=== PATIENT | male | born 1950 | race Caucasian/White ===

== ENCOUNTER 2020-09-17 16:33 | Observation (INO) | payer MEDICARE, OTHER, SELFPAY ==
[2020-09-17] VITALS (12 sets, daily range): BP systolic 173–206; BP diastolic 85–104; PULSE 62–76; RESP 16–24; TEMP 36.6–37.1; O2SAT 94–97; BMI 29.6; BMI 28.3; BMI 28.4
--- NOTE | 2020-09-17 16:46 | CT_ITS ---
We are attempting to reach an attending provider to discuss findings. An addendum with communication details will be sent when the communication is complete. STUDY: CT HEAD STROKE PROTOCOL W/O CONTRAST INJECTION REASON FOR EXAM: Male, 70 years old. STROKE, SLURRED SPEECH RADIATION DOSAGE (If Supplied By Facility): CTDIvol = ( 44.99 ) mGy, DLP = ( 846.73 ) mGycm TECHNIQUE: Transaxial CT imaging of the brain was performed without administration of intravenous contrast material. Individualized dose optimization techniques were used for this CT. COMPARISON: No relevant priors. FINDINGS: Normal soft tissue structures. Normal calvarium. Calcification of cavernous carotids and vertebral arteries. Mild atrophy and periventricular white matter ischemic changes.. Normal basal ganglia and thalami. Normal brainstem. Encephalomalacia in the left cerebellar hemisphere consistent with old infarct.. There is no intracranial hemorrhage. There are no findings of an acute ischemic infarction. Normal visualized paranasal sinuses. CT/STROKE Brain/Head without Cont IMPRESSION: Mild atrophy and periventricular white matter ischemic changes with old left cerebellar infarct. No evidence for acute bleed. If concern for acute infarct MRI recommended Electronically Signed: Christian Chen MD at 17:03 EST , Service support ,
--- NOTE | 2020-09-17 16:46 | EKG12_ITS ---
Test Reason : DYSRHYTHMIA Blood Pressure : / mmHG Vent. Rate : 071 BPM Atrial Rate : 071 BPM P-R Int : 156 ms QRS Dur : 138 ms QT Int : 432 ms P-R-T Axes : 010 -48 057 degrees QTc Int : 469 ms Normal sinus rhythm with sinus arrhythmia Left axis deviation Left ventricular hypertrophy with QRS widening Abnormal ECG Confirmed by NILO MOTA, KENYON ([id number]), clinical editor KARIE GONZALEZ ([id number]) on 09/19/2020 9:41:26 AM Referred By: Wesley Canseco Confirmed By:KENYON CORCORAN MD
--- NOTE | 2020-09-17 17:13 | CM.ED ---
Social Work responding to stroke alert. patient spouse, Alisha present. Support provided. Patient typically independent in the community. Will continue to follow as needed. Sunshine Milner MSW, DEDRA-S
[2020-09-17 17:26] LABS: Basophil# 0.05 X10^3/uL; Eosinophil# 0.02 X10^3/uL; Eosinophils% 0.4 % (0-5); Hematocrit 38.5 % (40-54); Hemoglobin 12.1 g/dL (13.0-16.5); Lymphocyte % 11.4 % (19-41); Mean Corp Hgb Conc 31.4 g/dL (32-36); Mean Corpuscular Hgb 28.9 pg (27.0-32.0); Mean Corpuscular Volume 91.9 fL (80-94); Mean Platelet Vol. 10.3 fl (6.2-12.0); Monocyte# 0.62 X10^3/uL; Monocyte% 11.8 % (0-10); NRBC Flagged by Analyzer 0 % (0-5); Neutrophil # 3.96 X10^3/uL (2.7-7.7); Neutrophil % 75.2 % (47-70); POSITIVE DIFFERENTIAL YES; Platelet Count 196 K/mm3 (150-450); RBC Distribution Width CV 15.5 % (11.6-14.6); RBC Distribution Width SD 51.6 fl (35.1-43.9); Red Blood Count 4.19 M/mm3 (4.6-6.2); White Blood Count 5.3 K/mm3 (4.4-11.0)
--- NOTE | 2020-09-17 17:30 | RAD_ITS ---
STUDY: X-RAY CHEST REASON FOR EXAM: Male, 70 years old. slurred speech TECHNIQUE: AP portable COMPARISON: None. FINDINGS: Lungs are mildly hyperinflated but clear.. There is no demonstrated pleural abnormality. Normal size heart. Normal mediastinum and carolyn. Normal visualized pulmonary arteries. Mildly calcified aortic arch and descending thoracic aorta. Dorsal spine demonstrates mild degenerative change. Normal visualized ribs, clavicles, and shoulders. There is no demonstrated abnormality of the visualized soft tissue structures of the upper abdomen. RAD/Chest 1 View IMPRESSION: No acute cardiopulmonary pathology Electronically Signed: Christian Chen MD at 18:16 EST , Service support ,
[2020-09-17 17:31] LABS: Differential Indicated SCAN CRITERIA MET
[2020-09-17 17:35] LABS: International Normalized Ratio 1.1; Prothrombin Time (Protime)PT. 13.2 SECONDS (11.7-14.9)
[2020-09-17 17:36] LABS: Partial Thromboplast Time 26.5 Seconds (24.1-36.2)
[2020-09-17 17:42] LABS: Anion Gap 1 (5-15); BUN 22 mg/dL (7-18); BUN/Creat Ratio 13.9 RATIO (10-20); Calcium,Total 8.7 mg/dL (8.5-10.1); Chloride 109 mmol/L (98-107); Creatinine, Serum 1.58 mg/dL (0.70-1.30); EST Glomerular Filtration Rate 46 mL/min (>60); Est Glom Filt Rate - Afr Amer 56 mL/min (>60); Estimated Creatinine Clearance 47.76 ml/min; Glucose 105 mg/dL (74-106); Potassium 3.9 mmol/L (3.5-5.1); Sodium Level 142 mmol/L (136-145)
--- NOTE | 2020-09-17 18:18 | ED.VISSUMM ---
- ER Visit Summary Date of Service: 09/17/20 Chief Complaint: Slurred speech History of Present Illness: The patient is a [address] Eden. He presented there this afternoon he had the onset of slurred speech. He denies any numbness, weakness, facial droop, vertigo, or change in his vision. Patient has a history of a kidney transplant 2-1/2 years ago. Physical Examination: Vitals: Stable. Afebrile. General: Well-nourished and well-developed. Head: Normocephalic atraumatic. Neck: Supple, no lymphadenopathy. No JVD. Nontender. Cardiovascular: Regular rate and rhythm. No murmurs. Respiratory: No respiratory distress. Clear to auscultation bilaterally. Abdominal: Soft, nontender, nondistended, normal bowel sounds. No guarding, rebound, or peritoneal signs. Back: Nontender. Extremities: Nontender, no edema. Skin: Normal color, no rash. Neurologic: Alert and oriented ?3. Cranial nerves II through XII are intact. Normal strength and sensation. NIH scale is 1 for dysarthria. Psych: Normal affect. Test Results: EKG is sinus at 71 with left bundle branch block. Is unchanged from 2017. Troponin is negative. Coags are normal. Chem-7 shows a chloride of 109, BUN 20, creatinine 1.58. CBC shows an H&H 12.1 38.5, 7 neutrophils 75, facets of 11, monocytes of 12. Clinical Impression(s) from Imaging Studies Brain CT 09/17/20 16:46 IMPRESSION: Mild atrophy and periventricular white matter ischemic changes with old left cerebellar infarct. No evidence for acute bleed. If concern for acute infarct MRI recommended Electronically Signed: Christian Chen MD at 17:03 EST , Service support , ADDENDUM: 09/17/20 1711 IMPRESSION: Mild atrophy and periventricular white matter ischemic changes with old left cerebellar infarct. No evidence for acute bleed. If concern for acute infarct MRI recommended N.B. : The above information has been verbally conveyed by Christian Chen MD to Curtis Cornell MD, on 09/17/2020 17:04:47 (ET). Electronically Signed: Christian Chen MD at 17:03 EST , Service support , Chest X-Ray 09/17/20 17:30 IMPRESSION: No acute cardiopulmonary pathology Electronically Signed: Christian Chen MD at 18:16 EST , Service support , Emergency Department Course and Treatment: Stroke alert was called. Patient was seen by the neurologist from [facility]. He is not a TPA candidate due to minor symptoms and slurred speech. At this time it is felt that is very unlikely that he has an LVO and that the risk of a CTA is not warranted. Treatment Plan: Patient was discussed Dr. Canseco. He will be admitted the hospital for further wish and treatment. Disposition: Admitted in stable condition. Impression: 1. Stroke. 2. History of kidney transplant. This note was generated with [employer] dictation software. It may contain incorrect words, spelling, and punctuation that were not noted in review of the chart prior to signing ED Disposition - Plan for ED Patient:
--- NOTE | 2020-09-17 18:44 | PCM.HP.STD ---
Problem List (1) CVA (cerebral vascular accident) Status: Acute (2) Renal transplant recipient Status: Chronic (3) Diabetes Status: Chronic Qualifiers: Diabetes mellitus type: type 2 (4) HTN (hypertension) Status: Chronic (5) Orthostatic hypotension Status: Chronic History of Present Illness Date of Admission: 09/17/20 Chief Complaint: slurred speech The patient is a 70 year old M with pmhx of uncontrolled hypertension and marked orthostatic hypotension with BP meds, hx renal transplant, hx DM in on license of [facility] post bariatric surgery, who presented to the ER with c/o slurred speech. This began about 1445. He was handed the phone to talk to someone and could not form words correctly - his speech was highly slurred. After about 20 mins of his called his PCP who told him to go to the ER. At the time he had no other complaints. He denies focal weakness, facial droop, difficulty ambulating, visual disturbance. In the ER CT brain showed an old stroke. He is not aware of every having a stroke in the past. His speech has markedly improved however it is not back to baseline. [] Past Medical History Past Medical History (Chronic Problems): Chronic Problems Renal transplant recipient (Chronic) Diabetes (Chronic) HTN (hypertension) (Chronic) Orthostatic hypotension (Chronic) Allergies amoxicillin Allergy (Verified 09/17/20 16:42) Unknown morphine Allergy (Verified 09/17/20 16:42) Other ursodiol Allergy (Verified 09/17/20 16:42) Rash exenatide [From Byetta] Adverse Reaction (Verified 09/17/20 16:42) Nausea Home Medications: Ambulatory Orders Medication Instructions Recorded Acyclovir [Zovirax] 400 mg PO BID PRN PRN 12/08/13 Finasteride [Proscar] 5 mg PO DAILY 12/08/13 Calcitriol [Rocaltrol] 0.25 mcg PO QODAY 04/21/17 Aspirin [Aspirin EC] 81 mg PO DAILY@0900 09/17/20 Calcium Citrate/Vitamin D3 1 tab PO 5X/DAY 09/17/20 [Calcium Citrate - Vit D Tablet] Carvedilol [Coreg (Beta Karrie)] 3.125 mg PO BID 09/17/20 Cholecalciferol (Vitamin D3) 5,000 unit PO Q72H 09/17/20 [Vitamin D3] Cyanocobalamin (Vitamin B-12) 500 mcg PO DAILY@0900 09/17/20 [Vitamin B-12] Ferrous Gluconate 324 mg PO DAILY 09/17/20 Folic Acid 1 mg PO LUNCH 09/17/20 Magnesium Oxide [Magnesium] 400 mg PO TID 09/17/20 Mycophenolate Mofetil 250 mg PO BID 09/17/20 Prednisone 5 mg PO DAILY 09/17/20 Pyridoxine HCl [Vitamin B-6] 200 mg PO BID 09/17/20 Spironolactone [Aldactone] 25 mg PO MOWEFR 09/17/20 Sulfamethoxazole/Trimethoprim 1 tab PO DAILY 09/17/20 [Sulfamethoxazole-Tmp Ss Tablet] Tacrolimus 2 mg PO DAILY@2100 09/17/20 Tacrolimus 3 mg PO DAILY@0900 09/17/20 Surgical History: gastric bypass, - - kidney transplant Psychiatric History: No pertinent psych hx Lives: Spouse/ Significant Other Smoking Status: Never smoker Tobacco Use: Non-smoker Alcohol: None Drugs: None - *Family History Maternal History Items: Cancer - breast Paternal History Items: Heart Disease - CHF, Stroke Review of Systems Constitutional: Denies: Chills, Fever, Weight Change HEENT: Denies: Head Aches, Sinus Congestion, Sinus Drainage Cardiovascular: Denies: Chest Pain, Heaviness, Light Headedness, Palpitations Respiratory: Denies: Cough, Shortness of breath at rest, Sputum production Gastrointestinal: Denies: Abdominal Pain, Nausea, Vomiting Genitourinary: Denies: Dysuria, Hesitancy, Urgency Musculoskeletal: Denies: Joint Pain, Joint Tenderness, Muscle pain Skin: Denies: Lesions, Rash, Wounds Neurological: Reports: Change in Speech, Slurred speech. Denies: Balance problems, Blurred vision, Confusion, Focal weakness, Headaches, Numbness, Tingling Psychiatric: Denies: Anxiety, Depression, Homicidal Ideations, Suicidal Ideations Hematologic/ Lymphatic: Denies: Easy Bruising, Easy Bleeding VTE Information - Inpt Only VTE Present on Admission: No VTE Mechan Device Prophylaxis: None VTE Pharm Prophylaxis ordered?: Yes - Physical Exam Vitals/I&O's: Vital Signs Temp Pulse Resp BP Pulse Ox 97.9 F 68 16 187/94 H 96 09/17/20 18:31 09/17/20 18:34 09/17/20 18:34 09/17/20 18:34 09/17/20 18:34 Oxygen Delivery Method Room Air Weight: 224 lb 13.944 oz Body Mass Index (BMI) 29.6 Finger Stick Blood Glucose 115 General: Alert, Oriented x3, Cooperative HEENT: Atraumatic, PERRLA, EOMI, Normocephalic Neck: Supple, No JVD, Negative Carotid Bruits Lungs: Clear to auscultation, Normal air movement Cardiovascular: Regular rate, No murmurs Abdomen: Bowel Sounds Present, Soft, Non Tender Extremities: No edema, Capillary Refill Less than 3 Seconds Skin: No rashes, No breakdown Musculoskeletal: No Tenderness to Palpation of Joints or Extremities Neurological: Cranial nerves II-XII grossly intact Psych/Mental Status: Normal Affect, Appropriate Laboratory Results 09/17/20 17:00: WBC 5.3, RBC 4.19 L, Hgb 12.1 L, Hct 38.5 L, MCV 91.9, MCH 28.9, MCHC 31.4 L, RDW Std Deviation 51.6 H, RDW Coeff of Lacy 15.5 H, Plt Count 196, MPV 10.3, Immature Gran % (Auto) 0.200, Neut % (Auto) 75.2 H, Lymph % (Auto) 11.4 L, [place] % (Auto) 11.8 H, Eos % (Auto) 0.4, Baso % (Auto) 1.0, Absolute Neuts (auto) 4.0, Absolute Lymphs (auto) 0.60 L, Nucleated RBC % 0 09/17/20 17:00: PT 13.2, INR 1.1, APTT 26.5 09/17/20 17:00: Sodium 142, Potassium 3.9, Chloride 109 H, Carbon Dioxide 32.0, Anion Gap 1 L, BUN 22 H, Creatinine 1.58 H, Estim Creat Clear Calc 47.76, Est GFR (MDRD) Af Amer 56 L, Est GFR (MDRD) Non-Af 46 L, BUN/Creatinine Ratio 13.9, Glucose 105, Calcium 8.7, Troponin I < 0.015 Current Medications Labetalol HCl (Labetalol (Prefilled) 20 Mg/4 Ml) 20 mg IV X1 PRN PRN Reason: BLOOD PRESSURE Assessment/Plan All Active Problems CVA (cerebral vascular accident) (Acute) 1. Acute CVA - slurred speech onset about 1445. Improving at this time. CT brain with old left cerebellar infarct unknown to pt. No CTA due to kidney transplant recipient status. Pt already on aspirin. Add statin. Obtain MRI brain, neuro consult in AM, Echo in AM. Check FLP. Check A1C. PT/OT/ST evals. Neurochecks q4h. 2. Hx kidney transplant - per [facility], 2018, continue tacrolimus, mycephenolate, prednisone, bactrim, acyclovir 3. 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 Uncontrolled HTN - pt states it is normal for his BP to be in 180's systolic because if he takes any BP meds he gets marked orthostatic hypotension. He states he has seen a neurologist for this in the past. DVT ppx: heparin DC planning: PTOT evals. no new debility, likely home no needs with neuro follow up This patient was seen by Rafy Coronel PA-C under the supervision of Dr. Canseco
[2020-09-17] MEDS: Mycophenolate Mofetil 250 MG Capsule PO (21:35)
[2020-09-17] MEDS: Tacrolimus Anhydrous 1 MG Capsule 2 MG PO (21:36)
[2020-09-17] MEDS: Carvedilol 6.25 MG Tablet 3.125 MG PO (21:37)
[2020-09-17] MEDS: Heparin Injection (Vial) 5,000 UNIT/ML VIAL 5000 UNIT SC (21:40)
[2020-09-17] MEDS: Atorvastatin Calcium 80 MG Tablet PO (21:40)
[2020-09-18] VITALS (7 sets, daily range): BP systolic 158–182; BP diastolic 67–82; PULSE 61–70; RESP 15–18; TEMP 36.8–37.2; O2SAT 94–96; BMI 28.3
[2020-09-18 07:39] LABS: Cholesterol 190 mg/dL (200); High Density Lipoprotein 72 mg/dL; Triglycerides 70 mg/dL; Very Low Density Lipoprotein 14 mg/dL (5-40)
--- NOTE | 2020-09-18 08:30 | MRI_ITS ---
STUDY: MRA OF THE HEAD WITHOUT CONTRAST REASON FOR EXAM: Male, 70 years old. Dysarthria, slurred speech TECHNIQUE: 3-D odcv-oy-wytcmy (TOF) imaging was performed with MIPs. The study was performed unenhanced. COMPARISON: None. FINDINGS: Normal bilateral petrous carotid arteries. Normal right cavernous carotid artery with a normal supraclinoid bifurcation. Normal left cavernous carotid artery with a normal supraclinoid bifurcation. Normal right A1 segments of the anterior cerebral artery. Normal left A1 segments of the anterior cerebral artery. There is non-visualization of the anterior communicating artery (ACOM). Normal bilateral A2 segments of the anterior cerebral arteries. Normal right M1 and M2 segments of the middle cerebral arteries, with a normal M1 bifurcation. Normal left M1 and M2 segments of the middle cerebral arteries, with a normal M1 bifurcation. Normal right posterior communicating artery (PCOM). Normal left posterior communicating artery (PCOM). Normal bilateral vertebral arteries. Normal basilar artery with a normal basilar bifurcation. The visualized bilateral superior cerebellar (SCA) arteries are normal. Normal bilateral P1, P2 and visualized P3 segments of the posterior cerebral arteries. There is no demonstrated aneurysm of the grayling of [place]. There is no major vessel occlusion or hemodynamically significant stenosis. There is no demonstrated abnormality of the visualized brain. MRI/MRA Head ONLY without Contrast IMPRESSION: Normal MRA of the head Electronically Signed: Edmundo Heart MD at 10:38 EST Tel , Service support ,
--- NOTE | 2020-09-18 08:30 | MRI_ITS ---
STUDY: MRA NECK WITHOUT CONTRAST REASON FOR EXAM: Male, 70 years old. Dysarthria TECHNIQUE: Source images were obtained, MIPs were performed. The study was performed unenhanced. COMPARISON: None. FINDINGS: RIGHT CAROTID ARTERIES: Normal right common carotid artery (CCA). Normal right common carotid bulb. Normal origin of the right internal carotid (ICA) artery without a hemodynamically significant stenosis. Normal visualized cervical portion of the right internal carotid artery. Normal origin of the right external carotid artery (ECA). LEFT CAROTID ARTERIES: Normal left common carotid artery (CCA). Normal left common carotid bulb. Normal origin of the left internal carotid (ICA) artery without a hemodynamically significant stenosis. Normal visualized cervical portion of the left internal carotid artery. Normal origin of the left external carotid artery (ECA). VERTEBRAL ARTERIES: Normal antegrade flow within the bilateral vertebral artery without a hemodynamically significant stenosis. MRI/MRA Neck without Contrast IMPRESSION: Normal bilateral cervical carotid and vertebral arteries. Electronically Signed: Edmundo Heart MD at 10:40 EST Tel , Service support ,
--- NOTE | 2020-09-18 08:30 | MRI_ITS ---
We are attempting to reach an attending provider to discuss findings. An addendum with communication details will be sent when the communication is complete. STUDY: MRI BRAIN WITHOUT CONTRAST REASON FOR EXAM: Male, 70 years old. Dysarthria, slurred speech TECHNIQUE: Standardized multiplanar fat and water weighted pulse sequences were obtained. COMPARISON: CT 09/17/2020 FINDINGS: There is mild cerebral atrophy with widening of the extra-axial spaces and ventricular dilatation. There are a limited number of small white matter hyperintensities, distributed throughout the deep white matter tracts of the cerebral hemispheres, consistent with mild chronic white matter ischemic changes. 1 cm linear of hyperintensity of the periventricular white matter of the left parietal lobe demonstrates restricted diffusion consistent with an acute/subacute white matter infarct. Normal T2* images of the brain without demonstrated susceptibility artifact. There is no demonstrated hemosiderin stain. Normal bilateral basal ganglia. Normal thalami. There is no extra-axial fluid accumulation. Normal flow voids within the major intracranial circulation suggesting patency by spin echo criteria. Normal sella turcica, pituitary gland, infundibular stalk, optic chiasm and hypothalamus. Normal tectal plate and pineal gland. Normal midbrain, zoey and medulla. Focal encephalomalacia and gliosis within the left hemisphere of the cerebellum likely from a prior infarct. Normal basal cisterns. Normal bilateral temporal bones. Normal bilateral internal auditory canals. No demonstrated orbital abnormality, within the constraints of a routine brain study. Normal visualized paranasal sinuses. Normal calvarium and skull base. Normal visualized soft tissue structures. Normal visualized upper cervical spine. MRI/Brain without Contrast IMPRESSION: Involutional changes of the brain, as described above. 1 cm acute/subacute linear infarct of the periventricular white matter of the left parietal lobe. Electronically Signed: Edmundo Heart MD at 10:35 EST Tel , Service support ,
[2020-09-18 08:36] LABS: Bedside Glucose 115 mg/dL (70-110)
[2020-09-18] MEDS: Carvedilol 6.25 MG Tablet 3.125 MG PO (08:42)
[2020-09-18] MEDS: Heparin Injection (Vial) 5,000 UNIT/ML VIAL 5000 UNIT SC (08:42)
[2020-09-18] MEDS: Smz/Tmp Ds Tablet 0.5 TABLET PO (08:43)
[2020-09-18] MEDS: Aspirin E.C. 81 MG Tablet PO (08:43)
[2020-09-18] MEDS: Tacrolimus Anhydrous 1 MG Capsule 3 MG PO (08:44)
[2020-09-18] MEDS: Spironolactone 25 MG Tablet PO (08:44)
[2020-09-18] MEDS: Mycophenolate Mofetil 250 MG Capsule PO (08:44)
--- NOTE | 2020-09-18 10:09 | CDU_ITS ---
Rt. Velocities/BP Lt. Velocities/BP Prox CCA 79.9/5.6 cm/sec. Prox CCA 86/10.2 cm/sec. Mid CCA 61.9/8 cm/sec. Mid CCA 70.6/9.1 cm/sec. Dist CCA 53.1/4.7 cm/sec. Dist CCA 58.6/10.2 cm/sec. Prox ICA 42.1/9.1 cm/sec. Prox ICA 40.4/6.4 cm/sec. Mid ICA 52/13.5 cm/sec. Mid ICA 52.6/9.9 cm/sec. Dist ICA 67.4/14.6 cm/sec. Dist ICA 64.8/14.2 cm/sec. Rt. ICA/CCA = 1.1. Lt. ICA/CCA = 0.92. Prox ECA 65.1/2.5 cm/sec. Prox ECA 81.6 cm/sec. Rt. Vert. 39/8.8 cm/sec. Lt. Vert. 51.7/11.6 cm/sec. Right Extracranial There is homogeneous, smooth atherosclerotic plaque noted in the right common carotid artery. There is heterogeneous, irregular atherosclerotic plaque noted in the right internal carotid artery. There is homogeneous, smooth atherosclerotic plaque noted in the right external carotid artery. Antegrade flow is noted in the right vertebral artery. Left Extracranial There is homogeneous, smooth atherosclerotic plaque noted in the left common carotid artery. There is heterogeneous, irregular atherosclerotic plaque noted in the left internal carotid artery. There is homogeneous, smooth atherosclerotic plaque noted in the left external carotid artery. Antegrade flow is noted in the left vertebral artery. Procedure Carotid Duplex 43310. This is a Carotid Duplex examination using B-mode, color flow and specral Doppler. Exam performed in department. Interpretation Summary Minimal calcific plaque at the proximal right internal carotid artery with less than 50% stenosis Less than 5% stenosis right external carotid Minimal calcific plaque at the proximal left internal carotid with less than 50% stenosis Less than 50% stenosis left external carotid Patent and antegrade vertebrals bilaterally Ordering Physician: Rafy Coronel Referring Physician: James Eden Performed By: Bee Stanton RVT
--- NOTE | 2020-09-18 10:44 | TELEMED_ITS ---
[facility] has confirmed receipt of a request for visit. This document confirms receipt of the order initiating the consult. To find the results of the consultation, please view the patient's reports for the scanned Telemed Consult.
--- NOTE | 2020-09-18 11:53 | CASEMGMT ---
SW completed a PHQ 9 with patient as he had a TIA. He scored a 2 which indicates minimal depression. Patient denied the need for any counseling resources. Alma COLMENARES MSW
--- NOTE | 2020-09-18 11:59 | CASEMGMT ---
GABRIEL CM Note: Script for outpatient PT @ [facility] received. Faxed to [facility] and called to notify of referral. They will contact pt in next few days for time set up. Nurse will update patient on dc. Isha ALEMAN RN ACM
--- NOTE | 2020-09-18 14:36 | PCM.DC ---
- Discharge Diagnoses Current Active Problems: Current Active and Chronic Problems CVA (cerebral vascular accident) (Acute) Renal transplant recipient (Chronic) Diabetes (Chronic) HTN (hypertension) (Chronic) Orthostatic hypotension (Chronic) You will use the following diet at home:: Calorie/Carbohydrate Controlled (specify 1200, 1400, etc) - 1800 gustavo / day, Cardiac Your food should be the consistency of: Regular Your liquids should be the consistency of: Regular/Thin Discharge Activity: Return to Normal Activity Additional Instructions: You will take both Aspirin 81 mg and Plavix (clopidogrel) 75 mg daily for 21 days. After 21 days, stop taking aspirin, but continue to take plavix daily. Allergies/Adverse Reactions: Allergies amoxicillin Allergy (Verified 09/17/20 16:42) Unknown morphine Allergy (Verified 09/17/20 16:42) Other ursodiol Allergy (Verified 09/17/20 16:42) Rash exenatide [From Byetta] Adverse Reaction (Verified 09/17/20 16:42) Nausea Medications to take at Discharge Acyclovir [Zovirax] 400 mg PO BID PRN PRN 12/08/13 Finasteride [Proscar] 5 mg PO DAILY 12/08/13 Calcitriol [Rocaltrol] 0.25 mcg PO QODAY 04/21/17 Aspirin [Aspirin EC] 81 mg PO DAILY@0900 09/17/20 Calcium Citrate/Vitamin D3 [Calcium Citrate - Vit D Tablet] 1 tab PO 5X/DAY 09/17/20 Carvedilol [Coreg (Beta Karrie)] 3.125 mg PO BID 09/17/20 Cholecalciferol (Vitamin D3) [Vitamin D3] 5,000 unit PO Q72H 09/17/20 Cyanocobalamin (Vitamin B-12) [Vitamin B-12] 500 mcg PO DAILY@0900 09/17/20 Ferrous Gluconate 324 mg PO DAILY 09/17/20 Folic Acid 1 mg PO LUNCH 09/17/20 Magnesium Oxide [Magnesium] 400 mg PO TID 09/17/20 Mycophenolate Mofetil 250 mg PO BID 09/17/20 Prednisone 5 mg PO DAILY 09/17/20 Pyridoxine HCl [Vitamin B-6] 200 mg PO BID 09/17/20 Spironolactone [Aldactone] 25 mg PO MOWEFR 09/17/20 Sulfamethoxazole/Trimethoprim [Sulfamethoxazole-Tmp Ss Tablet] 1 tab PO DAILY 09/17/20 Tacrolimus 2 mg PO DAILY@2100 09/17/20 Tacrolimus 3 mg PO DAILY@0900 09/17/20 Atorvastatin Calcium [Lipitor] 80 mg PO QHS #30 tab 09/18/20 Clopidogrel Bisulfate [Plavix] 75 mg PO DAILY #30 tab 09/18/20 The following prescriptions were given: Atorvastatin Calcium [Lipitor] 80 mg PO QHS #30 tab Transmission Status: Pending to [address] Clopidogrel Bisulfate [Plavix] 75 mg PO DAILY #30 tab Transmission Status: Pending to [place] [id number] [facility] Orders to be completed after discharge: Cardiac Holter Monitor, Set-Up [[facility]] Time Frame: 09/18/20, Location: None Selected Primary Care Physician: James Eden MD [Primary Care Provider] - Please follow up with your Primary Care Physician in: 1-2 weeks Test Results: Test results from this visit will be discussed in further detail at your follow-up appointment, if applicable. Please Follow Up With: Chaparro Mendoza MD - Neurology When: 2 weeks Please Follow Up With: Denis Pitts MD When: call for appointment Proposed Discharge Date: 09/18/20
--- NOTE | 2020-09-18 14:38 | DS.PCM_ITS ---
<Rafy Coronel - Last Filed: 09/18/20 14:38> Discharge Date and Diagnosis - Problem List Patient Problems: Active and Suspected Problems CVA (cerebral vascular accident) (Acute) Date of Admission: 09/17/20 Date of Discharge: 09/18/20 - Primary Discharge Diagnosis Acute Problems: Active Problems CVA (cerebral vascular accident) (Acute) - 1 cm acute/subacute linear infarct of the periventricular white matter of the left parietal lobe - Secondary Discharge Diagnosis Chronic Problems: Chronic Problems Renal transplant recipient (Chronic) Diabetes (Chronic) HTN (hypertension) (Chronic) Orthostatic hypotension (Chronic) Hospital Course and Treatment Imaging Results: CT/STROKE Brain/Head without Cont IMPRESSION: Mild atrophy and periventricular white matter ischemic changes with old left cerebellar infarct. No evidence for acute bleed. If concern for acute infarct MRI recommended MRI/Brain without Contrast IMPRESSION: Involutional changes of the brain, as described above. 1 cm acute/subacute linear infarct of the periventricular white matter of the left parietal lobe. RAD/Chest 1 View IMPRESSION: No acute cardiopulmonary pathology MRI/MRA Head ONLY without Contrast IMPRESSION: Normal MRA of the head MRI/MRA Neck without Contrast IMPRESSION: Normal bilateral cervical carotid and vertebral arteries. 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 This started suddenly at home when he attempted to use the phone. He was brought to the ER and CT brain was negative for acute stroke. He had marked improvement in his speech in the ER. He was not felt to be a tPA candidate. He was admitted for stroke workup. No events on tele. MRI brain was obtained and did show an acute infarct as above. MRA head and neck without contrast were obtained without occlusion. Carotid US was obtained as no contrast could be given with MRA. Results are pending. Echo is pending. He continued to have minimal symptoms. Neuro was consulted. They recommended aspirin, plavix, and statin. As he was on aspirin prior to this, they recommended 3 weeks dual anti platelets followed by switching to plavix only. They recommended 48 hour monitor as well, which was arranged via Dr. Pitts. He was discharged home in stable condition. He will follow up with his PCP in 1-2 weeks, Neurology 2 weeks, and Cardiology as directed for the 48 hour monitor. This patient was seen by Rafy Coronel PA-C under the supervision of Doctor Usman. [] Patient Problems: Active and Suspected Problems CVA (cerebral vascular accident) (Acute) - Physical Exam Vitals/I&O's: Vital Signs Temp Pulse Resp BP Pulse Ox 98.9 F 66 18 171/81 H 96 09/18/20 14:30 09/18/20 14:30 09/18/20 14:30 09/18/20 14:30 09/18/20 14:30 Oxygen Delivery Method Room Air Weight: 215 lb Body Mass Index (BMI) 28.3 Finger Stick Blood Glucose 115 Intake and Output for Last 24 Hours 09/16/20 09/17/20 09/18/20 23:59 23:59 23:59 Intake Total 840 / 840 Balance 840 / 840 General: Alert, Oriented x3, Cooperative HEENT: Atraumatic, PERRLA, EOMI, Normocephalic Neck: Supple, No JVD, Negative Carotid Bruits Lungs: Clear to auscultation, Normal air movement Cardiovascular: Regular rate, No murmurs Abdomen: Bowel Sounds Present, Soft, Non Tender Extremities: No edema, Capillary Refill Less than 3 Seconds Skin: No rashes, No breakdown Musculoskeletal: No Tenderness to Palpation of Joints or Extremities Neurological: Cranial nerves II-XII grossly intact, Slurred Speech - mild, primarily S sound Psych/Mental Status: Normal Affect, Appropriate, Alert and oriented to time, place, person, mood and affect Laboratory Results 09/17/20 16:34: POC Glucose 115 H 09/17/20 17:00: WBC 5.3, RBC 4.19 L, Hgb 12.1 L, Hct 38.5 L, MCV 91.9, MCH 28.9, MCHC 31.4 L, RDW Std Deviation 51.6 H, RDW Coeff of Lacy 15.5 H, Plt Count 196, MPV 10.3, Immature Gran % (Auto) 0.200, Neut % (Auto) 75.2 H, Lymph % (Auto) 11.4 L, Bleckley % (Auto) 11.8 H, Eos % (Auto) 0.4, Baso % (Auto) 1.0, Absolute Neuts (auto) 4.0, Absolute Lymphs (auto) 0.60 L, Nucleated RBC % 0 09/17/20 17:00: PT 13.2, INR 1.1, APTT 26.5 09/17/20 17:00: Sodium 142, Potassium 3.9, Chloride 109 H, Carbon Dioxide 32.0, Anion Gap 1 L, BUN 22 H, Creatinine 1.58 H, Estim Creat Clear Calc 47.76, Est GFR (MDRD) Af Amer 56 L, Est GFR (MDRD) Non-Af 46 L, BUN/Creatinine Ratio 13.9, Glucose 105, Calcium 8.7, Troponin I < 0.015 09/18/20 06:40: Triglycerides 70, Cholesterol 190, LDL Cholesterol 104, VLDL Cholesterol 14, HDL Cholesterol 72 Current Medications Aspirin (Aspirin E.C. 81 Mg Tablet) 81 mg PO DAILYCM [facility] Last Admin: 09/18/20 08:43 Dose: 81 mg Documented by: Atorvastatin Calcium (Atorvastatin Calcium 80 Mg Tablet) 80 mg PO QHS [facility] Last Admin: 09/17/20 21:40 Dose: 80 mg Documented by: Carvedilol (Carvedilol 6.25 Mg Tablet) 3.125 mg PO BID [facility] Last Admin: 09/18/20 08:42 Dose: 3.125 mg Documented by: Heparin Sodium (Porcine) (Heparin Injection (Vial) 5,000 Unit/Ml Vial) 5,000 unit SC Q12 [facility] Last Admin: 09/18/20 08:42 Dose: 5,000 unit Documented by: Hydralazine HCl (Hydralazine 20 Mg/Ml Vial) 5 mg IV Q30M PRN PRN Reason: to maintain BP goals Labetalol HCl (Labetalol (Prefilled) 20 Mg/4 Ml) 10 - 20 mg IV Q10M PRN PRN PRN Reason: to Maintain BP Goals Mycophenolate Mofetil (Mycophenolate Mofetil 250 Mg Capsule) 250 mg PO BID [facility] Last Admin: 09/18/20 08:44 Dose: 250 mg Documented by: Sodium Chloride (0.9% Saline Lock 10 Ml Syringe) 10 - 40 ml IV UD PRN PRN Reason: SALINE FLUSH Spironolactone (Spironolactone 25 Mg Tablet) 25 mg PO MOWEFR [facility] Last Admin: 09/18/20 08:44 Dose: 25 mg Documented by: Tacrolimus (Tacrolimus Anhydrous 1 Mg Capsule) 2 mg PO DAILY@2200 [facility] Last Admin: 09/17/20 21:36 Dose: 2 mg Documented by: Tacrolimus (Tacrolimus [facility] Mg Capsule) [facility] Last Admin: 09/18/20 08:44 Dose: 3 mg Documented by: Trimethoprim/Sulfamethoxazole (Smz/Tmp Ds Tablet) [facility] Last Admin: 09/18/20 08:43 Dose: 0.5 tablet Documented by: Discharge Diet: Low fat/ Low Cholesterol, 1800 Calorie Control Diet, 2000 mg Sodium Diet Discharge Activity: Return to Normal Activity Home Medications: Medications to take at Discharge Acyclovir [Zovirax] 400 mg PO BID PRN PRN 12/08/13 Finasteride [Proscar] 5 mg PO DAILY 12/08/13 Calcitriol [Rocaltrol] 0.25 mcg PO QODAY 04/21/17 Aspirin [Aspirin EC] 81 mg PO DAILY@0900 09/17/20 Calcium Citrate/Vitamin D3 [Calcium Citrate - Vit D Tablet] 1 tab PO 5X/DAY 09/17/20 Carvedilol [Coreg (Beta Karrie)] 3.125 mg PO BID 09/17/20 Cholecalciferol (Vitamin D3) [Vitamin D3] 5,000 unit PO Q72H 09/17/20 Cyanocobalamin (Vitamin B-12) [Vitamin B-12] 500 mcg PO DAILY@0900 09/17/20 Ferrous Gluconate 324 mg PO DAILY 09/17/20 Folic Acid 1 mg PO LUNCH 09/17/20 Magnesium Oxide [Magnesium] 400 mg PO TID 09/17/20 Mycophenolate Mofetil 250 mg PO BID 09/17/20 Prednisone 5 mg PO DAILY 09/17/20 Pyridoxine HCl [Vitamin B-6] 200 mg PO BID 09/17/20 Spironolactone [Aldactone] 25 mg PO MOWEFR 09/17/20 Sulfamethoxazole/Trimethoprim [Sulfamethoxazole-Tmp Ss Tablet] 1 tab PO DAILY 09/17/20 Tacrolimus 2 mg PO DAILY@2100 09/17/20 Tacrolimus 3 mg PO DAILY@0900 09/17/20 Atorvastatin Calcium [Lipitor] 80 mg PO QHS #30 tab 09/18/20 Clopidogrel Bisulfate [Plavix] 75 mg PO DAILY #30 tab 09/18/20 Following Prescriptions Were Given to Patient: Atorvastatin Calcium [Lipitor] 80 mg PO QHS #30 tab Transmission Status: Received by TERESITA NAIDU RD Clopidogrel Bisulfate [Plavix] 75 mg PO DAILY #30 tab Transmission Status: Received by TERESITA NAIDU RD Other Amb Orders: Cardiac Holter Monitor, Set-Up [CVS] Time Frame: 09/18/20, Location: None Selected Echo Complete W/ Contrast [ECHO] Time Frame: 1 Day, Facility: [facility], [place], Location: [facility] Primary Care Physician: James Eden MD [Primary Care Provider] - Please follow up with your Primary Care Physician in: 1-2 weeks Please Follow Up With: Chaparro Mendoza MD - Neurology When: 2 weeks Please Follow Up With: Denis Pitts MD When: call for appointment Disposition: Home Minutes spent on discharge:: 35 Patient Condition:: Stable Medical Necessity - Tobacco Use Smoking Status: Never smoker Tobacco Use: Non-smoker Meaningful Use Info Meaningful Use Diagnoses (Choose all that apply): Ischemic CVA - CVA Therapy Assessed for PT,OT and/or ST?: Yes - Ischemic Stroke Antithrombotic order at d/c?: Yes Dx of Atrial fib/flutter?: No Statins at discharge?: Yes Primary Dx Acute Ischemic CVA?: Yes IV tPA ordered during stay?: No Reason IV t-PA not ordered: Procedure not Indicated <Milena Mary - Last Filed: 09/18/20 15:11> Discharge Date and Diagnosis - Primary Discharge Diagnosis Acute Problems: Active Problems CVA (cerebral vascular accident) (Acute) - Secondary Discharge Diagnosis Chronic Problems: Chronic Problems Renal transplant recipient (Chronic) Diabetes (Chronic) HTN (hypertension) (Chronic) Orthostatic hypotension (Chronic) Hospital Course and Treatment Imaging Results: 09/18/20 08:30 Brain without Contrast [MRI] Stat MRA Head ONLY without Contrast [MRI] Stat MRA Neck without Contrast [MRI] Stat 09/18/20 14:49 Echo Complete [ECHO] Routine Summary of Care Provided: I agree with the above and the following is a reflection of my independent history and exam The patient is a 70 year old WM who presented to the ED on 09/17/2020 with acute onset of dysarthria. He was on the phone when it started. Stroke team was gustavo led and in the ED his CT was negative. His speech had markedly improved and was felt not to need tPA per [facility] stroke service. With his abn baseline sCr and his h/o renal transplant a CTA or MRA was not able to be performed but his MRI was significant for acute infarct 1 cm in the L parietal lobe in the periventricular white matter. SOC Neurology was consulted and recommended an DAPT x 21 days daily and then Plavix daily, statin, and a 48 hr Holter monitor. This and an outpt ECHO were ordered for d/c and the pt will f/u with cardiology for this as well as neurology in 2 weeks and his PCP in 1-2 weeks. His sx had not completely resolved at d/c but per pt were much improved. He will also receive and order for outpt [employer]. Total d/c time > 31' - Physical Exam Vitals/I&O's: Vital Signs Temp Pulse Resp BP Pulse Ox 98.9 F 70 18 171/81 H 96 09/18/20 14:30 09/18/20 14:56 09/18/20 14:30 09/18/20 14:30 09/18/20 14:30 Oxygen Delivery Method Room Air Weight: 97.522 kg Body Mass Index (BMI) 28.3 Finger Stick Blood Glucose 115 Intake and Output for Last 24 Hours 09/16/20 09/17/20 09/18/20 23:59 23:59 23:59 Intake Total 840 / 840 Balance 840 / 840 General: Alert, Oriented x3, Cooperative, No apparent distress, Well developed, Well nourished, - - Older WM sitting up in bed watching TV. Appears well HEENT: Atraumatic, PERRLA, EOMI, Normocephalic Oral: Moist Mucosa, No Gingival or Mucosal Lesions/ Ulcerations Neck: Supple Lungs: Clear to auscultation, Normal air movement, No rhonchi, No wheeze, No rales Cardiovascular: Regular rate, Regular Rhythm, Normal S1, Normal S2, Murmur - 3/6 SM and radiates to B carotids, No rub noted, No Gallop Abdomen: Bowel Sounds Present, Soft, Non Tender, Non-Distended, No hernias noted Extremities: No clubbing, No cyanosis, No edema, Capillary Refill Less than 3 Seconds, Peripheral Pulses Normal Skin: No rashes, No breakdown Musculoskeletal: No Tenderness to Palpation of Joints or Extremities, No Muscle Wasting Neurological: Cranial nerves II-XII grossly intact, Neuro grossly intact, Slurred Speech - mild, primarily S sound and per pt has improved since onset, Muscle tone normal, Sensory exam intact to light touch and pain, Coordination normal Psych/Mental Status: Normal Affect, Appropriate, Alert and oriented to time, place, person, mood and affect Laboratory Results 09/17/20 16:34: POC Glucose 115 H 09/17/20 17:00: WBC 5.3, RBC 4.19 L, Hgb 12.1 L, Hct 38.5 L, MCV 91.9, MCH 28.9, MCHC 31.4 L, RDW Std Deviation 51.6 H, RDW Coeff of Lacy 15.5 H, Plt Count 196, MPV 10.3, Immature Gran % (Auto) 0.200, Neut % (Auto) 75.2 H, Lymph % (Auto) 11.4 L, Bleckley % (Auto) 11.8 H, Eos % (Auto) 0.4, Baso % (Auto) 1.0, Absolute Neuts (auto) 4.0, Absolute Lymphs (auto) 0.60 L, Nucleated RBC % 0 09/17/20 17:00: PT 13.2, INR 1.1, APTT 26.5 09/17/20 17:00: Sodium 142, Potassium 3.9, Chloride 109 H, Carbon Dioxide 32.0, Anion Gap 1 L, BUN 22 H, Creatinine 1.58 H, Estim Creat Clear Calc 47.76, Est GFR (MDRD) Af Amer 56 L, Est GFR (MDRD) Non-Af 46 L, BUN/Creatinine Ratio 13.9, Glucose 105, Calcium 8.7, Troponin I < 0.015 09/18/20 06:40: Triglycerides 70, Cholesterol 190, LDL Cholesterol 104, VLDL Cholesterol 14, HDL Cholesterol 72 Current Medications Aspirin (Aspirin E.C. 81 Mg Tablet) 81 mg PO DAILYCM [facility] Last Admin: 09/18/20 08:43 Dose: 81 mg Documented by: Atorvastatin Calcium (Atorvastatin Calcium 80 Mg Tablet) 80 mg PO QHS [facility] Last Admin: 09/17/20 21:40 Dose: 80 mg Documented by: Carvedilol (Carvedilol 6.25 Mg Tablet) 3.125 mg PO BID [facility] Last Admin: 09/18/20 08:42 Dose: 3.125 mg Documented by: Heparin Sodium (Porcine) (Heparin Injection (Vial) 5,000 Unit/Ml Vial) 5,000 unit SC Q12 [facility] Last Admin: 09/18/20 08:42 Dose: 5,000 unit Documented by: Hydralazine HCl (Hydralazine 20 Mg/Ml Vial) 5 mg IV Q30M PRN PRN Reason: to maintain BP goals Labetalol HCl (Labetalol (Prefilled) 20 Mg/4 Ml) 10 - 20 mg IV Q10M PRN PRN PRN Reason: to Maintain BP Goals Mycophenolate Mofetil (Mycophenolate Mofetil 250 Mg Capsule) 250 mg PO BID [facility] Last Admin: 09/18/20 08:44 Dose: 250 mg Documented by: Sodium Chloride (0.9% Saline Lock 10 Ml Syringe) 10 - 40 ml IV UD PRN PRN Reason: SALINE FLUSH Spironolactone (Spironolactone 25 Mg Tablet) 25 mg PO MOWEFR [facility] Last Admin: 09/18/20 08:44 Dose: 25 mg Documented by: Tacrolimus (Tacrolimus Anhydrous 1 Mg Capsule) 2 mg PO DAILY@2200 [facility] Last Admin: 09/17/20 21:36 Dose: 2 mg Documented by: Tacrolimus (Tacrolimus Anhydrous 1 Mg Capsule) [facility] Last Admin: 09/18/20 08:44 Dose: 3 mg Documented by: Trimethoprim/Sulfamethoxazole (Smz/Tmp Ds Tablet) [facility] Last Admin: 09/18/20 08:43 Dose: 0.5 tablet Documented by: Meaningful Use Info Meaningful Use Diagnoses (Choose all that apply): Ischemic CVA - CVA Therapy Assessed for PT,OT and/or ST?: Yes - Ischemic Stroke Antithrombotic order at d/c?: Yes Dx of Atrial fib/flutter?: No Anticoagulant at discharge?: No Reason anticoagulant not ordered: Treatment not Indicated Statins at discharge?: Yes Primary Dx Acute Ischemic CVA?: Yes IV tPA ordered during stay?: No Reason IV t-PA not ordered: Procedure not Indicated Inpatient E&M: 00232 Disch Hosp
== END 2020-09-18 14:37 | disposition home or self-care (01) ==
LOC: ED 16:52 → PCU 22:21
PROVIDERS: Admitting Provider Internal Medicine; Emergency Provider Emergency Medicine; PCP Family Medicine; Referring Provider Internal Medicine; Visit Provider Internal Medicine
DX: I63.9 Cerebral infarction, unspecified (principal); R47.89 Other speech disturbances; Z94.0 Kidney transplant status; I95.1 Orthostatic hypotension; Z98.84 Bariatric surgery status; I10 Essential (primary) hypertension; E11.9 Type 2 diabetes mellitus without complications; Z79.899 Other long term (current) drug therapy; Z79.82 Long term (current) use of aspirin; Z86.73 Personal history of transient ischemic attack (TIA), and cerebral infarction without residual deficits
CPT/HCPCS: 70450; 70544; 70547; 70551; 71045; 80048; 80061; 82962; 84484; 85025; 85610; 85730; 92523; 92610; 93005; 93225; 93226; 93880; 96372; 97162; 97166; 99218; 99285; A4216; G0378

== ENCOUNTER → 2020-09-18 14:49 | Outpatient (CLI) | payer MEDICARE, OTHER, SELFPAY ==
[2020-09-17 18:56] VITALS: BMI 28.3
== END ==
PROVIDERS: PCP Family Medicine; Referring Provider Physician Assistant; Visit Provider Physician Assistant
DX: Z86.73 Personal history of transient ischemic attack (TIA), and cerebral infarction without residual deficits (principal)
CPT/HCPCS: 93225; 93226

== ENCOUNTER 2020-09-24 10:23 | Outpatient (RCR) | payer MEDICARE, OTHER, SELFPAY ==
[2020-09-17 18:56] VITALS: BMI 28.3
[2020-09-18 15:13] VITALS: BMI 28.3
--- NOTE | 2020-09-24 14:41 | HP.SP.AD_ITS ---
History - History Date of Eval: 09/24/20 Medical Diagnosis (from RX): CVA Date of Onset of Diagnosis: 09/17/20 Previous speech therapy: Yes Results: Evaluation in hospital. Other Relevant Medical History/Diagnoses/Surgery: Renal transplant recipient (Chronic). HTN (hypertension) (Chronic). Orthostatic hypotension (Chronic). Gastric Bypass Medications related to this diagnosis: Acyclovir [Zovirax] 400 mg PO BID PRN PRN 12/08/13. Finasteride [Proscar] 5 mg PO DAILY 12/08/13. Calcitriol [Rocaltrol] 0.25 mcg PO QODAY 04/21/17. Aspirin [Aspirin EC] 81 mg PO DAILY@ 0900 09/17/20. Calcium Citrate/Vitamin D3 [Calcium Citrate - Vit D Tablet] 1 tab PO 5X/DAY 09/17/20. Carvedilol [Coreg (Beta Karrie)] 3.125 mg PO BID 09/17/20. Cholecalciferol (Vitamin D3) [Vitamin D3] 5,000 unit PO Q72H 09/17/20. Cyanocobalamin (Vitamin B-12) [Vitamin B-12] 500 mcg PO DAILY@0900 09/17/20. Ferrous Gluconate 324 mg PO DAILY 09/17/20. Folic Acid 1 mg PO LUNCH 09/17/20. Magnesium Oxide [Magnesium] 400 mg PO TID 09/17/20. Mycophenolate Mofetil 250 mg PO BID 09/17/20. Prednisone 5 mg PO DAILY 09/17/20. Pyridoxine HCl [Vitamin B-6] 200 mg PO BID 09/17/20. Spironolactone [Aldactone] 25 mg PO MOWEFR 09/17/20. Sulfamethoxazole/Trimethoprim [Sulfamethoxazole-Tmp Ss Tablet] 1 tab PO DAILY 09/17/20. Tacrolimus 2 mg PO DAILY@2100 09/17/20. Tacrolimus 3 mg PO DAILY@0900 09/17/20. Atorvastatin Calcium [Lipitor] 80 mg PO QHS #30 tab 09/18/20. Clopidogrel Bisulfate [Plavix] 75 mg PO DAILY #30 tab 09/18/20 Smoking Status: Never smoker Hx Smoking: No Hx Tobacco Use: No - Pain Is pain an issue with your current prescribed condition?: No - Personal Occupation: Retired. Right Hearing Abillity: Normal Left Hearing Abillity: Normal Visual Assistive Devices: Glasses Patient Allergies - Allergies Allergies amoxicillin Allergy (Verified 09/17/20 16:42) Unknown morphine Allergy (Verified 09/17/20 16:42) Other ursodiol Allergy (Verified 09/17/20 16:42) Rash exenatide [From [place]] Adverse Reaction (Verified 09/17/20 16:42) Nausea Objective Oral Motor - Oral Status Dentition: WNL - Labial Impairment: WNL Closure: WNL Pucker: WNL Retraction: WNL Alternating Pucker/Retraction: WNL Involuntary Movement noted: No - Lingual Impairment: WNL Protrusion: WNL Retraction: WNL Involuntary Movement: No - Jaw Impairment: WNL Opening: WNL Closing: WNL Involuntary Movement: No - Respiratory Status Respiratory Status: Room Air Subjective Dysphagia - Current Diet Solids Current Diet: Regular - Current Diet Liquids Current Liquids: Thin Subjective Dysarthria/Motor - Subjective Subjective: Patient reported mild difficult. Objective Dysarthira/Motor - Speech Intelligibility Single Words: WNL Sentences: WNL Conversation: WNL - Volume Volume: WNL - Consistency w/Multiple Repetitions Words: WNL Phrases: WNL - Observation Observation of Apraxia of Speech: No Oral Groping for Placement: No Inconsistent Errors: No - Awareness/Strategy Use Uses strategies effectively and consistently to improve intelligibility or listener's understanding of message: Yes Other Impressions - Comments Speech -: Patient reported that he gets more difficult to understand when he gets tired. He is one week post CVA and intelligibility today was 100%. He reported being able to effectively use strategies of reduced rate and over articulation. He is completing oral motor exercises 5-6 times a day as given by hospital [employer]. He reported also that his speech has gotten better in the week he has been home. Plan - Plan Plan: No speech therapy warranted at this time. - Recommendations MBS: No Treatment Warranted: No Education - Patient has Indicated that the Following Identified Educational Needs: None The Patient has indicated that they have no educational or learning abilities that may effect their care.: Yes - Patient Instruction Patient Education: Diagnosis, Home Exercise Program Person Taught: Patient Teaching Method: Discussion Response to teaching: Verbalize understanding, Has Prior Knowledge
== END 2020-09-24 15:49 | disposition home or self-care (01) ==
LOC: SP 10:23
PROVIDERS: PCP Family Medicine; Referring Provider Family Medicine; Visit Provider Family Medicine
DX: R47.89 Other speech disturbances (principal); Z86.73 Personal history of transient ischemic attack (TIA), and cerebral infarction without residual deficits
CPT/HCPCS: 92522

== ENCOUNTER → 2021-04-04 12:42 | Outpatient (CLI) | payer MEDICARE, OTHER, SELFPAY ==
[2020-09-18 15:13] VITALS: BMI 28.3
--- NOTE | 2021-04-04 13:24 | ST.MBS ---
Modified Barium Swallow - Patient Information Study Date: 04/04/21 Study Time: 13:00 Direct Billable Minutes: 120 Total Minutes procedure & reportin Diagnosis: dysphagia, unspecified (R13.10) Referring Physician: Lencho Adhikari Reason for Referral: To objectively assess swallow function and determine presence of aspiration. Medical History: The patient is a 71/M with pmhx of uncontrolled hypertension and marked orthostatic hypotension, renal transplant, DM in remission post bariatric surgery, and CVA. Pt was recently admitted to [facility] with slurred speech and was evaluated for a stroke. Pt sees Dr. Adhikari and was referred for MBS study due to neck pain. Current Diet Ordered: regular textures/thin liquids Dentition: Natural Teeth Respiratory Status: Oxygenating on Room Air - Study Findings Consistencies: Thin Liquid, Whitestone Thick Liquid, Honey Thick Liquid, Pudding, Cookie - Penetration-Aspiration Scale Penetration-Aspiration Scale: OBJECTIVE ASSESSMENT OF SWALLOW FUNCTION (QUANTITATIVE ? PER TRIAL): PENETRATION / ASPIRATION SCALE (HARMON): 1 = does not enter airway 2 = enters airway/above vocal folds/ejected 3 = enters airway/above vocal folds/not ejected 4 = enters airway/contacts vocal folds/ejected 5 = enters airway/contacts vocal folds/not ejected 6 = enters airway/below vocal folds/ejected 7 = enters airway/below vocal folds/not ejected despite effort 8 = enters airway/below vocal folds/no effort - Penetration-Aspiration Scale Score Thin Liquid via teaspoon Result: 1= does not enter airway Thin Liquid via teaspoon Trial 2 Result: 2= enter airway/above vocal folds/ejected - flash penetration with ejections Thin Liquid via small single sip from cup Result: 1= does not enter airway Thin Liquid via large single sip from cup Result: 1= does not enter airway Whitestone Thick Liquid via large single sip from cup Result: 1= does not enter airway Pudding Result: 1= does not enter airway Cookie Result: 1= does not enter airway Thin Liquid via sequential sips from straw Result: 2= enter airway/above vocal folds/ejected - Oral Phase Labial Seal: No Labial Escape Tongue Control During Bolus Hold: Cohesive bolus between tongue to palatal seal Bolus Preparation/Mastication: Timely and efficient chewing and mashing Bolus Transport/Lingual Motion: Brisk tongue motion Oral Residue: Trace residue lining oral structures - Pharyngeal Phase Initiation of Pharyngeal Swallow: Bolus head at posterior angle of ramus at first hyoid excursion Soft Palate Elevation: No bolus between soft palate and pharyngeal wall Laryngeal Elevation: Comp. Superior move thyroid cart w/comp. apprx arytenoid cart-epig pet Anterior Hyoid Excursion: Partial anterior movement Epiglottic Movement: Complete inversion - with exception of pudding trial; pt with partial inversion of epiglottis however pt had also just returned to seated position after reaching down to pick out hand washcloth that had fallen. Laryngeal Vestibule Closure at Height of Swallow: Incomplete; narrow column of air/contrast in laryngeal vestibule Pharyngeal Stripping Wave: Present - diminished Pharyngoesophageal Segment Opening: Parital distension and partial duration; parital obstruction of flow Tongue Base Retraction: No contrast between tongue base and posterior pharyngeal wall Pharyngeal Residue: Trace residue within or on pharyngeal structures - Esophageal Phase Esophageal Clearance: Complete clearance - Diagnosis/Impression Diagnosis: Swallow Function WNL Impression: Oral phase primarily marked by effective mastication of solid Janice Doone cookie with trace oral residue. Pt demonstrated effective anterior to posterior transfer of bolus. Pharyngeal phase marked by adequate swallow onset timing and laryngeal elevation. Slightly diminished anterior hyoid excursion. Only trace pharyngeal residue remained. No aspiration found at this date and time. - Recommendations Diet: Regular Textures, Thin Liquids Compensatory Strategies: Small Bites, Small Sips, Sitting upright Recommend Repeat Modified Barium Swallow: No Need for Skilled Speech Therapy Services: No Education Completed: 1. Described result of evaluation., 2. Pt understands evaluation & agrees with goals and treatment plan. - Status Active ST Patient: Active - Contact Information [facility] Speech Therapy:: Meaghan Santana MA, [facility]-[employer]PA[employer] [address] [address] [email or web address]
== END ==
PROVIDERS: PCP Family Medicine; Referring Provider Otolaryngology; Visit Provider Otolaryngology
DX: R13.10 Dysphagia, unspecified (principal)
CPT/HCPCS: 74230; 92611

== ENCOUNTER 2021-04-26 06:39 | Day surgery (SDC) | payer MEDICARE, OTHER, SELFPAY ==
[2020-09-18 15:13] VITALS: BMI 28.3
[2021-04-26] VITALS (27 sets, daily range): BP systolic 162–241; BP diastolic 74–99; PULSE 64–76; RESP 16–18; TEMP 36.6–37.3; O2SAT 91–98; BMI 27.3
--- NOTE | 2021-04-26 | LES_PTH ---
PATIENT: KELTON MEDINA [place] [facility] [place][id number] AGE/SX: 71/M ROOM: RE04/26/[address]: Dr. Lencho Adhikari MD : 1950 BED: DIS: 04/26/2021 SPEC #: [id number] RECD: 04/26/21 08:52 STATUS: KANNAN CHANDLER #: [id number] CARLOS EDUARDO: 04/26/21 00:[address]: Lencho Adhikari DEPT: SURGICAL PATHOLOGY RECD BY: Jessica Rashid ENTERED: 04/26/21 09:29 SP TYPE: Lesion OTHR DR: Dr. James Eden MD Tissues: A - Tongue, NOS B - Tongue, NOS C - Tongue, NOS Procedures: Frozen Section (charge) Surgery Specimen Level IV HEADER OPERATION: Direct laryngoscopy with biopsy and left and right base of tongue PRE-OP DIAGNOSIS: Mass of tongue, neck pain, dysphagia TISSUE SUBMITTED: A - Biopsy left tongue base, FS at 0850, B - Right side base of tongue, C - Left side base of tongue FROZEN SECTION DIAGNOSIS Base of tongue, biopsy: Submucosal lymphoid aggregates, favor benign. Glandular epithelial hyperplasia and mucous cyst. AM:jazmin 04/26/2021 MICROSCOPIC DIAGNOSIS A. 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 See Comment. B. 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 B. 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 COMMENT A-C. The largest focus of carcinoma measures 3.5mm in greatest dimension and there is focal perineural invasion present. 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 Immunohistochemistry ([id number]) supports the above diagnosis. The case is also reviewed in consultation with Dr. Verduzco of [place] who concurs with the diagnosis (Complete report is viewable in EMR). Case has been reviewed in consultation with Dr. Ramirez who concurs with the above diagnosis. IDC:[id number] MICROSCOPIC DESCRIPTION Slides are reviewed. GROSS DESCRIPTION A - Received fresh for frozen section consultation labeled with the patient's name is a specimen designated biopsy of left tongue base. The specimen consists of a single irregular fragment of pink-garcia soft tissue measuring 1 x 0.5 x 0.3 cm. The specimen is submitted in its entirety for frozen section consultation in one block. B - Received in fixative is one container labeled with the patient's name and designated right side base of tongue. The specimen consists of a single irregular fragment of pink-garcia soft tissue measuring 0.5 x 0.3 x 0.1 cm. The specimen is totally submitted in one cassette. C - Received in fixative is one container labeled with the patient's name and designated left side base of tongue. The specimen consists of three irregular fragments of pink-garcia soft tissue that in aggregate measure 2 x 1 x 0.2 cm. The specimen is submitted in its entirety in one cassette. / AM:jazmin 04/26/21 TC:Eddie [facility]:[id number] ADDENDUM ADDENDUM ADDENDUM ADDENDUM ADDENDUM ADDENDUM ADDENDUM ADDENDUM ADDENDUM ADDENDUM ADDENDUM 06/19/2021 10:53 ADDENDUM 06/19/2021 10:53 ADDENDUM 06/19/2021 10:53 ADDENDUM 06/19/2021 10:53 ADDENDUM 06/19/2021 10:53 This addendum is added to incorporate an outside pathology consultation report. The case was examined at [facility] (#[id number]) and the following diagnosis was rendered. A-C. 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 Please see complete above mentioned consultation report in EMR
--- NOTE | 2021-04-26 | IMM_PTH ---
PATIENT: KELTON MEDINA [place]: [facility] [place][id number] AGE/SX: 71/M ROOM: RE04/26/[address]: Dr. Lencho Adhikari MD : 1950 BED: DIS: 04/26/2021 SPEC #: [id number] RECD: 04/29/21 13:37 STATUS: KANNAN REQ #: [id number] ACRLOS EDUARDO: 04/26/21 00:[address]: Lencho Adhikari DEPT: IMMUNOHISTOCHEMISTRY RECD BY: Jessica Rashid ENTERED: 04/29/21 13:40 SP TYPE: IMMUNO OTHR DR: Dr. James Eden MD Tissues: C - Tongue, NOS Procedures: SMA (add) BCL-2 (add) CALPONIN-1 (add) NASREEN (add) KI-67 (add) P53 (add) GATA3 (add) P40 (add) CK7 (initial) S-100 (add) PHYSICIAN & INSTITUTION [address] [address] SPECIMEN INFORMATION: Tissue Source: C ? Left side base of tongue Clinical Info: Tongue mass Specimen Number: [id number] CPT code: 48127, 31601 x9 METHODOLOGY: Deparaffinized sections of prefer/formalin-fixed tissue or PAP/DQ stained slides are incubated with monoclonal/polyclonal antibodies/oligonucleotide probes. Localization is made via biotin free immunoperoxidase method. Appropriate controls are performed and reacted as expected. Results on target cell population are indicated in the following table: RESULTS: ANTIBODY / CLONE RESULT Block C GATA3 ([id number]) negative CK7 (OV-TL12/30) positive BCL-2 (bcl-2/100/D5) positive Calponin-1 (RB342R) negative Actin (1A4) positive S-100 (4C4.9) negative P40 (BC28) positive NASREEN (E29) positive P53 (DO-7) positive, 2%, dim Ki-67 (30-9) positive, 5% These tests were developed and their performance characteristics determined by [facility]. They may not have been cleared or approved by the U.S. Food and Drug Administration. The FDA has determined that such clearance or approval is not necessary. The above immunohistochemical/dualISH markers are ordered and reviewed by the Pathologist. INTERPRETATION: C. Left side base of tongue, biopsy: Consistent with low-grade adenocarcinoma. AM:jazmin 05/08/2021
[2021-04-26] MEDS: Lactated Ringers 1,000 ML 100 ML IV (06:50)
--- NOTE | 2021-04-26 06:55 | EKG12_ITS ---
Test Reason : PRE OP Blood Pressure : / mmHG Vent. Rate : 061 BPM Atrial Rate : 061 BPM P-R Int : 162 ms QRS Dur : 146 ms QT Int : 454 ms P-R-T Axes : 063 -59 085 degrees QTc Int : 457 ms Normal sinus rhythm Left bundle branch block Abnormal ECG When compared with ECG of 17-SEP-2020 17:14, Left bundle branch block is now Present Confirmed by HALEIGH MOTA, KESHA ([id number]), editor in chief KARIE GONZALEZ ([id number]) on 04/30/2021 8:02:40 AM Referred By: Lencho Adhikari Confirmed By:KESHA RICARDO MD
[2021-04-26 08:14] LABS: Anion Gap 5 (5-15); BUN 17 mg/dL (7-18); BUN/Creat Ratio 12.1 RATIO (10-20); Calcium,Total 8.3 mg/dL (8.5-10.1); Chloride 109 mmol/L (98-107); EST Glomerular Filtration Rate 53 mL/min (>60); Est Glom Filt Rate - Afr Amer 64 mL/min (>60); Estimated Creatinine Clearance 53.11 ml/min; Glucose 111 mg/dL (74-106); Potassium 4.1 mmol/L (3.5-5.1); Sodium Level 141 mmol/L (136-145)
[2021-04-26] MEDS: Oxymetazoline 0.05% 1 SPRAY SPRAY.BTL 15 SPRAY (09:00)
[2021-04-26] MEDS: Lidocaine 4% 50 ML Bottle (09:00)
--- NOTE | 2021-04-26 09:18 | PCM.OPRPT ---
Problems Associated Problem List Diagnoses (1) Tongue lesion: (2) Odynophagia: Report of Operation Date of Procedure: 04/26/21 Pre-Operative Diagnosis: Left tongue base lesion, throat pain on left Post-Operative Diagnosis: Same Surgery/Procedure Performed:: Direct microlaryngoscopy with biopsy of tongue base bilaterally Description of Surgical Findings:: Brennon is a 71-year-old male with complaints of left-sided throat pain with swallowing who on examination was shown to have marked asymmetry of the tongue base with atrophic changes on the left side. CT scan corroborated an erosive lesion of the left tongue base evaluation with biopsy was advised for further assessment and he was agreeable to proceed. The risks, alternatives, potential complications, and benefits were discussed at length and any questions answered to the patient and/or caregiver's satisfaction. Witnessed informed consent was obtained in the office, and the patient and/or caregiver was agreeable to proceed. Procedure went as follows: The patient was identified in the preoperative holding and brought to the operating room, placed under general anesthesia, and intubated. When appropriate anesthesia was obtained, the head of bed was rotated and the patient prepped and draped in usual sterile fashion. A dental guard was then placed to protect the upper gums and the Dedo laryngoscope then introduced. Direct laryngoscopy was then carried out. The lateral posterior pharyngeal wall mucosa, tonsillar fossa, vallecula, piriforms, and epiglottis were noted to be normal in appearance. The true and false vocal folds were then brought into view. These were again noted to be normal in appearance. Attention was then turned to the tongue biopsies. The patient was then placed in suspension over the left tongue base where there is noted to be atrophic mucosal change and the operative microscope brought into the field. Using pledgets soaked in a 50-50 mixture of oxymetazoline and 4% topical lidocaine the biopsy site was topicalized for hemostasis. Using a cup forceps, the abnormal appearing mucosa of the left tongue base was then biopsied and sent for frozen specimen. This showed some lymphoid abnormality however further specimen was required for definitive assessment and additional biopsies were taken. Additional biopsy of the right more normal-appearing tongue base for comparison given the marked asymmetry in the volumes was additionally made. The areas of biopsy were treated with pledgets for hemostasis. The pledgets were then removed and the patient taken out of suspension and returned to anesthesia, was revived, and extubated without complication having tolerated the procedure well. Surgeon: Lencho Adhikari Type of Anesthesia: General Anesthesiologist: Khris Lira Specimen's removed: biopsy of tongue base, bilateral Drains: none Estimated Blood Loss (mL): 10 mL Fluids Replaced: 400 mL Grafts/Implants Used: none Complications none Admit VTE Documentation VTE Present on Admission: No VTE Mechan Device Prophylaxis: SCD's VTE Pharm Prophylaxis ordered?: No
--- NOTE | 2021-04-26 09:28 | PCM.DC ---
Discharge Instructions Diet Discharge Diet: No restrictions Activity Discharge Activity: Return to Normal Activity Dressing / Incision Call your doctor if your incision/area has: Sudden Increased Bleeding Call your doctor if you observe: Fever of 101 or Higher and Uncontrolled pain Follow Up Care Please Follow Up With: Lencho Adhikari MD When: 2 weeks Test Results: Test results from this visit will be discussed in further detail at your follow-up appointment, if applicable. Discharge Plan Admission Primary Reason for Your Visit: Suspicious lesion of left togue base, left throat pain Attending Provider: Lencho Adhikari Primary Care Provider: James Eden Discharge Orders/Prescriptions Prescriptions: New acetaminophen 500 mg Tablet 500 mg PO Q4H PRN PRN (Reason: Pain Score 1-5/10) Qty: 0 RF: 0 Continued acyclovir [Zovirax] 400 MG tablet 400 mg PO BID PRN PRN (Reason: Rash/Topical Irritation) RF: 0 finasteride 5 MG tablet 5 mg PO DAILY RF: 0 calcitriol 0.25 MCG capsule 0.25 mcg PO QODAY RF: 0 carvedilol 6.25 MG tablet 3.125 mg PO BID RF: 0 sulfamethoxazole-trimethoprim 1 EACH tablet 1 tab PO DAILY RF: 0 mycophenolate mofetil 250 MG capsule 250 mg PO BID RF: 0 cyanocobalamin (vitamin B-12) 500 MCG tablet 500 mcg PO DAILY@0900 RF: 0 folic acid 1 MG tablet 1 mg PO LUNCH RF: 0 pyridoxine (vitamin B6) 100 MG tablet 200 mg PO BID RF: 0 tacrolimus 1 MG capsule 2 mg PO DAILY@2100 RF: 0 spironolactone 50 MG tablet 25 mg PO MOWEFR RF: 0 calcium citrate-vitamin D3 1 EACH tablet 1 tab PO 5X/DAY RF: 0 magnesium oxide 400 MG tablet 400 mg PO TID RF: 0 Cholecalciferol (Vitamin D3) [Vitamin D3] 5,000 UNIT capsule 5,000 unit PO Q72H RF: 0 Prednisone 5 MG tablet 5 mg PO DAILY RF: 0 Tacrolimus 1 MG capsule 2 mg PO DAILY@0900 RF: 0 atorvastatin 80 MG tablet 80 mg PO QHS Qty: 30 RF: 0 clopidogrel 75 MG tablet 75 mg PO DAILY Qty: 30 RF: 0 potassium chloride 10 mEq Tablet Extended Release 10 meq PO DAILY RF: 0 Referrals / Follow Up: James Eden MD [Primary Care Provider] - Disposition Disposition (needs filled in before D/C Order can be placed): Home, Self Care
--- NOTE | 2021-04-26 10:57 | SUR.PHASEI ---
SBP RUNNING 200'S CONSISTENTLY, TRIED MEDICATING FOR PAIN, COMFORT MEASURES, URINATING. PATIENT STATES HIS SBP RUNS IN 180'S EVERY MORNING AT HOME, DID NOT TAKE HIS CARVEDILOL THIS MORNING. NOTIFIED DR HEREDIA WHO ORDERED HIS USUAL DOSE CARVEDILOL, LABETALOL PRN FOR GOAL SBP <180.
[2021-04-26] MEDS: Carvedilol 3.125 MG TABLET PO (11:04)
[2021-04-26] MEDS: Labetalol 100 MG/20 ML Vial IV ×3 (11:20→12:08)
== END 2021-04-26 15:09 | disposition home or self-care (01) ==
LOC: SDC 06:40 → AC 06:41
PROVIDERS: PCP Family Medicine; Referring Provider Otolaryngology; Visit Provider Otolaryngology
PROC: 0CJS8ZZ Inspection of Larynx, Via Natural or Artificial Opening Endoscopic (ICD-10-PCS; CPT 31575; principal; 2021-04-26 08:10)
DX: C01 Malignant neoplasm of base of tongue (principal); R13.10 Dysphagia, unspecified; R07.0 Pain in throat; E11.9 Type 2 diabetes mellitus without complications; I10 Essential (primary) hypertension; E78.00 Pure hypercholesterolemia, unspecified; M19.90 Unspecified osteoarthritis, unspecified site; G47.30 Sleep apnea, unspecified; Z79.02 Long term (current) use of antithrombotics/antiplatelets; Z79.52 Long term (current) use of systemic steroids; Z79.899 Other long term (current) drug therapy; Z86.73 Personal history of transient ischemic attack (TIA), and cerebral infarction without residual deficits
CPT/HCPCS: 00320; 31536; 80048; 88305; 88331; 88341; 88342; 93005; J7030; J7120; J2405

== ENCOUNTER 2021-05-03 10:29 | Emergency (ER) | payer MEDICARE, OTHER, SELFPAY ==
[2021-04-26 07:11] VITALS: BMI 27.3
[2021-05-03] VITALS (7 sets, daily range): BP systolic 115–151; BP diastolic 60–70; PULSE 54–74; RESP 17–21; TEMP 36.4–36.9; O2SAT 95–98; BMI 25.9
--- NOTE | 2021-05-03 11:00 | EKG12_ITS ---
Test Reason : Blood Pressure : / mmHG Vent. Rate : 069 BPM Atrial Rate : 069 BPM P-R Int : 160 ms QRS Dur : 132 ms QT Int : 440 ms P-R-T Axes : 062 -58 073 degrees QTc Int : 471 ms Normal sinus rhythm Left axis deviation Left ventricular hypertrophy with QRS widening Abnormal ECG Confirmed by ANYI MOTA, LEE ([id number]), purchasing expeditor KARIE GONZALEZ ([id number]) on 05/06/2021 9:50:40 AM Referred By: HANNAH Confirmed By:DANETTE DE SANTIAGO MD
--- NOTE | 2021-05-03 11:01 | EX.ED.DYSGE1 ---
HPI History of Present Illness Chief Complaint: Fever Informant: patient and spouse/S.O. Narrative Narrative: 71-year-old male with a history of diabetes and renal transplant presents the emergency department for the evaluation of fever. Patient states that on Thursday of this week he traveled to [place] where he states he over ate and had some abdominal discomfort and nausea. By Thursday he was feeling fine. Thursday evening he began to have some rigors and chills. he developed fever. T-max 101.6. That was this morning and he took Tylenol at 0900. He reports an occipital headache. No neck discomfort. He notes some nausea. He denies any cough or shortness of breath. No neurologic changes. No urinary symptoms. No diarrhea. No rashes. He is immunosuppressed on tacrolimus, prednisone, and mycophenolate. He takes a daily Bactrim. He takes as needed acyclovir for herpes lesions. No recent outbreaks. He notes he feels unsteady on his feet. Approximately 1 week ago he underwent biopsy of tongue with Dr. Adhikari. Pathology not back yet. [facility] Medical History Alcohol use Arthritis Back pain Cardiology follow-up encounter Diabetes Dietary restriction Difficulty swallowing Easy bruising Fatty liver High cholesterol History of colitis History of edema History of Holter monitoring History of irregular heartbeat History of renal disease History of stress test Hx of benign monoclonal gammopathy Hx of echocardiogram Hypertension Injury of head and neck Loss of consciousness Loss of hearing Low iron Non-smoker Prostate disease Stroke/cerebrovascular accident Syncope Wears glasses Home Medications acyclovir [Zovirax] 400 mg PO BID PRN PRN 12/08/13 [History Last Taken 1 Week Ago ~09/10/20] finasteride 5 mg PO DAILY 12/08/13 [History Last Taken 09/16/20] calcitriol 0.25 mcg PO QODAY 04/21/17 [History Last Taken 09/16/20] Cholecalciferol (Vitamin D3) [Vitamin D3] 5,000 unit PO Q72H 09/17/20 [History Last Taken 09/16/20] Prednisone 5 mg PO DAILY 09/17/20 [History Last Taken 09/17/20] Tacrolimus 2 mg PO DAILY@0900 09/17/20 [History Last Taken 09/17/20] calcium citrate-vitamin D3 1 tab PO 5X/DAY 09/17/20 [History Last Taken 09/17/20] carvedilol 3.125 mg PO BID 09/17/20 [History Last Taken 09/17/20] cyanocobalamin (vitamin B-12) 500 mcg PO DAILY@0900 09/17/20 [History Last Taken 09/17/20] folic acid 1 mg PO LUNCH 09/17/20 [History Last Taken 09/17/20] magnesium oxide 400 mg PO TID 09/17/20 [History Last Taken 09/17/20] mycophenolate mofetil 250 mg PO BID 09/17/20 [History Last Taken 09/17/20] pyridoxine (vitamin B6) 200 mg PO BID 09/17/20 [History Last Taken 09/17/20] spironolactone 25 mg PO MOWEFR 09/17/20 [History Last Taken 09/17/20] sulfamethoxazole-trimethoprim 1 tab PO DAILY 09/17/20 [History Last Taken 09/17/20] tacrolimus 3 mg PO DAILY@2100 09/17/20 [History Last Taken 09/16/20] atorvastatin 80 mg PO QHS #30 tab 09/18/20 [Rx Last Taken Unknown] clopidogrel 75 mg PO DAILY #30 tab 09/18/20 [Rx Last Taken Unknown] potassium chloride 10 meq PO DAILY 04/23/21 [History Last Taken Unknown] acetaminophen 500 mg PO Q4H PRN PRN #0 tab 04/26/21 [Rx Last Taken Unknown] clopidogrel [Plavix] 75 mg PO DAILY 05/03/21 [History Last Taken Unknown] finasteride 5 mg PO DAILY 05/03/21 [History Last Taken Unknown] Allergy/AdvReac Type Severity Reaction Status Date / Time amoxicillin Allergy Unknown Verified 05/03/21 10:31 morphine Allergy Other Verified 05/03/21 10:31 ursodiol Allergy Rash Verified 05/03/21 10:31 exenatide [From [place]] AdvReac Nausea Verified 05/03/21 10:31 Surgical History Hx of bariatric surgery Kidney transplant recipient Kidney transplant recipient S/P arteriovenous (AV) fistula creation Social History (Updated 07/16/21 @ 11:[address] Travis Vogt, DO) Smoking Status: Never smoker substance use type: does not use ROS ROS ED Constitutional Constitutional ED: Reports chills and fever(s); Denies weight loss Eyes Eyes: Denies change in vision or diplopia ENT ENT ED: Reports sore throat; Denies ear pain or rhinorrhea Cardiovascular Cardiovascular: Denies chest pain, orthopnea, palpitations or racing heartbeat Respiratory/Chest Respiratory/Chest: Denies cough, dyspnea or orthopnea Gastrointestinal Gastrointestinal: Reports nausea; Denies abdominal pain, diarrhea or vomiting Genitourinary Genitourinary ED: Denies dysuria, hematuria or urinary frequency Musculoskeletal Musculoskeletal: Denies arthralgias or myalgias Integumentary Denies abscess or rash Neurologic Neurologic: Reports headache(s); Denies weakness Psychiatric Psychiatric: Denies anxiety, depression, suicidal ideation or suicidal thoughts Endocrine Endocrinology: Denies polydipsia, polyphagia or polyuria Allergic/Immunologic Allergic/Immunologic ED: Denies mouth swelling, tongue swelling or urticaria EXAM Physical Exam Const Vital Signs: 05/03/21 10:32 05/03/21 10:34 05/03/21 10:42 Temperature 97.6 F L 97.6 F L Temperature Source Temporal Temporal Pulse Rate 74 74 Respiratory Rate 17 17 Respiratory Effort Normal Respiratory Pattern Normal Blood Pressure 115/60 115/60 Blood Pressure Mean 78 78 Pulse Ox 95 95 Oxygen Delivery Method Room Air Room Air 05/03/21 11:23 05/03/21 12:23 05/03/21 12:25 Temperature 98.3 F 98.5 F Temperature Source Oral Oral Pulse Rate 62 54 L Respiratory Rate 20 H 21 H Respiratory Effort Respiratory Pattern Blood Pressure 138/68 H 151/70 H Blood Pressure Mean 91 97 Pulse Ox 98 97 Oxygen Delivery Method Room Air Positive well nourished and well developed General Appearance ED: well developed HEENT Reports normocephalic, head/scalp atraumatic and moist mucous membranes Eyes PERRL and EOMs intact bilaterally Eyes Narrative: No photophobia. Normal optic disc Neck no lymphadenopathy, supple and no JVD Neck Narrative: No meningitic signs Resp normal respiratory effort and clear to auscultation bilaterally Cardio regular rate, regular rhythm and no murmurs GI normal to inspection, nondistended, normoactive bowel sounds and non-tender Palpation: soft Back/Spine no CVA tenderness and normal ROM Extremity normal to inspection General Extremety ED: Negative for edema General Extremity: Negative for edema Neuro oriented x3 and CN's II-XII intact bilaterally Sensorium / Orientation: alert Motor Exam: strength 5/5 throughout Psych mental status grossly normal Mood & Affect: Negative for depressed or tearful Skin no rashes or lesions noted and no wounds MDM MDM MDM Narrative Medical decision making narrative: My interpretation of the chest x-ray is no acute process. Radiology concurs. White count is normal at 6.5 with a hemoglobin of 12.1. Serum creatinine 1.54. Lactic acid is normal. Influenza swab is negative. Covid PCR will be pending. Urinalysis obtained and demonstrates 1+ bacteria 10-25 red cells no white cells and negative nitrates. This was sent for culture. Patient received IV fluids. He does not meet sepsis criteria. At this point patient will be discharged home. We will inform him of his Covid and blood culture results when available. He is to hydrate and do fever control return if worsening or concerns. Patient has note understanding and agreement with plan. Lab Data Attestation: I reviewed the patient's lab results. Labs: Laboratory Results - last 24 hr 05/03/21 05/03/21 05/03/21 11:10 11:10 11:10 WBC 6.5 RBC 3.94 L Hgb 12.1 L Hct 36.7 L MCV 93.1 MCH 30.7 MCHC 33.0 RDW Std Deviation 47.3 H RDW Coeff of Lacy 13.8 Plt Count 141 L MPV 10.1 Immature Gran % (Auto) 0.500 Neut % (Auto) 82.1 H Lymph % (Auto) 3.6 L Dewitt % (Auto) 13.5 H Eos % (Auto) 0.0 Baso % (Auto) 0.3 Absolute Neuts (auto) 5.3 Absolute Lymphs (auto) 0.23 L Nucleated RBC % 0 Differential Comment COMMENT PT 14.4 INR 1.2 APTT 28.1 Sodium 136 Potassium 3.7 Chloride 102 Carbon Dioxide 28.0 Anion Gap 6 BUN 19 H Creatinine 1.54 H Estim Creat Clear Calc 48.28 Est GFR (MDRD) Af Amer 57 L Est GFR (MDRD) Non-Af 47 L BUN/Creatinine Ratio 12.3 Glucose 156 H Lactic Acid Calcium 8.5 Total Bilirubin 1.20 H AST 26 ALT 40 Alkaline Phosphatase 47 Total Protein 6.9 Albumin 3.5 Globulin 3.4 Albumin/Globulin Ratio 1.0 Urine Color Urine Clarity Urine pH Ur Specific Glidden Urine Protein Urine Glucose (UA) Urine Ketones Urine Occult Blood Urine Nitrite Urine Bilirubin Urine Urobilinogen Ur Leukocyte Esterase Urine RBC Urine WBC Ur Squamous Epith Cells Urine Bacteria Urine Mucus 05/03/21 05/03/21 11:10 11:10 WBC RBC Hgb Hct MCV MCH MCHC RDW Std Deviation RDW Coeff of Lacy Plt Count MPV Immature Gran % (Auto) Neut % (Auto) Lymph % (Auto) Dewitt % (Auto) Eos % (Auto) Baso % (Auto) Absolute Neuts (auto) Absolute Lymphs (auto) Nucleated RBC % Differential Comment PT INR APTT Sodium Potassium Chloride Carbon Dioxide Anion Gap BUN Creatinine Estim Creat Clear Calc Est GFR (MDRD) Af Amer Est GFR (MDRD) Non-Af BUN/Creatinine Ratio Glucose Lactic Acid 1.0 Calcium Total Bilirubin AST ALT Alkaline Phosphatase Total Protein Albumin Globulin Albumin/Globulin Ratio Urine Color Yellow Urine Clarity Sl. Cloudy Urine pH 6.5 Ur Specific Glidden 1.010 Urine Protein 30 H Urine Glucose (UA) Normal Urine Ketones Negative Urine Occult Blood 150 H Urine Nitrite Negative Urine Bilirubin Negative Urine Urobilinogen Normal Ur Leukocyte Esterase 25 H Urine RBC 10-25 SEEN Urine WBC 0-5 SEEN Ur Squamous Epith Cells 0-5 SEEN Urine Bacteria 1+ Urine Mucus 0 SEEN Radiography Diagnostic Testing: Radiology Impression Chest X-Ray 05/03/21 11:50 IMPRESSION: Stable examination. Hyperinflation. Electronically Signed: Zelalem Gould MD at 12:08 EDT , Service support , EKG Initial EKG: Attestation: I personally reviewed and interpreted this EKG as follows: Comments: EKG demonstrates a normal sinus rhythm at a rate of 69 bpm. Left ventricular hypertrophy noted with axis deviation. Discharge Plan Triage Chief Complaint: Fever ED Provider: Travis Vogt Dx/Rx/DC Orders Clinical Impression: Renal transplant recipient, Fever of unknown origin (FUO) Instructions: ED FUO Adult Prescriptions: No Action acyclovir [Zovirax] 400 MG tablet 400 mg PO BID PRN PRN (Reason: Rash/Topical Irritation) RF: 0 finasteride 5 MG tablet 5 mg PO DAILY RF: 0 calcitriol 0.25 MCG capsule 0.25 mcg PO QODAY RF: 0 carvedilol 6.25 MG tablet 3.125 mg PO BID RF: 0 sulfamethoxazole-trimethoprim 1 EACH tablet 1 tab PO DAILY RF: 0 mycophenolate mofetil 250 MG capsule 250 mg PO BID RF: 0 cyanocobalamin (vitamin B-12) 500 MCG tablet 500 mcg PO DAILY@0900 RF: 0 folic acid 1 MG tablet 1 mg PO LUNCH RF: 0 pyridoxine (vitamin B6) 100 MG tablet 200 mg PO BID RF: 0 tacrolimus 1 MG capsule 3 mg PO DAILY@2100 RF: 0 spironolactone 50 MG tablet 25 mg PO MOWEFR RF: 0 calcium citrate-vitamin D3 1 EACH tablet 1 tab PO 5X/DAY RF: 0 magnesium oxide 400 MG tablet 400 mg PO TID RF: 0 Cholecalciferol (Vitamin D3) [Vitamin D3] 5,000 UNIT capsule 5,000 unit PO Q72H RF: 0 Prednisone 5 MG tablet 5 mg PO DAILY RF: 0 Tacrolimus 1 MG capsule 2 mg PO DAILY@0900 RF: 0 atorvastatin 80 MG tablet 80 mg PO QHS Qty: 30 RF: 0 clopidogrel 75 MG tablet 75 mg PO DAILY Qty: 30 RF: 0 potassium chloride 10 mEq Tablet Extended Release 10 meq PO DAILY RF: 0 acetaminophen 500 mg Tablet 500 mg PO Q4H PRN PRN (Reason: Pain Score 1-5/10) Qty: 0 RF: 0 clopidogrel [Plavix] 75 mg Tablet 75 mg PO DAILY RF: 0 finasteride 5 mg tablet 5 mg PO DAILY RF: 0 Primary Care Provider: James Eden Referrals: James Eden MD [Primary Care Provider] - 3-5 Days if not improving Disposition Disposition: Home, Self Care
[2021-05-03 11:24] LABS: Mucous, Urine 0 SEEN /hpf (<or=2+)
[2021-05-03 11:25] LABS: Absolute Lymphocyte Count 0.23 X10^3/uL (0.83-4.51); Absolute Neutrophil Count 5.3 X10^3/uL (2.0-7.7); Basophil# 0.02 X10^3/uL; Basophil% 0.3 % (0-1); Hematocrit 36.7 % (40-54); Hemoglobin 12.1 g/dL (13.0-16.5); Lymphocyte # 0.23 X10^3/ul (0.83-4.51); Lymphocyte % 3.6 % (19-41); Mean Corpuscular Hgb 30.7 pg (27.0-32.0); Mean Corpuscular Volume 93.1 fL (80-94); Mean Platelet Vol. 10.1 fl (6.2-12.0); Monocyte# 0.87 X10^3/uL; Monocyte% 13.5 % (0-10); NRBC Flagged by Analyzer 0 % (0-5); Neutrophil # 5.31 X10^3/uL (2.7-7.7); Neutrophil % 82.1 % (47-70); POSITIVE DIFFERENTIAL YES; Platelet Count 141 K/mm3 (150-450); RBC Distribution Width CV 13.8 % (11.6-14.6); RBC Distribution Width SD 47.3 fl (35.1-43.9); Red Blood Count 3.94 M/mm3 (4.6-6.2); White Blood Count 6.5 K/mm3 (4.4-11.0)
[2021-05-03 11:26] LABS: Differential Indicated SCAN CRITERIA MET
[2021-05-03] MEDS: 0.9% Normal Saline 1,000 ML 999 ML IV (11:29)
[2021-05-03 11:35] LABS: International Normalized Ratio 1.2; Prothrombin Time (Protime)PT. 14.4 SECONDS (11.7-14.9)
[2021-05-03 11:36] LABS: Partial Thromboplast Time 28.1 Seconds (24.1-36.2)
[2021-05-03 11:41] LABS: AST(SGOT) 26 U/L (15-37); Alanine Aminotransfer ALT/SGPT 40 U/L (16-61); Albumin, Serum 3.5 g/dL (3.2-5.0); Alkaline Phosphatase 47 U/L (45-117); Anion Gap 6 (5-15); BUN 19 mg/dL (7-18); BUN/Creat Ratio 12.3 RATIO (10-20); Calcium,Total 8.5 mg/dL (8.5-10.1); Chloride 102 mmol/L (98-107); Creatinine, Serum 1.54 mg/dL (0.70-1.30); EST Glomerular Filtration Rate 47 mL/min (>60); Est Glom Filt Rate - Afr Amer 57 mL/min (>60); Estimated Creatinine Clearance 48.28 ml/min; Globulin 3.4 g/dL (2.2-4.2); Glucose 156 mg/dL (74-106); Potassium 3.7 mmol/L (3.5-5.1); Protein, Total 6.9 g/dL (6.4-8.2); Sodium Level 136 mmol/L (136-145)
--- NOTE | 2021-05-03 11:50 | RAD_ITS ---
STUDY: X-RAY CHEST REASON FOR EXAM: Male, 71 years old. Fever TECHNIQUE: Single AP portable view of the chest. COMPARISON: Comparison is made with prior study dated 09/17/2020. FINDINGS: EKG electrodes are seen. There is hyperinflation of the lungs consistent with chronic obstructive lung disease (COPD). Stable mild increased linear markings at the left lung base suggests mild scarring. There is no demonstrated pleural abnormality. Normal size heart. Normal mediastinum and carolyn. Normal visualized pulmonary arteries. There is atherosclerotic calcification of the aortic arch with tortuosity. There are diffuse degenerative changes of the visualized thoracic spine. Healed right rib fractures. There is no demonstrated abnormality of the visualized soft tissue structures of the upper abdomen. RAD/Chest 1 View (Portable) IMPRESSION: Stable examination. Hyperinflation. Electronically Signed: Zelalem Gould MD at 12:08 EDT , Service support ,
[2021-05-03 12:37] LABS: Color, Urine Yellow (Yellow); Glucose, Dipstick Normal (Normal); Ketone-Dipstick Negative (Negative); Leukocyte Esterase-Dipstick 25 /ul (Negative); Nitrite-Dipstick Negative (Negative); Occult Blood-Urine 150 /ul (Negative); Protein-Dipstick 30 mg/dl (Negative); Urine Bilirubin Dipstick Negative (Negative); Urine Clarity Sl. Cloudy (Clear); Urine Urobilinogen Normal (Normal); Urine pH 6.5 (5.0 - 8.0)
[2021-05-03 12:52] LABS: Bacteria 1+ /hpf (None Seen); Red Blood Cells-Urine 10-25 SEEN /hpf (0-5); Squamous Epithelial Cells - UA 0-5 SEEN /hpf (0-5); White Blood Cells 0-5 SEEN /hpf (0-5)
== END 2021-05-03 13:17 | disposition home or self-care (01) ==
PROVIDERS: Emergency Provider Emergency Medicine; PCP Family Medicine
DX: R50.9 Fever, unspecified (principal); D84.821 Immunodeficiency due to drugs; E11.9 Type 2 diabetes mellitus without complications; I10 Essential (primary) hypertension; E78.00 Pure hypercholesterolemia, unspecified; N42.9 Disorder of prostate, unspecified; M19.90 Unspecified osteoarthritis, unspecified site; R23.3 Spontaneous ecchymoses; Z94.0 Kidney transplant status; Z79.02 Long term (current) use of antithrombotics/antiplatelets; Z79.899 Other long term (current) drug therapy; Z86.73 Personal history of transient ischemic attack (TIA), and cerebral infarction without residual deficits
CPT/HCPCS: 36415; 71045; 80053; 81001; 83605; 85025; 85610; 85730; 87040; 87077; 87086; 87088; 87186; 87635; 87804; 93005; 96360; 99284; J7030; U0005; A4216; U0003

== ENCOUNTER 2021-11-12 06:55 | Emergency (ER) | payer MEDICARE, OTHER, SELFPAY ==
[2021-11-12 06:55] VITALS: BP 195/89; PULSE 75; RESP 17; TEMP 37.3; O2SAT 97; BMI 25.8
--- NOTE | 2021-11-12 07:16 | RAD_ITS ---
EXAM: XR ABDOMEN, 1 VIEW : 1950 CLINICAL INDICATION: feeding tube placement (duodenum) -- PORTABLE w/ gastrograffin TECHNIQUE: Frontal supine view of the abdomen/pelvis. This report was created using [employer] report [email or web address] technology. COMPARISON: None. FINDINGS: LOWER THORAX: No acute pathology. GASTROINTESTINAL TRACT: There is a dilated loop of small bowel seen in the abdomen which may represent enteritis or perhaps an early obstruction. ORGANS: Unremarkable as visualized. No organomegaly. No abnormal calcifications. BONES/JOINTS: No acute pathology. SOFT TISSUES: No acute pathology. TUBES, LINES AND DEVICES: Contrast was injected into a percutaneous feeding tube. There is contrast filling a loop of small bowel with no extravasation outside the bowel lumen. RAD/Abdomen Single View (Portable) IMPRESSION: 1. Contrast injected via feeding tube is seen within a loop of small bowel. There is no extravasation outside the bowel. 2. Mildly dilated gas-filled loop of small bowel in the midabdomen may represent enteritis or an early obstruction. at 0811 Reported and signed by: Alfie Reveles MD Electronically Signed: Alfie Reveles MD at 8:09 EST Tel , Service support ,
--- NOTE | 2021-11-12 07:46 | EX.ED.DYSGE1 ---
HPI History of Present Illness Chief Complaint: Abd Pain Informant: patient and spouse/S.O. Narrative Narrative: Noticed around 3 hours prior to arrival that his feeding tube fell out. He gets continuous tube feedings throughout the night and he woke up with the tube feeding all over his abdomen/clothes. He has a history of tongue cancer and also bariatric surgery. He denies any abdominal pain or recent illness or injury. The tube was initially placed in July, around 3 months ago, and he suspects is in his intestine just past his stomach. His doctors are at [facility]. He called the resident on-call and was advised to either come up there or come to the nearest ER. [facility] Medical History Alcohol use Arthritis Back pain Cardiology follow-up encounter Diabetes Dietary restriction Difficulty swallowing Easy bruising Fatty liver High cholesterol History of colitis History of edema History of Holter monitoring History of irregular heartbeat History of renal disease History of stress test Hx of benign monoclonal gammopathy Hx of echocardiogram Hypertension Injury of head and neck Loss of consciousness Loss of hearing Low iron Non-smoker Prostate disease Stroke/cerebrovascular accident Syncope Wears glasses Home Medications acyclovir [Zovirax] 400 mg PO BID PRN PRN 12/08/13 [History Last Taken 1 Week Ago ~09/10/20] finasteride 5 mg PO QHS 12/08/13 [History Last Taken 09/16/20] calcitriol 0.25 mcg PO QODAY 04/21/17 [History Last Taken 09/16/20] Cholecalciferol (Vitamin D3) [Vitamin D3] 5,000 unit PO Q72H 09/17/20 [History Last Taken 09/16/20] Prednisone 5 mg PO DAILY 09/17/20 [History Last Taken 09/17/20] calcium citrate-vitamin D3 1 tab PO 5X/DAY 09/17/20 [History Last Taken 09/17/20] cyanocobalamin (vitamin B-12) 500 mcg PO DAILY@0900 09/17/20 [History Last Taken 09/17/20] folic acid 1 mg PO LUNCH 09/17/20 [History Last Taken 09/17/20] sulfamethoxazole-trimethoprim 1 tab PO DAILY 09/17/20 [History Last Taken 09/17/20] atorvastatin 80 mg PO QHS #30 tab 09/18/20 [Rx Last Taken Unknown] clopidogrel 75 mg PO DAILY #30 tab 09/18/20 [Rx Last Taken Unknown] pyridoxine (vitamin B6) 200 mg PO BID 11/12/21 [History Last Taken Unknown] Allergy/AdvReac Type Severity Reaction Status Date / Time amoxicillin Allergy Unknown Verified 11/12/21 07:13 morphine Allergy Other Verified 11/12/21 07:13 ursodiol Allergy Rash Verified 11/12/21 07:13 exenatide [From Byetta] AdvReac Nausea Verified 11/12/21 07:13 Surgical History Hx of bariatric surgery Kidney transplant recipient Kidney transplant recipient S/P arteriovenous (AV) fistula creation Social History Smoking Status: Never smoker substance use type: does not use ROS ROS ED Constitutional Constitutional ED: Denies chills or fever(s) Eyes Eyes: Denies change in vision or diplopia ENT ENT ED: Denies rhinorrhea or sore throat Cardiovascular Cardiovascular: Denies chest pain or palpitations Respiratory/Chest Respiratory/Chest: Denies cough or dyspnea Gastrointestinal Gastrointestinal: Denies abdominal pain, diarrhea, nausea or vomiting Genitourinary Genitourinary ED: Denies dysuria or hematuria Musculoskeletal Musculoskeletal: Denies back pain or neck pain Integumentary Denies abscess or rash Neurologic Neurologic: Denies headache(s), paresthesias or weakness Psychiatric Psychiatric: Denies anxiety or suicidal thoughts EXAM Physical Exam Const Vital Signs: 11/12/21 06:55 Temperature 99.2 F H Temperature Source Temporal Pulse Rate 75 Respiratory Rate 17 Blood Pressure 195/89 H Blood Pressure Mean 124 Pulse Ox 97 Oxygen Delivery Method Room Air Positive well nourished and well developed General Appearance ED: well developed and NAD HEENT Reports moist mucous membranes normocephalic and atraumatic Eyes PERRL and EOMs intact bilaterally Neck full ROM and supple Resp normal respiratory effort GI non-tender and non-distended GI Narrative: Epigastric/right upper quadrant feeding tube site is benign without drainage or tenderness or erythema. Auscultation: normoactive bowel sounds Palpation: soft Extremity normal to inspection Neuro oriented x3, CN's II-XII intact bilaterally and no sensory deficits noted Sensorium / Orientation: awake and alert Motor Exam: strength 5/5 throughout Skin no rashes or lesions noted and no wounds MDM MDM MDM Narrative Medical decision making narrative: The site appears patent without drainage or signs of infection. put a piece of gauze over it to come here and there is a scant amount of tube feeding on the gauze, no blood. They brought the feeding tube with them, it is not a typical gastrostomy tube, and it does not have the size printed on it. There is a typical bumper that goes externally, and it is only 2 cm from the end of the tube. Therefore after verbal consent, I placed a new temporary tube and it was confirmed with KUB with Gastrografin showing typical appearance of the duodenum. This was without any symptoms or discomfort, or complication. Discussed with him how to use it and to follow-up with their bariatric team as soon as they are able. Procedures Other Procedures Procedure(s): Feeding tube placement: After verbal consent, a sterile 14 Maori coud? Robison catheter (the only size daily we have available at this time) was lubricated with sterile lubricant, and after testing the competency of the balloon, was easily placed within the lumen and easily fed in. The balloon was inflated with 10 cc of sterile saline without any pain to the patient, and the catheter was pulled gently until it stopped, again without any discomfort. I was not able to aspirate any contents from the tube, but it flushed with 10 cc of sterile water easily and without any pain or symptoms. Confirmed with KUB with Gastrografin. No complications. Tolerated well. Discharge Plan Triage Chief Complaint: Abd Pain ED Provider: Alfonzo Mcclure Dx/Rx/DC Orders Clinical Impression: Encounter for feeding tube placement, Feeding tube dysfunction Instructions: ED Feeding Tube Replacement Prescriptions: No Action acyclovir [Zovirax] 400 MG tablet 400 mg PO BID PRN PRN (Reason: Rash/Topical Irritation) RF: 0 finasteride 5 MG tablet 5 mg PO QHS RF: 0 calcitriol 0.25 MCG capsule 0.25 mcg PO QODAY RF: 0 sulfamethoxazole-trimethoprim 1 EACH tablet 1 tab PO DAILY RF: 0 cyanocobalamin (vitamin B-12) 500 MCG tablet 500 mcg PO DAILY@0900 RF: 0 folic acid 1 MG tablet 1 mg PO LUNCH RF: 0 calcium citrate-vitamin D3 1 EACH tablet 1 tab PO 5X/DAY RF: 0 Cholecalciferol (Vitamin D3) [Vitamin D3] 5,000 UNIT capsule 5,000 unit PO Q72H RF: 0 Prednisone 5 MG tablet 5 mg PO DAILY RF: 0 atorvastatin 80 MG tablet 80 mg PO QHS Qty: 30 RF: 0 clopidogrel 75 MG tablet 75 mg PO DAILY Qty: 30 RF: 0 pyridoxine (vitamin B6) 100 mg Tablet 200 mg PO BID RF: 0 Primary Care Provider: James Eden Referrals: Surgeon, bariatric [Other] (When able, call for information) James Eden MD [Primary Care Provider] - Disposition Disposition: Home, Self Care
== END 2021-11-12 08:04 | disposition home or self-care (01) ==
LOC: ED 08:03
PROVIDERS: Emergency Provider Emergency Medicine; PCP Family Medicine; Visit Provider Emergency Medicine
DX: K94.23 Gastrostomy malfunction (principal); E11.9 Type 2 diabetes mellitus without complications; E78.00 Pure hypercholesterolemia, unspecified; I10 Essential (primary) hypertension; Z79.899 Other long term (current) drug therapy; M19.90 Unspecified osteoarthritis, unspecified site; Z98.84 Bariatric surgery status; Z85.810 Personal history of malignant neoplasm of tongue; K76.0 Fatty (change of) liver, not elsewhere classified; Z86.73 Personal history of transient ischemic attack (TIA), and cerebral infarction without residual deficits
CPT/HCPCS: 74018; 99282; A4216

== ENCOUNTER 2021-12-08 07:41 | Emergency (ER) | payer MEDICARE, OTHER, SELFPAY ==
[2021-12-08 07:42] VITALS: BP 179/79; PULSE 66; RESP 18; TEMP 36.2; O2SAT 100; BMI 24.4
--- NOTE | 2021-12-08 08:34 | RAD_ITS ---
STUDY: X-RAY - ABDOMEN/PELVIS REASON FOR EXAM: Male, 71 years old. feeding tube placement -- Gastrografin TECHNIQUE: Single AP view of the abdomen / pelvis. COMPARISON: None. FINDINGS: Normal visualized lung bases. A percutaneous J-tube has been placed, tip appears to be within the duodenum and contrast injected into the tube is consistent with duodenum. There is no reflux into the stomach. No extravasation of contrast outside the lumen of the duodenum. There is an unremarkable bowel gas pattern. There is no demonstrated free abdominal air. The visualized liver, spleen and kidneys are grossly normal in size and morphology. Normal soft tissue structures. There are diffuse degenerative changes of the visualized lumbar spine. RAD/Abdomen Single View (Portable) IMPRESSION: Feeding tube in satisfactory position within the proximal duodenum Electronically Signed: Jerrod Forbes MD at 9:20 EST ,
--- NOTE | 2021-12-08 08:57 | EX.ED.DYSGE1 ---
HPI History of Present Illness Chief Complaint: Other, Pain/Inj Narrative Narrative: 71-year-old male presenting with his PEG tube out. He states he felt asleep. He states he felt a pop. He has had this in June of last year and had replaced a couple of times. [facility] Medical History Alcohol use Arthritis Back pain Cardiology follow-up encounter Diabetes Dietary restriction Difficulty swallowing Easy bruising Fatty liver High cholesterol History of colitis History of edema History of Holter monitoring History of irregular heartbeat History of renal disease History of stress test Hx of benign monoclonal gammopathy Hx of echocardiogram Hypertension Injury of head and neck Loss of consciousness Loss of hearing Low iron Non-smoker Prostate disease Stroke/cerebrovascular accident Syncope Wears glasses Home Medications acyclovir [Zovirax] 400 mg PO BID PRN PRN 12/08/13 [History Last Taken 1 Week Ago ~09/10/20] finasteride 5 mg PO QHS 12/08/13 [History Last Taken 09/16/20] calcitriol 0.25 mcg PO QODAY 04/21/17 [History Last Taken 09/16/20] Cholecalciferol (Vitamin D3) [Vitamin D3] 5,000 unit PO Q72H 09/17/20 [History Last Taken 09/16/20] Prednisone 5 mg PO DAILY 09/17/20 [History Last Taken 09/17/20] calcium citrate-vitamin D3 1 tab PO 5X/DAY 09/17/20 [History Last Taken 09/17/20] cyanocobalamin (vitamin B-12) 500 mcg PO DAILY@0900 09/17/20 [History Last Taken 09/17/20] folic acid 1 mg PO LUNCH 09/17/20 [History Last Taken 09/17/20] sulfamethoxazole-trimethoprim 1 tab PO DAILY 09/17/20 [History Last Taken 09/17/20] atorvastatin 80 mg PO QHS #30 tab 09/18/20 [Rx Last Taken Unknown] clopidogrel 75 mg PO DAILY #30 tab 09/18/20 [Rx Last Taken Unknown] pyridoxine (vitamin B6) 200 mg PO BID 11/12/21 [History Last Taken Unknown] Allergy/AdvReac Type Severity Reaction Status Date / Time amoxicillin Allergy Unknown Verified 12/08/21 07:42 morphine Allergy Other Verified 12/08/21 07:42 ursodiol Allergy Rash Verified 12/08/21 07:42 exenatide [From Byetta] AdvReac Nausea Verified 12/08/21 07:42 Surgical History Hx of bariatric surgery Kidney transplant recipient Kidney transplant recipient S/P arteriovenous (AV) fistula creation Social History Smoking Status: Never smoker substance use type: does not use ROS ROS ED Constitutional Constitutional ED: Denies chills, fever(s) or sweats Eyes Eyes: Denies blurry vision or change in vision ENT ENT ED: Denies ear pain or sore throat Cardiovascular Cardiovascular: Denies chest pain, palpitations or racing heartbeat Respiratory/Chest Respiratory/Chest: Denies cough, dyspnea or sputum Gastrointestinal Gastrointestinal: Denies abdominal pain, constipation, diarrhea, nausea or vomiting Genitourinary Genitourinary ED: Denies dysuria, hematuria or urinary frequency Musculoskeletal Musculoskeletal: Denies arthralgias, myalgias or neck pain Integumentary Denies abscess, Abrasions or rash Neurologic Neurologic: Denies headache(s), paresthesias or weakness Psychiatric Psychiatric: Denies anxiety, depression, suicidal ideation or suicidal thoughts Endocrine Endocrinology: Denies polydipsia or polyuria EXAM Physical Exam Const Vital Signs: 12/08/21 07:42 12/08/21 08:30 12/08/21 09:52 Temperature 97.1 F L Temperature Source Temporal Pulse Rate 66 71 Respiratory Rate 18 16 Respiratory Effort Normal Non-Labored Blood Pressure 179/79 H 127/68 H Blood Pressure Mean 112 Pulse Ox 100 98 Oxygen Delivery Method Room Air Positive well nourished General Appearance ED: NAD HEENT Reports moist mucous membranes Negative for trauma Eyes PERRL and EOMs intact bilaterally General Eye ED: Negative for pale conjunctiva or scleral icterus Neck no lymphadenopathy and supple GI normal to inspection, nondistended, normoactive bowel sounds GI Narrative: Ostomy patent and upper abdomen Neuro oriented x3 and CN's II-XII intact bilaterally Sensorium / Orientation: alert Psych mental status grossly normal Skin no rashes or lesions noted MDM MDM MDM Narrative Medical decision making narrative: Patient presented for PEG tube placement. He brought a replacement PEG tube for himself as this was given to him by his surgeon. He does not have any pain. The area is clean and it was sterilized. Patient's home PEG tube was placed without sequela and then had specific instructions that it was supposed to be 3 cm with only 4 cc of saline per his surgeon. This is how I inserted it. Follow-up KUB with Gastrografin my interpretation good placement within the proximal duodenum. Patient was counseled on findings and he is discharged home in stable condition. Impression: 1. Replacement of PEG tube Radiography Diagnostic Testing: Clinical Impression(s) from Imaging Studies KUB X-Ray 12/08/21 08:34 IMPRESSION: Feeding tube in satisfactory position within the proximal duodenum Electronically Signed: Jerrod Forbes MD at 9:20 EST , Discharge Plan Triage Chief Complaint: Other, Pain/Inj ED Provider: Sarkis Catherine Dx/Rx/DC Orders Instructions: ED Feeding Tube Replacement Prescriptions: No Action acyclovir [Zovirax] 400 MG tablet 400 mg PO BID PRN PRN (Reason: Rash/Topical Irritation) RF: 0 finasteride 5 MG tablet 5 mg PO QHS RF: 0 calcitriol 0.25 MCG capsule 0.25 mcg PO QODAY RF: 0 sulfamethoxazole-trimethoprim 1 EACH tablet 1 tab PO DAILY RF: 0 cyanocobalamin (vitamin B-12) 500 MCG tablet 500 mcg PO DAILY@0900 RF: 0 folic acid 1 MG tablet 1 mg PO LUNCH RF: 0 calcium citrate-vitamin D3 1 EACH tablet 1 tab PO 5X/DAY RF: 0 Cholecalciferol (Vitamin D3) [Vitamin D3] 5,000 UNIT capsule 5,000 unit PO Q72H RF: 0 Prednisone 5 MG tablet 5 mg PO DAILY RF: 0 atorvastatin 80 MG tablet 80 mg PO QHS Qty: 30 RF: 0 clopidogrel 75 MG tablet 75 mg PO DAILY Qty: 30 RF: 0 pyridoxine (vitamin B6) 100 mg Tablet 200 mg PO BID RF: 0 Primary Care Provider: James Eden Referrals: James Eedn MD [Primary Care Provider] - Disposition Disposition: Home, Self Care Discharge Date/Time: 12/08/21 09:52
[2021-12-08 09:52] VITALS: BP 127/68; PULSE 71; RESP 16; O2SAT 98
== END 2021-12-08 09:52 | disposition home or self-care (01) ==
PROVIDERS: Emergency Provider Student in an Organized Health Care Education/Training Program; PCP Family Medicine; Visit Provider Student in an Organized Health Care Education/Training Program
DX: K94.23 Gastrostomy malfunction (principal); E11.9 Type 2 diabetes mellitus without complications; E78.00 Pure hypercholesterolemia, unspecified; I10 Essential (primary) hypertension; Z94.0 Kidney transplant status; Z79.02 Long term (current) use of antithrombotics/antiplatelets; Z79.899 Other long term (current) drug therapy; Z86.73 Personal history of transient ischemic attack (TIA), and cerebral infarction without residual deficits
CPT/HCPCS: 43762; 74018; 99282

== ENCOUNTER → 2023-09-02 | Outpatient (CLI) | payer MEDICARE, OTHER, SELFPAY ==
--- NOTE | 2023-09-02 15:51 | ST.MBS ---
Modified Barium Swallow Patient Information Study Date: 09/02/23 Study Time: 13:00 Direct Billable Minutes: 87 Total Minutes procedure & reportin Diagnosis: Tongue cancer (C02.9) Referring Physician: James Eden Reason for Referral: Annual MBSS recommended s/p radiation treatment for tongue cancer as the patient is at risk for worsening dysphagia due to flag football coach effects of radiation treatment.? SIEVE GRADER TENDER will objectively assess swallow function, assess risk for aspiration, and determine recommendations for least restrictive diet textures and compensatory strategies to improve safety of swallow. 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 He then had 7 weeks of radiation treatment (07/2021-09/2021). He had feeding tube dependence, but was able to stop using tube feeding in early December 2021 and had it removed late December 2021. He was following speech therapy with SIEVE GRADER TENDER, Cristy Rogers, at the . She referred him locally to this SIEVE GRADER TENDER to address articulation deficits related to tongue cancer initially, then dysphagia POC, as well. He is following another therapist for lymphedema management. Other PMH: 3 falls this year with pelvic wrist fractures (04/2023) and rib fractures (07/2023), Heart valve implant (07/2023), Gastric bypass surgery (2010), kidney failure (2011), kidney transplant (2017), TIA (August 2020). The patient was last seen for dysphagia therapy 11/2022 with training of EMST and oropharyngeal exercises (Nuvia and CTAR). Per patient report, he feels his swallow has neither improved nor worsened since he was last seen. Most recent MBSS 07/07/2022 completed at [facility] by SIEVE GRADER TENDER Cristy Rogers: The patient presented with moderate oropharyngeal dysphagia, primary deficits seen in the oral phase. Study was comparable to most recent study. He had consistent laryngeal penetration of liquids with mostly effective reflexive throat clear, trace aspiration 1X. He was recommended for soft and bite size textures / thin liquids with upright posture, slight head tilt forwards to help with bolus control, small bites/sips, slow rate, swallow several times to clear food from the oral cavity and BOT region, alternate bites and sips to clear food from the oral cavity. Current Diet Ordered: Soft and bite size textures / Thin liquids Dentition: Natural Teeth and Missing Teeth Mental Status: WNL Respiratory Status: Oxygenating on Room Air Penetration-Aspiration Scale Penetration-Aspiration Scale: OBJECTIVE ASSESSMENT OF SWALLOW FUNCTION (QUANTITATIVE ? PER TRIAL): PENETRATION / ASPIRATION SCALE (HARMON): 1 = does not enter airway 2 = enters airway/above vocal folds/ejected 3 = enters airway/above vocal folds/not ejected 4 = enters airway/contacts vocal folds/ejected 5 = enters airway/contacts vocal folds/not ejected 6 = enters airway/below vocal folds/ejected 7 = enters airway/below vocal folds/not ejected despite effort 8 = enters airway/below vocal folds/no effort VIDEOFLOROSCOPIC SCALE SCORE (HARMON): Grade I = aspiration of material that has penetrated into the laryngeal vestibule, intact cough reflex Grade II = aspiration < 10 % of the bolus, intact cough reflex Grade III = aspiration of < 10 % of the bolus, reduced cough reflex or aspiration of > 10 % of the bolus, intact cough reflex Grade IV = aspiration of > 10 % of the bolus, reduced cough reflex Penetration-Aspiration Scale Score Thin Liquid via teaspoon: Result: 2= enter airway/above vocal folds/ejected Thin Liquid via teaspoon Trial 2: Result: 7= enters airways/below vocal folds/not ejected despite effort (reflexive throat clear cleared contrast from the laryngeal vestibule, but not the airway) Thin Liquid via small single sip: cup: Result: 5= enters airways/contacts vocal folds/not ejected [place] Thick Liquid via small single sip: cup: Result: 2= enter airway/above vocal folds/ejected Comment: Post prandial aspiration of residues of previous trial remaining in the pyriforms - reflexive throat clear cleared contrast from the laryngeal vestibule, but not the airway. Pudding via teaspoon: Comment: Esophageal screen - full clearance. 1/2 Cookie: Result: 1= does not enter airway Thin Liquid via sequential sips:straw: Result: 2= enter airway/above vocal folds/ejected Chin tuck to attempt clearing cookie residues in the vallecula: Comment: Not effective Pudding via teaspoon Trial 2: Result: 1= does not enter airway Comment: Puree wash attempted - not effective. Head rotation to attempt clearing residues: Comment: Not effective. Thin Liquid via small single sip: cup Trial 2: Result: 7= enters airways/below vocal folds/not ejected despite effort (Reflexive throat clear cleared contrast from the laryngeal vestibule, but not the airway.) Oral Phase Labial Seal: Escape beyond mid-chin Tongue Control During Bolus Hold: Posterior escape of less than half of bolus Bolus Preparation/Mastication: Disorganized chewing/mashing with solid pieces of bolus unchewed (small pieces in tongue base appeared unchewed) Bolus Transport/Lingual Motion: Minimal to no tongue motion (Present, but greatly restricted tongue motion for A-P transport s/p hemiglossectomy of tongue base) Oral Residue: Majority of bolus remaining Pharyngeal Phase Initiation of Pharyngeal Swallow: Bolus head in pyriforms Soft Palate Elevation: No bolus between soft palate and pharyngeal wall Laryngeal Elevation: Partial superior movement thyroid cart/partial apprx aryt-epig petiole Anterior Hyoid Excursion: Partial anterior movement (minimal) Epiglottic Movement: Partial inversion Laryngeal Vestibule Closure at Height of Swallow: Incomplete; narrow column of air/contrast in laryngeal vestibule Pharyngeal Stripping Wave: Present - diminished Pharyngoesophageal Segment Opening: Parital distension and partial duration; parital obstruction of flow Tongue Base Retraction: Wide column of contrast between tongue base & post. pharyngeal wall Pharyngeal Residue: Majority of contrast within or on pharyngeal structures Esophageal Phase Esophageal Clearance: Complete clearance Diagnosis/Impression Diagnosis: Moderate oropharyngeal phase dysphagia R13.12 Impression: The oral phase is primarily marked by... -Decreased bolus control with majority of the bolus spilling posteriorly to the vallecula prior to swallow onset. Portion of certain thin liquid trials spilled to the pyriforms prior to swallow onset. -Slowed and decreased tongue motion for A-P transport s/p hemiglossectomy. -Decreased mastication likely due to restricted tongue ROM and bolus control. -Moderate-severe residues in the oropharynx, most effectively cleared with liquid wash and multiple swallows. The pharyngeal phase is primarily marked by... -Decreased airway closure during the swallow due to little to no anterior hyoid excursion, partial epiglottic inversion, and decreased laryngeal elevation. Aspiration of thin liquids 3X (2X during the swallow, 1X after the swallow spilling from the pyriforms). -Severely decreased tongue base retraction, mildly decreased UES opening/duration, and mildly decreased pharyngeal stripping wave with resulting moderate-severe pharyngeal residues after the swallow. This residue was most effectively cleared with liquid wash. Recommendations Diet: Mechanical Soft Textures (Soft and bite size textures (IDDSI Level 6)) and Thin Liquids Comment: Cough and re-swallow on each sip Compensatory Strategies: Small Bites, Small Sips, Slow Rate, Multiple Swallows, Alternate bites/solids and sips/liquids, Sitting upright and Remain sitting upright for 30 minutes after PO intake Recommend Repeat Modified Barium Swallow: Yes Comment: Repeat MBS study in 6-12 months to monitor swallow function as the patient is at risk for worsening dysphagia and aspiration risk s/p radiation treatment. Need for Skilled Speech Therapy Services: Yes Comment: Will recommend the patient for outpatient dysphagia therapy to address deficits in oropharyngeal swallow function. Will recommend the patient for oropharyngeal strengthening to improve lingual ROM/retraction, laryngeal elevation/hyoid excursion, and duration of UES opening. The patient would benefit from thorough education regarding diet recommendations and recommended compensatory strategies. Education Completed: 1. Described result of evaluation. and 2. Pt understands evaluation & agrees with goals and treatment plan. Status Active ST Patient: Active Contact Information [facility] Speech Therapy:: Nathalie Sierra M.A. [facility]-SIEVE GRADER TENDER Speech-Language Pathologist [facility] [address] [place] [address] [email or web address]
== END | disposition home or self-care (01) ==
LOC: RAD 12:44
PROVIDERS: PCP Family Medicine; Referring Provider Family Medicine; Visit Provider Family Medicine
DX: C02.9 Malignant neoplasm of tongue, unspecified (principal)
CPT/HCPCS: 74230; 92611

== ENCOUNTER 2023-12-05 02:01 | Emergency (ER) | payer MEDICARE, OTHER, SELFPAY ==
[2023-12-05 02:03] VITALS: BP 191/88; PULSE 96; RESP 18; TEMP 36.6; O2SAT 100; BMI 22.3
--- NOTE | 2023-12-05 02:10 | EDS_ITS ---
HPI History of Present Illness Chief Complaint: Complaint Detail of Chief Complaint: Unable to urinate Informant: patient and spouse/S.O. Narrative Narrative: Patient presents with inability to urinate. He had a bladder stone removed at [facility] on Thursday morning. states they were home by noon and he did well all day. At 11:00 Thursday evening he suddenly became unable to pass any urine. He presents to the ER at 2 AM Thursday morning with urinary retention. PFSH PFSH Medical History Alcohol use Arthritis Back pain Cardiology follow-up encounter Diabetes Dietary restriction Difficulty swallowing Easy bruising Fatty liver High cholesterol History of colitis History of edema History of Holter monitoring History of irregular heartbeat History of renal disease History of stress test Hx of benign monoclonal gammopathy Hx of echocardiogram Hypertension Injury of head and neck Loss of consciousness Loss of hearing Low iron Non-smoker Prostate disease Stroke/cerebrovascular accident Syncope Wears glasses Home Medications acyclovir 400 mg tablet (Zovirax) 400 mg PO BID PRN PRN Rash/Topical Irritation 12/08/13 [History Last Taken 1 Week Ago ~09/10/20] finasteride 5 mg tablet 5 mg PO QHS PROSTATE 12/08/13 [History Last Taken 09/16] calcitriol 0.25 mcg capsule 0.25 mcg PO QODAY SUPPLEMENT 04/21/17 [History Last Taken 09/16/20] Cholecalciferol (Vitamin D3) [Vitamin D3] 5,000 unit PO Q72H SUPPLEMENT 09/17/20 [History Last Taken 09/16/20] Prednisone 5 mg PO DAILY 09/17/20 [History Last Taken 09/17/20] calcium citrate 315 mg-vitamin D3 5 mcg (200 unit) tablet 1 tab PO 5X/DAY SUPPLEMENT 09/17/20 [History Last Taken 09/17/20] cyanocobalamin (vitamin B-12) 500 mcg tablet 500 mcg PO DAILY@0900 09/17/20 [History Last Taken 09/17/20] folic acid 1 mg tablet 1 mg PO LUNCH SUPPLEMENT 09/17/20 [History Last Taken 09/17/20] sulfamethoxazole 400 mg-trimethoprim 80 mg tablet 1 tab PO DAILY 09/17/20 [History Last Taken 09/17/20] atorvastatin 80 mg tablet 80 mg PO QHS #30 tabs 12/01/20 [Rx Last Taken Unknown] clopidogrel 75 mg tablet 75 mg PO DAILY #30 tabs 09/18/20 [Rx Last Taken Unknown] pyridoxine (vitamin B6) 100 mg tablet 200 mg PO BID 11/12/21 [History Last Taken Unknown] Allergy/AdvReac Type Severity Reaction Status Date / Time amoxicillin Allergy Unknown Verified 12/05/23 02:02 morphine Allergy Other Verified 12/05/23 02:02 ursodiol Allergy Rash Verified 12/05/23 02:02 exenatide [From Byetta] AdvReac Nausea Verified 12/05/23 02:02 Surgical History Hx of bariatric surgery Kidney transplant recipient Kidney transplant recipient S/P arteriovenous (AV) fistula creation Social History Smoking Status: Never smoker substance use type: does not use ROS ROS ED Constitutional Constitutional ED: Denies chills or fever(s) Eyes Eyes: Denies discharge from eye(s) ENT ENT ED: Denies discharge from eye(s), rhinorrhea or sore throat Cardiovascular Cardiovascular: Denies chest pain Respiratory/Chest Respiratory/Chest: Denies cough or dyspnea Gastrointestinal Gastrointestinal: Reports abdominal pain; Denies diarrhea, nausea or vomiting Genitourinary Genitourinary ED: Reports difficulty urinating Musculoskeletal Musculoskeletal: Denies back pain or extremity pain Integumentary Denies Abrasions or rash Neurologic Neurologic: Denies headache(s) or weakness Psychiatric Psychiatric: Denies anxiety or depression Allergic/Immunologic Allergic/Immunologic ED: Denies lip swelling or urticaria EXAM Physical Exam Const Vital Signs: 12/05/23 02:03 Temperature 97.8 F Temperature Source Temporal Pulse Rate 96 Respiratory Rate 18 Blood Pressure 191/88 H Blood Pressure Mean 122 Pulse Ox 100 Positive well nourished and well developed General Appearance ED: well developed HEENT Reports moist mucous membranes Eyes EOMs intact bilaterally Chest Wall inspection of chest normal and palpation of chest normal Resp normal respiratory effort and clear to auscultation bilaterally Cardio regular rate and regular rhythm GI GI Narrative: Abdomen soft with suprapubic tenderness to palpation. No guarding or rebound. Hypoactive bowel sounds. Extremity normal to inspection Neuro oriented x3 Skin no rashes or lesions noted MDM MDM MDM Narrative Medical decision making narrative: Robison catheter ordered secondary to urinary retention. Lab Data Labs: Laboratory Results - last 24 hr 12/05/23 02:24 Urine Color Yellow Urine Clarity Sl. Cloudy Urine pH 6.0 Ur Specific [place] 1.015 Urine Protein 30 H Urine Glucose (UA) Normal Urine Ketones Negative Urine Occult Blood 250 H Urine Nitrite Negative Urine Bilirubin Negative Urine Urobilinogen Normal Ur Leukocyte Esterase 25 H Urine RBC 50-100 SEEN Urine WBC 0-5 SEEN Ur Squamous Epith Cells 0-5 SEEN Urine Bacteria 0 SEEN Urine Mucus 0 SEEN Treatment and Re-Evaluation :: Robison catheter was placed by nursing staff. At the time of my reevaluation he has had a liter of urine output. Urinalysis reveals blood but no evidence of acute infection. No calcium crystals seen. Patient was given a leg bag. He will call his urologist on Thursday morning. Return instructions provided. Discharge Plan Triage Chief Complaint: Complaint ED Provider: Talia Jolley Dx/Rx/DC Orders Clinical Impression: Urinary retention Instructions: ED Robison Catheter, Care, ED Urinary Retention, Male Prescriptions: No Action acyclovir [Zovirax] 400 MG tablet 400 mg PO BID PRN PRN (Reason: Rash/Topical Irritation) finasteride 5 MG tablet 5 mg PO QHS calcitriol 0.25 MCG capsule 0.25 mcg PO QODAY sulfamethoxazole-trimethoprim 1 EACH tablet 1 tab PO DAILY cyanocobalamin (vitamin B-12) 500 MCG tablet 500 mcg PO DAILY@0900 folic acid 1 MG tablet 1 mg PO LUNCH calcium citrate-vitamin D3 1 EACH tablet 1 tab PO 5X/DAY Cholecalciferol (Vitamin D3) [Vitamin D3] 5,000 UNIT capsule 5,000 unit PO Q72H Prednisone 5 MG tablet 5 mg PO DAILY atorvastatin 80 MG tablet 80 mg PO QHS Qty: 30 0RF clopidogrel 75 MG tablet 75 mg PO DAILY Qty: 30 0RF pyridoxine (vitamin B6) 100 mg Tablet 200 mg PO BID Primary Care Provider: James Eden Referrals: James Eden MD [Primary Care Provider] - Activity Restrictions/Additional Instructions: Follow-up with your urologist on Thursday as discussed. Disposition Disposition: Home, Self Care
[2023-12-05] MEDS: Lidocaine Jelly 2% 20 ML Syringe (URO-JET) 1 APPLIC TOPICAL (02:16)
[2023-12-05 02:33] LABS: Bacteria 0 SEEN /hpf (None Seen); Mucous, Urine 0 SEEN /hpf (<or=2+)
[2023-12-05 02:34] LABS: Color, Urine Yellow (Yellow); Glucose, Dipstick Normal (Normal); Ketone-Dipstick Negative (Negative); Leukocyte Esterase-Dipstick 25 /ul (Negative); Nitrite-Dipstick Negative (Negative); Occult Blood-Urine 250 /ul (Negative); Protein-Dipstick 30 mg/dl (Negative); Specific Gravity, Urine 1.015 (1.002-1.030); Urine Bilirubin Dipstick Negative (Negative); Urine Clarity Sl. Cloudy (Clear); Urine Urobilinogen Normal (Normal)
[2023-12-05 02:40] LABS: Red Blood Cells-Urine 50-100 SEEN /hpf (0-5); Squamous Epithelial Cells - UA 0-5 SEEN /hpf (0-5); White Blood Cells 0-5 SEEN /hpf (0-5)
[2023-12-05 02:57] VITALS: BP 176/81; PULSE 71; RESP 16; TEMP 36.6; O2SAT 96
== END 2023-12-05 03:11 | disposition home or self-care (01) ==
LOC: ED 02:54
PROVIDERS: Emergency Provider Emergency Medicine; PCP Family Medicine; Visit Provider Emergency Medicine
DX: R33.9 Retention of urine, unspecified (principal); Z94.0 Kidney transplant status; E78.5 Hyperlipidemia, unspecified; Z79.02 Long term (current) use of antithrombotics/antiplatelets; Z79.899 Other long term (current) drug therapy; Z86.73 Personal history of transient ischemic attack (TIA), and cerebral infarction without residual deficits
CPT/HCPCS: 81001; 99282; J7030; A4216

== ENCOUNTER 2024-02-11 17:15 | Inpatient (IN) | payer MEDICARE, OTHER, SELFPAY ==
[2024-02-11 17:17] VITALS: BP 194/83; PULSE 80; RESP 29; TEMP 36.8; O2SAT 98; BMI 21.8
--- NOTE | 2024-02-11 17:35 | ED.VIS.FALL ---
HPI HPI - Fall History of Present Illness Chief Complaint: Fall Detail of Chief Complaint: Fall with left hip pain. Informant: patient and family Occured/Mechanism Occurred: Today Mechanism/Context: Yes same level fall Usually ambulates: Without assistance Pain/Injury Pain Location: lower extremity Current Severity: Moderate Maximum Severity: Moderate Associated Symptoms Associated Symptoms: Positive for Inability to ambulate; Negative for Parasthesias, Weakness, Loss of consciousness or Amnesia Narrative Narrative: 74-year-old male history of tongue cancer with resection, gastric bypass, hypertension, renal transplant prior stroke on Plavix. Patient states he lost his balance and fell at home landing on a hard floor injuring his left hip. Denies hitting his head. No headache. Denies other injuries. Said he did hit his left shoulder but does not hurt. Prior similar symptoms: No Recent Illness/Hospitalization: No PFSH PFSH Medical History Alcohol use Arthritis Back pain Cardiology follow-up encounter Diabetes Dietary restriction Difficulty swallowing Easy bruising Fatty liver High cholesterol History of colitis History of edema History of Holter monitoring History of irregular heartbeat History of renal disease History of stress test Hx of benign monoclonal gammopathy Hx of echocardiogram Hypertension Injury of head and neck Loss of consciousness Loss of hearing Low iron Non-smoker Prostate disease Stroke/cerebrovascular accident Syncope Wears glasses Home Medications finasteride 5 mg tablet 5 mg PO QHS PROSTATE 12/08/13 [History Last Taken 02/10/24] calcitriol 0.25 mcg capsule 0.25 mcg PO QODAY SUPPLEMENT 04/21/17 [History Last Taken 02/11/24] cyanocobalamin (vitamin B-12) 500 mcg tablet 500 mcg PO DAILY@0900 09/17/20 [History Last Taken 02/11/24] folic acid 1 mg tablet 1 mg PO DAILY SUPPLEMENT 09/17/20 [History Last Taken 02/11/24] sulfamethoxazole 400 mg-trimethoprim 80 mg tablet 1 tab PO DAILY 09/17/20 [History Last Taken 02/11/24] clopidogrel 75 mg tablet 75 mg PO DAILY #30 tabs 09/18/20 [Rx Last Taken 02/11/24] pyridoxine (vitamin B6) 100 mg tablet 200 mg PO BID 11/12/21 [History Last Taken 02/11/24] acyclovir 400 mg tablet 400 mg PO PRN PRN ANTIVIRAL 02/11/24 [History Last Taken Unknown] cholecalciferol (vitamin D3) 125 mcg (5,000 unit) capsule 125 mcg PO Q3D 02/11/24 [History Last Taken 02/09/24] ferrous sulfate 325 mg (65 mg iron) tablet (Feosol) 325 mg PO DAILY 02/11/24 [History Last Taken 02/11/24] potassium chloride 10 mEq tablet,extended release 20 meq PO DAILY 02/11/24 [History Last Taken 02/11/24] prednisone 5 mg tablet 5 mg PO DAILY 02/11/24 [History Last Taken 02/11/24] tacrolimus 1 mg capsule, immediate-release (Prograf) 2 mg PO DAILY 02/11/24 [History Last Taken 02/11/24] tacrolimus 1 mg capsule, immediate-release (Prograf) 2 mg PO QPM 02/11/24 [History Last Taken 02/10/24] tamsulosin 0.4 mg capsule 0.4 mg PO QHS 02/11/24 [History Last Taken 02/10/24] Allergy/AdvReac Type Severity Reaction Status Date / Time amoxicillin Allergy Unknown Verified 02/11/24 17:17 morphine Allergy Other Verified 02/11/24 17:17 ursodiol Allergy Rash Verified 02/11/24 17:17 exenatide [From Byetta] AdvReac Nausea Verified 02/11/24 17:17 Surgical History Hx of bariatric surgery Kidney transplant recipient Kidney transplant recipient S/P arteriovenous (AV) fistula creation Social History Smoking Status: Never smoker substance use type: does not use ROS ROS ED ROS Narrative Denies recent illness. Review of Systems ROS Unobtainable: Denies due to encephalopathy Constitutional Constitutional ED: Denies chills Eyes Eyes: Denies blurry vision ENT ENT ED: Denies ear pain Cardiovascular Cardiovascular: Denies chest pain or palpitations Respiratory/Chest Respiratory/Chest: Denies cough or dyspnea Gastrointestinal Gastrointestinal: Denies abdominal pain Genitourinary Genitourinary ED: Denies dysuria or hematuria Musculoskeletal Musculoskeletal: Denies arthralgias or back pain Integumentary Denies abscess or Abrasions Neurologic Neurologic: Denies headache(s) Psychiatric Psychiatric: Denies anxiety or depression Endocrine Endocrinology: Denies polydipsia Hematologic/Lymphatic Hematologic/Lymphatic: Denies easy bleeding Allergic/Immunologic Allergic/Immunologic ED: Denies mouth swelling or tongue swelling EXAM Physical Exam Narrative Exam Narrative: Well-appearing 74-year-old male. Sitting upright in bed. Family is at bedside. I believe it is his granddaughter. Vital signs are stable afebrile. H EENT exam unremarkable atraumatic. Pupils round react light. Scalp head nontender. No hematoma or laceration. Neck nontender. Lungs clear. Heart regular rhythm rate about 80 no murmur. Chest wall and ribs nontender. Abdomen soft nontender. Back nontender. He has tenderness to his left hip does not want to do range of motion of his left hip due to pain. His left knee lower leg ankle and foot are nontender with normal dorsi and plantarflexion. Right lower extremity both upper extremities are nontender with normal range of motion. No deformity. Normal support associate strength. Neurologically is awake and alert. Answering questions following commands. Const Vital Signs: 02/11/24 17:17 02/11/24 18:57 02/11/24 19:15 Temperature 98.3 F 98.3 F Temperature Source Oral Pulse Rate 80 87 Respiratory Rate 29 H 20 H Respiratory Effort Normal Respiratory Depth Normal Respiratory Pattern Normal Blood Pressure 194/83 H 198/88 H Blood Pressure Mean 120 124 Pulse Ox 98 98 Oxygen Delivery Method Room Air Room Air Positive well nourished and well developed; Negative for cachectic, contractures or unkempt General Appearance ED: well developed and NAD; Negative for unkempt, cachectic or contractures Nutritional Appearance: Negative for cachectic HEENT Reports normocephalic atraumatic; Negative for trauma, contusion, hematoma or tenderness Eyes PERRL and EOMs intact bilaterally General Eye ED: Negative for pale conjunctiva, scleral icterus or other Neck full ROM, no lymphadenopathy and supple General: Negative for tenderness Chest Wall inspection of chest normal and palpation of chest normal Chest: Negative for other Resp normal respiratory effort, no retractions and clear to auscultation bilaterally Effort and Inspection: Negative for pain with movement Auscultation: Negative for rales, rhonchi or wheezes Cardio regular rate, regular rhythm, S1 normal heart sound, S2 normal heart sound and no murmurs Rate: Negative for bradycardia or tachycardic Rhythm: Negative for abnormal rhythm Bruits: Negative for other GI non-tender, non-distended and no masses Inspection: Negative for abdominal distention Auscultation: normoactive bowel sounds Palpation: soft; Negative for guarding or rebound tenderness present Back/Spine no CVA tenderness General Back: Negative for CVA tenderness Cervical Spine: Negative for cervical spine tenderness Thoracic Spine / Upper Back: Negative for ROM limited Lumbar Spine / Lower Back: Negative for lumbar spinal tenderness or paraspinal muscle tenderness Neuro oriented x3, CN's II-XII intact bilaterally, moves all extremities and no focal motor deficits [place] Coma Scale: document GCS findings Spontaneous Obeys Commands Oriented 15 Sensorium / Orientation: alert, oriented to person, oriented to place and oriented to time; Negative for orientation impaired, confused, lethargic or stuporous Motor Exam: strength 5/5 throughout Psych mental status grossly normal and thought process normal Appearance: Negative for unkempt Attitude: No agitated Mood & Affect: Negative for depressed, anxious or tearful Skin General Skin Exam: Negative for other Lesions: no lesions Rashes: no rashes MDM MDM MDM Narrative Medical decision making narrative: 74-year-old male lost his balance fell at home injuring his left hip. He does not want anything for pain. 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 He has tenderness and limited range of motion of his left hip due to pain. X-ray of his pelvis and hip are being obtained. Concern for hip fracture. Patient doing well on repeat exam at 7:15 PM. His pain is under control with his IV Dilaudid. I spoke to the hospitalist and orthopedist and they will admit him here. History & Record Review Discussion w/independent historian: Patient and Family Lab Data Attestation: I reviewed the patient's lab results. Lab results narrative: CBC shows a white count 5.7. H&H 10.4 and 31 which is his baseline chronic anemia. Platelets of 110. PT/INR of 14 and 1.1. PTT of 28. Electrolytes show sodium 146. Potassium 2.9. Gap of 9. BUN 21 creatinine 1.97. Glucose 96. Labs: Laboratory Results - last 24 hr 02/11/24 18:38 WBC 5.7 RBC 3.24 L Hgb 10.4 L Hct 31.1 L MCV 96.0 H MCH 32.1 H MCHC 33.4 RDW Std Deviation 51.3 H RDW Coeff of Lacy 14.6 Plt Count 110 L MPV 9.2 Immature Gran % (Auto) 1.100 H Neut % (Auto) 80.8 H Lymph % (Auto) 11.4 L [place] % (Auto) 5.6 Eos % (Auto) 0.4 Baso % (Auto) 0.7 Absolute Neuts (auto) 4.6 Absolute Lymphs (auto) 0.65 L Nucleated RBC % 0 PT 14.5 INR 1.1 APTT 28.9 Sodium 146 H Potassium 2.9 L Chloride 117 H Carbon Dioxide 20.0 L Anion Gap 9 BUN 21 H Creatinine 1.97 H Estim Creat Clear Calc 33.84 Est GFR (MDRD) Af Amer 43 L Est GFR (MDRD) Non-Af 35 L BUN/Creatinine Ratio 10.7 Glucose 96 Calcium 7.4 L Radiography Chest X-Ray - ED: 1 View, Read by ED Physician, Normal, Heart, Lungs, Mediastinum, Bony Structures, No Acute Disease, Chronic Changes and No Infiltrates Diagnostic Testing: Clinical Impression(s) from Imaging Studies Chest X-Ray 02/11/24 18:00 IMPRESSION: No acute findings in the chest. Electronically Signed: Alfie Reveles MD at 18:59 EDT , Hip/Pelvis X-Ray 02/11/24 18:00 IMPRESSION: 1. Intertrochanteric fracture of the left femoral neck. 2. Severe degenerative changes in the right hip. Electronically Signed: Alfie Reveles MD at 18:59 EDT , Left hip x-ray interpreted by myself shows an intertrochanteric hip fracture. 4 views. Shows an intertrochanteric left hip fracture. Preop chest x-ray single view shows no acute abnormality. Normal cardiac silhouette. Normal lung ramey. Chronic changes. Interpreted by myself. Discharge Plan Triage Chief Complaint: Fall ED Provider: Darshan Lamb Dx/Rx/DC Orders Clinical Impression: Fall, History of kidney transplant, Closed hip fracture, Acute hypokalemia, Chronic renal insufficiency, Chronic anemia, History of stroke, Hx of tongue cancer Prescriptions: No Action finasteride 5 MG tablet 5 mg PO QHS calcitriol 0.25 MCG capsule 0.25 mcg PO QODAY sulfamethoxazole-trimethoprim 1 EACH tablet 1 tab PO DAILY cyanocobalamin (vitamin B-12) 500 MCG tablet 500 mcg PO DAILY@0900 folic acid 1 MG tablet 1 mg PO DAILY clopidogrel 75 MG tablet 75 mg PO DAILY Qty: 30 0RF pyridoxine (vitamin B6) 100 mg Tablet 200 mg PO BID prednisone 5 mg tablet 5 mg PO DAILY potassium chloride 10 mEq tablet extended release 20 meq PO DAILY tamsulosin 0.4 mg capsule 0.4 mg PO QHS cholecalciferol (vitamin D3) 125 mcg (5,000 unit) capsule 125 mcg PO Q3D tacrolimus [Prograf] 1 mg capsule 2 mg PO DAILY Rx Instructions: TAKE 3MG AT 9AM, AND 2MG AT 9PM tacrolimus [Prograf] 1 mg capsule 2 mg PO QPM Rx Instructions: TAKE 3MG AT 9AM AND 2MG AT 9PM acyclovir 400 mg tablet 400 mg PO PRN PRN (Reason: ANTIVIRAL) ferrous sulfate [Feosol] 325 mg (65 mg iron) tablet 325 mg PO DAILY Primary Care Provider: James Eden Referrals: James Eden MD [Primary Care Provider] - Disposition Disposition: Acute Care Hospital [facility]
--- NOTE | 2024-02-11 18:00 | RAD_ITS ---
EXAM: XR LEFT HIP WITH PELVIS WHEN PERFORMED, 2 OR 3 VIEWS CLINICAL INDICATION: fall w/ left hip pain TECHNIQUE: Two or three views of the left hip with pelvis when performed. COMPARISON: No relevant prior studies available. FINDINGS: BONES/JOINTS: There is an intertrochanteric fracture of the left hip. There is severe degenerative changes right hip with loss of hip joint space with sclerosis and subchondral cysts. Sacroiliac joint is unremarkable. No widening of the pubic symphysis. SOFT TISSUES: Unremarkable. No soft tissue swelling or gas. RAD/HIP, UNI W/ Pelvis 2-3 Views IMPRESSION: 1. Intertrochanteric fracture of the left femoral neck. 2. Severe degenerative changes in the right hip. Electronically Signed: Alfie Reveles MD at 18:59 EDT ,
--- NOTE | 2024-02-11 18:00 | RAD_ITS ---
EXAM: XR CHEST, 1 VIEW CLINICAL INDICATION: FALL W/LEFT HIP PAIN TECHNIQUE: Frontal view of the chest. COMPARISON: 05/03/2021 FINDINGS: LUNGS AND PLEURAL SPACES: Unremarkable. No consolidation or edema. No pneumothorax. No effusion. HEART: There is a prosthetic valve. MEDIASTINUM: Central airways and mediastinal contour are unremarkable. BONES/JOINTS: Unremarkable. No acute fracture. SOFT TISSUES: Unremarkable. RAD/Chest 1 View IMPRESSION: No acute findings in the chest. Electronically Signed: Alfie Reveles MD at 18:59 EDT ,
[2024-02-11 18:45] LABS: Absolute Lymphocyte Count 0.65 X10^3/uL (0.83-4.51); Absolute Neutrophil Count 4.6 X10^3/uL (2.0-7.7); Basophil# 0.04 X10^3/uL; Basophil% 0.7 % (0-1); Eosinophil# 0.02 X10^3/uL; Eosinophils% 0.4 % (0-5); Hematocrit 31.1 % (40-54); Hemoglobin 10.4 g/dL (13.0-16.5); Lymphocyte # 0.65 X10^3/ul (0.83-4.51); Lymphocyte % 11.4 % (19-41); Mean Corp Hgb Conc 33.4 g/dL (32-36); Mean Corpuscular Hgb 32.1 pg (27.0-32.0); Mean Platelet Vol. 9.2 fl (6.2-12.0); Monocyte# 0.32 X10^3/uL; Monocyte% 5.6 % (0-10); NRBC Flagged by Analyzer 0 % (0-5); Neutrophil # 4.61 X10^3/uL (2.7-7.7); Neutrophil % 80.8 % (47-70); Platelet Count 110 K/mm3 (150-450); RBC Distribution Width CV 14.6 % (11.6-14.6); RBC Distribution Width SD 51.3 fl (35.1-43.9); Red Blood Count 3.24 M/mm3 (4.6-6.2); White Blood Count 5.7 K/mm3 (4.4-11.0)
[2024-02-11] MEDS: Ondansetron 4 MG/2 ML Vial IV (18:46)
[2024-02-11] MEDS: HYDROmorphone 0.5 MG/0.5 ML SYRINGE IV (18:46)
[2024-02-11 18:55] LABS: International Normalized Ratio 1.1; Partial Thromboplast Time 28.9 Seconds (24.1-36.2); Prothrombin Time (Protime)PT. 14.5 SECONDS (11.7-14.9)
[2024-02-11 19:00] LABS: Anion Gap 9 (5-15); BUN 21 mg/dL (7-18); BUN/Creat Ratio 10.7 RATIO (10-20); Calcium,Total 7.4 mg/dL (8.5-10.1); Chloride 117 mmol/L (98-107); Creatinine, Serum 1.97 mg/dL (0.70-1.30); EST Glomerular Filtration Rate 35 mL/min (>60); Est Glom Filt Rate - Afr Amer 43 mL/min (>60); Estimated Creatinine Clearance 33.84 ml/min; Glucose 96 mg/dL (74-106); Potassium 2.9 mmol/L (3.5-5.1); Sodium Level 146 mmol/L (136-145)
--- NOTE | 2024-02-11 19:06 | PCM.HP.STD ---
HPI - General General Date of Admission: 02/11/24 Date of Service: 02/11/24 Chief Complaint: Left hip pain after fall HPI Narrative KELTON EMDINA, is a 74 M who presented to [facility] ED on 02/11/2024 for with left hip pain after a fall at home. Patient was found on left hip x-ray to have a left intratrochanteric hip fracture. ED physician discussed with orthopedics, plan was for left hip procedure tomorrow with admission to medicine. I saw the patient at bedside in the ED, multiple family were present. Patient was laying flat in bed with the left leg brace on for stability. He otherwise was making appropriate eye contact, conversing normally (aside from some difficulty with speech due to previous tongue cancer with partial tongue resection), and in no acute distress. Patient had been given pain medication prior to my encounter with him and stated this was quite helpful for his pain. He denied any significant left hip pain or discomfort at rest. Patient lives at home with his . He does use a walker for ambulation most of the time. His past medical history is significant for kidney transplant in 2017 and tongue cancer with partial tongue resection in 2020. Patient has a known history of orthostatic hypotension but states he had been doing fairly well from that standpoint. States that he simply lost his balance at home and fell onto his left side when he injured the hip, denied any lightheadedness or dizziness prior to the fall. Denies hitting his head. Did hit his left shoulder but denies any pain in the shoulder. Denies any recent medication changes. Is on Plavix for history of CVA, last dose was on day prior to admission. [facility] Medical History (Updated 02/12/24 @ 04:[address] Kevin Hall, ) Alcohol use Arthritis Back pain Cardiology follow-up encounter Diabetes Dietary restriction Difficulty swallowing Easy bruising Fatty liver High cholesterol History of colitis History of edema History of Holter monitoring History of irregular heartbeat History of renal disease History of stress test Hx of benign monoclonal gammopathy Hx of echocardiogram Hypertension Injury of head and neck Loss of consciousness Loss of hearing Low iron Non-smoker Prostate disease Stroke/cerebrovascular accident Syncope Wears glasses Home Medications finasteride 5 mg tablet 5 mg PO QHS PROSTATE 12/08/13 [History Last Taken 02/10/24] calcitriol 0.25 mcg capsule 0.25 mcg PO QODAY SUPPLEMENT 04/21/17 [History Last Taken 02/11/24] cyanocobalamin (vitamin B-12) 500 mcg tablet 500 mcg PO DAILY@0900 09/17/20 [History Last Taken 02/11/24] folic acid 1 mg tablet 1 mg PO DAILY SUPPLEMENT 09/17/20 [History Last Taken 02/11/24] sulfamethoxazole 400 mg-trimethoprim 80 mg tablet 1 tab PO DAILY 09/17/20 [History Last Taken 02/11/24] clopidogrel 75 mg tablet 75 mg PO DAILY #30 tabs 09/18/20 [Rx Last Taken 02/11/24] pyridoxine (vitamin B6) 100 mg tablet 200 mg PO BID 11/12/21 [History Last Taken 02/11/24] acyclovir 400 mg tablet 400 mg PO PRN PRN ANTIVIRAL 02/11/24 [History Last Taken Unknown] cholecalciferol (vitamin D3) 125 mcg (5,000 unit) capsule 125 mcg PO Q3D 02/11/24 [History Last Taken 02/09/24] ferrous sulfate 325 mg (65 mg iron) tablet (Feosol) 325 mg PO DAILY 02/11/24 [History Last Taken 02/11/24] latanoprost 0.005 % eye drops 1 drp RIGHT EYE .HS eye drop 02/11/24 [History Last Taken Unknown] levothyroxine 100 mcg tablet 100 mcg PO DAILY hypothyroid 02/11/24 [History Last Taken Unknown] levothyroxine 50 mcg capsule 50 mcg PO DAILY hypothryoid 02/11/24 [History Last Taken Unknown] potassium chloride 10 mEq tablet,extended release 20 meq PO DAILY 02/11/24 [History Last Taken 02/11/24] prednisone 5 mg tablet 5 mg PO DAILY 02/11/24 [History Last Taken 02/11/24] tacrolimus 1 mg capsule, immediate-release (Prograf) 2 mg PO DAILY 02/11/24 [History Last Taken 02/11/24] tacrolimus 1 mg capsule, immediate-release (Prograf) 2 mg PO QPM 02/11/24 [History Last Taken 02/10/24] tamsulosin 0.4 mg capsule 0.4 mg PO QHS 02/11/24 [History Last Taken 02/10/24] Allergy/AdvReac Type Severity Reaction Status Date / Time amoxicillin Allergy Unknown Verified 02/11/24 17:17 morphine Allergy Other Verified 02/11/24 17:17 ursodiol Allergy Rash Verified 02/11/24 17:17 exenatide [From [place]] AdvReac Nausea Verified 02/11/24 17:17 Surgical History Hx of bariatric surgery Kidney transplant recipient Kidney transplant recipient S/P arteriovenous (AV) fistula creation Social History Smoking Status: Never smoker substance use type: does not use ROS Constitutional Constitutional: Denies change in weight, chills, fatigue, fever(s) or weakness Eyes Eyes: Denies change in vision Cardiovascular Cardiovascular: Denies chest pain Respiratory/Chest Respiratory/Chest: Denies cough or shortness of breath at rest Gastrointestinal Gastrointestinal: Denies abdominal pain, constipation, diarrhea, nausea or vomiting Musculoskeletal Musculoskeletal: Reports joint pain; Denies arthralgias or myalgias Neurologic Neurologic: Denies dizziness, focal weakness or headache(s) Vital Signs Vital Signs Vital Signs: 02/11/24 17:17 02/11/24 18:57 Temperature 98.3 F Temperature Source Oral Pulse Rate 80 Respiratory Rate 29 H Respiratory Effort Normal Respiratory Depth Normal Respiratory Pattern Normal Blood Pressure 194/83 H Blood Pressure Mean 120 Pulse Ox 98 Oxygen Delivery Method Room Air Room Air Weight Weight: 75 kg Body Mass Index (BMI) 21.8 Physical Exam Const alert, oriented x3, no apparent distress and average body habitus Constitutional Narrative: Pleasant elderly male, laying comfortably in bed, answering questions appropriately but speech can be difficult to understand due to partial tongue resection, otherwise conversing normally and in no acute distress. General Appearance: cooperative and comfortable HEENT normocephalic, head/scalp atraumatic, hearing grossly normal bilaterally and nasal mucous membranes and turbinates normal Eyes PERRL, EOMs intact bilaterally and conjunctivae normal Neck full ROM Chest inspection of chest normal Resp normal respiratory effort, normal air movement, no use of accessory muscles and clear to auscultation bilaterally Cardio regular rate, regular rhythm, no murmurs and peripheral pulses 2+ throughout GI normal to inspection, nondistended, normoactive bowel sounds, soft to palpation, non-tender and non-distended Back/Spine normal ROM Extremity Extremity Narrative: Left leg/hip brace in place. No gross abnormalities on exam. Skin no rashes or lesions noted Neuro no focal motor deficits Speech: speech normal Psych mental status grossly normal Results Lab / Micro Data 02/11/24 18:38 02/11/24 18:38 Labs: Laboratory Results - last 24 hr 02/11/24 18:38: WBC 5.7, RBC 3.24 L, Hgb 10.4 L, Hct 31.1 L, MCV 96.0 H, MCH 32.1 H, MCHC 33.4, RDW Std Deviation 51.3 H, RDW Coeff of Lacy 14.6, Plt Count 110 L, MPV 9.2, Immature Gran % (Auto) 1.100 H, Neut % (Auto) 80.8 H, Lymph % (Auto) 11.4 L, [place] % (Auto) 5.6, Eos % (Auto) 0.4, Baso % (Auto) 0.7, Absolute Neuts (auto) 4.6, Absolute Lymphs (auto) 0.65 L, Nucleated RBC % 0, PT 14.5, INR 1.1, APTT 28.9, Sodium 146 H, Potassium 2.9 L, Chloride 117 H, Carbon Dioxide 20.0 L, Anion Gap 9, BUN 21 H, Creatinine 1.97 H, Estim Creat Clear Calc 33.84, Est GFR (MDRD) Af Amer 43 L, Est GFR (MDRD) Non-Af 35 L, BUN/Creatinine Ratio 10.7, Glucose 96, Calcium 7.4 L Imaging Radiology Impression Chest X-Ray 02/11/24 18:00 IMPRESSION: No acute findings in the chest. Electronically Signed: Alfie Reveles MD at 18:59 EDT , Hip/Pelvis X-Ray 02/11/24 18:00 IMPRESSION: 1. Intertrochanteric fracture of the left femoral neck. 2. Severe degenerative changes in the right hip. Electronically Signed: Alfie Reveles MD at 18:59 EDT , Assessment & Plan Assessment/Plan (1) Hip fracture, left: (2) History of kidney transplant: (3) Chronic renal insufficiency: PLAN: Plan Patient is a 74-year-old male who presented to [facility] ED on 02/11/2024 with left hip pain after a fall at home. 1. Left femoral neck fracture ? Admit under inpatient status to [facility]. Orthopedic consulted. Planning for OR on 02/11, preop evaluation as noted below. N.p.o. at midnight. Pain management with scheduled Tylenol, lidocaine patch, IV Dilaudid as needed and p.o. oxycodone as needed. PT/OT/case management consulted. Vitamin D level ordered. 2. Preoperative evaluation ? NSQIP score: Patient does have an above average risk of any complications, serious complications and discharged to nursing or rehab facility. ? Labs/imaging: Hemoglobin 10.4 on admit, no previous hemoglobin values since 2020, was around 12 at that time. Monitor daily CBC. Suspected mild MAURICE and hypokalemia noted on BMP. Patient given IV fluids on admission, will follow-up BMP and urine output. Replating potassium as needed. ? EKG/echo: No echo on file. Last EKG in 2020 was normal. No signs or symptoms of CHF. Very low concern for heart failure exacerbation. ? Medications: Holding home Plavix for procedure tomorrow, restart per orthopedic recs. Okay to continue all other home medications. ? Previous procedural complications: None. ? Recommendation: Patient is medically optimized for procedure. 3. History of renal transplant on chronic immunosuppression therapy, suspected mild creatinine elevation in setting of CKD stage III ? Transplant done back in 2018. Has been on immunosuppression since then and tolerating without issue. Current regimen of prednisone 5 mg daily, tacrolimus 2 mg twice daily. Creatinine 1.97 on admit, estimated GFR of 35. Last creatinine values in our system were from 2020, creatinine was 1.4-1.6 at that time. Trend daily BMP and urine output. 4. History of tongue cancer s/p partial tongue resection, concern for dysphagia ? Follows with the [facility] for this. Per patient and family had resection done back in 2020. No significant issues with swallowing per the patient but nursing staff noted difficulty with having a swallow medications/liquids on the floor. Speech therapy consulted. 5. Hypokalemia ? Potassium 2.9 on admit. Magnesium normal, phosphorus low normal. Replete potassium as needed. Chronic medical conditions: ? History of CVA: Holding home Plavix for procedure as noted above. ? Hypothyroidism: Continue home Synthroid. ? BPH with obstructive symptoms: Continue home finasteride and Flomax. ? Chronic anemia: Hemoglobin 10.4 on admit. No previous hemoglobin values since 2020 in our records, was at around 12 at that time. Suspect due to chronic kidney disease as noted above. Follow-up a.m. CBC. DVT prophylaxis: Heparin subcu CODE STATUS: DNR CCA, okay to intubate Expected disposition: TBD Total clinical time spent by myself addressing the patient's medical issues, reviewing all the data, and collaborating with patient's care team: 75 minutes. Charges/Coding Visit Charges Inpatient E&M: 72149 Init Hosp L3
[2024-02-11 19:15] VITALS: BP 198/88; PULSE 87; RESP 20; TEMP 36.8; O2SAT 98
[2024-02-11 19:48] LABS: AST(SGOT) 26 U/L (15-37); Alanine Aminotransfer ALT/SGPT 35 U/L (16-61); Albumin, Serum 2.9 g/dL (3.2-5.0); Alkaline Phosphatase 43 U/L (45-117); Bilirubin, Direct 0.15 mg/dL (0.00-0.30); Globulin 2.9 g/dL (2.2-4.2); Iron 41 ug/dL (65-175); Iron Binding Capacity,Total 234 ug/dL (250-450); Magnesium 1.8 mg/dL (1.6-2.6); PERCENT IRON SATURATION 17.5 % (15.0-55.0); Phosphorus 2.4 mg/dL (2.5-4.9); Protein, Total 5.8 g/dL (6.4-8.2)
[2024-02-11 19:58] LABS: Vitamin B12 663 pg/mL (211-911); Vitamin D,25 Hydroxy 46.9 ng/mL
[2024-02-11 20:54] VITALS: BMI 20.7
[2024-02-11 21:02] VITALS: BP 220/109; PULSE 89; RESP 22; TEMP 37.3; O2SAT 99
[2024-02-11] MEDS: oxyCODONE 5 MG Tablet PO (21:45)
[2024-02-11] MEDS: Acetaminophen 500 MG Tablet 1000 MG PO (21:46)
[2024-02-11 21:48] VITALS: BP 220/109; PULSE 89
[2024-02-11] MEDS: hydrALAZINE 20 MG/ML Vial 10 MG IV (21:48)
[2024-02-11] MEDS: Finasteride 5 MG Tablet PO (21:56)
[2024-02-11] MEDS: Tamsulosin HCl 0.4 MG Capsule PO (21:57)
[2024-02-11] MEDS: Tacrolimus Anhydrous 1 MG Capsule 2 MG PO (21:57)
[2024-02-11] MEDS: 0.9% Saline Lock 10 ML Syringe IV (21:58)
[2024-02-11] MEDS: Heparin Injection (Vial) 5,000 UNIT/ML VIAL 5000 UNIT SC (21:59)
[2024-02-11] MEDS: Pyridoxine HCl 100 MG Tablet 200 MG PO (22:00)
[2024-02-11] MEDS: Lactated Ringers 1,000 ML 125 ML IV (22:14)
[2024-02-11 22:36] VITALS: BP 187/98; PULSE 93
[2024-02-11 23:17] VITALS: O2SAT 98
[2024-02-12] VITALS (15 sets, daily range): BP systolic 116–185; BP diastolic 62–123; PULSE 76–92; RESP 17–20; TEMP 36.4–37.4; O2SAT 96–100; BMI 20.7
[2024-02-12] MEDS: Acetaminophen 500 MG Tablet 1000 MG PO ×2 (04:23→23:47)
[2024-02-12] MEDS: oxyCODONE 5 MG Tablet PO (04:23)
[2024-02-12 05:21] LABS: Hematocrit 26.7 % (40-54); Hemoglobin 8.8 g/dL (13.0-16.5); Mean Corpuscular Hgb 31.9 pg (27.0-32.0); Mean Corpuscular Volume 96.7 fL (80-94); Mean Platelet Vol. 9.5 fl (6.2-12.0); Platelet Count 109 K/mm3 (150-450); RBC Distribution Width CV 14.7 % (11.6-14.6); RBC Distribution Width SD 51.8 fl (35.1-43.9); Red Blood Count 2.76 M/mm3 (4.6-6.2)
[2024-02-12 05:46] LABS: Ferritin 39 ng/mL (26-388)
--- NOTE | 2024-02-12 06:00 | EKG12_ITS ---
Test Reason : PRE-OP Blood Pressure : / mmHG Vent. Rate : 075 BPM Atrial Rate : 075 BPM P-R Int : 392 ms QRS Dur : 134 ms QT Int : 404 ms P-R-T Axes : -80 -48 084 degrees QTc Int : 451 ms Unusual P axis, possible ectopic atrial rhythm Left axis deviation Left bundle branch block Abnormal ECG When compared with ECG of 03-MAY-2021 11:24, Ectopic atrial rhythm has replaced Sinus rhythm Left bundle branch block is now Present Confirmed by HALEIGH MOTA, KESHA ([id number]), editor managing director KARIE GONZALEZ ([id number]) on 02/18/2024 11:45:14 AM Referred By: Confirmed By:KESHA RICARDO MD
[2024-02-12 06:20] LABS: BUN 23 mg/dL (7-18); BUN/Creat Ratio 10.4 RATIO (10-20); Calcium,Total 8.2 mg/dL (8.5-10.1); Chloride 114 mmol/L (98-107); Creatinine, Serum 2.21 mg/dL (0.70-1.30); EST Glomerular Filtration Rate 31 mL/min (>60); Est Glom Filt Rate - Afr Amer 37 mL/min (>60); Glucose 130 mg/dL (74-106); Phosphorus 4.4 mg/dL (2.5-4.9); Potassium 3.5 mmol/L (3.5-5.1); Sodium Level 145 mmol/L (136-145)
[2024-02-12] MEDS: 0.9% Saline Lock 10 ML Syringe IV ×3 (06:50→23:51)
--- NOTE | 2024-02-12 07:07 | RAD_ITS ---
INDICATION: FX EXAMINATION/TECHNIQUE: X-RAY - XR Left Hip Unilateral 16 intraoperative views COMPARISON: FINDINGS: Intraoperative images demonstrate ORIF for a left femoral intertrochanteric fracture . RAD/Hip 1 view with Pelvis IMPRESSION: ORIF of the left femur. Electronically Signed: Polo Jenkins DO at 16:50 EDT ,
[2024-02-12] MEDS: Tacrolimus Anhydrous 1 MG Capsule 3 MG PO (08:06)
[2024-02-12] MEDS: predniSONE 5 MG Tablet PO (08:07)
--- NOTE | 2024-02-12 08:14 | CONS.ORTHO ---
HPI Consult Data Date of Consult: 02/12/24 HPI Narrative HPI Narrative: KELTON MEDINA, is a 74 M who presents with left hip intertrochanteric fracture from ground-level fall at home on 02/11/2024. I was consulted for management of the above. I saw the patient this morning and 311. He is comfortable lying in bed pain well-controlled. He complains of pain in the left hip region. He denies any other injuries other than an impact on his left shoulder. Prior to this injury he had some baseline right hip pain from arthritis for which she used a walker when going outside the house but was able to walk without any ambulatory aid within the house. He did have significant balance issues for a while and recently because of this balance issue he had a fall yesterday which caused this fracture. He has multiple medical comorbidities. He is on Plavix. He denies any shortness of breath. He denies any injury to his head. 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 He did not have any chemotherapy. [facility] Medical History (Updated 02/12/24 @ 08:[address] Mina Griffin MD) Alcohol use Arthritis Back pain Cardiology follow-up encounter Diabetes Dietary restriction Difficulty swallowing Easy bruising Fatty liver High cholesterol History of colitis History of edema History of Holter monitoring History of irregular heartbeat History of renal disease History of stress test Hx of benign monoclonal gammopathy Hx of echocardiogram Hypertension Injury of head and neck Loss of consciousness Loss of hearing Low iron Non-smoker Prostate disease Stroke/cerebrovascular accident Syncope Wears glasses Home Medications finasteride 5 mg tablet 5 mg PO QHS PROSTATE 12/08/13 [History Last Taken 02/10/24] calcitriol 0.25 mcg capsule 0.25 mcg PO QODAY SUPPLEMENT 04/21/17 [History Last Taken 02/11/24] cyanocobalamin (vitamin B-12) 500 mcg tablet 500 mcg PO DAILY@0900 09/17/20 [History Last Taken 02/11/24] folic acid 1 mg tablet 1 mg PO DAILY SUPPLEMENT 09/17/20 [History Last Taken 02/11/24] sulfamethoxazole 400 mg-trimethoprim 80 mg tablet 1 tab PO DAILY 09/17/20 [History Last Taken 02/11/24] clopidogrel 75 mg tablet 75 mg PO DAILY #30 tabs 09/18/20 [Rx Last Taken 02/11/24] pyridoxine (vitamin B6) 100 mg tablet 200 mg PO BID 11/12/21 [History Last Taken 02/11/24] acyclovir 400 mg tablet 400 mg PO PRN PRN ANTIVIRAL 02/11/24 [History Last Taken Unknown] cholecalciferol (vitamin D3) 125 mcg (5,000 unit) capsule 125 mcg PO Q3D 02/11/24 [History Last Taken 02/09/24] ferrous sulfate 325 mg (65 mg iron) tablet (Feosol) 325 mg PO DAILY 02/11/24 [History Last Taken 02/11/24] latanoprost 0.005 % eye drops 1 drp RIGHT EYE .HS eye drop 02/11/24 [History Last Taken Unknown] levothyroxine 100 mcg tablet 100 mcg PO DAILY hypothyroid 02/11/24 [History Last Taken Unknown] levothyroxine 50 mcg capsule 50 mcg PO DAILY hypothryoid 02/11/24 [History Last Taken Unknown] potassium chloride 10 mEq tablet,extended release 20 meq PO DAILY 02/11/24 [History Last Taken 02/11/24] prednisone 5 mg tablet 5 mg PO DAILY 02/11/24 [History Last Taken 02/11/24] tacrolimus 1 mg capsule, immediate-release (Prograf) 2 mg PO DAILY 02/11/24 [History Last Taken 02/11/24] tacrolimus 1 mg capsule, immediate-release (Prograf) 2 mg PO QPM 02/11/24 [History Last Taken 02/10/24] tamsulosin 0.4 mg capsule 0.4 mg PO QHS 02/11/24 [History Last Taken 02/10/24] Allergy/AdvReac Type Severity Reaction Status Date / Time amoxicillin Allergy Unknown Verified 02/11/24 17:17 morphine Allergy Other Verified 02/11/24 17:17 ursodiol Allergy Rash Verified 02/11/24 17:17 exenatide [From [place]] AdvReac Nausea Verified 02/11/24 17:17 Surgical History Hx of bariatric surgery Kidney transplant recipient Kidney transplant recipient S/P arteriovenous (AV) fistula creation Social History Smoking Status: Never smoker substance use type: does not use Vital Signs Vital Signs Vital Signs: 02/11/24 17:17 02/11/24 18:57 02/11/24 19:15 Temperature 98.3 F 98.3 F Temperature Source Oral Pulse Rate 80 87 Respiratory Rate 29 H 20 H Respiratory Effort Normal Respiratory Depth Normal Respiratory Pattern Normal Blood Pressure 194/83 H 198/88 H Blood Pressure Mean 120 124 Blood Pressure Source Blood Pressure Position Blood Pressure Location Pulse Ox 98 98 Oxygen Delivery Method Room Air Room Air 02/11/24 21:02 02/11/24 21:48 02/11/24 20:54 Temperature 99.2 F H Temperature Source Temporal Pulse Rate 89 89 Respiratory Rate 22 H Respiratory Effort Normal Non-Labored Respiratory Depth Normal Respiratory Pattern Normal Blood Pressure 220/109 H 220/109 H Blood Pressure Mean 146 Blood Pressure Source Monitor Blood Pressure Position Semi-Fowlers Blood Pressure Location Left Arm Pulse Ox 99 Oxygen Delivery Method Room Air Room Air 02/11/24 22:36 02/11/24 23:17 02/12/24 04:10 Temperature 99.1 F Temperature Source Temporal Pulse Rate 93 76 Respiratory Rate 18 Respiratory Effort Respiratory Depth Respiratory Pattern Blood Pressure 187/98 H 169/81 H Blood Pressure Mean 127 110 Blood Pressure Source Monitor Monitor Blood Pressure Position Semi-Fowlers Semi-Fowlers Blood Pressure Location Left Arm Left Arm Pulse Ox 98 97 Oxygen Delivery Method Room Air Room Air 02/12/24 05:38 02/12/24 07:15 02/12/24 07:56 Temperature 97.5 F L Temperature Source Oral Pulse Rate 77 Respiratory Rate 17 Respiratory Effort Respiratory Depth Respiratory Pattern Blood Pressure 185/69 H Blood Pressure Mean 107 Blood Pressure Source Monitor Blood Pressure Position Semi-Fowlers Blood Pressure Location Left Forearm Pulse Ox 96 97 97 Oxygen Delivery Method Room Air Room Air Room Air Weight Weight: 156 lb 11.979 oz Body Mass Index (BMI) 20.7 Physical Exam Narrative Examination of the left hip shows no skin break abrasions or bruising. No tenderness in the distal femur and knee tibia or the foot. No obvious tenderness throughout the right lower extremity. Distal neurovascular exam of the left lower extremity is intact. Lab / Micro Data 02/12/24 05:00 02/12/24 05:00 Labs: Laboratory Results - last 24 hr 02/11/24 18:38: WBC 5.7, RBC 3.24 L, Hgb 10.4 L, Hct 31.1 L, MCV 96.0 H, MCH 32.1 H, MCHC 33.4, RDW Std Deviation 51.3 H, RDW Coeff of Lacy 14.6, Plt Count 110 L, MPV 9.2, Immature Gran % (Auto) 1.100 H, Neut % (Auto) 80.8 H, Lymph % (Auto) 11.4 L, [place] % (Auto) 5.6, Eos % (Auto) 0.4, Baso % (Auto) 0.7, Absolute Neuts (auto) 4.6, Absolute Lymphs (auto) 0.65 L, Nucleated RBC % 0, PT 14.5, INR 1.1, APTT 28.9, Sodium 146 H, Potassium 2.9 L, Chloride 117 H, Carbon Dioxide 20.0 L, Anion Gap 9, BUN 21 H, Creatinine 1.97 H, Estim Creat Clear Calc 33.84, Est GFR (MDRD) Af Amer 43 L, Est GFR (MDRD) Non-Af 35 L, BUN/Creatinine Ratio 10.7, Glucose 96, Calcium 7.4 L, Phosphorus 2.4 L, Magnesium 1.8, Iron 41 L, TIBC 234 L, Iron Saturation 17.5, Total Bilirubin 0.40, Direct Bilirubin 0.15, AST 26, ALT 35, Alkaline Phosphatase 43 L, Total Protein 5.8 L, Albumin 2.9 L, Globulin 2.9, Folate 19.70 02/11/24 19:22: Vitamin B12 663, Vitamin D 25-Hydroxy 46.9 02/12/24 05:00: WBC 7.0, RBC 2.76 L, Hgb 8.8 L, Hct 26.7 L, MCV 96.7 H, MCH 31.9, MCHC 33.0, RDW Std Deviation 51.8 H, RDW Coeff of Lacy 14.7 H, Plt Count 109 L, MPV 9.5, Sodium 145, Potassium 3.5, Chloride 114 H, Carbon Dioxide 22.0, BUN 23 H, Creatinine 2.21 H, Estim Creat Clear Calc 28.60, Est GFR (MDRD) Af Amer 37 L, Est GFR (MDRD) Non-Af 31 L, BUN/Creatinine Ratio 10.4, Glucose 130 H, Calcium 8.2 L, Phosphorus 4.4, Ferritin 39, Albumin 3.0 L, Blood Type O POSITIVE, Antibody Screen NEGATIVE Imaging Radiology Impression Chest X-Ray 02/11/24 18:00 IMPRESSION: No acute findings in the chest. Electronically Signed: Alfie Reveles MD at 18:59 EDT , Hip/Pelvis X-Ray 02/11/24 18:00 IMPRESSION: 1. Intertrochanteric fracture of the left femoral neck. 2. Severe degenerative changes in the right hip. Electronically Signed: Alfie Reveles MD at 18:59 EDT , Assessment & Plan Assessment/Plan (1) Intertrochanteric fracture of left femur: QUALIFIERS: Encounter type: initial encounter Fracture type: closed Fracture alignment: displaced Qualified Code(s): S72.142A - Displaced intertrochanteric fracture of left femur, initial encounter for closed fracture PLAN: Plan I reviewed his x-rays obtained in the ER. He has left intertrochanteric femur fracture. This is displaced with a large posterior medial fragment. I explained to him options of treatment. For his age, and fracture, operative treatment is recommended for earlier return to mobility to reduce recumbency complications. I recommend left IT femur open reduction internal fixation with gamma nailing. All risk benefits and alternatives were discussed. The risks include but are not limited to infection, bleeding, hematoma formation, hardware failure, nonunion, malunion, limb length discrepancy, DVT, pulmonary embolism, cardiopulmonary event, need for further surgeries, persistent pain, persistent limp, estrellita-implant fracture. Patient understands and agrees to proceed with surgery. Surgery will be scheduled later today after medical clearance. Charges/Coding Visit Charges Inpatient E&M: 42420 Init Hosp L3
[2024-02-12] MEDS: hydrALAZINE 20 MG/ML Vial 10 MG IV (08:18)
[2024-02-12 08:20] LABS: Hemoglobin A1c 5.1 % (3.8-5.6)
--- NOTE | 2024-02-12 09:40 | PN.HOSP_ITS ---
Reason for Visit Reason for Visit: Left hip pain after mechanical fall Subjective Subjective Mr. Luke is a 74-year-old white male who presented to the emergency department at 02/11/2024 after a mechanical fall with resultant left hip pain. He lives at home with his at baseline and uses a walker for ambulation most of the time. He reported that he simply lost his balance while trying to walk and fell to his left side and had immediate hip pain following the injury. He denied any lightheadedness or dizziness prior to the fall. He did not hit his head. He did report he hit his left shoulder but denied pain there at the time of admission. He does have previous history of renal transplant in 2018 and history of tongue cancer with partial resection in 2020. He does have a history of orthostatic hypotension but denies that this contributed to the fall. Vital signs on presentation showed a temperature of 98.3, heart rate 80, respiratory was 28, initial blood pressure was 194/83 with a pulse ox of 98% on room air. CBC showed a chronic anemia that appeared to be stable at 10.4. He also has a chronic thrombocytopenia that was stable as well. His coags were normal. His chemistry panel was abnormal showing hypernatremia, hyperchloremia, hypokalemia and elevated serum BUN and creatinine at 21 and 1.97 respectively with an unclear baseline as we have no recent lab but previously it appears he had been running between 1.4 and 1.6 back in 2020. His phosphorus was slightly low at 2.4 and was replaced and resolved. Magnesium was normal. Iron studies were obtained because he was anemic with his total iron being low and his TIBC being low with a normal iron saturation and ferritin. This seems more consistent with anemia of chronic disease rather than blood loss but a guaiac stool is pending at this time. He is on Plavix at baseline. Chest x-ray showed no acute abnormalities in the chest. Hip and pelvic x-rays demonstrated an intertrochanteric fracture of the left femoral neck as well as severe degenerative changes of the right hip. The case was discussed with orthopedic surgery and they indicated they would see him after admission for operative management. At this point orthopedic surgery has recommended a left inte rtrochanteric ORIF with gamma nailing which is to be in line later today. Follows with transplant center for his kidney function states his baseline has been around 1.9-2. I did discuss itself higher than that so we will consult nephrology for assistance since he is a transplant. Plan is for OR later today. Will likely need placement at discharge. States his pain is well-controlled at this time. Objective Data Objective Data Vital Signs: Vital Signs Temp Pulse Resp BP Pulse Ox O2 Del Method 97.5 F L 77 17 185/69 H 97 Room Air 02/12/24 07:56 02/12/24 08:18 02/12/24 07:56 02/12/24 07:56 02/12/24 07:56 02/12/24 08:10 Oxygen Delivery Method Room Air Weight: 71.1 kg Body Mass Index (BMI) 20.7 Intake & Output: Intake and Output for Last 24 Hours 02/10/24 02/11/24 02/12/24 23:59 23:59 23:59 Intake Total 0 / 100 1150 / 1150 Output Total 900 / 900 Balance 0 / -500 250 / 250 Lab / Micro Data 02/12/24 05:00 02/12/24 05:00 Labs: Laboratory Results - last 24 hr 02/11/24 18:38: WBC 5.7, RBC 3.24 L, Hgb 10.4 L, Hct 31.1 L, MCV 96.0 H, MCH 32.1 H, MCHC 33.4, RDW Std Deviation 51.3 H, RDW Coeff of Lacy 14.6, Plt Count 110 L, MPV 9.2, Immature Gran % (Auto) 1.100 H, Neut % (Auto) 80.8 H, Lymph % (Auto) 11.4 L, [place] % (Auto) 5.6, Eos % (Auto) 0.4, Baso % (Auto) 0.7, Absolute Neuts (auto) 4.6, Absolute Lymphs (auto) 0.65 L, Nucleated RBC % 0, PT 14.5, INR 1.1, APTT 28.9, Sodium 146 H, Potassium 2.9 L, Chloride 117 H, Carbon Dioxide 20.0 L, Anion Gap 9, BUN 21 H, Creatinine 1.97 H, Estim Creat Clear Calc 33.84, Est GFR (MDRD) Af Amer 43 L, Est GFR (MDRD) Non-Af 35 L, BUN/Creatinine Ratio 10.7, Glucose 96, Calcium 7.4 L, Phosphorus 2.4 L, Magnesium 1.8, Iron 41 L, TIBC 234 L, Iron Saturation 17.5, Total Bilirubin 0.40, Direct Bilirubin 0.15, AST 26, ALT 35, Alkaline Phosphatase 43 L, Total Protein 5.8 L, Albumin 2.9 L, Globulin 2.9, Folate 19.70 02/11/24 19:22: Vitamin B12 663, Vitamin D 25-Hydroxy 46.9 02/12/24 05:00: WBC 7.0, RBC 2.76 L, Hgb 8.8 L, Hct 26.7 L, MCV 96.7 H, MCH 31.9, MCHC 33.0, RDW Std Deviation 51.8 H, RDW Coeff of Lacy 14.7 H, Plt Count 109 L, MPV 9.5, Sodium 145, Potassium 3.5, Chloride 114 H, Carbon Dioxide 22.0, BUN 23 H, Creatinine 2.21 H, Estim Creat Clear Calc 28.60, Est GFR (MDRD) Af A trudy 37 L, Est GFR (MDRD) Non-Af 31 L, BUN/Creatinine Ratio 10.4, Glucose 130 H, Hemoglobin A1c 5.1, Calcium 8.2 L, Phosphorus 4.4, Ferritin 39, Albumin 3.0 L, Blood Type O POSITIVE, Antibody Screen NEGATIVE Radiography Diagnostic Testing: Radiology Impression Chest X-Ray 02/11/24 18:00 IMPRESSION: No acute findings in the chest. Electronically Signed: Alfie Reveles MD at 18:59 EDT Reading Location ID and State: [facility] / [place] Tel , Service support , Hip/Pelvis X-Ray 02/11/24 18:00 IMPRESSION: 1. Intertrochanteric fracture of the left femoral neck. 2. Severe degenerative changes in the right hip. Electronically Signed: Alfie Reveles MD at 18:59 EDT , Physical Exam Const alert, oriented x3 and no apparent distress; Negative for healthy appearing Constitutional Narrative: Elderly, white male, lying in bed, at bedside, currently appears comfortable, nontoxic HEENT head/scalp atraumatic HEENT Narrative: Mucous membranes are somewhat dry related to previous tongue surgery for carcinoma, Mallampati is 2, no thrush Head and Scalp: normocephalic Resp normal respiratory effort, no retractions, no use of accessory muscles and clear to auscultation bilaterally Auscultation: Negative for rales, rhonchi or wheezes Cardio regular rate, regular rhythm, S1 normal heart sound, S2 normal heart sound, no murmurs, no rub, no gallops and no clicks GI normal to inspection, nondistended, normoactive bowel sounds, soft to palpation and non-tender Extremity no clubbing, cyanosis or edema Extremity Narrative: Pedal pulses are 2+ Neuro oriented x3 and no focal motor deficits Neuro Narrative: No focal deficits but unable to move left lower extremity much at all right now due to pain, normal movement at the ankles bilaterally, speech is somewhat gar bled and this is his baseline due to his history of tongue cancer and resection Psych affect normal Psych Narrative: Very pleasant, interacts appropriately Assessment & Plan Assessment/Plan (1) Intertrochanteric fracture of left femur: QUALIFIERS: Encounter type: initial encounter Fracture alignment: displaced Fracture type: closed Qualified Code(s): S72.142A - Displaced intertrochanteric fracture of left femur, initial encounter for closed fracture (2) Hip fracture, left: (3) Chronic anemia: (4) Acute hypokalemia: PLAN: Plan Left femoral neck fracture -Admitted to medical surgical floor -Orthopedic surgery is following and plan is for intramedullary nail later today -Continue scheduled Tylenol -Continue lidocaine patch -Continue as needed p.o. oxycodone and IV Dilaudid -PT/OT to follow postoperatively -Vitamin D level is pending -Case management/social work to follow for discharge planning and placement needs if required -Preoperative clearance was performed by the admitting physician and felt that he was medically optimized for his procedure -Plavix is on hold and will restart once okay with orthopedic surgery Hypokalemia -Resolved with replacement -Will continue to follow Hypophosphatemia -Resolved with replacement -Will continue to follow Acute on chronic anemia secondary to chronic renal disease -Hemoglobin dropped from 10.4 on admission to 8.8 today. -Iron studies are not consistent with iron deficiency -Guaiac is pending -May be dilutional as well as related to some bleeding in the hip area -No asides of bleeding acutely -Will continue to monitor and transfuse for hemoglobin less than 7 -Continue home iron supplementation Chronic thrombocytopenia -Platelet counts appear to be stable at this time -Continue to monitor -Baseline appears to be between 100,000-120,000 Hypernatremia/hyperchloremia -Resolved CKD-stage unclear -Baseline is unknown at this time -Previous baseline from 2020 appeared to be between 1.4 and 1.6 -Serum creatinine admission was 1.97 and today 2.21 -Avoid nephrotoxins as able -Continue to monitor -Check renal ultrasound -Continue home calcitriol -Will consult nephrology with history of renal transplant and worsening serum creatinine -Continue prednisone, Bactrim, and Prograf Vitamin D deficiency -Continue home cholecalciferol -Vitamin D level is pending BPH with obstruction -Continue home finasteride -Continue home Flomax -May have urinary retention issues postoperatively related to anesthesia and narcotics History of tongue cancer status post partial resection -Concern for dysphagia -Speech therapy is consulted -Patient/family did report he was having difficulty swallowing medication and liquids History of stroke -Plavix on hold for surgery -Will restart Plavix once okay with surgery History of hypothyroidism -Continue home Synthroid -Check TSH DVT prophylaxis -Subcu heparin twice daily CODE STATUS -DNR CCA okay for short-term intubation as verified at the time of admission Charges/Coding Visit Charges Inpatient E&M: 38772 Subs Hosp L2
--- NOTE | 2024-02-12 09:50 | CASEMGMT ---
RN?CM?TECHNICIAN CHEMICAL CLEANING?CM?to room to meet with patient for initial transition planning/care coordination?assessment.?RN?CM?introduced self and role at [facility].? Pt voices understanding and consents to?assessment?at this time.? Pt resting in bed in no distress at this time.?, Antonette, @ bedside. Pt is A/O at this time and answers all questions appropriately.?? Care providers, pharmacy, and demographics verified/updated at this time. PCP: Dr Eden Specialists: Dr William-radiation oncologist @ [facility]. Dr Lencho Hutson-ENT, Dr Buenrostro-banking center manager in [place], Dr Mahajan-neurologist. Pt also sees the Kidney Transplant Team @ [facility]. Preferred Pharmacy: [facility], [facility] ([employer] lists [employer], but states is now [facility]. She provided insurance card, copy made and faxed to registration to be updated in [employer] and card given back to ). Prescription Benefit:?Yes Living Will/HPOA:?Pt has both LW and HCPOA, who is his , Antonette. They think 1st alternative is pt's Sandy GAVIRIA (she is a nurse) LNOK: , Antonette. 2 sons. Living Arrangements: Pt lives w/ in one-story home w/basement and 4 steps to enter. Pt does not have to go to the basement. Pt is mostly indep w/ADL's, does assist w/drying his legs at times. Pt makes his own meals and does the laundry. gets the groceries. Transportation:?Pt states drives self and states no transportation concerns at this time.? also drives. DME: ? Has the following DME:?tub bench (has but does not usually use), cane, walker and rollator (does not usually use). HHC/SNF: No hx of either. Pt has been to [facility] for OP ST and to [facility] for OP PT. Pt and w/questions re: SNF. Questions answered. A list of SNF providers including quality and resource use data and consistent with the patient?s preferred geographic region, medical needs, and insurance network were provided from the [employer]. They both state they would like pt to stay @ [facility] either @ TCU or . Further questions answered and they voice appreciation of info. YULIANA Palacios, made aware. Pt and voice no further concerns/needs at this time.? PLAN:??SNF Jasmyn BSN?RN?CM
--- NOTE | 2024-02-12 09:50 | US_ITS ---
STUDY: RENAL ULTRASOUND - COMPLETE REASON FOR EXAM: Male, 74 years old. ebenezer TECHNIQUE: Ultrasound evaluation of the kidneys was performed with real-time and static prabhakar-scale imaging. COMPARISON: None. FINDINGS: RIGHT KIDNEY: Normal location of the right kidney, which is normal in size. The right kidney measures 12.2 cm x 5.9 cm x 5.3 cm. There is a normal cortex of the right kidney. The renal cortex measures 1.0 cm. There is no right renal mass or cyst. Multiple echogenic foci are seen within the right kidney. The largest measures 9 mm x 7 mm x 4 mm. There is mild hydronephrosis of the right kidney. DISTAL RIGHT URETER: There is non-visualization of the distal right ureter. There is no demonstrated right ureterovesical junction calculus. There is no demonstrated right ureteral jet. LEFT KIDNEY: with mild renal atrophy. The left kidney measures 9 cm x 3.7 cm x 3.8 cm. There is diffuse thinning of the renal cortex. The renal cortex measures 0.5 cm. 2 renal cysts are seen. The larger measures 2.1 cm x 1.7 cm x 2.4 cm. There are no left renal calculi. There is no left hydronephrosis. DISTAL LEFT URETER: There is non-visualization of the distal left ureter. There is no demonstrated left ureterovesical junction calculus. There is no demonstrated left ureteral jet. BLADDER: A Robison catheter seen within the urinary bladder. US/Kidney and Bladder IMPRESSION: Several small nonobstructive right intrarenal calculi and mild right hydronephrosis. Mild atrophy of the left kidney with 2 renal cysts. A Robison catheter is seen within the urinary bladder. Electronically Signed: Zelalem Gould MD at 13:44 EDT ,
[2024-02-12] MEDS: HYDROmorphone 0.5 MG/0.5 ML SYRINGE IV (09:59)
--- NOTE | 2024-02-12 10:53 | CASEMGMT ---
Social Work Pt spoke w/CM, he would like to go to TCU or rehab postoperatively. SW made referral, they will review once pt has had surgery and therapy, and is more medically ready for discharge. SW will continue to follow. MICHAEL Fontenot
--- NOTE | 2024-02-12 13:09 | CON.PCM.RE_ITS ---
Assessment & Plan Assessment/Plan (1) History of kidney transplant: PLAN: History of kidney transplant in 2018. Reviewed records from [facility]. Over the last 6 months creatinine has increased to 1.9. Home immunosuppression's include tacrolimus and prednisone only. Continue same dose for now. Renal ultrasound ordered. 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 Reviewed home medication list. He is on potassium chloride. He might benefit from switching this to potassium citrate. I will reach out to transplant nephrology at [facility] about this. (2) Renal transplant recipient: HPI Consult Data Date of Consult: 02/12/24 HPI Narrative Reason for Consultation: Kidney transplant history HPI Narrative: KELTON MEDINA, is a 74 M who presents To the hospital with fall, intertrochanteric fracture. Nephrology on consultation in view of kidney transplant history. He has known history of kidney transplant in 2018 at [facility]. Immunosuppression includes tacrolimus, prednisone. at bedside, giving most of the history. 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 Baseline creatinine appears to be around 1.8-1.9. Of note, it has been a progressive increase in creatinine from 1.2-2.0 over the last 6 months. It appears donor specific antibodies are negative. Kidney biopsy has not been done yet. Denies any obstructive symptoms. He has history of oropharyngeal carcinoma requiring resection, flap surgery. Usually his makes smoothie out of medications. 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 [facility] Medical History (Updated 02/12/24 @ 08:[address] Mina Griffin MD) Alcohol use Arthritis Back pain Cardiology follow-up encounter Diabetes Dietary restriction Difficulty swallowing Easy bruising Fatty liver High cholesterol History of colitis History of edema History of Holter monitoring History of irregular heartbeat History of renal disease History of stress test Hx of benign monoclonal gammopathy Hx of echocardiogram Hypertension Injury of head and neck Loss of consciousness Loss of hearing Low iron Non-smoker Prostate disease Stroke/cerebrovascular accident Syncope Wears glasses Home Medications finasteride 5 mg tablet 5 mg PO QHS PROSTATE 12/08/13 [History Last Taken 02/10/24] calcitriol 0.25 mcg capsule 0.25 mcg PO QODAY SUPPLEMENT 04/21/17 [History Last Taken 02/11/24] cyanocobalamin (vitamin B-12) 500 mcg tablet 500 mcg PO DAILY@0900 09/17/20 [History Last Taken 02/11/24] folic acid 1 mg tablet 1 mg PO DAILY SUPPLEMENT 09/17/20 [History Last Taken 02/11/24] sulfamethoxazole 400 mg-trimethoprim 80 mg tablet 1 tab PO DAILY 09/17/20 [History Last Taken 02/11/24] clopidogrel 75 mg tablet 75 mg PO DAILY #30 tabs 09/18/20 [Rx Last Taken 02/11/24] pyridoxine (vitamin B6) 100 mg tablet 200 mg PO BID 11/12/21 [History Last Taken 02/11/24] acyclovir 400 mg tablet 400 mg PO PRN PRN ANTIVIRAL 02/11/24 [History Last Taken Unknown] cholecalciferol (vitamin D3) 125 mcg (5,000 unit) capsule 125 mcg PO Q3D 02/11/24 [History Last Taken 02/09/24] ferrous sulfate 325 mg (65 mg iron) tablet (Feosol) 325 mg PO DAILY 02/11/24 [History Last Taken 02/11/24] latanoprost 0.005 % eye drops 1 drp RIGHT EYE .HS eye drop 02/11/24 [History Last Taken Unknown] levothyroxine 100 mcg tablet 100 mcg PO DAILY hypothyroid 02/11/24 [History Last Taken Unknown] levothyroxine 50 mcg capsule 50 mcg PO DAILY hypothryoid 02/11/24 [History Last Taken Unknown] potassium chloride 10 mEq tablet,extended release 20 meq PO DAILY 02/11/24 [History Last Taken 02/11/24] prednisone 5 mg tablet 5 mg PO DAILY 02/11/24 [History Last Taken 02/11/24] tacrolimus 1 mg capsule, immediate-release (Prograf) 2 mg PO DAILY 02/11/24 [History Last Taken 02/11/24] tacrolimus 1 mg capsule, immediate-release (Prograf) 2 mg PO QPM 02/11/24 [History Last Taken 02/10/24] tamsulosin 0.4 mg capsule 0.4 mg PO QHS 02/11/24 [History Last Taken 02/10/24] Allergy/AdvReac Type Severity Reaction Status Date / Time amoxicillin Allergy Unknown Verified 02/11/24 17:17 morphine Allergy Other Verified 02/11/24 17:17 ursodiol Allergy Rash Verified 02/11/24 17:17 exenatide [From [place]] AdvReac Nausea Verified 02/11/24 17:17 Surgical History Hx of bariatric surgery Kidney transplant recipient Kidney transplant recipient S/P arteriovenous (AV) fistula creation Social History Smoking Status: Never smoker substance use type: does not use ROS ROS Narrative Negative except above Physical Exam Narrative Alert awake oriented x 3 no obvious distress no pallor no icterus no JVD s1s2 no murmurs lungs clear abdomen soft no organomegaly no edema no cyanosis Lab / Micro Data 02/12/24 05:00 02/12/24 05:00 Labs: Laboratory Results - last 24 hr 02/11/24 18:38: WBC 5.7, RBC 3.24 L, Hgb 10.4 L, Hct 31.1 L, MCV 96.0 H, MCH 32.1 H, MCHC 33.4, RDW Std Deviation 51.3 H, RDW Coeff of Lacy 14.6, Plt Count 110 L, MPV 9.2, Immature Gran % (Auto) 1.100 H, Neut % (Auto) 80.8 H, Lymph % (Auto) 11.4 L, [place] % (Auto) 5.6, Eos % (Auto) 0.4, Baso % (Auto) 0.7, Absolute Neuts (auto) 4.6, Absolute Lymphs (auto) 0.65 L, Nucleated RBC % 0, PT 14.5, INR 1.1, APTT 28.9, Sodium 146 H, Potassium 2.9 L, Chloride 117 H, Carbon Dioxide 20.0 L, Anion Gap 9, BUN 21 H, Creatinine 1.97 H, Estim Creat Clear Calc 33.84, Est GFR (MDRD) Af Amer 43 L, Est GFR (MDRD) Non-Af 35 L, BUN/Creatinine Ratio 10.7, Glucose 96, Calcium 7.4 L, Phosphorus 2.4 L, Magnesium 1.8, Iron 41 L, TIBC 234 L, Iron Saturation 17.5, Total Bilirubin 0.40, Direct Bilirubin 0.15, AST 26, ALT 35, Alkaline Phosphatase 43 L, Total Protein 5.8 L, Albumin 2.9 L, Globulin 2.9, Folate 19.70 02/11/24 19:22: Vitamin B12 663, Vitamin D 25-Hydroxy 46.9 02/12/24 05:00: WBC 7.0, RBC 2.76 L, Hgb 8.8 L, Hct 26.7 L, MCV 96.7 H, MCH 31.9, MCHC 33.0, RDW Std Deviation 51.8 H, RDW Coeff of Lacy 14.7 H, Plt Count 109 L, MPV 9.5, Sodium 145, Potassium 3.5, Chloride 114 H, Carbon Dioxide 22.0, BUN 23 H, Creatinine 2.21 H, Estim Creat Clear Calc 28.60, Est GFR (MDRD) Af Amer 37 L, Est GFR (MDRD) Non-Af 31 L, BUN/Creatinine Ratio 10.4, Glucose 130 H, Hemoglobin A1c 5.1, Calcium 8.2 L, Phosphorus 4.4, Ferritin 39, Albumin 3.0 L, Blood Type O POSITIVE, Antibody Screen NEGATIVE Imaging Radiology Impression Chest X-Ray 02/11/24 18:00 IMPRESSION: No acute findings in the chest. Electronically Signed: Alfie Reveles MD at 18:59 EDT , Hip/Pelvis X-Ray 02/11/24 18:00 IMPRESSION: 1. Intertrochanteric fracture of the left femoral neck. 2. Severe degenerative changes in the right hip. Electronically Signed: Alfie Reveles MD at 18:59 EDT ,
[2024-02-12] MEDS: Lactated Ringers 1,000 ML 15 ML IV (13:48)
--- NOTE | 2024-02-12 14:25 | NURSING ---
Pt came back from getting his Ultrasound at approximately 1305 and at 1320 Radha from surgery came to get pt via bed to go down to surgery. OFf the floor.
[2024-02-12] MEDS: Clindamycin 600 MG/50 ML BAG 100 MG IV ×2 (14:41→23:48)
--- NOTE | 2024-02-12 16:22 | OP.PCM_ITS ---
Report of Operation Date of Procedure: 02/12/24 Description of Surgical Findings:: Operative Report Pre-operative Diagnosis: Left intertrochanteric Femur Fracture Post-operative Diagnosis: Left intertrochanteric Femur Fracture Procedure(s) Performed: Left femur Cephalmedullary Nailing CPT 14745 (Long nail) Surgeon: Dr. Mina Griffin MD Coal Cutting Machine Operator: None Estimated Blood Loss: 50 ml Anesthesia: General Drains: None Specimens: None Implants: Daniel [id number] Trochanteric Nail 380 x 11 mm, 125 degree, 115 mm lag screw Complications: None; patient tolerated the procedure well. Condition: stable Indications: 74-year-old gentleman who had a ground-level fall and sustained a left displaced intertrochanteric femur Fracture. We discussed the benefits and risks of the procedure including but not limited toinfection, bleeding, injury to nerves and vessels, limb length discrepancy, nonunion, malunion, hardware failure, estrellita-implant fracture, hip and knee stiffness, persistent pain, difficulty to ambulate, DVT, pulmonary embolism, cardiopulmonary event, need for further surgeries. The patient concurred with the proposed plan, giving informed consent. Procedure Details: The patient was seen in the pre-operative preparation area. The site of surgery was verbally confirmed and marked by the surgical team. The patient was properly identified by the unique identifiers and was then at that time transported to the operative theater by [facility]. A Time Out was held and the above information confirmed. Both lower extremities were placed on the fracture table with the contralateral extremity extended down to allow C- arm to come in. Closed reduction maneuver was applied and AP and lateral x-rays with the help of C-arm were taken until adequate reduction was achieved. Operative area was prepped and draped in a sterile fashion. Final timeout was performed. With the help of C-arm incision was marked. A 4 cm Incision was made proximal to the greater trochanter. An appropriate greater trochanter starting point was found using the starting wire under fluoroscopy. The wire was then drilled to the metadiaphyseal region of the femur. The opening reamer was then drilled into the metadiaphysis under fluoro. A ball tip guide wire was then placed down the femur. Sequential flexible reaming was performed up to 12.5 mm. Length of the long gamma nail was measured with the help of guidewire and measuring tool. 380 x 11 mm long Gamma Nail was then placed into the intramedullary canal of the femur and placement was verified with fluoroscopy and advanced to an appropriate level to allow placement of the lag screw. Guidewire was removed. We then drilled the wire for the lag screw up the neck of the femur under fluoroscopic guidance. AP and lateral x-rays showed good positioning of the wire through the neck into the head with good tip apex distance. The wire was then measured. Cannulated drill was used to drill a channel for the lag screw and a 115 mm lag screw was placed up the neck of the femur. A distal static interlocking screw 40 mm was placed with the help of the C-arm with perfect redding technique. This was placed in the proximal end of the oblong hole. Final fluorscopic images were then taken and the placement of the intramedullary device and fracture was deemed appropriate. The wounds were irrigated copiously with sterile solution. The deep fascia was closed with 0 vicryl suture. The deep dermal layer was closed with 2-0 vicryl suture. [place] were used to close the skin. Aquacel dressing was used, the incisions. The patient was then awaken, extubated and taken to the PACU. I was present and scrubbed for the entire procedure. Postoperative plan: Patient will be WBAT. Recommend PT/OT evaluation Pain Control F/u Outpatient in 2 weeks Admit VTE Documentation VTE Mechan Device Prophylaxis: SCD's Procedures Musculoskeletal [id number]: Other Procedure See Report
--- NOTE | 2024-02-12 16:32 | PN.ORTHO_ITS ---
Subjective Subjective Seen in PACU. Doing well. Pain well-controlled. Objective Data Objective Data Vital Signs: Vital Signs Temp Pulse Resp BP Pulse Ox O2 Del Method 99.3 F H 86 18 159/64 H 97 Room Air 02/12/24 11:14 02/12/24 11:14 02/12/24 11:14 02/12/24 11:14 02/12/24 11:14 02/12/24 11:14 Oxygen Delivery Method Room Air Weight: 156 lb 11.979 oz Body Mass Index (BMI) 20.7 Intake & Output: Intake and Output for Last 24 Hours 02/10/24 02/11/24 02/12/24 23:59 23:59 23:59 Intake Total 0 / 100 1200 / 1200 Output Total 1150 / 1150 Balance 0 / -500 50 / 50 Lab / Micro Data 02/12/24 05:00 02/12/24 05:00 Labs: Laboratory Results - last 24 hr 02/11/24 18:38: WBC 5.7, RBC 3.24 L, Hgb 10.4 L, Hct 31.1 L, MCV 96.0 H, MCH 32.1 H, MCHC 33.4, RDW Std Deviation 51.3 H, RDW Coeff of Lacy 14.6, Plt Count 110 L, MPV 9.2, Immature Gran % (Auto) 1.100 H, Neut % (Auto) 80.8 H, Lymph % (Auto) 11.4 L, [place] % (Auto) 5.6, Eos % (Auto) 0.4, Baso % (Auto) 0.7, Absolute Neuts (auto) 4.6, Absolute Lymphs (auto) 0.65 L, Nucleated RBC % 0, PT 14.5, INR 1.1, APTT 28.9, Sodium 146 H, Potassium 2.9 L, Chloride 117 H, Carbon Dioxide 20.0 L, Anion Gap 9, BUN 21 H, Creatinine 1.97 H, Estim Creat Clear Calc 33.84, Est GFR (MDRD) Af Amer 43 L, Est GFR (MDRD) Non-Af 35 L, BUN/Creatinine Ratio 10.7, Glucose 96, Calcium 7.4 L, Phosphorus 2.4 L, Magnesium 1.8, Iron 41 L, TIBC 234 L, Iron Saturation 17.5, Total Bilirubin 0.40, Direct Bilirubin 0.15, AST 26, ALT 35, Alkaline Phosphatase 43 L, Total Protein 5.8 L, Albumin 2.9 L, Globulin 2.9, Folate 19.70 02/11/24 19:22: Vitamin B12 663, Vitamin D 25-Hydroxy 46.9 02/12/24 05:00: WBC 7.0, RBC 2.76 L, Hgb 8.8 L, Hct 26.7 L, MCV 96.7 H, MCH 31.9, MCHC 33.0, RDW Std Deviation 51.8 H, RDW Coeff of Lacy 14.7 H, Plt Count 109 L, MPV 9.5, Sodium 145, Potassium 3.5, Chloride 114 H, Carbon Dioxide 22.0, BUN 23 H, Creatinine 2.21 H, Estim Creat Clear Calc 28.60, Est GFR (MDRD) Af Amer 37 L, Est GFR (MDRD) Non-Af 31 L, BUN/Creatinine Ratio 10.4, Glucose 130 H, Hemoglobin A1c 5.1, Calcium 8.2 L, Phosphorus 4.4, Ferritin 39, Albumin 3.0 L, Blood Type O POSITIVE, Antibody Screen NEGATIVE Radiography Diagnostic Testing: Radiology Impression Chest X-Ray 02/11/24 18:00 IMPRESSION: No acute findings in the chest. Electronically Signed: Alfie Reveles MD at 18:59 EDT , Hip/Pelvis X-Ray 02/11/24 18:00 IMPRESSION: 1. Intertrochanteric fracture of the left femoral neck. 2. Severe degenerative changes in the right hip. Electronically Signed: Alfie Reveles MD at 18:59 EDT , Renal Ultrasound 02/12/24 09:50 IMPRESSION: Several small nonobstructive right intrarenal calculi and mild right hydronephrosis. Mild atrophy of the left kidney with 2 renal cysts. A Robison catheter is seen within the urinary bladder. Electronically Signed: Zelalem Gould MD at 13:44 EDT , Physical Exam Narrative Dressing CDI. Distal neurovascular exam is intact. Assessment & Plan Assessment/Plan (1) Intertrochanteric fracture of left femur: QUALIFIERS: Encounter type: initial encounter Fracture type: closed Fracture alignment: displaced Qualified Code(s): S72.142A - Displaced intertrochanteric fracture of left femur, initial encounter for closed fracture PLAN: Plan Postop day 0 status post left long gamma nailing for IT fracture. Patient tolerated well. PT OT mobilization. Weightbearing as tolerated. Xarelto for DVT prophylaxis, but may change to previous anticoagulant if better for cardiac reasons. Antibiotics for 24 hours. Discharge to rehab when appropriate.
[2024-02-12 17:27] LABS: Bedside Glucose 118 mg/dL (74-106)
[2024-02-12] MEDS: Tamsulosin HCl 0.4 MG Capsule PO (23:46)
[2024-02-12] MEDS: Tacrolimus Anhydrous 1 MG Capsule 2 MG PO (23:47)
[2024-02-12] MEDS: Pyridoxine HCl 100 MG Tablet 200 MG PO (23:49)
[2024-02-12] MEDS: Finasteride 5 MG Tablet PO (23:49)
[2024-02-13] VITALS (7 sets, daily range): BP systolic 106–157; BP diastolic 53–76; PULSE 55–89; RESP 18–20; TEMP 36.8–37.4; O2SAT 95–100
[2024-02-13] MEDS: oxyCODONE 5 MG Tablet PO ×3 (00:07→12:56)
[2024-02-13] MEDS: HYDROmorphone 0.5 MG/0.5 ML SYRINGE IV (04:05)
[2024-02-13 05:22] LABS: Hematocrit 23.6 % (40-54); Hemoglobin 7.6 g/dL (13.0-16.5); Mean Corp Hgb Conc 32.2 g/dL (32-36); Mean Corpuscular Hgb 32.1 pg (27.0-32.0); Mean Corpuscular Volume 99.6 fL (80-94); Mean Platelet Vol. 9.2 fl (6.2-12.0); Platelet Count 100 K/mm3 (150-450); RBC Distribution Width CV 15.1 % (11.6-14.6); Red Blood Count 2.37 M/mm3 (4.6-6.2); White Blood Count 6.8 K/mm3 (4.4-11.0)
[2024-02-13 05:53] LABS: Anion Gap 7 (5-15); BUN 32 mg/dL (7-18); BUN/Creat Ratio 12.8 RATIO (10-20); Calcium,Total 8.2 mg/dL (8.5-10.1); Chloride 112 mmol/L (98-107); EST Glomerular Filtration Rate 27 mL/min (>60); Est Glom Filt Rate - Afr Amer 33 mL/min (>60); Estimated Creatinine Clearance 25.28 ml/min; Glucose 155 mg/dL (74-106); Sodium Level 141 mmol/L (136-145); Thyroid Stim Hormone (TSH) 2.56 uIU/mL (0.358-3.74)
[2024-02-13] MEDS: Clindamycin 600 MG/50 ML BAG 100 MG IV ×2 (06:59→14:13)
[2024-02-13] MEDS: Acetaminophen 500 MG Tablet 1000 MG PO ×3 (07:00→20:04)
[2024-02-13] MEDS: Rivaroxaban 10 MG Tablet PO (07:42)
[2024-02-13] MEDS: Tacrolimus Anhydrous 1 MG Capsule 3 MG PO (08:43)
[2024-02-13] MEDS: Ferrous Sulfate 325 MG Tablet PO (08:43)
[2024-02-13] MEDS: Cyanocobalamin 500 MCG Tablet PO (08:43)
[2024-02-13] MEDS: predniSONE 5 MG Tablet PO (08:43)
--- NOTE | 2024-02-13 09:16 | NURSING ---
Distal left hip dressing was saturated on all 4 sides when performing morning assessment. Sanguinous drainage. New dressing applied. Will monitor.
[2024-02-13] MEDS: Calcitriol 0.25 MCG Capsule PO (10:30)
[2024-02-13] MEDS: Pyridoxine HCl 100 MG Tablet 200 MG PO ×2 (10:30→20:07)
[2024-02-13] MEDS: Cholecalciferol (Vit D3) 125 MCG CAPSULE (5,000 UNITS) PO (10:31)
[2024-02-13 11:48] LABS: Hemoglobin 7.5 g/dL (13.0-16.5)
--- NOTE | 2024-02-13 12:19 | PN.ORTHO_ITS ---
Subjective Subjective Postop day 1 status post left hip ORIF with long gamma nail. Pain well-controlled. Attempted standing with nursing early this morning but had dizziness and sat back. Nursing notes mention dressing saturation which were changed. Objective Data Objective Data Vital Signs: Vital Signs Temp Pulse Resp BP Pulse Ox O2 Del Method O2 Flow Rate 98.2 F 55 L 18 110/56 L 95 Room Air 2 02/13/24 08:40 02/13/24 08:40 02/13/24 08:40 02/13/24 08:40 02/13/24 08:40 02/13/24 09:02 02/12/24 20:07 Oxygen Flow Rate (L/min) 2 Oxygen Delivery Method Room Air Weight: 156 lb 11.979 oz Body Mass Index (BMI) 20.7 Intake & Output: Intake and Output for Last 24 Hours 02/11/24 02/12/24 02/13/24 23:59 23:59 23:59 Intake Total 0 / 100 1200 / 1700 900 / 900 Output Total 1150 / 1450 750 / 750 Balance 0 / -500 50 / 250 150 / 150 Lab / Micro Data 02/13/24 11:40 02/13/24 04:40 Labs: Laboratory Results - last 24 hr 02/12/24 17:08: POC Glucose 118 H 02/13/24 04:40: WBC 6.8, RBC 2.37 L, Hgb 7.6 L, Hct 23.6 L, MCV 99.6 H, MCH 32.1 H, MCHC 32.2, RDW Std Deviation 55.0 H, RDW Coeff of Lacy 15.1 H, Plt Count 100 L , MPV 9.2, Sodium 141, Potassium 4.0, Chloride 112 H, Carbon Dioxide 22.0, Anion Gap 7, BUN 32 H, Creatinine 2.50 H, Estim Creat Clear Calc 25.28, Est GFR (MDRD) Af Amer 33 L, Est GFR (MDRD) Non-Af 27 L, BUN/Creatinine Ratio 12.8, Glucose 155 H, Calcium 8.2 L, TSH 2.56 02/13/24 11:40: Hgb 7.5 L Radiography Diagnostic Testing: Radiology Impression Hip/Pelvis X-Ray 02/12/24 07:07 IMPRESSION: ORIF of the left femur. Electronically Signed: Polo Jenkins DO at 16:50 EDT , Renal Ultrasound 02/12/24 09:50 IMPRESSION: Several small nonobstructive right intrarenal calculi and mild right hydronephrosis. Mild atrophy of the left kidney with 2 renal cysts. A Robison catheter is seen within the urinary bladder. Electronically Signed: Zelalem Gould MD at 13:44 EDT , Physical Exam Narrative Dressing?CDI. No saturation noticed now, likely because recently changed. Distal neurovascular exam is intact. Assessment & Plan Assessment/Plan (1) Intertrochanteric fracture of left femur: QUALIFIERS: Encounter type: initial encounter Fracture type: closed Fracture alignment: displaced Qualified Code(s): S72.142A - Displaced intertrochanteric fracture of left femur, initial encounter for closed fracture PLAN: Plan Postop day 1 status post left long gamma nailing for IT fracture. PT OT mobilization. Weightbearing as tolerated. Xarelto for DVT prophylaxis, but may change to previous anticoagulant if better for cardiac reasons. Also, may hold blood thinners if hemoglobin dropping too fast. Okay to transfuse if hemoglobin goes below 7 and/or has severe dizziness, postural hypotension. Recommend bed to chair and back multiple times a day. Encouraged bedside mobility with attempted active knee flexion and extension while in bed or chair. Discharge to rehab when appropriate.
--- NOTE | 2024-02-13 13:08 | PN.HOSP_ITS ---
Reason for Visit Reason for Visit: Fall/left hip pain Subjective Subjective Patient states his pain is fairly well-controlled this time. He states he is fine as long as he is not moving too much but when he gets up and moves around he tends to have increased pain. Denies any current nausea. States he did have some nausea postoperatively yesterday when they took him down for his renal ultrasound but otherwise has been okay. Objective Data Objective Data Vital Signs: Vital Signs Temp Pulse Resp BP Pulse Ox O2 Del Method O2 Flow Rate 98.7 F 85 18 149/76 H 99 Room Air 2 02/13/24 12:50 02/13/24 12:50 02/13/24 12:50 02/13/24 12:50 02/13/24 12:50 02/13/24 12:50 02/12/24 20:07 Oxygen Flow Rate (L/min) 2 Oxygen Delivery Method Room Air Weight: 71.1 kg Body Mass Index (BMI) 20.7 Intake & Output: Intake and Output for Last 24 Hours 02/11/24 02/12/24 02/13/24 23:59 23:59 23:59 Intake Total 0 / 100 1200 / 1700 900 / 900 Output Total 1150 / 1450 750 / 750 Balance 0 / -500 50 / 250 150 / 150 Lab / Micro Data 02/13/24 11:40 02/13/24 04:40 Labs: Laboratory Results - last 24 hr 02/12/24 17:08: POC Glucose 118 H 02/13/24 04:40: WBC 6.8, RBC 2.37 L, Hgb 7.6 L, Hct 23.6 L, MCV 99.6 H, MCH 32.1 H, MCHC 32.2, RDW Std Deviation 55.0 H, RDW Coeff of Lacy 15.1 H, Plt Count 100 L , MPV 9.2, Sodium 141, Potassium 4.0, Chloride 112 H, Carbon Dioxide 22.0, Anion Gap 7, BUN 32 H, Creatinine 2.50 H, Estim Creat Clear Calc 25.28, Est GFR (MDRD) Af Amer 33 L, Est GFR (MDRD) Non-Af 27 L, BUN/Creatinine Ratio 12.8, Glucose 155 H, Calcium 8.2 L, TSH 2.56 02/13/24 11:40: Hgb 7.5 L Radiography Diagnostic Testing: Radiology Impression Hip/Pelvis X-Ray 02/12/24 07:07 IMPRESSION: ORIF of the left femur. Electronically Signed: Polo Jenkins DO at 16:50 EDT , Renal Ultrasound 02/12/24 09:50 IMPRESSION: Several small nonobstructive right intrarenal calculi and mild right hydronephrosis. Mild atrophy of the left kidney with 2 renal cysts. A Robison catheter is seen within the urinary bladder. Electronically Signed: Zelalem Gould MD at 13:44 EDT , Physical Exam Const alert, oriented x3, no apparent distress and average body habitus; Negative for healthy appearing Constitutional Narrative: Elderly, white male, lying in bed, currently appears comfortable, nontoxic HEENT normocephalic, head/scalp atraumatic and hearing grossly normal bilaterally HEENT Narrative: Dentition is poor, speech is somewhat garbled due to previous tongue resection, Mallampati is 2, no thrush Resp normal respiratory effort, normal air movement, no retractions, no use of accessory muscles and clear to auscultation bilaterally Auscultation: Negative for rales, rhonchi or wheezes Cardio regular rate, regular rhythm, S1 normal heart sound, S2 normal heart sound, no murmurs, no rub, no gallops and no clicks GI normal to inspection, nondistended, normoactive bowel sounds, soft to palpation and non-tender Extremity no clubbing, cyanosis or edema Extremity Narrative: Pedal pulses are 2+ Skin Skin Narrative: Postoperative dressing is clean dry and intact and no significant ecchymosis noted Neuro oriented x3 and no focal motor deficits Neuro Narrative: No focal deficits with decreased left lower extremity movement due to pain in the hip postoperatively Psych mental status grossly normal and affect normal Psych Narrative: Very pleasant, interacts appropriately Assessment & Plan Assessment/Plan (1) Intertrochanteric fracture of left femur: QUALIFIERS: Encounter type: initial encounter Fracture type: closed Fracture alignment: displaced Qualified Code(s): S72.142A - Displaced intertrochanteric fracture of left femur, initial encounter for closed fracture (2) Hip fracture, left: (3) Chronic anemia: (4) Acute hypokalemia: PLAN: Plan Left femoral neck fracture -Postop day 1 left femur cephalomedullary nail -Continue scheduled Tylenol -Continue lidocaine patch -Continue as needed p.o. oxycodone -Weightbearing as tolerated -PT/OT following -Vitamin D level was within normal limits -Patient will likely need placement and prefers TCU or rehab--> will follow-up on Thursday to see if they can accept him if medically stable should be able to go Thursday if excepted -Will restart Plavix tomorrow if hemoglobin stable -Outpatient orthopedic follow-up in 2 weeks -Xarelto 10 mg daily recommended for perioperative DVT prophylaxis 1 month postoperatively with stop date of 03/14/2024 Acute on chronic anemia secondary to chronic renal disease -Hemoglobin dropped from 10.4 on admission currently 7.4 with repeat stable at 7.5 -Iron studies are not consistent with iron deficiency -Guaiac remains pending -May be dilutional as well as related to some bleeding in the hip area -No asides of bleeding acutely -Will continue to monitor and transfuse for hemoglobin less than 7 -Continue home iron supplementation Chronic thrombocytopenia -Platelet counts appear to be stable at this time -Continue to monitor -Baseline appears to be between 100,000-120,000 CKD-stage unclear -Baseline is unknown at this time -Previous baseline from 2020 appeared to be between 1.4 and 1.6 -Serum creatinine admission was 1.97 and today 2.5 -Avoid nephrotoxins as able -Continue to monitor -Renal ultrasound performed and shows several small nonobstructive right intrarenal calculi and mild right hydronephrosis -Unclear if the mild hydro is acute or chronic will await nephrology for further input -Continue home calcitriol -Nephrology following-appreciate input -Continue prednisone, Bactrim, and Prograf Vitamin D deficiency -Continue home cholecalciferol -Vitamin D level is within normal limits BPH with obstruction -Continue home finasteride -Continue home Flomax -May have urinary retention issues postoperatively related to anesthesia and narcotics History of tongue cancer status post partial resection -Concern for dysphagia -Speech therapy is consulted -Patient/family did report he was having difficulty swallowing medication and liquids History of stroke -Plavix on hold will reinitiate tomorrow if stable hemoglobin History of hypothyroidism -Continue home Synthroid -TSH is limits DVT prophylaxis -Xarelto 10 mg daily per orthopedic surgery CODE STATUS -DNR CCA okay for short-term intubation as verified at the time of admission Charges/Coding Visit Charges Inpatient E&M: 41919 Subs Hosp L2
[2024-02-13] MEDS: 0.9% Saline Lock 10 ML Syringe IV ×2 (14:14→20:05)
[2024-02-13] MEDS: Tacrolimus Anhydrous 1 MG Capsule 2 MG PO (20:02)
[2024-02-13] MEDS: Finasteride 5 MG Tablet PO (20:03)
[2024-02-13] MEDS: Tamsulosin HCl 0.4 MG Capsule PO (20:04)
[2024-02-14] VITALS (14 sets, daily range): BP systolic 130–184; BP diastolic 62–83; PULSE 72–84; RESP 16–18; TEMP 36.6–37.6; O2SAT 94–100
[2024-02-14 05:43] LABS: Hematocrit 19.8 % (40-54); Hemoglobin 6.5 g/dL (13.0-16.5); Mean Corp Hgb Conc 32.8 g/dL (32-36); Mean Corpuscular Hgb 32.3 pg (27.0-32.0); Mean Corpuscular Volume 98.5 fL (80-94); Mean Platelet Vol. 9.5 fl (6.2-12.0); Platelet Count 101 K/mm3 (150-450); RBC Distribution Width CV 14.7 % (11.6-14.6); RBC Distribution Width SD 53.1 fl (35.1-43.9); Red Blood Count 2.01 M/mm3 (4.6-6.2); White Blood Count 7.4 K/mm3 (4.4-11.0)
[2024-02-14 06:05] LABS: Anion Gap 6 (5-15); BUN 39 mg/dL (7-18); BUN/Creat Ratio 13.8 RATIO (10-20); Chloride 110 mmol/L (98-107); Creatinine, Serum 2.82 mg/dL (0.70-1.30); EST Glomerular Filtration Rate 23 mL/min (>60); Est Glom Filt Rate - Afr Amer 28 mL/min (>60); Estimated Creatinine Clearance 22.41 ml/min; Glucose 111 mg/dL (74-106); Potassium 3.7 mmol/L (3.5-5.1); Sodium Level 139 mmol/L (136-145)
[2024-02-14] MEDS: Acetaminophen 500 MG Tablet 1000 MG PO ×3 (07:00→22:39)
[2024-02-14] MEDS: oxyCODONE 5 MG Tablet 2.5 MG PO (07:00)
[2024-02-14] MEDS: Rivaroxaban 10 MG Tablet PO (07:00)
[2024-02-14] MEDS: predniSONE 5 MG Tablet PO (07:38)
[2024-02-14] MEDS: Tacrolimus Anhydrous 1 MG Capsule 3 MG PO (07:39)
[2024-02-14 08:38] LABS: Hemoglobin 6.8 g/dL (13.0-16.5)
--- NOTE | 2024-02-14 09:54 | PN.HOSP_ITS ---
Reason for Visit Reason for Visit: Fall/left hip pain Subjective Subjective Patient is frustrated because they sent him. Pancakes and he can eat them with his previous history of oropharyngeal resection. I discussed this with nursing and they were going to go ahead and take care of this. He states otherwise he is okay. I did discuss with him his hemoglobin has dropped and his kidney function is little bit worse. I did inform him that have ordered some blood to help that out and hopefully that will help improve his kidney function as well. Nephrology was contacted and they will see the patient today. Patient states his pain is well-controlled with current regimen. Objective Data Objective Data Vital Signs: Vital Signs Temp Pulse Resp BP Pulse Ox O2 Del Method O2 Flow Rate 99 F 79 18 130/68 H 94 Room Air 2 02/14/24 08:00 02/14/24 08:00 02/14/24 08:00 02/14/24 08:00 02/14/24 08:00 02/14/24 09:05 02/12/24 20:07 Oxygen Flow Rate (L/min) 2 Oxygen Delivery Method Room Air Weight: 71.1 kg Body Mass Index (BMI) 20.7 Intake & Output: Intake and Output for Last 24 Hours 02/12/24 02/13/24 02/14/24 23:59 23:59 23:59 Intake Total 1200 / 1700 950 / 1350 400 / 400 Output Total 1150 / 1450 750 / 850 250 / 250 Balance 50 / 250 200 / 500 150 / 150 Lab / Micro Data 02/14/24 08:30 02/14/24 05:08 Labs: Laboratory Results - last 24 hr 02/12/24 05:00: Crossmatch See Detail 02/13/24 11:40: Hgb 7.5 L 02/14/24 05:08: WBC 7.4, RBC 2.01 L, Hgb 6.5 L, Hct 19.8 L, MCV 98.5 H, MCH 32.3 H, MCHC 32.8, RDW Std Deviation 53.1 H, RDW Coeff of Lacy 14.7 H, Plt Count 101 L , MPV 9.5, Sodium 139, Potassium 3.7, Chloride 110 H, Carbon Dioxide 23.0, Anion Gap 6, BUN 39 H, Creatinine 2.82 H, Estim Creat Clear Calc 22.41, Est GFR (MDRD) Af Amer 28 L, Est GFR (MDRD) Non-Af 23 L, BUN/Creatinine Ratio 13.8, Glucose 111 H, Calcium 8.0 L 02/14/24 08:30: Hgb 6.8 L Physical Exam Const alert, oriented x3, no apparent distress and average body habitus; Negative for healthy appearing Constitutional Narrative: Elderly, white male, sitting up in bed trying to eat breakfast but coughing intermittently with the current diet he has currently appears comfortable, nontoxic, he is frustrated HEENT normocephalic, head/scalp atraumatic and hearing grossly normal bilaterally HEENT Narrative: Partial tongue resection, speech is somewhat garbled related to this, edentulous, Mallampati 2, no thrush Eyes PERRL and EOMs intact bilaterally Eyes Narrative: Conjunctiva pale, no scleral icterus Resp normal respiratory effort, normal air movement, no retractions, no use of accessory muscles and clear to auscultation bilaterally Auscultation: Negative for rales, rhonchi or wheezes Cardio regular rate, regular rhythm, S1 normal heart sound, S2 normal heart sound, no murmurs, no rub, no gallops and no clicks GI normal to inspection, nondistended, normoactive bowel sounds, soft to palpation and non-tender Extremity no clubbing, cyanosis or edema Extremity Narrative: Pedal pulses are 2+ Skin no rashes or lesions noted Skin Narrative: Postoperative dressing is clean dry and intact and no significant ecchymosis noted Neuro oriented x3 and no focal motor deficits Neuro Narrative: No focal deficits with decreased left lower extremity movement due to pain in the hip postoperatively Speech: speech normal Psych affect normal Psych Narrative: Very pleasant, interacts appropriately Assessment & Plan Assessment/Plan (1) Intertrochanteric fracture of left femur: QUALIFIERS: Encounter type: initial encounter Fracture type: closed Fracture alignment: displaced Qualified Code(s): S72.142A - Displaced intertrochanteric fracture of left femur, initial encounter for closed fracture (2) Hip fracture, left: (3) Chronic anemia: (4) Acute hypokalemia: PLAN: Plan Left femoral neck fracture -Postop day 2 left femur cephalomedullary nail -Continue scheduled Tylenol -Continue lidocaine patch -Continue as needed p.o. oxycodone -Weightbearing as tolerated -PT/OT following -Patient will likely need placement and prefers TCU or rehab--> will follow-up on Thursday to see if they can accept him -Hold Plavix/will hold Xarelto right now due to anemia -Outpatient orthopedic follow-up in 2 weeks -Xarelto 10 mg daily recommended for perioperative DVT prophylaxis 1 month postoperatively with stop date of 03/14/2024 -currently on hold due to anemia -SCDs initiated Acute on chronic anemia secondary to chronic renal disease -Hemoglobin dropped from 10.4 on admission and down to 6.5 this morning with a repeat at 6.8 -Iron studies are not consistent with iron deficiency -Guaiac remains pending as patient has not yet had a bowel movement -Hold home Plavix -Xarelto on hold -Cycle hemoglobin acute 6 -2 units packed red blood cells ordered and to be given today -GI consultation for consideration for EGD/colonoscopy Chronic thrombocytopenia -Platelets remained stable at 100,000 -Continue to monitor -Baseline appears to be between 100,000-120,000 CKD-stage unclear -Baseline is unknown at this time -Previous baseline from 2020 appeared to be between 1.4 and 1.6 -Serum creatinine admission was 1.97 and today 2.82--> I did let nephrology know and they will see him later today -Avoid nephrotoxins as able -Continue to monitor -Renal ultrasound performed and shows several small nonobstructive right intrarenal calculi and mild right hydronephrosis -Unclear if the mild hydro is acute or chronic will await nephrology for further input -Continue home calcitriol -Nephrology following-appreciate input -Continue prednisone, Bactrim, and Prograf Vitamin D deficiency -Continue home cholecalciferol -Vitamin D level is within normal limits BPH with obstruction -Continue home finasteride -Continue home Flomax -May have urinary retention issues postoperatively related to anesthesia and narcotics History of tongue cancer status post partial resection -Concern for dysphagia -Speech therapy is following -Patient/family did report he was having difficulty swallowing medication and liquids History of stroke -Continue to hold Plavix with worsening anemia History of hypothyroidism -Continue home Synthroid -TSH is limits DVT prophylaxis -Xarelto 10 mg daily on hold due to anemia -SCDs initiated CODE STATUS -DNR CCA okay for short-term intubation as verified at the time of admission Charges/Coding Visit Charges Inpatient E&M: 25824 Subs Hosp L3
--- NOTE | 2024-02-14 10:46 | PN.RENAL_ITS ---
Subjective Subjective Follow-up on acute kidney injury and his transplant patient. He is status post left hip surgery, it is very swollen and excruciatingly painful. Patient states he cannot swallow has not been eating or drinking for the last several days. Objective Data Objective Data Vital Signs: Vital Signs Temp Pulse Resp BP Pulse Ox O2 Del Method O2 Flow Rate 99 F 79 18 130/68 H 94 Room Air 2 02/14/24 08:00 02/14/24 08:00 02/14/24 08:00 02/14/24 08:00 02/14/24 08:00 02/14/24 09:05 02/12/24 20:07 Oxygen Flow Rate (L/min) 2 Oxygen Delivery Method Room Air Weight: 71.1 kg Body Mass Index (BMI) 20.7 Intake & Output: Intake and Output for Last 24 Hours 02/12/24 02/13/24 02/14/24 23:59 23:59 23:59 Intake Total 1200 / 1700 950 / 1350 400 / 400 Output Total 1150 / 1450 750 / 850 250 / 250 Balance 50 / 250 200 / 500 150 / 150 Lab / Micro Data Attestation: I reviewed the patient's lab results. 02/14/24 08:30 02/14/24 05:08 Labs: Laboratory Results - last 24 hr 02/12/24 05:00: Crossmatch See Detail 02/13/24 11:40: Hgb 7.5 L 02/14/24 05:08: WBC 7.4, RBC 2.01 L, Hgb 6.5 L, Hct 19.8 L, MCV 98.5 H, MCH 32.3 H, MCHC 32.8, RDW Std Deviation 53.1 H, RDW Coeff of Lacy 14.7 H, Plt Count 101 L , MPV 9.5, Sodium 139, Potassium 3.7, Chloride 110 H, Carbon Dioxide 23.0, Anion Gap 6, BUN 39 H, Creatinine 2.82 H, Estim Creat Clear Calc 22.41, Est GFR (MDRD) Af Amer 28 L, Est GFR (MDRD) Non-Af 23 L, BUN/Creatinine Ratio 13.8, Glucose 111 H, Calcium 8.0 L 02/14/24 08:30: Hgb 6.8 L Physical Exam Const alert, oriented x3 and no apparent distress General Appearance: well developed Orientation / Consciousness: oriented to person, oriented to place and oriented to time Nutritional Appearance: cachectic HEENT normocephalic Head and Scalp: atraumatic Neck no lymphadenopathy Resp clear to auscultation bilaterally GI non-tender Auscultation: normoactive bowel sounds Extremity General Extremity: edema left (Hip is especially swollen) Skin no rashes or lesions noted Psych cooperative Assessment & Plan Assessment/Plan (1) Acute kidney injury: PLAN: Acute kidney injury in this transplant patient is due to prerenal azotemia. Third spacing of fluid at the repaired hip pulled a lot of fluid from effective circulating volume, also poor oral intake of food and fluids have contributed. Start LR
[2024-02-14] MEDS: Pyridoxine HCl 100 MG Tablet 200 MG PO ×2 (11:19→22:38)
[2024-02-14] MEDS: Cyanocobalamin 500 MCG Tablet PO (11:19)
[2024-02-14] MEDS: Folic Acid 1 MG Tablet PO (11:19)
[2024-02-14] MEDS: Lactated Ringers 1,000 ML 100 ML IV (17:26)
--- NOTE | 2024-02-14 19:53 | EX.PCM.CON.G ---
HPI Consult Data Date of Consult: 02/14/24 HPI Narrative Reason for Consultation: Anemia HPI Narrative: KELTON MEDINA, is a 74 M who presented to [facility] ED on 02/11/2024 for with left hip pain after a fall at home. Patient was found on left hip x-ray to have a left intratrochanteric hip fracture. ED physician discussed with orthopedics, plan was for left hip procedure tomorrow with admission to medicine. I saw the patient at bedside in the ED, multiple family were present. Patient was laying flat in bed with the left leg brace on for stability. He otherwise was making appropriate eye contact, conversing normally (aside from some difficulty with speech due to previous tongue cancer with partial tongue resection), and in no acute distress. Patient had been given pain medication prior to my encounter with him and stated this was quite helpful for his pain. He denied any significant left hip pain or discomfort at rest. Patient lives at home with his . He does use a walker for ambulation most of the time. His past medical history is significant for kidney transplant in 2017 and tongue cancer with partial tongue resection in 2020. Patient has a known history of orthostatic hypotension but states he had been doing fairly well from that standpoint. States that he simply lost his balance at home and fell onto his left side when he injured the hip, denied any lightheadedness or dizziness prior to the fall. Denies hitting his head. Did hit his left shoulder but denies any pain in the shoulder. Denies any recent medication changes. Is on Plavix for history of CVA, last dose was on day prior to admission. He underwent successful repair of his left femur fracture. I was called to see him because his hemoglobin dropped significantly all way down to 6.5. Repeated was 6.8. He received 2 units of packed red cells. He is status post gastric bypass and has dealt with anemia in the past. Recently he increased his steroids along with his Prograf and has still been on Plavix due to his history of CVA. [facility] Medical History (Updated 02/14/24 @ 10:[address] Gregoria Rosenbaum MD) Alcohol use Arthritis Back pain Cardiology follow-up encounter Diabetes Dietary restriction Difficulty swallowing Easy bruising Fatty liver High cholesterol History of colitis History of edema History of Holter monitoring History of irregular heartbeat History of renal disease History of stress test Hx of benign monoclonal gammopathy Hx of echocardiogram Hypertension Injury of head and neck Loss of consciousness Loss of hearing Low iron Non-smoker Prostate disease Stroke/cerebrovascular accident Syncope Wears glasses Home Medications finasteride 5 mg tablet 5 mg PO QHS PROSTATE 12/08/13 [History Last Taken 02/10/24] calcitriol 0.25 mcg capsule 0.25 mcg PO QODAY SUPPLEMENT 04/21/17 [History Last Taken 02/11/24] cyanocobalamin (vitamin B-12) 500 mcg tablet 500 mcg PO DAILY@0900 09/17/20 [History Last Taken 02/11/24] folic acid 1 mg tablet 1 mg PO DAILY SUPPLEMENT 09/17/20 [History Last Taken 02/11/24] sulfamethoxazole 400 mg-trimethoprim 80 mg tablet 1 tab PO DAILY 09/17/20 [History Last Taken 02/11/24] clopidogrel 75 mg tablet 75 mg PO DAILY #30 tabs 09/18/20 [Rx Last Taken 02/11/24] pyridoxine (vitamin B6) 100 mg tablet 200 mg PO BID 11/12/21 [History Last Taken 02/11/24] acyclovir 400 mg tablet 400 mg PO PRN PRN ANTIVIRAL 02/11/24 [History Last Taken Unknown] cholecalciferol (vitamin D3) 125 mcg (5,000 unit) capsule 125 mcg PO Q3D 02/11/24 [History Last Taken 02/09/24] ferrous sulfate 325 mg (65 mg iron) tablet (Feosol) 325 mg PO DAILY 02/11/24 [History Last Taken 02/11/24] latanoprost 0.005 % eye drops 1 drp RIGHT EYE .HS eye drop 02/11/24 [History Last Taken Unknown] levothyroxine 100 mcg tablet 100 mcg PO DAILY hypothyroid 02/11/24 [History Last Taken Unknown] levothyroxine 50 mcg capsule 50 mcg PO DAILY hypothryoid 02/11/24 [History Last Taken Unknown] potassium chloride 10 mEq tablet,extended release 20 meq PO DAILY 02/11/24 [History Last Taken 02/11/24] prednisone 5 mg tablet 5 mg PO DAILY 02/11/24 [History Last Taken 02/11/24] tacrolimus 1 mg capsule, immediate-release (Prograf) 2 mg PO DAILY 02/11/24 [History Last Taken 02/11/24] tacrolimus 1 mg capsule, immediate-release (Prograf) 2 mg PO QPM 02/11/24 [History Last Taken 02/10/24] tamsulosin 0.4 mg capsule 0.4 mg PO QHS 02/11/24 [History Last Taken 02/10/24] Allergy/AdvReac Type Severity Reaction Status Date / Time amoxicillin Allergy Unknown Verified 02/11/24 17:17 ursodiol Allergy Rash Verified 02/11/24 17:17 exenatide [From [place]] AdvReac Nausea Verified 02/11/24 17:17 morphine AdvReac paranoid Verified 02/12/24 18:33 and hallucinations Surgical History Hx of bariatric surgery Kidney transplant recipient Kidney transplant recipient S/P arteriovenous (AV) fistula creation Social History Smoking Status: Never smoker substance use type: does not use ROS Constitutional Constitutional: Denies change in weight, chills, fatigue, fever(s) or weakness Eyes Eyes: Denies change in vision Cardiovascular Cardiovascular: Denies chest pain Respiratory/Chest Respiratory/Chest: Denies cough or shortness of breath at rest Gastrointestinal Gastrointestinal: Denies abdominal pain, constipation, diarrhea, nausea or vomiting Musculoskeletal Musculoskeletal: Reports joint pain; Denies arthralgias or myalgias Neurologic Neurologic: Denies dizziness, focal weakness or headache(s) Physical Exam Const alert, oriented x3 and no apparent distress General Appearance: well developed Orientation / Consciousness: oriented to person, oriented to place and oriented to time Nutritional Appearance: cachectic HEENT normocephalic Head and Scalp: atraumatic Neck no lymphadenopathy Resp clear to auscultation bilaterally GI non-tender Auscultation: normoactive bowel sounds Extremity General Extremity: edema left (Hip is especially swollen) Skin no rashes or lesions noted Psych cooperative Lab / Micro Data 02/14/24 08:30 02/14/24 05:08 Labs: Laboratory Results - last 24 hr 02/12/24 05:00: Crossmatch See Detail 02/14/24 05:08: WBC 7.4, RBC 2.01 L, Hgb 6.5 L, Hct 19.8 L, MCV 98.5 H, MCH 32.3 H, MCHC 32.8, RDW Std Deviation 53.1 H, RDW Coeff of Lacy 14.7 H, Plt Count 101 L, MPV 9.5, Sodium 139, Potassium 3.7, Chloride 110 H, Carbon Dioxide 23.0, Anion Gap 6, BUN 39 H, Creatinine 2.82 H, Estim Creat Clear Calc 22.41, Est GFR (MDRD) Af Amer 28 L, Est GFR (MDRD) Non-Af 23 L, BUN/Creatinine Ratio 13.8, Glucose 111 H, Calcium 8.0 L 02/14/24 08:30: Hgb 6.8 L Assessment & Plan Assessment/Plan (1) Hip fracture, left: (2) History of kidney transplant: (3) Chronic renal insufficiency: PLAN: Plan Patient is a 74-year-old male who presented to [facility] ED on 02/11/2024 with left hip pain after a fall at home. 1. Left femoral neck fracture ? Status post repair 2. Anemia -Differential diagnosis does include anastomotic ulcer secondary to prednisone and Plavix and the stress of his recent fracture. He should undergo an upper endoscopy to evaluate his upper GI tract. Patient said he does not think he can lay on his left side or he can tolerate a prep at this time. If the upper endoscopy is negative then we may need to undergo capsule endoscopy as he had a colonoscopy 4 years ago but he cannot recall what the findings were doing a colonoscopy. Charges/Coding Visit Charges Inpatient E&M: 15475 Init Hosp L3
[2024-02-14 20:26] LABS: Hemoglobin 9.7 g/dL (13.0-16.5)
[2024-02-14] MEDS: Tacrolimus Anhydrous 1 MG Capsule 2 MG PO (22:38)
[2024-02-14] MEDS: Tamsulosin HCl 0.4 MG Capsule PO (22:39)
[2024-02-14] MEDS: Finasteride 5 MG Tablet PO (22:39)
[2024-02-14] MEDS: 0.9% Saline Lock 10 ML Syringe IV (22:40)
[2024-02-15] VITALS (12 sets, daily range): BP systolic 102–183; BP diastolic 57–82; PULSE 70–84; RESP 15–18; TEMP 36.4–37.6; O2SAT 94–100
--- NOTE | 2024-02-15 | EGD_PTH ---
PATIENT: KELTON MEDINA CONRADO LOC: MS3 U#:[id number] AGE/SX: 74/M ROOM: [facility] [place] RE02/11/[address]: Dr. Reynaldo Murphy MD : 1950 BED: 1 DIS: 02/21/2024 SPEC #: [id number] RECD: 02/15/24 12:56 STATUS: KANNAN REQ #: [id number] CARLOS EDUARDO: 02/15/24 00:[address]: Ilir Auguste DEPT: SURGICAL PATHOLOGY RECD BY: James Smiley ENTERED: 02/15/24 12:57 SP TYPE: EGD BIOPSY OTHR DR: DO Dr. Mina Cade MD Dr. David Kittoe, MD Dr. Jayaprakas Dasari, MD Dr. Kathryn Lee, DO Dr. Rahsaan Friend, DO Dr. William Lago, MD Tissues: Gastric mucous membrane Procedures: Surgery Specimen Level IV Comments: @ Ordering doctor for SUIV edited from to @ by DASHA at 02/15/24 1311 @ Submitting doctor edited from to @ nathaly LOU at 02/15/24 1311 HEADER OPERATION: EGD with biopsy and electrohemostasis PRE-OP DIAGNOSIS: Anemia TISSUE SUBMITTED: Anastomotic ulcer biopsy MICROSCOPIC DIAGNOSIS Anastomotic ulcer, biopsy: Fragments of gastric mucosa with chronic gastritis. See comment. COMMENT The results of immunohistochemistry for Helicobacter pylori will be reported separately ([id number]). MICROSCOPIC DESCRIPTION Slides are reviewed. GROSS DESCRIPTION Received in fixative is one container labeled with the patient's name and designated Anastomotic ulcer biopsy. The specimen consists of one irregular fragment of light garcia soft tissue that measures 0.5 x 0.5 x 0.25 cm. The specimen is totally submitted in one cassette. Mr 02/15/24 TC:3 CPT:15134
--- NOTE | 2024-02-15 | IMM_PTH ---
PATIENT: KELTON MEDINA LOC: MS3 U#:[id number] AGE/SX: 74/M [place] [facility] [place]: Dr. Reynaldo Murphy MD : 1950 BED: 1 DIS: 02/21/2024 SPEC #: [id number] RECD: 02/16/24 12:49 STATUS: SOUT REQ #: [id number] CARLOS EDUARDO: 02/15/24 00:[address]: Ilir Auguste DEPT: IMMUNOHISTOCHEMISTRY RECD BY: Devin Warner ENTERED: 02/16/24 12:50 SP TYPE: IMMUNO OTHR DR: DO Dr. Mina Cade MD Dr. David Kittoe, MD Dr. Jayaprakas Dasari, MD Dr. Kathryn Lee, DO Dr. Rahsaan Friend, DO Dr. William Lago, MD Tissues: Gastric mucous membrane Procedures: H Pylori (initial) Comments: @ Ordering doctor for H.PYLORI edited from to @ by DASHA at 02/16/24 1251 @ Submitting doctor edited from to @ nathaly LOU at 02/16/24 1251 PHYSICIAN & [place] [id number] SPECIMEN INFORMATION: Tissue Source: Anastomotic ulcer biopsy Clinical Info: Frank Specimen Number: [id number] CPT code: 51151 METHODOLOGY: Deparaffinized sections of prefer/formalin-fixed tissue or PAP/DQ stained slides are incubated with monoclonal/polyclonal antibodies/oligonucleotide probes. Localization is made via biotin free immunoperoxidase method. Appropriate controls are performed and reacted as expected. Results on target cell population are indicated in the following table: RESULTS: ANTIBODY / CLONE RESULT H Pylori (polyclonal) negative These tests were developed and their performance characteristics determined by [facility]. They may not have been cleared or approved by the U.[place]. Food and Drug Administration. The FDA has determined that such clearance or approval is not necessary. The above immunohistochemical/dualISH markers are ordered and reviewed by the Pathologist. INTERPRETATION: Anastomotic ulcer, biopsy: Negative for Helicobacter pylori organisms. MICH/ 02/17/24
[2024-02-15] MEDS: Lactated Ringers 1,000 ML 100 ML IV ×3 (03:27→23:56)
[2024-02-15 05:03] LABS: Hematocrit 28.3 % (40-54); Hemoglobin 9.8 g/dL (13.0-16.5); Mean Corp Hgb Conc 34.6 g/dL (32-36); Mean Corpuscular Hgb 33.2 pg (27.0-32.0); Mean Corpuscular Volume 95.9 fL (80-94); Mean Platelet Vol. 11.2 fl (6.2-12.0); Platelet Count 136 K/mm3 (150-450); RBC Distribution Width CV 15.2 % (11.6-14.6); RBC Distribution Width SD 53.5 fl (35.1-43.9); Red Blood Count 2.95 M/mm3 (4.6-6.2); White Blood Count 9.2 K/mm3 (4.4-11.0)
[2024-02-15] MEDS: Acetaminophen 500 MG Tablet 1000 MG PO ×3 (05:15→22:12)
[2024-02-15 05:18] LABS: Scan Indicated on CBC? Y/N NO
[2024-02-15] MEDS: hydrALAZINE 20 MG/ML Vial 10 MG IV ×2 (05:22→22:26)
[2024-02-15 05:24] LABS: Anion Gap 8 (5-15); BUN 36 mg/dL (7-18); Calcium,Total 8.2 mg/dL (8.5-10.1); Chloride 112 mmol/L (98-107); Creatinine, Serum 2.58 mg/dL (0.70-1.30); EST Glomerular Filtration Rate 26 mL/min (>60); Est Glom Filt Rate - Afr Amer 31 mL/min (>60); Glucose 111 mg/dL (74-106); Potassium 3.8 mmol/L (3.5-5.1); Sodium Level 139 mmol/L (136-145)
[2024-02-15] MEDS: predniSONE 5 MG Tablet PO (08:12)
[2024-02-15] MEDS: Folic Acid 1 MG Tablet PO (08:12)
[2024-02-15] MEDS: Tacrolimus Anhydrous 1 MG Capsule 3 MG PO (08:13)
[2024-02-15] MEDS: oxyCODONE 5 MG Tablet 2.5 MG PO ×2 (08:19→23:55)
--- NOTE | 2024-02-15 10:48 | PCM.PN.HOSP ---
Reason for Visit Reason for Visit: Diagnoses Anemia, unspecified (02/11/24) Hypokalemia (02/11/24) Acute kidney failure, unspecified (02/11/24) Chronic kidney disease, unspecified (02/11/24) Fracture of unspecified part of neck of left femur, initial encounter for closed fracture (02/11/24) Displaced intertrochanteric fracture of left femur, initial encounter for closed fracture (02/11/24) Kidney transplant status (02/11/24) Subjective Subjective Patient is a 74-year-old gentleman admitted following a mechanical fall sustained left femoral neck fracture underwent left femur cephalomedullary nailing. Hospital stay complicated by significant anemia with hemoglobin dropping from 10.4 on admission to 6.5 consult placed to GI plans for patient to undergo endoscopic evaluation Objective Data Objective Data Vital Signs: Vital Signs Temp Pulse Resp BP Pulse Ox O2 Del Method O2 Flow Rate 98.2 F 84 18 170/82 H 94 Room Air 2 02/15/24 07:59 02/15/24 07:59 02/15/24 07:59 02/15/24 07:59 02/15/24 07:59 02/15/24 08:03 02/12/24 20:07 Oxygen Flow Rate (L/min) 2 Oxygen Delivery Method Room Air Weight: 71.1 kg Body Mass Index (BMI) 20.7 Intake & Output: Intake and Output for Last 24 Hours 02/13/24 02/14/24 02/15/24 23:59 23:59 23:59 Intake Total 950 / 1350 1081.25 / 1281.25 1200 / 1200 Output Total 750 / 850 850 / 1050 350 / 350 Balance 200 / 500 231.25 / 231.25 850 / 850 Lab / Micro Data 02/15/24 04:50 02/15/24 04:50 Labs: Laboratory Results - last 24 hr 02/12/24 05:00: Crossmatch See Detail 02/14/24 20:15: Hgb 9.7 L 02/15/24 04:50: WBC 9.2, RBC 2.95 L, Hgb 9.8 L, Hct 28.3 L, MCV 95.9 H, MCH 33.2 H, MCHC 34.6 D, RDW Std Deviation 53.5 H, RDW Coeff of Lacy 15.2 H, Plt Count 136 L, MPV 11.2, Sodium 139, Potassium 3.8, Chloride 112 H, Carbon Dioxide 19.0 L, Anion Gap 8, BUN 36 H, Creatinine 2.58 H, Estim Creat Clear Calc 24.50, Est GFR (MDRD) Af Amer 31 L, Est GFR (MDRD) Non-Af 26 L, BUN/Creatinine Ratio 14.0, Glucose 111 H, Calcium 8.2 L Physical Exam Narrative GENERAL: cooperative HEENT: Atraumatic; normocephalic EYES; Anicteric, Normal Conjunctiva NECK; supple, normal thyroid, RESPIRATORY: Diminished to auscultation CARDIOVASCULAR: Regular S1 S2, GI: soft, normoactive bowel sounds, : No Renal angle tenderness; EXTREMITIES: No edema, no clubbing, MUSCULOSKELETAL: Left thigh surgical incision CDI NEURO: Awake; no lateralizing signs. SKIN: No Rash PSYCH; Flat affect Assessment & Plan Assessment/Plan (1) Intertrochanteric fracture of left femur: QUALIFIERS: Encounter type: initial encounter Fracture type: closed Fracture alignment: displaced Qualified Code(s): S72.142A - Displaced intertrochanteric fracture of left femur, initial encounter for closed fracture (2) Hip fracture, left: (3) Chronic anemia: (4) Acute hypokalemia: PLAN: Plan Patient is a 74-year-old gentleman admitted following a mechanical fall sustained left femoral neck fracture underwent left femur cephalomedullary nailing. Hospital stay complicated by significant anemia with hemoglobin dropping from 10.4 on admission to 6.5 consult placed to GI plans for patient to undergo endoscopic evaluation 1. Acute mechanical fall with left femoral neck fracture ? Patient underwent Left femur Cephalmedullary Nailing by Dr. Mina Griffin on 02/12/2024 2. Physical deconditioning - Requested for PT OT eval and social service agency director to assist with discharge planning 3. Anemia ? Due to combination of anemia of chronic disorder as well as acute blood loss anemia. Patient was transfused with 2 unit PRBC consult placed to GI plans for patient to undergo endoscopic evaluation 4. Chronic thrombocytopenia ? Platelet count remains stable 5. Chronic kidney disease stage IV ? Patient has history of kidney transplant monitoring kidney function with daily BMPs 6. Vitamin D deficiency -Continue home cholecalciferol ; Vitamin D level is within normal limits 7. BPH with lower urinary obstructive symptoms - Patient treated with tamsulosin as well as finasteride 8. History of tongue cancer status post partial resection -Concern for dysphagia patient has been seen by speech therapy 9. History of previous CVA ? Patient was on Plavix held given worsening anemia 10. Hypothyroidism - Patient is on levothyroxine home dose continued 11. DVT prophylaxis ? Patient has been placed on Xarelto held given worsening anemia Time spent in the patient's overall evaluation,decision-making process, review of diagnostic data, adjustment of management, discussion with other providers, nursing nursing and ancillary staff involved in patient's care documentation, 52 Minutes Charges/Coding Visit Charges Inpatient E&M: 17706 [facility] Hosp L3
--- NOTE | 2024-02-15 10:59 | PCM.PN.REN ---
Subjective Subjective No new complaints. Objective Data Objective Data Vital Signs: Vital Signs Temp Pulse Resp BP Pulse Ox O2 Del Method O2 Flow Rate 98.2 F 84 18 170/82 H 94 Room Air 2 02/15/24 07:59 02/15/24 07:59 02/15/24 07:59 02/15/24 07:59 02/15/24 07:59 02/15/24 08:03 02/12/24 20:07 Oxygen Flow Rate (L/min) 2 Oxygen Delivery Method Room Air Weight: 71.1 kg Body Mass Index (BMI) 20.7 Intake & Output: Intake and Output for Last 24 Hours 02/13/24 02/14/24 02/15/24 23:59 23:59 23:59 Intake Total 950 / 1350 1081.25 / 1281.25 1200 / 1200 Output Total 750 / 850 850 / 1050 350 / 350 Balance 200 / 500 231.25 / 231.25 850 / 850 Lab / Micro Data 02/15/24 04:50 02/15/24 04:50 Labs: Laboratory Results - last 24 hr 02/12/24 05:00: Crossmatch See Detail 02/14/24 20:15: Hgb 9.7 L 02/15/24 04:50: WBC 9.2, RBC 2.95 L, Hgb 9.8 L, Hct 28.3 L, MCV 95.9 H, MCH 33.2 H, MCHC 34.6 D, RDW Std Deviation 53.5 H, RDW Coeff of Lacy 15.2 H, Plt Count 136 L, MPV 11.2, Sodium 139, Potassium 3.8, Chloride 112 H, Carbon Dioxide 19.0 L, Anion Gap 8, BUN 36 H, Creatinine 2.58 H, Estim Creat Clear Calc 24.50, Est GFR (MDRD) Af Amer 31 L, Est GFR (MDRD) Non-Af 26 L, BUN/Creatinine Ratio 14.0, Glucose 111 H, Calcium 8.2 L Physical Exam Narrative Alert awake oriented x 3 no obvious distress no pallor no icterus no JVD s1s2 no murmurs lungs clear abdomen soft no organomegaly no edema no cyanosis Assessment & Plan Assessment/Plan (1) Acute kidney injury: PLAN: Baseline creatinine was 6 months ago was 1.2. Increased to 2.0 recently as outpatient. He is following with [facility] transplant nephrology. Home immunosuppressants including tacrolimus and prednisone only. Currently on same dose of medications. Acute renal failure is likely volume depletion. Has been on IV fluids and creatinine is improving.. He says he has been voiding okay. 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 He had subacute renal failure over the last 6 months. It is possible that he has oxalate nephropathy in his current kidney as well. I did send a message to [facility] transplant nephrology. They will follow-up after discharge. (2) History of kidney transplant: (3) Renal transplant recipient:
--- NOTE | 2024-02-15 11:48 | CASEMGMT ---
Addendum entered by Suzanne Pace 02/15/24 13:08: Social work SW let pt and know he is accepted into inpt rehab when medically ready. Both state understanding and in agreement w/plan. SW will continue to follow. MICHAEL Fontenot Original Note: Social Work Pt is accepted into inpt rehab when medically ready. RYLEY FontenotS
--- NOTE | 2024-02-15 11:59 | OP.EGD_ITS ---
Patient Name: Brennon Luke Procedure Date: 02/15/2024 10:52 AM Date of : 1950 Age: 74 Procedure: Upper GI endoscopy Indications: Iron deficiency anemia Providers: Ilir Auguste DO Medicines: Monitored Anesthesia Care Complications: No immediate complications. Procedure: Pre-Anesthesia Assessment: - Prior to the procedure, a History and Physical was performed, and patient medications and allergies were reviewed. The patient is competent. The risks and benefits of the procedure and the sedation options and risks were discussed with the patient. All questions were answered and informed consent was obtained. Patient identification and proposed procedure were verified by the physician in the pre-procedure area. Mental Status Examination: alert and oriented. Respiratory Examination: clear to auscultation. CV Examination: normal. Prophylactic Antibiotics: The patient does not require prophylactic antibiotics. Prior Anticoagulants: The patient has taken Brilinta (ticagrelor), last dose was 1 day prior to procedure. ASA Grade Assessment: III - A patient with severe systemic disease. After reviewing the risks and benefits, the patient was deemed in satisfactory condition to undergo the procedure. The anesthesia plan was to use monitored anesthesia care (MAC). Immediately prior to administration of medications, the patient was re-assessed for adequacy to receive sedatives. The heart rate, respiratory rate, oxygen saturations, blood pressure, adequacy of pulmonary ventilation, and response to care were monitored throughout the procedure. The physical status of the patient was re-assessed after the procedure. After obtaining informed consent, the endoscope was passed under direct vision. Throughout the procedure, the patient's blood pressure, pulse, and oxygen saturations were monitored continuously. The Endoscope was introduced through the mouth, and advanced to the second part of duodenum. The upper GI endoscopy was accomplished without difficulty. The patient tolerated the procedure well. Scope In: 11:13:10 AM Scope Out: 11:18:52 AM Total Procedure Duration Time 0 hours 5 minutes 42 seconds Findings: The examined esophagus was normal. A small hiatal hernia was present. 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 The gastrojejunal anastomosis was characterized by erosion, erythema and friable mucosa. This was traversed after dilation. The zqkfp-sa-tfcbhod limb was characterized by erosion and erythema. The jejunojejunal anastomosis was characterized by healthy appearing mucosa. The ftoalwys-kk-qvyigth limb was not examined as it could not be found. The excluded stomach was examined. Biopsies were taken with a cold forceps for histology. Verification of patient identification for the specimen was done. Estimated blood loss was minimal. Biopsies were taken with a cold forceps for Helicobacter pylori testing. Verification of patient identification for the specimen was done. Estimated blood loss was minimal. Coagulation for hemostasis using heater probe was successful. Estimated blood loss: none. The examined jejunum was normal. Impression: - Normal esophagus. - Small hiatal hernia. - Evelio-en-Y gastrojejunostomy with gastrojejunal anastomosis characterized by erosion, erythema and friable mucosa. Biopsied. - Normal examined jejunum. Recommendation: - Resume previous diet. - Continue present medications. - Await pathology results. Procedure Code(s): --- Professional --- 45788, 59, Esophagogastroduodenoscopy, flexible, transoral; with control of bleeding, any method 86866, 51, Esophagogastroduodenoscopy, flexible, transoral; with biopsy, single or multiple CPT copyright 2021 [employer]. All rights reserved. The codes documented in this report are preliminary and upon estate manager review may be revised to meet current compliance requirements. Ilir Auguste DO 02/15/2024 11:58:53 AM This report has been signed electronically. Number of Addenda: 0 Note Initiated On: 02/15/2024 10:52 AM
--- NOTE | 2024-02-15 11:59 | OP.CCLET_ITS ---
02/15/2024 James Eden Re : Upper GI endoscopy procedure for Brennon Pisano Meek This procedure was performed on Thursday, February 15, 2024. My impressions and recommendations are as follows: Impressions : - Normal esophagus. - Small hiatal hernia. - Evelio-en-Y gastrojejunostomy with gastrojejunal anastomosis characterized by erosion, erythema and friable mucosa. Biopsied. - Normal examined jejunum. Recommendations : - Resume previous diet. - Continue present medications. - Await pathology results. My findings are described in the full procedure note, which is enclosed. If I can be of further assistance, please feel free to contact me at . Sincerely, Ilir Auguste DO 02/15/2024 11:58:53 AM This report has been signed electronically.
[2024-02-15] MEDS: 0.9% Saline Lock 10 ML Syringe IV (13:49)
[2024-02-15] MEDS: Pyridoxine HCl 100 MG Tablet 200 MG PO ×2 (13:49→22:12)
[2024-02-15] MEDS: Calcitriol 0.25 MCG Capsule PO (13:49)
[2024-02-15] MEDS: Ferrous Sulfate 325 MG Tablet PO (13:50)
[2024-02-15] MEDS: Cyanocobalamin 500 MCG Tablet PO (13:50)
[2024-02-15] MEDS: Cholecalciferol (Vit D3) 125 MCG CAPSULE (5,000 UNITS) PO (13:51)
--- NOTE | 2024-02-15 14:24 | PCM.PN.ORT ---
Subjective Subjective Postop day 3 status post left hip long gamma nailing. Patient had drop in hemoglobin for which she received transfusion yesterday. He underwent upper endoscopy today. He feels sore in the inside of his mouth which he attributes to anesthesia tube which makes it difficult for him to swallow. He has been seen by speech pathology and has been cleared for regular diet. PT was able to stand him up and pivoted to the chair. Objective Data Objective Data Vital Signs: Vital Signs Temp Pulse Resp BP Pulse Ox O2 Del Method O2 Flow Rate 98.5 F 75 18 164/73 H 98 Room Air 2 02/15/24 12:24 02/15/24 12:02/15/24 12:02/15/24 12:02/15/24 12:02/15/24 12:02/12/24 20:07 Oxygen Flow Rate (L/min) 2 Oxygen Delivery Method Room Air Weight: 156 lb 11.979 oz Body Mass Index (BMI) 20.7 Intake & Output: Intake and Output for Last 24 Hours 02/13/24 02/14/24 02/15/24 23:59 23:59 23:59 Intake Total 950 / 1350 1081.25 / 1281.25 2200 / 2200 Output Total 750 / 850 850 / 1050 550 / 550 Balance 200 / 500 231.25 / 231.25 1650 / 1650 Lab / Micro Data 02/15/24 04:50 02/15/24 04:50 Labs: Laboratory Results - last 24 hr 02/12/24 05:00: Crossmatch See Detail 02/14/24 20:15: Hgb 9.7 L 02/15/24 04:50: WBC 9.2, RBC 2.95 L, Hgb 9.8 L, Hct 28.3 L, MCV 95.9 H, MCH 33.2 H, MCHC 34.6 D, RDW Std Deviation 53.5 H, RDW Coeff of Lacy 15.2 H, Plt Count 136 L, MPV 11.2, Sodium 139, Potassium 3.8, Chloride 112 H, Carbon Dioxide 19.0 L, Anion Gap 8, BUN 36 H, Creatinine 2.58 H, Estim Creat Clear Calc 24.50, Est GFR (MDRD) Af Amer 31 L, Est GFR (MDRD) Non-Af 26 L, BUN/Creatinine Ratio 14.0, Glucose 111 H, Calcium 8.2 L Micro: Microbiology 02/15/24 10:55 Stool Stool Occult Blood (PATRICK) - Final Occult Blood Positive Physical Exam Narrative Dressing?CDI. Distal neurovascular exam is intact. Assessment & Plan Assessment/Plan (1) Intertrochanteric fracture of left femur: QUALIFIERS: Encounter type: initial encounter Fracture type: closed Fracture alignment: displaced Qualified Code(s): S72.142A - Displaced intertrochanteric fracture of left femur, initial encounter for closed fracture PLAN: Plan Postop day 3 status post left long gamma nailing for IT fracture. Appreciate hospitalist, nephrology, GI management. PT OT mobilization. Weightbearing as tolerated. Xarelto for DVT prophylaxis, but may hold for anemia. Okay to transfuse if hemoglobin goes below 7 and/or has severe dizziness, postural hypotension. Recommend bed to chair and back multiple times a day. Encouraged bedside mobility with attempted active knee flexion and extension while in bed or chair. Discharge to rehab when appropriate.
[2024-02-15] MEDS: Finasteride 5 MG Tablet PO (22:12)
[2024-02-15] MEDS: Tacrolimus Anhydrous 1 MG Capsule 2 MG PO (22:12)
[2024-02-15] MEDS: Tamsulosin HCl 0.4 MG Capsule PO (22:12)
[2024-02-16] VITALS (7 sets, daily range): BP systolic 136–180; BP diastolic 72–80; PULSE 74–95; RESP 15–18; TEMP 36.5–37.2; O2SAT 96–98
[2024-02-16] MEDS: Acetaminophen 500 MG Tablet 1000 MG PO (06:22)
[2024-02-16 06:26] LABS: Absolute Lymphocyte Count 0.51 X10^3/uL (0.83-4.51); Absolute Neutrophil Count 8.4 X10^3/uL (2.0-7.7); Basophil# 0.03 X10^3/uL; Basophil% 0.3 % (0-1); Eosinophil# 0.01 X10^3/uL; Eosinophils% 0.1 % (0-5); Hematocrit 26.8 % (40-54); Hemoglobin 9.1 g/dL (13.0-16.5); Lymphocyte # 0.51 X10^3/ul (0.83-4.51); Lymphocyte % 5.3 % (19-41); Mean Corpuscular Hgb 32.3 pg (27.0-32.0); Mean Platelet Vol. 9.1 fl (6.2-12.0); Monocyte# 0.73 X10^3/uL; Monocyte% 7.5 % (0-10); NRBC Flagged by Analyzer 0 % (0-5); Neutrophil # 8.36 X10^3/uL (2.7-7.7); Neutrophil % 86.2 % (47-70); POSITIVE DIFFERENTIAL YES; Platelet Count 106 K/mm3 (150-450); RBC Distribution Width CV 14.9 % (11.6-14.6); RBC Distribution Width SD 51.5 fl (35.1-43.9); Red Blood Count 2.82 M/mm3 (4.6-6.2); White Blood Count 9.7 K/mm3 (4.4-11.0)
[2024-02-16 06:53] LABS: Anion Gap 5 (5-15); BUN 32 mg/dL (7-18); BUN/Creat Ratio 14.9 RATIO (10-20); Chloride 111 mmol/L (98-107); Creatinine, Serum 2.15 mg/dL (0.70-1.30); EST Glomerular Filtration Rate 32 mL/min (>60); Est Glom Filt Rate - Afr Amer 39 mL/min (>60); Glucose 116 mg/dL (74-106); Magnesium 1.9 mg/dL (1.6-2.6); Phosphorus 2.9 mg/dL (2.5-4.9); Potassium 3.4 mmol/L (3.5-5.1); Sodium Level 139 mmol/L (136-145)
--- NOTE | 2024-02-16 07:38 | PN.HOSP_ITS ---
Reason for Visit Reason for Visit: Diagnoses Anemia, unspecified (02/11/24) Hypokalemia (02/11/24) Acute kidney failure, unspecified (02/11/24) Chronic kidney disease, unspecified (02/11/24) Fracture of unspecified part of neck of left femur, initial encounter for closed fracture (02/11/24) Displaced intertrochanteric fracture of left femur, initial encounter for closed fracture (02/11/24) Kidney transplant status (02/11/24) Objective Data Objective Data Vital Signs: Vital Signs Temp Pulse Resp BP Pulse Ox O2 Del Method O2 Flow Rate 99.0 F 85 15 180/80 H 98 Room Air 2 02/16/24 06:13 02/16/24 06:13 02/16/24 06:13 02/16/24 06:13 02/16/24 06:13 02/16/24 06:13 02/12/24 20:07 Oxygen Flow Rate (L/min) 2 Oxygen Delivery Method Room Air Weight: 71.1 kg Body Mass Index (BMI) 20.7 Intake & Output: Intake and Output for Last 24 Hours 02/14/24 02/15/24 02/16/24 23:59 23:59 23:59 Intake Total 1081.25 / 1281.25 3188.33 / 3188.33 Output Total 850 / 1050 850 / 1250 1200 / 1200 Balance 231.25 / 231.25 2338.33 / 1938.33 -1200 / -1200 Lab / Micro Data 02/16/24 05:35 02/16/24 05:35 Labs: Laboratory Results - last 24 hr 02/16/24 05:35: WBC 9.7, RBC 2.82 L, Hgb 9.1 L, Hct 26.8 L, MCV 95.0 H, MCH 32.3 H, MCHC 34.0, RDW Std Deviation 51.5 H, RDW Coeff of Lacy 14.9 H, Plt Count 106 L , MPV 9.1, Immature Gran % (Auto) 0.600, Neut % (Auto) 86.2 H, Lymph % (Auto) 5.3 L, Wheeler % (Auto) 7.5, Eos % (Auto) 0.1, Baso % (Auto) 0.3, Absolute Neuts (auto) 8.4 H, Absolute Lymphs (auto) 0.51 L, Nucleated RBC % 0, Sodium 139, Potassium 3.4 L, Chloride 111 H, Carbon Dioxide 23.0, Anion Gap 5, BUN 32 H, Creatinine 2.15 H, Estim Creat Clear Calc 29.40, Est GFR (MDRD) Af Amer 39 L, Est GFR (MDRD) Non-Af 32 L, BUN/Creatinine Ratio 14.9, Glucose 116 H, Calcium 8.0 L, Phosphorus 2.9, Magnesium 1.9 Micro: Microbiology 02/15/24 10:55 Stool Stool Occult Blood (PATRICK) - Final Occult Blood Positive Physical Exam Narrative GENERAL: cooperative HEENT: Atraumatic; normocephalic EYES; Anicteric, Normal Conjunctiva NECK; supple, normal thyroid, RESPIRATORY: Diminished to auscultation CARDIOVASCULAR: Regular S1 S2, GI: soft, normoactive bowel sounds, : No Renal angle tenderness; EXTREMITIES: No edema, no clubbing, MUSCULOSKELETAL: Left thigh surgical incision CDI NEURO: Awake; no lateralizing signs. SKIN: No Rash PSYCH; Flat affect Assessment & Plan Assessment/Plan (1) Intertrochanteric fracture of left femur: QUALIFIERS: Encounter type: initial encounter Fracture alignment: displaced Fracture type: closed Qualified Code(s): S72.142A - Displaced intertrochanteric fracture of left femur, initial encounter for closed fracture (2) Hip fracture, left: (3) Chronic anemia: (4) Acute hypokalemia: PLAN: Plan Patient is a 74-year-old gentleman admitted following a mechanical fall sustained left femoral neck fracture underwent left femur cephalomedullary nailing. Hospital stay complicated by significant anemia with hemoglobin drop ping from 10.4 on admission to 6.5 consult placed to GI plans for patient to undergo endoscopic evaluation 1. Acute mechanical fall with left femoral neck fracture ? Patient underwent Left femur Cephalmedullary Nailing by Dr. Mina Griffin on 02/12/2024 2. Physical deconditioning - Requested for PT OT eval and social media manager to assist with discharge planning 3. Anemia ? Due to combination of anemia of chronic disorder as well as acute blood loss anemia. Patient was transfused with 2 unit PRBC consult placed to GI plans for patient to undergo endoscopic evaluation 02/16/2024; patient underwent EGD results as below -- Normal esophagus. Small hiatal hernia. Evelio-en-Y gastrojejunostomy with gastrojejunal anastomosis characterized by erosion, erythema and friable mucosa. Biopsied. Normal examined jejunum. 4. Chronic thrombocytopenia ? Platelet count remains stable 5. Chronic kidney disease stage IV ? Patient has history of kidney transplant monitoring kidney function with daily BMPs 6. Vitamin D deficiency -Continue home cholecalciferol ; Vitamin D level is within normal limits 7. BPH with lower urinary obstructive symptoms - Patient treated with tamsulosin as well as finasteride 8. History of tongue cancer status post partial resection -Concern for dysphagia patient has been seen by speech therapy -02/16/2024. Evaluation by speech therapy on 02/15/2024 demonstrated abnormal looking right palatoglossal arch. This was of concern given patient previous history of tongue CA. Patient was informed of the finding instructed to call his ENT surgeon/oncology at [facility] to set up a follow-up appointment 9. History of previous CVA ? Patient was on Plavix held given worsening anemia 10. Hypothyroidism - Patient is on levothyroxine home dose continued 11. DVT prophylaxis ? Patient has been placed on Xarelto held given worsening anemia Time spent in the patient's overall evaluation,decision-making process, review of diagnostic data, adjustment of management, discussion with other providers, nursing nursing and ancillary staff involved in patient's care documentation, 35 Minutes Charges/Coding Visit Charges Inpatient E&M: 68745 [facility] Hosp L2
--- NOTE | 2024-02-16 09:15 | PCM.TXEXTCAR ---
Diet Diet Order/Speech Therapy: 02/15/24 14:08 Diet: Regular - General Is pt able to select menu?: Yes Diet Comments: thin liquids (no straws) Wound(s) R thumb: Wound Type: Skin Tear R forearm: Wound Type: Skin Tear LEFT LEG, LATERAL, DISTAL: Wound Type: Surgical Incision LEFT HIP, LATERAL, DISTAL: Wound Type: Surgical Incision LEFT HIP, LATERAL, PROXIMAL: Wound Type: Surgical Incision Therapies Physical Therapy: Eval and Treat Occupational Therapy: Eval and Treat Problem/Diagnosis (1) Intertrochanteric fracture of left femur: Status: Acute Code(s): S72.142A - Displaced intertrochanteric fracture of left femur, initial encounter for closed fracture (2) Hip fracture, left: Status: Acute Code(s): S72.002A - Fracture of unspecified part of neck of left femur, initial encounter for closed fracture (3) Chronic anemia: Status: Chronic Code(s): D64.9 - Anemia, unspecified (4) Acute hypokalemia: Status: Acute Code(s): E87.6 - Hypokalemia Plan Patient is a 74-year-old gentleman admitted following a mechanical fall sustained left femoral neck fracture underwent left femur cephalomedullary nailing. Hospital stay complicated by significant anemia with hemoglobin dropping from 10.4 on admission to 6.5 consult placed to GI plans for patient to undergo endoscopic evaluation 1. Acute mechanical fall with left femoral neck fracture ? Patient underwent Left femur Cephalmedullary Nailing by Dr. Mina Griffin on 02/12/2024 2. Physical deconditioning - Requested for PT OT eval and social sciences department chair to assist with discharge planning 3. Anemia ? Due to combination of anemia of chronic disorder as well as acute blood loss anemia. Patient was transfused with 2 unit PRBC consult placed to GI plans for patient to undergo endoscopic evaluation 02/16/2024; patient underwent EGD results as below -- Normal esophagus. Small hiatal hernia. Evelio-en-Y gastrojejunostomy with gastrojejunal anastomosis characterized by erosion, erythema and friable mucosa. Biopsied. Normal examined jejunum. 4. Chronic thrombocytopenia ? Platelet count remains stable 5. Chronic kidney disease stage IV ? Patient has history of kidney transplant monitoring kidney function with daily BMPs 6. Vitamin D deficiency -Continue home cholecalciferol ; Vitamin D level is within normal limits 7. BPH with lower urinary obstructive symptoms - Patient treated with tamsulosin as well as finasteride 8. History of tongue cancer status post partial resection -Concern for dysphagia patient has been seen by speech therapy -02/16/2024. Evaluation by speech therapy on 02/15/2024 demonstrated abnormal looking right palatoglossal arch. This was of concern given patient previous history of tongue CA. Patient was informed of the finding instructed to call his ENT surgeon/oncology at [facility] to set up a follow-up appointment 9. History of previous CVA ? Patient was on Plavix held given worsening anemia 10. Hypothyroidism - Patient is on levothyroxine home dose continued 11. DVT prophylaxis ? Patient has been placed on Xarelto held given worsening anemia Time spent in the patient's overall evaluation,decision-making process, review of diagnostic data, adjustment of management, discussion with other providers, nursing nursing and ancillary staff involved in patient's care documentation, 35 Minutes Allergies/Procedures Done in Hospital Allergies amoxicillin Allergy (Verified 02/11/24 17:17) Unknown ursodiol Allergy (Verified 02/11/24 17:17) Rash exenatide [From [place]] Adverse Reaction (Verified 02/11/24 17:17) Nausea morphine Adverse Reaction (Verified 02/12/24 18:33) paranoid and hallucinations Type of Care/Length of Stay Estimated LOS: Convalescent Care Less Than 30 days Type of Care Needed: Skilled Rehab Potential: Good Prognosis: Good Additional Orders/Day of Discharge Day of Discharge: 02/16/24 Discharge Plan Admission Admit Date/Time: 02/11/24 19:10 Attending Provider: Reynaldo Murphy Primary Care Provider: James Eden Consulting Providers: Mina Griffin; Kevin Hall; Sarah Moser; Ilir Auguste; Milena Mary Discharge Orders/Prescriptions Prescriptions: New Xarelto 10 mg Tablet 10 mg PO DAILY@0600 Qty: 30 0RF oxycodone 5 mg Tablet 2.5 mg PO Q6H PRN PRN (Reason: Pain Score 4-10) 3 Days Qty: 10 0RF melatonin 3 mg Tablet 3 mg PO QHS PRN PRN (Reason: Insomnia) Qty: 0 0RF acetaminophen 500 mg Tablet 1,000 mg PO Q8 Qty: 0 0RF Continued finasteride 5 MG tablet 5 mg PO QHS calcitriol 0.25 MCG capsule 0.25 mcg PO QODAY sulfamethoxazole-trimethoprim 1 EACH tablet 1 tab PO DAILY cyanocobalamin (vitamin B-12) 500 MCG tablet 500 mcg PO DAILY@0900 folic acid 1 MG tablet 1 mg PO DAILY clopidogrel 75 MG tablet 75 mg PO DAILY Qty: 30 0RF pyridoxine (vitamin B6) 100 mg Tablet 200 mg PO BID prednisone 5 mg tablet 5 mg PO DAILY potassium chloride 10 mEq tablet extended release 20 meq PO DAILY tamsulosin 0.4 mg capsule 0.4 mg PO QHS cholecalciferol (vitamin D3) 125 mcg (5,000 unit) capsule 125 mcg PO Q3D tacrolimus [Prograf] 1 mg capsule 2 mg PO DAILY Rx Instructions: TAKE 3MG AT 9AM, AND 2MG AT 9PM tacrolimus [Prograf] 1 mg capsule 2 mg PO QPM Rx Instructions: TAKE 3MG AT 9AM AND 2MG AT 9PM acyclovir 400 mg tablet 400 mg PO PRN PRN (Reason: ANTIVIRAL) ferrous sulfate [Feosol] 325 mg (65 mg iron) tablet 325 mg PO DAILY latanoprost 0.005 % drops 1 drp RIGHT EYE .HS levothyroxine 50 mcg capsule 50 mcg PO DAILY Patient Comments: Thursday-Thursday levothyroxine 100 mcg tablet 100 mcg PO DAILY Patient Comments: Thursday and Thursday Referrals / Follow Up: James Eden MD [Primary Care Provider] - (1) Intertrochanteric fracture of left femur Qualifiers: Encounter type: initial encounter Fracture type: closed Fracture alignment: displaced Qualified Code(s): S72.142A - Displaced intertrochanteric fracture of left femur, initial encounter for closed fracture
[2024-02-16] MEDS: predniSONE 5 MG Tablet PO (09:20)
[2024-02-16] MEDS: Cyanocobalamin 500 MCG Tablet PO (09:20)
[2024-02-16] MEDS: Tacrolimus Anhydrous 1 MG Capsule 3 MG PO (09:21)
[2024-02-16] MEDS: Folic Acid 1 MG Tablet PO (09:21)
[2024-02-16] MEDS: Pyridoxine HCl 100 MG Tablet 200 MG PO (09:21)
--- NOTE | 2024-02-16 09:26 | DS.PCM_ITS ---
Providers Date of Admission: 02/11/24 Date of Discharge: 02/16/24 Primary Care Physician: Dr. James Eden MD Consultations 02/11/24 21:16 Consult: Orthopedics Routine Consulting Provider: Mina Griffin Reason for Consult: Left hip fracture EMERGENT Consult: No Notified: Yes Date Notified: 02/11/24 Time Notified: 19:16 Method of Notification: ED Physician Initiated 02/12/24 09:50 Consult: Nephrology Routine Consulting Provider: Sarah Moser Reason for Consult: History of transplant with worsening renal function EMERGENT Consult: No Notified: Yes Date Notified: 02/12/24 Time Notified: 10:30 Method of Notification: Answering Service 02/14/24 08:02 Consult: Gastroenterology Routine Consulting Provider: Ilir Auguste Reason for Consult: acute on chronic anemia EMERGENT Consult: No Notified: Yes Date Notified: 02/14/24 Time Notified: 10:01 Method of Notification: Text Reason For Visit: LEFT HIP FRACTURE Diagnosis Discharge Diagnosis (1) Intertrochanteric fracture of left femur: Status: Acute Code(s): S72.142A - Displaced intertrochanteric fracture of left femur, initial encounter for closed fracture Qualifiers: Encounter type: initial encounter Fracture type: closed Fracture alignment: displaced Qualified Code(s): S72.142A - Displaced intertrochanteric fracture of left femur, initial encounter for closed fracture (2) Hip fracture, left: Status: Acute Code(s): S72.002A - Fracture of unspecified part of neck of left femur, initial encounter for closed fracture (3) Chronic anemia: Status: Chronic Code(s): D64.9 - Anemia, unspecified (4) Acute hypokalemia: Status: Acute Code(s): E87.6 - Hypokalemia Plan Patient is a 74-year-old gentleman admitted following a mechanical fall sustain ed left femoral neck fracture underwent left femur cephalomedullary nailing. Hospital stay complicated by significant anemia with hemoglobin dropping from 10.4 on admission to 6.5 consult placed to GI plans for patient to undergo endoscopic evaluation 1. Acute mechanical fall with left femoral neck fracture ? Patient underwent Left femur Cephalmedullary Nailing by Dr. Mina Griffin on 02/12/2024 2. Physical deconditioning - Requested for PT OT eval and social security benefits interviewer to assist with discharge planning 3. Anemia ? Due to combination of anemia of chronic disorder as well as acute blood loss anemia. Patient was transfused with 2 unit PRBC consult placed to GI plans for patient to undergo endoscopic evaluation 02/16/2024; patient underwent EGD results as below -- Normal esophagus. Small hiatal hernia. Evelio-en-Y gastrojejunostomy with gastrojejunal anastomosis characterized by erosion, erythema and friable mucosa. Biopsied. Normal examined jejunum. 4. Chronic thrombocytopenia ? Platelet count remains stable 5. Chronic kidney disease stage IV ? Patient has history of kidney transplant monitoring kidney function with daily BMPs 6. Vitamin D deficiency -Continue home cholecalciferol ; Vitamin D level is within normal limits 7. BPH with lower urinary obstructive symptoms - Patient treated with tamsulosin as well as finasteride 8. History of tongue cancer status post partial resection -Concern for dysphagia patient has been seen by speech therapy -02/16/2024. Evaluation by speech therapy on 02/15/2024 demonstrated abnormal looking right palatoglossal arch. This was of concern given patient previous history of tongue CA. Patient was informed of the finding instructed to call his ENT surgeon/oncology at [facility] to set up a follow-up appointment 9. History of previous CVA ? Patient was on Plavix held given worsening anemia 10. Hypothyroidism - Patient is on levothyroxine home dose continued 11. DVT prophylaxis ? Patient has been placed on Xarelto held given worsening anemia Time spent in the patient's overall evaluation,decision-making process, review of diagnostic data, adjustment of management, discussion with other providers, nursing nursing and ancillary staff involved in patient's care documentation, 35 Minutes Medications at Discharge Home Medications finasteride 5 mg tablet 5 mg PO QHS PROSTATE 12/08/13 calcitriol 0.25 mcg capsule 0.25 mcg PO QODAY SUPPLEMENT 04/21/17 cyanocobalamin (vitamin B-12) 500 mcg tablet 500 mcg PO DAILY@0900 09/17/20 folic acid 1 mg tablet 1 mg PO DAILY SUPPLEMENT 09/17/20 sulfamethoxazole 400 mg-trimethoprim 80 mg tablet 1 tab PO DAILY 09/17/20 clopidogrel 75 mg tablet 75 mg PO DAILY #30 tabs 09/18/20 pyridoxine (vitamin B6) 100 mg tablet 200 mg PO BID 11/12/21 acyclovir 400 mg tablet 400 mg PO PRN PRN ANTIVIRAL 02/11/24 cholecalciferol (vitamin D3) 125 mcg (5,000 unit) capsule 125 mcg PO Q3D 02/11/24 ferrous sulfate 325 mg (65 mg iron) tablet (Feosol) 325 mg PO DAILY 02/11/24 latanoprost 0.005 % eye drops 1 drp RIGHT EYE .HS eye drop 02/11/24 levothyroxine 100 mcg tablet 100 mcg PO DAILY hypothyroid 02/11/24 levothyroxine 50 mcg capsule 50 mcg PO DAILY hypothryoid 02/11/24 potassium chloride 10 mEq tablet,extended release 20 meq PO DAILY 02/11/24 prednisone 5 mg tablet 5 mg PO DAILY 02/11/24 tacrolimus 1 mg capsule, immediate-release (Prograf) 2 mg PO DAILY 02/11/24 tacrolimus 1 mg capsule, immediate-release (Prograf) 2 mg PO QPM 02/11/24 tamsulosin 0.4 mg capsule 0.4 mg PO QHS 02/11/24 acetaminophen 500 mg tablet 1,000 mg (2 x 500 mg) PO Q8 #0 tabs 02/16/24 melatonin 3 mg tablet 3 mg PO QHS PRN PRN Insomnia #0 tabs 02/16/24 oxycodone 5 mg tablet 2.5 mg (1/2 x 5 mg) PO Q6H PRN PRN Pain Score 4-10 3 days #10 tabs 02/16/24 rivaroxaban 10 mg tablet (Xarelto) 10 mg PO DAILY@0600 #30 tabs 02/16/24 Physical Exam Narrative GENERAL: cooperative HEENT: Atraumatic; normocephalic EYES; Anicteric, Normal Conjunctiva NECK; supple, normal thyroid, RESPIRATORY: Diminished to auscultation CARDIOVASCULAR: Regular S1 S2, GI: soft, normoactive bowel sounds, : No Renal angle tenderness; EXTREMITIES: No edema, no clubbing, MUSCULOSKELETAL: Left thigh surgical incision CDI NEURO: Awake; no lateralizing signs. SKIN: No Rash PSYCH; Flat affect Weight / BMI Weight Weight: 71.1 kg Body Mass Index (BMI) 20.7 ABG / Lab / Microbiology Data 02/16/24 05:35 02/16/24 05:35 Laboratory: Laboratory Results - last 24 hr 02/16/24 05:35: WBC 9.7, RBC 2.82 L, Hgb 9.1 L, Hct 26.8 L, MCV 95.0 H, MCH 32.3 H, MCHC 34.0, RDW Std Deviation 51.5 H, RDW Coeff of Lacy 14.9 H, Plt Count 106 L , MPV 9.1, Immature Gran % (Auto) 0.600, Neut % (Auto) 86.2 H, Lymph % (Auto) 5.3 L, [place] % (Auto) 7.5, Eos % (Auto) 0.1, Baso % (Auto) 0.3, Absolute Neuts (auto) 8.4 H, Absolute Lymphs (auto) 0.51 L, Nucleated RBC % 0, Sodium 139, Potassium 3.4 L, Chloride 111 H, Carbon Dioxide 23.0, Anion Gap 5, BUN 32 H, Creatinine 2.15 H, Estim Creat Clear Calc 29.40, Est GFR (MDRD) Af Amer 39 L, Est GFR (MDRD) Non-Af 32 L, BUN/Creatinine Ratio 14.9, Glucose 116 H, Calcium 8.0 L, Phosphorus 2.9, Magnesium 1.9 Microbiology: Microbiology 02/15/24 10:55 Stool Stool Occult Blood (PATRICK) - Final Occult Blood Positive D/C Instructions Discharge Diet: No restrictions Discharge Activity: Return to Normal Activity Call your doctor if you observe: Fever of 101 or Higher, Shortness of breath, Fainting spells and Chest pain Meaningful Use Info Meaningful Use Meaningful Use Diagnoses (Choose all that apply): None applicable Ischemic Stroke Statin Dosing Therapy Reference: STATIN DOSE THERAPY REFERENCE: * Patients > 75 years receive moderate or high dose statin therapy. * Patients 75 years or YOUNGER should receive HIGH intensity statin dose unless contraindicated. You will be required to document reason for non-treatment if statin daily dose does not meet guidelines. HIGH DOSE STATIN THERAPY DAILY Atorvastatin > than or = to 40 mg Rosuvastatin > than or = to 20 mg Amlodipine + Atorvastatin > than or = to 2.5/40 mg Ezetimibe + Simvastatin 10/80 mg Simvastatin 80mg Discharge Plan Admission Admit Date/Time: 02/11/24 19:10 Attending Provider: Reynaldo Murphy Primary Care Provider: James Eden Consulting Providers: Mina Griffin; Kevin Hall; Sarah Moser; Ilir Auguste; Milena Mary Discharge Orders/Prescriptions Prescriptions: New Xarelto 10 mg Tablet 10 mg PO DAILY@0600 Qty: 30 0RF oxycodone 5 mg Tablet 2.5 mg PO Q6H PRN PRN (Reason: Pain Score 4-10) 3 Days Qty: 10 0RF melatonin 3 mg Tablet 3 mg PO QHS PRN PRN (Reason: Insomnia) Qty: 0 0RF acetaminophen 500 mg Tablet 1,000 mg PO Q8 Qty: 0 0RF Continued finasteride 5 MG tablet 5 mg PO QHS calcitriol 0.25 MCG capsule 0.25 mcg PO QODAY sulfamethoxazole-trimethoprim 1 EACH tablet 1 tab PO DAILY cyanocobalamin (vitamin B-12) 500 MCG tablet 500 mcg PO DAILY@0900 folic acid 1 MG tablet 1 mg PO DAILY clopidogrel 75 MG tablet 75 mg PO DAILY Qty: 30 0RF pyridoxine (vitamin B6) 100 mg Tablet 200 mg PO BID prednisone 5 mg tablet 5 mg PO DAILY potassium chloride 10 mEq tablet extended release 20 meq PO DAILY tamsulosin 0.4 mg capsule 0.4 mg PO QHS cholecalciferol (vitamin D3) 125 mcg (5,000 unit) capsule 125 mcg PO Q3D tacrolimus [Prograf] 1 mg capsule 2 mg PO DAILY Rx Instructions: TAKE 3MG AT 9AM, AND 2MG AT 9PM tacrolimus [Prograf] 1 mg capsule 2 mg PO QPM Rx Instructions: TAKE 3MG AT 9AM AND 2MG AT 9PM acyclovir 400 mg tablet 400 mg PO PRN PRN (Reason: ANTIVIRAL) ferrous sulfate [Feosol] 325 mg (65 mg iron) tablet 325 mg PO DAILY latanoprost 0.005 % drops 1 drp RIGHT EYE .HS levothyroxine 50 mcg capsule 50 mcg PO DAILY Patient Comments: Thursday-Thursday levothyroxine 100 mcg tablet 100 mcg PO DAILY Patient Comments: Thursday and Thursday Referrals / Follow Up: James Eden MD [Primary Care Provider] - Within 1 Month (Following discharge to be referred to [facility] for patient to be evaluated by his ENT surgeon/oncology regarding tongue CA) Disposition Disposition (needs filled in before D/C Order can be placed): Inpatient Rehab Unit/Facility Charges/Coding Visit Charges Inpatient E&M: 72828 Disch Hosp >30min
[2024-02-16] MEDS: Lactated Ringers 1,000 ML 100 ML IV ×2 (09:32→15:18)
--- NOTE | 2024-02-16 09:50 | PHA.DC.MR.R ---
Pharmacy [place] Med Reconciliation Pharmacy Service has performed discharge medication reconciliation for this patient. The patient's discharge medication list was reviewed for discrepancies and discrepancies were resolved. Medications at Discharge Home Medications finasteride 5 mg tablet 5 mg PO QHS PROSTATE 12/08/13 calcitriol 0.25 mcg capsule 0.25 mcg PO QODAY SUPPLEMENT 04/21/17 cyanocobalamin (vitamin B-12) 500 mcg tablet 500 mcg PO DAILY@0900 09/17/20 folic acid 1 mg tablet 1 mg PO DAILY SUPPLEMENT 09/17/20 sulfamethoxazole 400 mg-trimethoprim 80 mg tablet 1 tab PO DAILY 09/17/20 clopidogrel 75 mg tablet 75 mg PO DAILY #30 tabs 09/18/20 pyridoxine (vitamin B6) 100 mg tablet 200 mg PO BID 11/12/21 acyclovir 400 mg tablet 400 mg PO PRN PRN ANTIVIRAL 02/11/24 cholecalciferol (vitamin D3) 125 mcg (5,000 unit) capsule 125 mcg PO Q3D 02/11/24 ferrous sulfate 325 mg (65 mg iron) tablet (Feosol) 325 mg PO DAILY 02/11/24 latanoprost 0.005 % eye drops 1 drp RIGHT EYE .HS eye drop 02/11/24 levothyroxine 100 mcg tablet 100 mcg PO DAILY hypothyroid 02/11/24 levothyroxine 50 mcg capsule 50 mcg PO DAILY hypothryoid 02/11/24 potassium chloride 10 mEq tablet,extended release 20 meq PO DAILY 02/11/24 prednisone 5 mg tablet 5 mg PO DAILY 02/11/24 tacrolimus 1 mg capsule, immediate-release (Prograf) 2 mg PO DAILY 02/11/24 tacrolimus 1 mg capsule, immediate-release (Prograf) 2 mg PO QPM 02/11/24 tamsulosin 0.4 mg capsule 0.4 mg PO QHS 02/11/24 acetaminophen 500 mg tablet 1,000 mg (2 x 500 mg) PO Q8 #0 tabs 02/16/24 melatonin 3 mg tablet 3 mg PO QHS PRN PRN Insomnia #0 tabs 02/16/24 oxycodone 5 mg tablet 2.5 mg (1/2 x 5 mg) PO Q6H PRN PRN Pain Score 4-10 3 days #10 tabs 02/16/24 rivaroxaban 10 mg tablet (Xarelto) 10 mg PO DAILY@0600 #30 tabs 02/16/24
--- NOTE | 2024-02-16 09:57 | CASEMGMT ---
Social Work Pt is discharged to inpt rehab today. YULIANA faxed over discharge instructions to rehab. SW left a message for Nita in rehab to let her know. SW let pt know, he would like SW to call . SW called to let her know pt is going to go to rehab today, she is in agreement. SW let pt's RN know. MICHAEL Fontenot
--- NOTE | 2024-02-16 10:46 | PN.RENAL_ITS ---
Subjective Subjective Sitting up in bed. Denies any complaints. Possible discharge to rehab unit today. Objective Data Objective Data Vital Signs: Vital Signs Temp Pulse Resp BP Pulse Ox O2 Del Method O2 Flow Rate 97.7 F L 76 16 161/77 H 97 Room Air 2 02/16/24 09:11 02/16/24 09:11 02/16/24 09:11 02/16/24 09:11 02/16/24 09:11 02/16/24 09:11 02/12/24 20:07 Oxygen Flow Rate (L/min) 2 Oxygen Delivery Method Room Air Weight: 71.1 kg Body Mass Index (BMI) 20.7 Intake & Output: Intake and Output for Last 24 Hours 02/14/24 02/15/24 02/16/24 23:59 23:59 23:59 Intake Total 1081.25 / 1281.25 3188.33 / 3188.33 960 / 960 Output Total 850 / 1050 850 / 1250 1200 / 1200 Balance 231.25 / 231.25 2338.33 / 1938.33 -240 / -240 Lab / Micro Data 02/16/24 05:35 02/16/24 05:35 Labs: Laboratory Results - last 24 hr 02/16/24 05:35: WBC 9.7, RBC 2.82 L, Hgb 9.1 L, Hct 26.8 L, MCV 95.0 H, MCH 32.3 H, MCHC 34.0, RDW Std Deviation 51.5 H, RDW Coeff of Lacy 14.9 H, Plt Count 106 L , MPV 9.1, Immature Gran % (Auto) 0.600, Neut % (Auto) 86.2 H, Lymph % (Auto) 5.3 L, [place]comb % (Auto) 7.5, Eos % (Auto) 0.1, Baso % (Auto) 0.3, Absolute Neuts (auto) 8.4 H, Absolute Lymphs (auto) 0.51 L, Nucleated RBC % 0, Sodium 139, Potassium 3.4 L, Chloride 111 H, Carbon Dioxide 23.0, Anion Gap 5, BUN 32 H, Creatinine 2.15 H, Estim Creat Clear Calc 29.40, Est GFR (MDRD) Af Amer 39 L, Est GFR (MDRD) Non-Af 32 L, BUN/Creatinine Ratio 14.9, Glucose 116 H, Calcium 8.0 L, Phosphorus 2.9, Magnesium 1.9 Micro: Microbiology 02/15/24 10:55 Stool Stool Occult Blood (PATRICK) - Final Occult Blood Positive Physical Exam Narrative Alert awake oriented x 3, no obvious distress s1s2 no murmurs lungs clear anteriorly and posteriorly abdomen soft, nontender no edema Assessment & Plan Assessment/Plan (1) Acute kidney injury: PLAN: Baseline creatinine was 6 months ago was 1.2. Increased to 2.0 recently as outpatient. He is following with [facility] transplant nephrology. Home immunosuppressants including tacrolimus and prednisone only. Currently on same dose of medications. Continue these at discharge Acute renal failure is likely from volume depletion. Serum creatinine peaked 2.8 and today his creatinine is 2.1. 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 He had subacute renal failure over the last 6 months. It is possible that he has oxalate nephropathy in his current kidney as well, message was sent to [facility] transplant nephrology by Dr. Moser. They will follow-up after discharge. Patient states he has appointment in for discharge per renal standpoint. (2) History of kidney transplant:
[2024-02-16] MEDS: amLODIPine 10 MG Tablet PO (12:09)
--- NOTE | 2024-02-16 13:43 | ST.MBS ---
Modified Barium Swallow Patient Information Study Date: 02/16/24 Study Time: 13:00 Direct Billable Minutes: 107 Total Minutes procedure & reportin Diagnosis: Dysphagia R13.10 Referring Physician: Reynaldo Murphy Reason for Referral: Objectively assess swallow function, assess risk for aspiration, and determine recommendations for least restrictive diet textures and compensatory strategies to improve safety of swallow. Medical History: Patient was admitted to [facility] ED 02/11/24 with left hip pain after a fall at home. Patient was found on left hip x-ray to have a left intratrochanteric hip fracture. He was admitted for management of hip fracture and hypokalemia with surgery completed on 02/12/24. He was referred for ST consult during stay due to history of dysphagia s/p hemiglossectomy for tongue cancer. He was initially placed on a softened diet, but he was advanced to regular textures during stay. He presented with consistent throat clearing across all textures on 02/15/24 and PERMIT SPECIALIST recommended repeat MBSS. Of note, his RN, Yasmin, reported increased difficulty swallowing the morning of the study. See additional dysphagia history below. 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 He then had 7 weeks of radiation treatment (07/2021-09/2021). He had feeding tube dependence,but was able to stop using tube feeding in early December 2021 and had it removed late December 2021. He was following speech therapy with PERMIT SPECIALIST, Cristy Rogers, at the . She referred him locally to this PERMIT SPECIALIST to address articulation deficits related to tongue cancer initially, then dysphagia POC, as well. He is following w/ OT for lymphedema management. Most recent MBSS 09/02/2023 revealed moderate oropharyngeal phase dysphagia with aspiration of thin liquids both during and after the swallow. He also presented with poor bolus control s/p L hemiglossectomy and moderate-severe residues in the oropharynx. He was recommended for Soft and bite size textures (IDDSI Level 6) and Thin Liquids with Cough and Re-swallow on each sip, Small Bites, Small Sips, Slow Rate, Multiple Swallows, Alternate bites/solids and sips/liquids, Sitting upright and Remain sitting upright for 30 minutes after PO intake. He participated in follow-up dysphagia therapy and has been tolerating diet with no respiratory infections. Other PMH: falls w/ pelvic and wrist fractures (04/2023) and rib fractures (07/2023), Heart valve implant (07/2023), Gastric bypass surgery (2010), kidney failure (2011), kidney transplant (2017), TIA (August 2020), alcohol use, diabetes, high cholesterol, hx of irregular heartbeat, hx of colitis, HTN, low iron, prostate disease, CVA, syncope (see EMR for full PMH). Current Diet Ordered: Regular textures / Thin liquids Dentition: Natural Teeth and Missing Teeth Mental Status: Impaired (Pt admitted to visual and auditory hallucinations on current pain medication. He was aware he was hallucinating, acknowledging that he was seeing leopard print clothes on the PERMIT SPECIALIST and rv technician. PERMIT SPECIALIST informed RN.) Respiratory Status: Oxygenating on Room Air Penetration-Aspiration Scale Penetration-Aspiration Scale: OBJECTIVE ASSESSMENT OF SWALLOW FUNCTION (QUANTITATIVE ? PER TRIAL): PENETRATION / ASPIRATION SCALE (HARMON): 1 = does not enter airway 2 = enters airway/above vocal folds/ejected 3 = enters airway/above vocal folds/not ejected 4 = enters airway/contacts vocal folds/ejected 5 = enters airway/contacts vocal folds/not ejected 6 = enters airway/below vocal folds/ejected 7 = enters airway/below vocal folds/not ejected despite effort 8 = enters airway/below vocal folds/no effort VIDEOFLOROSCOPIC SCALE SCORE (HARMON): Grade I = aspiration of material that has penetrated into the laryngeal vestibule, intact cough reflex Grade II = aspiration < 10 % of the bolus, intact cough reflex Grade III = aspiration of < 10 % of the bolus, reduced cough reflex or aspiration of > 10 % of the bolus, intact cough reflex Grade IV = aspiration of > 10 % of the bolus, reduced cough reflex Penetration-Aspiration Scale Score Thin Liquid via teaspoon: Result: 7= enters airways/below vocal folds/not ejected despite effort Thin Liquid via teaspoon Trial 2: Result: 7= enters airways/below vocal folds/not ejected despite effort Comment: PERMIT SPECIALIST cued head tilt for A-P transport Pudding via teaspoon: Comment: Unable to provide PAS score for this trial as he could not initiate the pharyngeal phase of the swallow without use of liquid wash during the following trial. Thin Liquid via small single sip: cup: Result: 7= enters airways/below vocal folds/not ejected despite effort (Aspiration of the thin liquid wash. Pudding did not appear to penetrate the laryngeal vestibule or aspirate.) Oral Phase Labial Seal: No Labial Escape Tongue Control During Bolus Hold: Posterior escape of greater than half of bolus Bolus Transport/Lingual Motion: Minimal to no tongue motion Oral Residue: Majority of bolus remaining Pharyngeal Phase Initiation of Pharyngeal Swallow: Bolus head in pyriforms Soft Palate Elevation: No bolus between soft palate and pharyngeal wall Laryngeal Elevation: Partial superior movement thyroid cart/partial apprx aryt-epig petiole Anterior Hyoid Excursion: No anterior movement Epiglottic Movement: No inversion (intermittent partial inversion) Laryngeal Vestibule Closure at Height of Swallow: Incomplete; narrow column of air/contrast in laryngeal vestibule Pharyngeal Stripping Wave: Present - diminished Pharyngoesophageal Segment Opening: Minimal distension and minimal duration; marked obstruction of flow Tongue Base Retraction: Wide column of contrast between tongue base & post. pharyngeal wall Pharyngeal Residue: Minimal to no pharyngeal clearance Diagnosis/Impression Diagnosis: Mod-sev oral dysphagia R13.11, Severe pharyngoesophageal dysphagia R13.14 Impression: The oral phase is primarily marked by... -Decreased bolus control with >1/2 of the bolus spilling posteriorly to the pyriforms prior to swallow onset observed with thin liquids especially. -Minimal tongue motion for A-P transport. Pudding trial was primarily propelled by gravity. Thin liquids collected in a pouch-like structure in his oral cavity and the PERMIT SPECIALIST cued the patient to tilt his head back for A-P transport. -Severe oral residue of pudding from the back of tongue into the vallecula. He required thin liquid wash to clear the bolus with mild oral residue following. The pharyngeal phase is primarily marked by... -Decreased airway closure during the swallow due to no anterior hyoid excursion, decreased laryngeal elevation, and no epiglottic inversion. -Patient was unable to initiate the pharyngeal phase of the swallow with pudding and required thin liquid wash to initiate the swallow. -Severely decreased tongue base retraction, severely decreased UES opening/duration, and diminished pharyngeal stripping wave resulting in severe pharyngeal residue of pudding trial after a thin liquid wash. Due to little to no pharyngeal clearance of pudding through the UES, the patient required Yankauer suction by PERMIT SPECIALIST 3X to somewhat clear the bolus from his oropharynx. He was instructed to sit upright for minimum 60 min after the study to allow gravity to help clearance of pudding in the pyriforms since could not expectorate the pudding residues himself. -Aspiration of thin liquids by tsp with consistent throat clearing observed during and after trials. Aspiration of thin liquid wash following pudding trial, but pudding did not seem to penetrate the laryngeal vestibule or aspirate. Of note, the patient is a HIGH choking risk due to poor pharyngeal clearance of pudding bolus with inability to expectorate the bolus to clear it. Recommendations Diet: NPO (Ok for thin water after oral care. Meds by IV. For critical medications that cannot be given via IV, PERMIT SPECIALIST recommends medications be dissolved in water. Patient is not appropriate for whole pills due to high choking risk.) Compensatory Strategies: Small Sips (Cough and re-swallow after sips), Slow Rate, Multiple Swallows, Sitting upright and Remain sitting upright for 30 minutes after PO intake Recommend Repeat Modified Barium Swallow: Yes (Repeat MBSS following GI intervention for severe UES opening/duration PRIOR TO DIET ADVANCEMENT) Need for Skilled Speech Therapy Services: Yes Comment: -Train the patient in use of strategies to decrease risk for aspiration. -Train the patient in intensive oropharyngeal exercise program to improve lingual ROM, tongue base retraction, airway closure, pharyngeal motility, and UES opening/duration (lingual ROM exercises [protrusion/retraction], Nuvia, Wilma, CTAR, effortful swallow). If cleared by the patient's oncologist and ENT, would consider oropharyngeal strengthening in junction with myofascial release. Recommended Referrals: GI Consult (PERMIT SPECIALIST called Dr. Auguste and requested he review images to consider the patient for further GI intervention. Pending GI intervention options, PERMIT SPECIALIST requested consideration of PEG tube placement to meet nutrition/hydration needs as the patient is currently participating in rehab for broken hip.) Education Completed: 1. Described result of evaluation., 2. Pt understands evaluation & agrees with goals and treatment plan. and 7. Pt requires further education on strategies & risks. Status Active ST Patient: Active Contact Information [facility]:: Nathalie Sierra M.A. [facility]PERMIT SPECIALIST? Speech-Language Pathologist?? [facility] [address]?? [place] [address]?? [email or web address]?? [phone]
--- NOTE | 2024-02-16 14:54 | CASEMGMT ---
Social Work Discharge was cancelled. SW will continue to follow for discharge to rehab when pt is medically ready. MICHAEL Fontenot
[2024-02-16] MEDS: 0.9% Saline Lock 10 ML Syringe IV (15:17)
--- NOTE | 2024-02-16 17:43 | PN.GI_ITS ---
Subjective Subjective Patient underwent a swallowing eval today: Diet: NPO (Ok for thin water after oral care. Meds by IV. For critical me dications that cannot be given via IV, SPRINKLER HELPER recommends medications be dissolved in water. Patient is not appropriate for whole pills due to high choking risk.) Compensatory Strategies: Small Sips (Cough and re-swallow after sips), Slow Rate, Multiple Swallows, Sitting upright and Remain sitting upright for 30 minutes after PO intake Recommend Repeat Modified Barium Swallow: Yes (Repeat MBSS following GI intervention for severe UES opening/duration PRIOR TO DIET ADVANCEMENT) Need for Skilled Speech Therapy Services: Yes Patient did have a feeding tube previously but it was removed because he was eating. He has not had a repeat swallowing study since getting the PEG tube removed. Objective Data Objective Data Vital Signs: Vital Signs Temp Pulse Resp BP Pulse Ox O2 Del Method O2 Flow Rate 98.1 F 78 18 136/72 H 96 Room Air 2 02/16/24 14:27 02/16/24 14:27 02/16/24 14:27 02/16/24 14:27 02/16/24 14:27 02/16/24 16:00 02/12/24 20:07 Oxygen Flow Rate (L/min) 2 Oxygen Delivery Method Room Air Weight: 156 lb 11.979 oz Body Mass Index (BMI) 20.7 Intake & Output: Intake and Output for Last 24 Hours 02/14/24 02/15/24 02/16/24 23:59 23:59 23:59 Intake Total 1081.25 / 1281.25 3188.33 / 3188.33 1986.67 / 1985.67 Output Total 850 / 1050 850 / 1250 1700 / 1700 Balance 231.25 / 231.25 2338.33 / 1938.33 286.67 / 286.67 Lab / Micro Data 02/16/24 05:35 02/16/24 05:35 Labs: Laboratory Results - last 24 hr 02/16/24 05:35: WBC 9.7, RBC 2.82 L, Hgb 9.1 L, Hct 26.8 L, MCV 95.0 H, MCH 32.3 H, MCHC 34.0, RDW Std Deviation 51.5 H, RDW Coeff of Lacy 14.9 H, Plt Count 106 L , MPV 9.1, Immature Gran % (Auto) 0.600, Neut % (Auto) 86.2 H, Lymph % (Auto) 5.3 L, [place] % (Auto) 7.5, Eos % (Auto) 0.1, Baso % (Auto) 0.3, Absolute Neuts (auto) 8.4 H, Absolute Lymphs (auto) 0.51 L, Nucleated RBC % 0, Sodium 139, Potassium 3.4 L, Chloride 111 H, Carbon Dioxide 23.0, Anion Gap 5, BUN 32 H, Creatinine 2.15 H, Estim Creat Clear Calc 29.40, Est GFR (MDRD) Af Amer 39 L, Est GFR (MDRD) Non-Af 32 L, BUN/Creatinine Ratio 14.9, Glucose 116 H, Calcium 8.0 L, Phosphorus 2.9, Magnesium 1.9 Micro: Microbiology 02/15/24 10:55 Stool Stool Occult Blood (PATRICK) - Final Occult Blood Positive Physical Exam Narrative Alert awake oriented x 3, no obvious distress s1s2 no murmurs lungs clear anteriorly and posteriorly abdomen soft, nontender no edema Assessment & Plan Assessment/Plan (1) Hip fracture, left: (2) History of kidney transplant: (3) Chronic renal insufficiency: (4) Acute hypokalemia: PLAN: Plan Left femoral neck fracture Patient continues to improve. Acute on chronic anemia secondary to chronic renal disease -Hemoglobin dropped from 10.4 on admission currently 7.4 with repeat stable at 9.1 -Iron studies are not consistent with iron deficiency -He likely has iron for his anemia and anemia of chronic disease secondary to gastric bypass. Chronic thrombocytopenia -Platelet counts appear to be stable at this time -Continue to monitor -Baseline appears to be between 100,000-120,000 Oropharyngeal and esophageal dysphagia -Patient is status post gastric bypass or regular PEG tube will be very difficult to do because we would have to go all the way to his existing stomach via double-balloon enteroscopy or portion uroscopy. Then use a Jay introducer method. If the gastric pouch can be seen during an upper endoscopy then it can be placed in the gastric pouch but it jejunal limb would have to be added because bolus feeding would lead to aspiration due to the very small remnant. Keep n.p.o. past midnight and we will try to dilate the upper esophagus versus Botox and also see if we can place a PEG tube in the gastric pouch with jejunal extension. Charges/Coding Visit Charges Inpatient E&M: 04615 Subs Hosp L3
[2024-02-17] VITALS (11 sets, daily range): BP systolic 144–194; BP diastolic 64–93; PULSE 69–76; RESP 14–18; TEMP 36.6–37.1; O2SAT 96–100; BMI 20.7
[2024-02-17] MEDS: Lactated Ringers 1,000 ML 100 ML IV ×2 (03:22→23:57)
[2024-02-17 05:40] LABS: Absolute Lymphocyte Count 0.66 X10^3/uL (0.83-4.51); Absolute Neutrophil Count 4.7 X10^3/uL (2.0-7.7); Basophil# 0.04 X10^3/uL; Basophil% 0.7 % (0-1); Eosinophil# 0.08 X10^3/uL; Eosinophils% 1.3 % (0-5); Hematocrit 25.9 % (40-54); Hemoglobin 8.5 g/dL (13.0-16.5); Lymphocyte # 0.66 X10^3/ul (0.83-4.51); Lymphocyte % 10.9 % (19-41); Mean Corp Hgb Conc 32.8 g/dL (32-36); Mean Corpuscular Hgb 31.8 pg (27.0-32.0); Monocyte# 0.59 X10^3/uL; Monocyte% 9.7 % (0-10); NRBC Flagged by Analyzer 0 % (0-5); Neutrophil # 4.69 X10^3/uL (2.7-7.7); Neutrophil % 77.1 % (47-70); Platelet Count 117 K/mm3 (150-450); RBC Distribution Width SD 52.8 fl (35.1-43.9); Red Blood Count 2.67 M/mm3 (4.6-6.2); White Blood Count 6.1 K/mm3 (4.4-11.0)
[2024-02-17 06:12] LABS: Anion Gap 5 (5-15); BUN 33 mg/dL (7-18); BUN/Creat Ratio 15.5 RATIO (10-20); Calcium,Total 8.3 mg/dL (8.5-10.1); Chloride 112 mmol/L (98-107); Creatinine, Serum 2.13 mg/dL (0.70-1.30); EST Glomerular Filtration Rate 32 mL/min (>60); Est Glom Filt Rate - Afr Amer 39 mL/min (>60); Estimated Creatinine Clearance 29.67 ml/min; Glucose 98 mg/dL (74-106); Potassium 3.4 mmol/L (3.5-5.1); Sodium Level 141 mmol/L (136-145)
--- NOTE | 2024-02-17 07:46 | PN.HOSP_ITS ---
Reason for Visit Reason for Visit: Diagnoses Anemia, unspecified (02/11/24) Hypokalemia (02/11/24) Acute kidney failure, unspecified (02/11/24) Chronic kidney disease, unspecified (02/11/24) Fracture of unspecified part of neck of left femur, initial encounter for closed fracture (02/11/24) Displaced intertrochanteric fracture of left femur, initial encounter for closed fracture (02/11/24) Kidney transplant status (02/11/24) Subjective Subjective Plan to discharge patient to the inpatient rehab unit was discontinued after patient was found by speech therapy to be at significant risk for aspiration. Was kept n.p.o. consult placed to Dr. Auguste for consideration for possible PEG tube placement Objective Data Objective Data Vital Signs: Vital Signs Temp Pulse Resp BP Pulse Ox O2 Del Method O2 Flow Rate 98.6 F 71 15 161/78 H 97 Room Air 2 02/17/24 03:00 02/17/24 03:00 02/17/24 03:00 02/17/24 03:00 02/17/24 03:32 02/17/24 03:32 02/12/24 20:07 Oxygen Flow Rate (L/min) 2 Oxygen Delivery Method Room Air Weight: 71.1 kg Body Mass Index (BMI) 20.7 Intake & Output: Intake and Output for Last 24 Hours 02/15/24 02/16/24 02/17/24 23:59 23:59 23:59 Intake Total 3188.33 / 3188.33 1986.67 / 1986.67 1000 / 1000 Output Total 850 / 1250 1700 / 2200 900 / 900 Balance 2338.33 / 1938.33 286.67 / -213.33 100 / 100 Lab / Micro Data 02/17/24 05:26 02/17/24 05:26 Labs: Laboratory Results - last 24 hr 02/17/24 05:26: WBC 6.1, RBC 2.67 L, Hgb 8.5 L, Hct 25.9 L, MCV 97.0 H, MCH 31.8, MCHC 32.8, RDW Std Deviation 52.8 H, RDW Coeff of Lacy 15.0 H, Plt Count 117 L, MPV 9.0, Immature Gran % (Auto) 0.300, Neut % (Auto) 77.1 H, Lymph % (Auto) 10.9 L, Jennings % (Auto) 9.7, Eos % (Auto) 1.3, Baso % (Auto) 0.7, Absolute Neuts (auto) 4.7, Absolute Lymphs (auto) 0.66 L, Nucleated RBC % 0, Sodium 141, Potassium 3.4 L, Chloride 112 H, Carbon Dioxide 24.0, Anion Gap 5, BUN 33 H, Creatinine 2.13 H, Estim Creat Clear Calc 29.67, Est GFR (MDRD) Af Amer 39 L, Est GFR (MDRD) Non-Af 32 L, BUN/Creatinine Ratio 15.5, Glucose 98, Calcium 8.3 L Micro: Microbiology 02/15/24 10:55 Stool Stool Occult Blood (PATRICK) - Final Occult Blood Positive Physical Exam Narrative GENERAL: cooperative HEENT: Atraumatic; normocephalic EYES; Anicteric, Normal Conjunctiva NECK; supple, normal thyroid, RESPIRATORY: Diminished to auscultation CARDIOVASCULAR: Regular S1 S2, GI: soft, normoactive bowel sounds, : No Renal angle tenderness; EXTREMITIES: No edema, no clubbing, MUSCULOSKELETAL: Left thigh surgical incision CDI NEURO: Awake; no lateralizing signs. SKIN: No Rash PSYCH; Flat affect Assessment & Plan Assessment/Plan (1) Intertrochanteric fracture of left femur: QUALIFIERS: Encounter type: initial encounter Fracture type: clos ed Fracture alignment: displaced Qualified Code(s): S72.142A - Displaced intertrochanteric fracture of left femur, initial encounter for closed fracture (2) Hip fracture, left: (3) Chronic anemia: (4) Acute hypokalemia: PLAN: Plan Patient is a 74-year-old gentleman admitted following a mechanical fall sust ained left femoral neck fracture underwent left femur cephalomedullary nailing. Hospital stay complicated by significant anemia with hemoglobin dropping from 10.4 on admission to 6.5 consult placed to GI plans for patient to undergo endoscopic evaluation 1. Acute mechanical fall with left femoral neck fracture ? Patient underwent Left femur Cephalmedullary Nailing by Dr. Mina Griffin on 02/12/2024 2. Physical deconditioning - Requested for PT OT eval and geriatric social worker to assist with discharge planning 3. Anemia ? Due to combination of anemia of chronic disorder as well as acute blood loss anemia. Patient was transfused with 2 unit PRBC consult placed to GI plans for patient to undergo endoscopic evaluation 02/16/2024; patient underwent EGD results as below -- Normal esophagus. Small hiatal hernia. Evelio-en-Y gastrojejunostomy with gastrojejunal anastomosis characterized by erosion, erythema and friable mucosa. Biopsied. Normal examined jejunum. 4. Dysphagia ?Had a discussion with speech therapy regarding patient's swallowing issues. Patient apparently is at significant risk for aspiration. Decision was made to keep patient n.p.o. consult placed to Dr. Auguste for consideration for possible PEG tube placement 5. Chronic kidney disease stage IV ? Patient has history of kidney transplant monitoring kidney function with daily BMPs 6. Vitamin D deficiency -Continue home cholecalciferol ; Vitamin D level is within normal limits 7. BPH with lower urinary obstructive symptoms - Patient treated with tamsulosin as well as finasteride 8. History of tongue cancer status post partial resection -Concern for dysphagia patient has been seen by speech therapy -02/16/2024. Evaluation by speech therapy on 02/15/2024 demonstrated abnormal looking right palatoglossal arch. This was of concern given patient previous history of tongue CA. Patient was informed of the finding instructed to call his ENT surgeon/oncology at [facility] to set up a follow-up appointment 9. History of previous CVA ? Patient was on Plavix held given worsening anemia 10. Hypothyroidism - Patient is on levothyroxine home dose continued 11. Chronic thrombocytopenia ? Platelet count remains stable 12. Essential hypertension ? Patient blood pressure control not optimal added amlodipine 10 mg daily 13. DVT prophylaxis ? Patient has been placed on Xarelto held given worsening anemia Time spent in the patient's overall evaluation,decision-making process, review of diagnostic data, adjustment of management, discussion with other providers, nursing nursing and ancillary staff involved in patient's care documentation, 35 Minutes Charges/Coding Visit Charges Inpatient E&M: 61029 Subs Hosp L2
--- NOTE | 2024-02-17 09:34 | PN.ORTHO_ITS ---
Subjective Subjective Postop day 5 status post left hip long gamma nailing. Continues to struggle with dysphagia. Has been seen by speech pathology who recommended n.p.o. and GI consult which potentially recommends PEG tube per note. Denies significant pain in the operative site. Mentions that he is a little confused this morning. Has been able to stand and pivot to chair and bedside commode, but has not ambulated hallway yet. Objective Data Objective Data Vital Signs: Vital Signs Temp Pulse Resp BP Pulse Ox O2 Del Method O2 Flow Rate 98.1 F 76 14 159/79 H 96 Room Air 96 02/17/24 08:00 02/17/24 08:00 02/17/24 08:00 02/17/24 08:00 02/17/24 08:00 02/17/24 08:00 02/17/24 08:00 Oxygen Flow Rate (L/min) 96 Oxygen Delivery Method Room Air Weight: 156 lb 11.979 oz Body Mass Index (BMI) 20.7 Intake & Output: Intake and Output for Last 24 Hours 02/15/24 02/16/24 02/17/24 23:59 23:59 23:59 Intake Total 3188.33 / 3188.33 1986.67 / 1986.67 1000 / 1000 Output Total 850 / 1250 1700 / 2200 900 / 900 Balance 2338.33 / 1938.33 286.67 / -213.33 100 / 100 Lab / Micro Data 02/17/24 05:26 02/17/24 05:26 Labs: Laboratory Results - last 24 hr 02/17/24 05:26: WBC 6.1, RBC 2.67 L, Hgb 8.5 L, Hct 25.9 L, MCV 97.0 H, MCH 31.8, MCHC 32.8, RDW Std Deviation 52.8 H, RDW Coeff of Lacy 15.0 H, Plt Count 117 L, MPV 9.0, Immature Gran % (Auto) 0.300, Neut % (Auto) 77.1 H, Lymph % (Auto) 10.9 L, [place] % (Auto) 9.7, Eos % (Auto) 1.3, Baso % (Auto) 0.7, Absolute Neuts (auto) 4.7, Absolute Lymphs (auto) 0.66 L, Nucleated RBC % 0, Sodium 141, Potassium 3.4 L, Chloride 112 H, Carbon Dioxide 24.0, Anion Gap 5, BUN 33 H, Creatinine 2.13 H, Estim Creat Clear Calc 29.67, Est GFR (MDRD) Af Amer 39 L, Est GFR (MDRD) Non-Af 32 L, BUN/Creatinine Ratio 15.5, Glucose 98, Calcium 8.3 L Micro: Microbiology 02/15/24 10:55 Stool Stool Occult Blood (PATRICK) - Final Occult Blood Positive Physical Exam Narrative Dressing?CDI. Distal neurovascular exam is intact. Assessment & Plan Assessment/Plan (1) Intertrochanteric fracture of left femur: QUALIFIERS: Encounter type: initial encounter Fracture type: closed Fracture alignment: displaced Qualified Code(s): S72.142A - Displaced intertrochanteric fracture of left femur, initial encounter for closed fracture PLAN: Plan Postop day 5 status post left long gamma nailing. PT OT mobilization as tolerated. DVT chemoprophylaxis may resume when safe. Appreciate hospitalist, speech pathology, GI management. Discharge to rehab when medically appropriate. Will follow-up in 2 weeks.
[2024-02-17] MEDS: Lactated Ringers 1,000 ML 50 ML IV (10:06)
[2024-02-17] MEDS: 0.9% Saline Lock 10 ML Syringe IV ×2 (10:06→15:25)
[2024-02-17] MEDS: Potassium Chloride 10mEq/100mL 10 MEQ/100 ML IV.SOLN. 100 MEQ IV BOLUS ×4 (10:07→14:23)
--- NOTE | 2024-02-17 11:20 | NURSING ---
OFF UNIT VIA BED FOR SCHEDULED PROCEDURE
--- NOTE | 2024-02-17 14:22 | OP.CCLET_ITS ---
02/17/2024 James Eden Re : Upper GI endoscopy procedure for Brennon Pisano Meek This procedure was performed on Saturday, February 17, 2024. My impressions and recommendations are as follows: Impressions : - Benign-appearing esophageal stenosis. Dilated. - Evelio-en-Y gastrojejunostomy. - Normal examined jejunum. - No specimens collected. Recommendations : - [facility]. - Advance diet as tolerated. - Continue present medications. My findings are described in the full procedure note, which is enclosed. If I can be of further assistance, please feel free to contact me at . Sincerely, Ilir Auguste, 02/17/2024 2:21:43 PM This report has been signed electronically.
--- NOTE | 2024-02-17 14:22 | OP.EGD_ITS ---
Patient Name: Brennon Luke Procedure Date: 02/17/2024 1:41 PM Date of : 1950 Age: 74 Procedure: Upper GI endoscopy Indications: Dysphagia Providers: Ilir Auguste DO Medicines: Monitored Anesthesia Care Patient Profile: This is a 74 year old male. Refer to note in patient chart for documentation of history and physical. Patient has symptoms of dysphagia with both liquids and solids. Complications: No immediate complications. Procedure: Pre-Anesthesia Assessment: - Prior to the procedure, a History and Physical was performed, and patient medications and allergies were reviewed. The patient is competent. The risks and benefits of the procedure and the sedation options and risks were discussed with the patient. All questions were answered and informed consent was obtained. Patient identification and proposed procedure were verified in the pre-procedure area. Mental Status Examination: alert and oriented. Airway Examination: normal oropharyngeal airway and neck mobility. Respiratory Examination: clear to auscultation. CV Examination: normal. Prophylactic Antibiotics: The patient does not require prophylactic antibiotics. Prior Anticoagulants: The patient has taken no anticoagulant or antiplatelet agents except for NSAID medication. ASA Grade Assessment: II - A patient with mild systemic disease. After reviewing the risks and benefits, the patient was deemed in satisfactory condition to undergo the procedure. The anesthesia plan was to use monitored anesthesia care (MAC). Immediately prior to administration of medications, the patient was re-assessed for adequacy to receive sedatives. The heart rate, respiratory rate, oxygen saturations, blood pressure, adequacy of pulmonary ventilation, and response to care were monitored throughout the procedure. The physical status of the patient was re-assessed after the procedure. After obtaining informed consent, the endoscope was passed under direct vision. Throughout the procedure, the patient's blood pressure, pulse, and oxygen saturations were monitored continuously. The Endoscope was introduced through the mouth, and advanced to the second part of duodenum. The upper GI endoscopy was accomplished without difficulty. The patient tolerated the procedure well. Scope In: 1:44:34 PM Scope Out: 1:48:18 PM Total Procedure Duration Time 0 hours 3 minutes 44 seconds Findings: One benign-appearing, intrinsic severe stenosis was found 19 to 22 cm from the incisors. This stenosis measured 3 cm (in length). The stenosis was traversed. A guidewire was placed and the scope was withdrawn. Dilation was performed with a Savary dilator with no resistance at 60 Fr. The dilation site was examined following endoscope reinsertion and showed moderate improvement in luminal narrowing. Estimated blood loss was minimal. 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 This was traversed. The nnhnn-ad-[id number] limb was characterized by healthy appearing mucosa. The zeekjngc-yp-rmletfz limb was not examined as it could not be found. The excluded stomach was not examined as it could not be found. The examined jejunum was normal. Impression: - Benign-appearing esophageal stenosis. Dilated. - Evelio-en-Y gastrojejunostomy. - Normal examined jejunum. - No specimens collected. Recommendation: - [facility] - Advance diet as tolerated. - Continue present medications. Procedure Code(s): --- Professional --- 91283, Esophagogastroduodenoscopy, flexible, transoral; with insertion of guide wire followed by passage of dilator(s) through esophagus over guide wire CPT copyright 2021 [employer]. All rights reserved. The codes documented in this report are preliminary and upon cna pct review may be revised to meet current compliance requirements. Ilir Auguste DO 02/17/2024 2:21:43 PM This report has been signed electronically. Number of Addenda: 0 Note Initiated On: 02/17/2024 1:41 PM
--- NOTE | 2024-02-17 14:37 | PN.RENAL_ITS ---
Subjective Subjective no new complaints Objective Data Objective Data Vital Signs: Vital Signs Temp Pulse Resp BP Pulse Ox O2 Del Method O2 Flow Rate 98.6 F 74 16 177/77 H 97 Room Air 4 02/17/24 14:10 02/17/24 14:10 02/17/24 14:10 02/17/24 14:10 02/17/24 14:10 02/17/24 14:10 02/17/24 13:56 Oxygen Flow Rate (L/min) 4 Oxygen Delivery Method Room Air Weight: 71.1 kg Body Mass Index (BMI) 20.7 Intake & Output: Intake and Output for Last 24 Hours 02/15/24 02/16/24 02/17/24 23:59 23:59 23:59 Intake Total 3188.33 / 3188.33 1986.67 / 1985.67 1963.33 / 1963.33 Output Total 850 / 1250 1700 / 2200 900 / 900 Balance 2338.33 / 1938.33 286.67 / -213.33 1063.33 / 1063.33 Lab / Micro Data 02/17/24 05:26 02/17/24 05:26 Labs: Laboratory Results - last 24 hr 02/17/24 05:26: WBC 6.1, RBC 2.67 L, Hgb 8.5 L, Hct 25.9 L, MCV 97.0 H, MCH 31.8, MCHC 32.8, RDW Std Deviation 52.8 H, RDW Coeff of Lacy 15.0 H, Plt Count 117 L, MPV 9.0, Immature Gran % (Auto) 0.300, Neut % (Auto) 77.1 H, Lymph % (Auto) 10.9 L, [place] % (Auto) 9.7, Eos % (Auto) 1.3, Baso % (Auto) 0.7, Absolute Neuts (auto) 4.7, Absolute Lymphs (auto) 0.66 L, Nucleated RBC % 0, Sodium 141, Potassium 3.4 L, Chloride 112 H, Carbon Dioxide 24.0, Anion Gap 5, BUN 33 H, Creatinine 2.13 H, Estim Creat Clear Calc 29.67, Est GFR (MDRD) Af Amer 39 L, Est GFR (MDRD) Non-Af 32 L, BUN/Creatinine Ratio 15.5, Glucose 98, Calcium 8.3 L Micro: Microbiology 02/15/24 10:55 Stool Stool Occult Blood (PATRICK) - Final Occult Blood Positive Physical Exam Narrative Alert awake oriented x 3, no obvious distress s1s2 no murmurs lungs clear anteriorly and posteriorly abdomen soft, nontender no edema Const alert, oriented x3 and no apparent distress General Appearance: well developed Orientation / Consciousness: oriented to person, oriented to place and oriented to time Nutritional Appearance: cachectic HEENT normocephalic Neck no lymphadenopathy Resp clear to auscultation bilaterally GI non-tender Auscultation: normoactive bowel sounds Extremity General Extremity: edema left (Hip is especially swollen) Skin no rashes or lesions noted Psych cooperative Assessment & Plan Assessment/Plan (1) Acute kidney injury: PLAN: Baseline creatinine was 6 months ago was 1.2. Increased to 2.0 recently as outpatient. He is following with [facility] transplant nephrology. Home immunosuppressants including tacrolimus and prednisone only. Currently on same dose of medications. Continue these at discharge Acute renal failure is likely from volume depletion. Serum creatinine peaked 2.8 and today his creatinine is 2.1. 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 He had subacute renal failure over the last 6 months. It is possible that he has oxalate nephropathy in his current kidney as well, message was sent to [facility] transplant nephrology. They will follow-up after discharge. Patient states he has appointment in March. (2) History of kidney transplant:
[2024-02-17] MEDS: hydrALAZINE 20 MG/ML Vial 10 MG IV (15:25)
--- NOTE | 2024-02-17 16:01 | NURSING ---
SPOUSE WAS ASKING ABOUT MSG FROM PHARMACY ABOUT SCRIPTS. THIS NURSE REVIEWED 02/15 DC NOTES. CLARIFICATION SENT TO DR REINA ABOUT PT POSSIBLE GOING ON PLAVIX AND XARELTO.
[2024-02-17] MEDS: Acetaminophen 650 MG/20 ML UDC 1000 MG PO (20:26)
[2024-02-18 06:00] VITALS: BP 164/78; PULSE 66; RESP 18; TEMP 36.8; O2SAT 98
[2024-02-18 06:37] LABS: Absolute Lymphocyte Count 0.59 X10^3/uL (0.83-4.51); Absolute Neutrophil Count 3.4 X10^3/uL (2.0-7.7); Basophil# 0.03 X10^3/uL; Basophil% 0.6 % (0-1); Eosinophil# 0.12 X10^3/uL; Eosinophils% 2.5 % (0-5); Hematocrit 26.2 % (40-54); Hemoglobin 8.6 g/dL (13.0-16.5); Lymphocyte # 0.59 X10^3/ul (0.83-4.51); Lymphocyte % 12.4 % (19-41); Mean Corp Hgb Conc 32.8 g/dL (32-36); Mean Corpuscular Volume 97.4 fL (80-94); Mean Platelet Vol. 9.3 fl (6.2-12.0); Monocyte# 0.56 X10^3/uL; Monocyte% 11.8 % (0-10); NRBC Flagged by Analyzer 0 % (0-5); Neutrophil # 3.43 X10^3/uL (2.7-7.7); Neutrophil % 72.5 % (47-70); POSITIVE DIFFERENTIAL YES; Platelet Count 110 K/mm3 (150-450); RBC Distribution Width CV 14.9 % (11.6-14.6); Red Blood Count 2.69 M/mm3 (4.6-6.2); White Blood Count 4.7 K/mm3 (4.4-11.0)
[2024-02-18 06:56] LABS: Anion Gap 7 (5-15); BUN 33 mg/dL (7-18); BUN/Creat Ratio 16.8 RATIO (10-20); Calcium,Total 8.3 mg/dL (8.5-10.1); Chloride 110 mmol/L (98-107); Creatinine, Serum 1.97 mg/dL (0.70-1.30); EST Glomerular Filtration Rate 35 mL/min (>60); Est Glom Filt Rate - Afr Amer 43 mL/min (>60); Estimated Creatinine Clearance 32.08 ml/min; Glucose 88 mg/dL (74-106); Potassium 3.6 mmol/L (3.5-5.1); Sodium Level 142 mmol/L (136-145)
[2024-02-18 08:38] VITALS: BP 163/74; PULSE 67; RESP 16; TEMP 36.8; O2SAT 97
--- NOTE | 2024-02-18 08:58 | PCM.PN.HOSP ---
Reason for Visit Reason for Visit: Diagnoses Anemia, unspecified (02/11/24) Hypokalemia (02/11/24) Acute kidney failure, unspecified (02/11/24) Chronic kidney disease, unspecified (02/11/24) Fracture of unspecified part of neck of left femur, initial encounter for closed fracture (02/11/24) Displaced intertrochanteric fracture of left femur, initial encounter for closed fracture (02/11/24) Kidney transplant status (02/11/24) Subjective Subjective Patient underwent EGD with esophageal dilatation today prior. Scheduled to undergo modified barium swallow Objective Data Objective Data Vital Signs: Vital Signs Temp Pulse Resp BP Pulse Ox O2 Del Method O2 Flow Rate 98.3 F 67 16 163/74 H 97 Room Air 4 02/18/24 08:38 02/18/24 08:38 02/18/24 08:38 02/18/24 08:38 02/18/24 08:38 02/18/24 08:38 02/17/24 13:56 Oxygen Flow Rate (L/min) 4 Oxygen Delivery Method Room Air Weight: 71.1 kg Body Mass Index (BMI) 20.7 Intake & Output: Intake and Output for Last 24 Hours 02/16/24 02/17/24 02/18/24 23:59 23:59 23:59 Intake Total 1986.67 / 1986.67 3163.33 / 3163.33 Output Total 1700 / 2200 1700 / 1700 400 / 400 Balance 286.67 / -213.33 1463.33 / 1463.33 -400 / -400 Lab / Micro Data 02/18/24 05:56 02/18/24 05:56 Labs: Laboratory Results - last 24 hr 02/18/24 05:56: WBC 4.7, RBC 2.69 L, Hgb 8.6 L, Hct 26.2 L, MCV 97.4 H, MCH 32.0, MCHC 32.8, RDW Std Deviation 53.0 H, RDW Coeff of Lacy 14.9 H, Plt Count 110 L, MPV 9.3, Immature Gran % (Auto) 0.200, Neut % (Auto) 72.5 H, Lymph % (Auto) 12.4 L, [place] % (Auto) 11.8 H, Eos % (Auto) 2.5, Baso % (Auto) 0.6, Absolute Neuts (auto) 3.4, Absolute Lymphs (auto) 0.59 L, Nucleated RBC % 0, Sodium 142, Potassium 3.6, Chloride 110 H, Carbon Dioxide 25.0, Anion Gap 7, BUN 33 H, Creatinine 1.97 H, Estim Creat Clear Calc 32.08, Est GFR (MDRD) Af Amer 43 L, Est GFR (MDRD) Non-Af 35 L, BUN/Creatinine Ratio 16.8, Glucose 88, Calcium 8.3 L Micro: Microbiology 02/15/24 10:55 Stool Stool Occult Blood (PATRICK) - Final Occult Blood Positive Physical Exam Narrative GENERAL: cooperative HEENT: Atraumatic; normocephalic EYES; Anicteric, Normal Conjunctiva NECK; supple, normal thyroid, RESPIRATORY: Diminished to auscultation CARDIOVASCULAR: Regular S1 S2, GI: soft, normoactive bowel sounds, : No Renal angle tenderness; EXTREMITIES: No edema, no clubbing, MUSCULOSKELETAL: Left thigh surgical incision CDI NEURO: Awake; no lateralizing signs. SKIN: No Rash PSYCH; Flat affect Assessment & Plan Assessment/Plan (1) Intertrochanteric fracture of left femur: QUALIFIERS: Encounter type: initial encounter Fracture alignment: displaced Fracture type: closed Qualified Code(s): S72.142A - Displaced intertrochanteric fracture of left femur, initial encounter for closed fracture (2) Hip fracture, left: (3) Chronic anemia: (4) Acute hypokalemia: PLAN: Plan Patient is a 74-year-old gentleman admitted following a mechanical fall sustained left femoral neck fracture underwent left femur cephalomedullary nailing. Hospital stay complicated by significant anemia with hemoglobin dropping from 10.4 on admission to 6.5 consult placed to GI plans for patient to undergo endoscopic evaluation 1. Acute mechanical fall with left femoral neck fracture ? Patient underwent Left femur Cephalmedullary Nailing by Dr. Mina Griffin on 02/12/2024 2. Physical deconditioning - Requested for PT OT eval and executive secretary social welfare to assist with discharge planning 3. Anemia ? Due to combination of anemia of chronic disorder as well as acute blood loss anemia. Patient was transfused with 2 unit PRBC consult placed to GI plans for patient to undergo endoscopic evaluation 02/16/2024; patient underwent EGD results as below -- Normal esophagus. Small hiatal hernia. Evelio-en-Y gastrojejunostomy with gastrojejunal anastomosis characterized by erosion, erythema and friable mucosa. Biopsied. Normal examined jejunum. 4. Dysphagia ?Had a discussion with speech therapy regarding patient's swallowing issues. Patient apparently is at significant risk for aspiration. Decision was made to keep patient n.p.o. consult placed to Dr. Auguste for consideration for possible PEG tube placement. Dr. Auguste did perform EGD with esophageal dilatation 02/18/2020 patient underwent repeat EGD with esophageal dilatation Impressions : - Benign-appearing esophageal stenosis. Dilated. - Evelio-en-Y gastrojejunostomy. - Normal examined jejunum. - No specimens collected. Recommendations : - [facility]. - Advance diet as tolerated. - Continue present medications. Scheduled to undergo modified barium swallow 5. Chronic kidney disease stage IV ? Patient has history of kidney transplant monitoring kidney function with daily BMPs 6. Vitamin D deficiency -Continue home cholecalciferol ; Vitamin D level is within normal limits 7. BPH with lower urinary obstructive symptoms - Patient treated with tamsulosin as well as finasteride 8. History of tongue cancer status post partial resection -Concern for dysphagia patient has been seen by speech therapy -02/16/2024. Evaluation by speech therapy on 02/15/2024 demonstrated abnormal looking right palatoglossal arch. This was of concern given patient previous history of tongue CA. Patient was informed of the finding instructed to call his ENT surgeon/oncology at [facility] to set up a follow-up appointment 9. History of previous CVA ? Patient was on Plavix held given worsening anemia 10. Hypothyroidism - Patient is on levothyroxine home dose continued 11. Chronic thrombocytopenia ? Platelet count remains stable 12. Essential hypertension ? Patient blood pressure control not optimal added amlodipine 10 mg daily 13. DVT prophylaxis ? Patient has been placed on Xarelto held given worsening anemia Time spent in the patient's overall evaluation,decision-making process, review of diagnostic data, adjustment of management, discussion with other providers, nursing nursing and ancillary staff involved in patient's care documentation, 35 Minutes Charges/Coding Visit Charges Inpatient E&M: 21892 Subs Hosp L2
[2024-02-18] MEDS: Lactated Ringers 1,000 ML 100 ML IV ×2 (09:00→20:16)
[2024-02-18] MEDS: Tacrolimus Anhydrous 1 MG Capsule 3 MG PO (09:16)
--- NOTE | 2024-02-18 10:29 | PN.RENAL_ITS ---
Subjective Subjective Following for MAURICE on CKD and patient with history of renal transplant Complaining of difficulty swallowing. Patient to have swallow eval today. and son at bedside. No overnight events. Objective Data Objective Data Vital Signs: Vital Signs Temp Pulse Resp BP Pulse Ox O2 Del Method O2 Flow Rate 98.3 F 67 16 163/74 H 97 Room Air 4 02/18/24 08:38 02/18/24 08:38 02/18/24 08:38 02/18/24 08:38 02/18/24 08:38 02/18/24 08:38 02/17/24 13:56 Oxygen Flow Rate (L/min) 4 Oxygen Delivery Method Room Air Weight: 71.1 kg Body Mass Index (BMI) 20.7 Intake & Output: Intake and Output for Last 24 Hours 02/16/24 02/17/24 02/18/24 23:59 23:59 23:59 Intake Total 1985.67 / 1985.67 3163.33 / 3163.33 905 / 905 Output Total 1700 / 2200 1700 / 1700 1100 / 1100 Balance 286.67 / -213.33 1463.33 / 1463.33 -195 / -195 Lab / Micro Data 02/18/24 05:56 02/18/24 05:56 Labs: Laboratory Results - last 24 hr 02/18/24 05:56: WBC 4.7, RBC 2.69 L, Hgb 8.6 L, Hct 26.2 L, MCV 97.4 H, MCH 32.0, MCHC 32.8, RDW Std Deviation 53.0 H, RDW Coeff of Lacy 14.9 H, Plt Count 110 L, MPV 9.3, Immature Gran % (Auto) 0.200, Neut % (Auto) 72.5 H, Lymph % (Auto) 12.4 L, [place] % (Auto) 11.8 H, Eos % (Auto) 2.5, Baso % (Auto) 0.6, Absolute Neuts (auto) 3.4, Absolute Lymphs (auto) 0.59 L, Nucleated RBC % 0, Sodium 142, Potassium 3.6, Chloride 110 H, Carbon Dioxide 25.0, Anion Gap 7, BUN 33 H, Creatinine 1.97 H, Estim Creat Clear Calc 32.08, Est GFR (MDRD) Af Amer 43 L, Est GFR (MDRD) Non-Af 35 L, BUN/Creatinine Ratio 16.8, Glucose 88, Calcium 8.3 L Micro: Microbiology 02/15/24 10:55 Stool Stool Occult Blood (PATRICK) - Final Occult Blood Positive Physical Exam Narrative Alert awake oriented x 3, no obvious distress s1s2 no murmurs lungs clear anteriorly and posteriorly abdomen soft, nontender no edema Assessment & Plan Assessment/Plan (1) Acute kidney injury: PLAN: - MAURICE on CKD. Baseline creatinine was 1.2mg/dL 6 months ago. Increased to 2.0 recently as outpatient. He is following with [facility] transplant nephrology. Home immunosuppressants including tacrolimus and prednisone only. Currently on same dose of medications. Continue these at discharge Acute renal failure is likely from volume depletion. Serum creatinine peaked 2.8 and today his creatinine is 1.97mg/dL. Patient is on IV fluids. He is currently NPO. Will keep on IV fluids for now at least until further dysphagia work-up completed. 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 He had subacute renal failure over the last 6 months. It is possible that he has oxalate nephropathy in his current kidney as well, message was sent to [facility] transplant nephrology. They will follow-up after discharge. Patient's states she has contacted patient's transplant team, they are aware patient is in hospital. -Dysphagia; patient evaluated by GI. Had EGD with esophageal dilatation. Patient to undergo modified barium swallow today. Patient has history of tongue cancer status post partial resection. (2) History of kidney transplant:
[2024-02-18 11:33] VITALS: PULSE 67
[2024-02-18] MEDS: hydrALAZINE 20 MG/ML Vial 10 MG IV (11:33)
[2024-02-18 11:39] VITALS: BP 181/76; PULSE 76; RESP 16; TEMP 36.6; O2SAT 97
--- NOTE | 2024-02-18 12:33 | ST.MBS ---
Modified Barium Swallow Patient Information Study Date: 02/18/24 Study Time: 10:30 Direct Billable Minutes: 150 Total Minutes procedure & reportin Diagnosis: Dysphagia R13.10 Referring Physician: Reynaldo Murphy Reason for Referral: Objectively assess swallow function, assess risk for aspiration, and determine recommendations for least restrictive diet textures and compensatory strategies to improve safety of swallow. Medical History: Patient was admitted to [facility] ED 02/11/24 with left hip pain after a fall at home. Patient was found on left hip x-ray to have a left intratrochanteric hip fracture. He was admitted for management of hip fracture and hypokalemia with surgery completed on 02/12/24. He was referred for ST consult during stay due to history of dysphagia s/p hemiglossectomy for tongue cancer. He was initially placed on a softened diet, but he was advanced to regular textures during stay. He presented with consistent throat clearing across all textures on 02/15/24 and X RAY DEVELOPING MACHINE OPERATOR recommended repeat MBSS. MBSS 01/16/24 revealed significant aspiration of thin liquids and minimal to no pharyngeal clearance of pudding with inability to expectorate oropharyngeal residues requiring Yankauer suction. Pt was made NPO with water after oral care and meds dissolved in water only. X RAY DEVELOPING MACHINE OPERATOR recommended GI reconsult with repeat MBSS prior to diet advancement. EGD completed 02/17/24 with dilation of severe esophageal stenosis. Repeat MBSS planned for today to consider diet advancement. 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 He then had 7 weeks of radiation treatment (07/2021-09/2021). He had feeding tube dependence,but was able to stop using tube feeding in early December 2021 and had it removed late December 2021. He was following speech therapy with X RAY DEVELOPING MACHINE OPERATOR, Cristy Rogers, at the . She referred him locally to this X RAY DEVELOPING MACHINE OPERATOR to address articulation deficits related to tongue cancer initially, then dysphagia POC, as well. He is following w/ OT for lymphedema management. Most recent MBSS 09/02/2023 revealed moderate oropharyngeal phase dysphagia with aspiration of thin liquids both during and after the swallow. He also presented with poor bolus control s/p L hemiglossectomy and moderate-severe residues in the oropharynx. He was recommended for Soft and bite size textures (IDDSI Level 6) and Thin Liquids with Cough and Re-swallow on each sip, Small Bites, Small Sips, Slow Rate, Multiple Swallows, Alternate bites/solids and sips/liquids, Sitting upright and Remain sitting upright for 30 minutes after PO intake. He participated in follow-up dysphagia therapy and has been tolerating diet with no respiratory infections. Other PMH: falls w/ pelvic and wrist fractures (04/2023) and rib fractures (07/2023), Heart valve implant (07/2023), Gastric bypass surgery (2010), kidney failure (2011), kidney transplant (2017), TIA (August 2020), alcohol use, diabetes, high cholesterol, hx of irregular heartbeat, hx of colitis, HTN, low iron, prostate disease, CVA, syncope (see EMR for full PMH). Current Diet Ordered: Regular textures / Thin liquids Penetration-Aspiration Scale Penetration-Aspiration Scale: OBJECTIVE ASSESSMENT OF SWALLOW FUNCTION (QUANTITATIVE ? PER TRIAL): PENETRATION / ASPIRATION SCALE (HARMON): 1 = does not enter airway 2 = enters airway/above vocal folds/ejected 3 = enters airway/above vocal folds/not ejected 4 = enters airway/contacts vocal folds/ejected 5 = enters airway/contacts vocal folds/not ejected 6 = enters airway/below vocal folds/ejected 7 = enters airway/below vocal folds/not ejected despite effort 8 = enters airway/below vocal folds/no effort VIDEOFLOROSCOPIC SCALE SCORE (HARMON): Grade I = aspiration of material that has penetrated into the laryngeal vestibule, intact cough reflex Grade II = aspiration < 10 % of the bolus, intact cough reflex Grade III = aspiration of < 10 % of the bolus, reduced cough reflex or aspiration of > 10 % of the bolus, intact cough reflex Grade IV = aspiration of > 10 % of the bolus, reduced cough reflex Penetration-Aspiration Scale Score Thin Liquid via teaspoon: Result: 5= enters airways/contacts vocal folds/not ejected Thin Liquid via large single sip: cup: Result: 7= enters airways/below vocal folds/not ejected despite effort Comment: Cued cough and re-swallow Large sip although X RAY DEVELOPING MACHINE OPERATOR cued small sip [place] Thick Liquid via teaspoon: Result: 7= enters airways/below vocal folds/not ejected despite effort Comment: Cued cough and re-swallow Unable to discern if mildly/nectar thick barium vs. thin liquid barium residue aspirated Pudding via teaspoon: Comment: Cued cough and re-swallow Unable to provide PAS score as he was unable to clear puree without use of liquid wash Cued chin tuck, L head turn, and effortful swallow - L head turn was somewhat effective in clearing pharyngeal residues Thin Liquid via small single sip: cup: Result: 7= enters airways/below vocal folds/not ejected despite effort Comment: Cued cough and re-swallow [place] Thick Liquid via small single sip: cup: Result: 5= enters airways/contacts vocal folds/not ejected [place] Thick Liquid via small single sip: cup Trial 2: Result: 2= enter airway/above vocal folds/ejected [place] Thick Liquid via small single sip: cup Trial 3: Result: 3= enters airways/above vocal folds/not ejected Comment: Cued cough and re-swallow Pudding via teaspoon Trial 2: Result: 5= enters airways/contacts vocal folds/not ejected Comment: [place]/mildly thick liquid wash was provided to somewhat clear pudding from oral cavity and resulted in the above PAS Post prandial aspiration of previous trial fully ejected with reflexive cough [place] Thick Liquid via teaspoon: Result: 1= does not enter airway Honey Thick Liquid via small single sip: cup: Result: 3= enters airways/above vocal folds/not ejected Comment: Post prandial penetration of previous trial to the vocal folds with reflexive cough Oral Phase Labial Seal: Escape beyond interlabial space; no extension beyond jeronimo border Tongue Control During Bolus Hold: Posterior escape of greater than half of bolus Bolus Transport/Lingual Motion: Repetitive/disorganized tongue motion Oral Residue: Majority of bolus remaining (pudding on posterior tongue/oropharynx) Pharyngeal Phase Initiation of Pharyngeal Swallow: Bolus head in pyriforms Laryngeal Elevation: Partial superior movement thyroid cart/partial apprx aryt-epig petiole Anterior Hyoid Excursion: No anterior movement Laryngeal Vestibule Closure at Height of Swallow: Incomplete; narrow column of air/contrast in laryngeal vestibule Pharyngeal Stripping Wave: Present - diminished Pharyngoesophageal Segment Opening: Minimal distension and minimal duration; marked obstruction of flow Tongue Base Retraction: Wide column of contrast between tongue base & post. pharyngeal wall Pharyngeal Residue: Minimal to no pharyngeal clearance (pudding prior to liquid wash) Esophageal Phase Esophageal Clearance: Esophageal retention (Trace retention of barium evident in the upper esophagus) Diagnosis/Impression Diagnosis: Severe oropharyngeal dysphagia R13.12, Esophageal dysphagia R13.14 Impression: The oral phase is primarily marked by... -Decreased bolus control with various boluses posteriorly to the pyriforms prior to swallow onset observed with thin liquids especially. Pudding spilled to the vallecula prior to swallow onset. -Minimal tongue motion for A-P transport. Residues continues to collect in a pouch-like structure in his oral cavity.-Severe oral residue of pudding from the back of tongue into the vallecula. He required liquid wash to clear the bolus with mild-moderate oral residue following. The pharyngeal phase is primarily marked by... -Decreased airway closure during the swallow due to no anterior hyoid excursion, decreased laryngeal elevation, and no epiglottic inversion. -Patient was unable to initiate the pharyngeal phase of the swallow with pudding and required liquid wash to initiate the swallow. -Severely decreased tongue base retraction, severely decreased UES opening/duration, and diminished pharyngeal stripping wave resulting in severe pharyngeal residue of pudding trial. After thin or mildly thick liquid wash, he had moderate pharyngeal residues, somewhat improved from previous MBSS 02/16/24. -Aspiration of thin liquids by cup, mildly/nectar thick liquids by tsp (unable to discern if mildly/nectar thick barium vs. thin liquid barium residue aspirated), thin liquid via cup, and post prandial aspiration of mildly/nectar thick liquid via cup (fully ejected with reflexive cough). Did not assess swallow function with cookie due to concern for HIGH choking risk given poor pharyngeal clearance in addition to oral deficits s/p tongue base cancer. Recommendations Comment: Diet Textures: Full [place]/Mildly Thick Liquids ? multiple swallows, cough and re-swallow after every sip Medications dissolved in [place]/Mildly Thick Liquids Free [place] Water Protocol ? Patient is okay for water BY ITSELF 30 min after a meal and oral care. If he consumes any other food/drink/meds, complete oral care and wait 30 additional minutes prior to consuming water. Other Compensatory Strategies: SMALL Bites/Sips Alternate Bites/Sips 1:1 for pudding/yogurt/cream of wheat L head turn for pudding/yogurt/cream of wheat Slow Rate Sitting upright during and 30-60 min after meals Oral care before and after meals Supervision: Distant Supervision Recommend Repeat Modified Barium Swallow: Yes (Repeat MBSS in 2-4 weeks after implementation of intensive oropharyngeal exercise program) Need for Skilled Speech Therapy Services: Yes Comment: -Train the patient in use of strategies to decrease risk for aspiration. -Train the patient in intensive oropharyngeal exercise program to improve lingual ROM, tongue base retraction, airway closure, pharyngeal motility, and UES opening/duration (lingual ROM exercises [protrusion/retraction], Nuvia, Wilma, CTAR, effortful swallow). If cleared by the patient's oncologist and ENT, would consider oropharyngeal strengthening in junction with myofascial release. -MONITOR RESPIRATORY STATUS CLOSELY Recommended Referrals: GI Consult (X RAY DEVELOPING MACHINE OPERATOR spoke with Dr. Auguste and recommended placement of feeding tube due to X RAY DEVELOPING MACHINE OPERATOR's concern for him to concern adequate oral intake safely to nourish and hydrate himself.) and Dietitian Consult Education Completed: 1. Described result of evaluation., 2. Pt understands evaluation & agrees with goals and treatment plan., 4. Family/caregivers understand evaluation & agree w/ goals & tx plan., 5. Patient demonstrates recommended strategies., 7. Pt requires further education on strategies & risks. and 8. Family/caregivers require further education on strategies & risks. Status Active ST Patient: Active Contact Information [facility] Speech Therapy:: Nathalie Sierra M.A. [facility]-X RAY DEVELOPING MACHINE OPERATOR? Speech-Language Pathologist?? [facility] [address]?? [place] [address]?? [email or web address]?? [phone]
[2024-02-18] MEDS: Acetaminophen 650 MG/20 ML UDC 1000 MG PO (13:31)
[2024-02-18 14:49] VITALS: BP 141/72; PULSE 72; RESP 16; TEMP 36.4; O2SAT 97
--- NOTE | 2024-02-18 17:07 | PN.GI_ITS ---
Subjective Subjective Patient did a little better with his swallowing today. However he still is having significant oropharyngeal and esophageal dysphagia. Objective Data Objective Data Vital Signs: Vital Signs Temp Pulse Resp BP Pulse Ox O2 Del Method O2 Flow Rate 97.6 F L 72 16 141/72 H 97 Room Air 4 02/18/24 14:49 02/18/24 14:49 02/18/24 14:49 02/18/24 14:49 02/18/24 14:49 02/18/24 14:49 02/17/24 13:56 Oxygen Flow Rate (L/min) 4 Oxygen Delivery Method Room Air Weight: 156 lb 11.979 oz Body Mass Index (BMI) 20.7 Intake & Output: Intake and Output for Last 24 Hours 02/16/24 02/17/24 02/18/24 23:59 23:59 23:59 Intake Total 1986.67 / 1985.67 3163.33 / 3163.33 955 / 955 Output Total 1700 / 2200 1700 / 1700 1500 / 1500 Balance 286.67 / -213.33 1463.33 / 1463.33 -545 / -545 Lab / Micro Data 02/18/24 05:56 02/18/24 05:56 Labs: Laboratory Results - last 24 hr 02/18/24 05:56: WBC 4.7, RBC 2.69 L, Hgb 8.6 L, Hct 26.2 L, MCV 97.4 H, MCH 32.0, MCHC 32.8, RDW Std Deviation 53.0 H, RDW Coeff of Lacy 14.9 H, Plt Count 110 L, MPV 9.3, Immature Gran % (Auto) 0.200, Neut % (Auto) 72.5 H, Lymph % (Auto) 12.4 L, [place] % (Auto) 11.8 H, Eos % (Auto) 2.5, Baso % (Auto) 0.6, Absolute Neuts (auto) 3.4, Absolute Lymphs (auto) 0.59 L, Nucleated RBC % 0, Sodium 142, Potassium 3.6, Chloride 110 H, Carbon Dioxide 25.0, Anion Gap 7, BUN 33 H, Creatinine 1.97 H, Estim Creat Clear Calc 32.08, Est GFR (MDRD) Af Amer 43 L, Est GFR (MDRD) Non-Af 35 L, BUN/Creatinine Ratio 16.8, Glucose 88, Calcium 8.3 L Micro: Microbiology 02/15/24 10:55 Stool Stool Occult Blood (PATRICK) - Final Occult Blood Positive Physical Exam Narrative GENERAL: cooperative HEENT: Atraumatic; normocephalic EYES; Anicteric, Normal Conjunctiva NECK; supple, normal thyroid, RESPIRATORY: Diminished to auscultation CARDIOVASCULAR: Regular S1 S2, GI: soft, normoactive bowel sounds, : No Renal angle tenderness; EXTREMITIES: No edema, no clubbing, MUSCULOSKELETAL: Left thigh surgical incision CDI NEURO: Awake; no lateralizing signs. SKIN: No Rash PSYCH; Flat affect Assessment & Plan Assessment/Plan (1) Hip fracture, left: (2) History of kidney transplant: (3) Chronic renal insufficiency: (4) Acute hypokalemia: PLAN: Plan Left femoral neck fracture Patient continues to improve. Acute on chronic anemia secondary to chronic renal disease -Hemoglobin dropped from 10.4 on admission currently 7.4 with repeat stable at 9.1 -Iron studies are not consistent with iron deficiency -He likely has iron for his anemia and anemia of chronic disease secondary to gastric bypass. Chronic thrombocytopenia -Platelet counts appear to be stable at this time -Continue to monitor -Baseline appears to be between 100,000-120,000 Oropharyngeal and esophageal dysphagia -Patient is status post gastric bypass or regular PEG tube will be very difficult to do because we would have to go all the way to his existing stomach via double-balloon enteroscopy or portion uroscopy. Then use a Jay introducer method. If the gastric pouch can be seen during an upper endoscopy then it can be placed in the gastric pouch but it jejunal limb would have to be added because bolus feeding would lead to aspiration due to the very small remnant. Keep n.p.o. past midnight and we will try to dilate the upper esophagus versus Botox and also see if we can place a PEG tube in the gastric pouch with jejunal extension. -After talking with speech therapy today we came to the conclusion that he does need supplemental feeding with his severe weight loss and BMI now down to 20. He has had a PEG tube in the past but it was removed and since it has been removed he is having worsening weight loss and esophageal dysphagia's progressively getting worse. I will talk with surgery to see if they are comfortable performing a lap assisted PEG tube placement. Charges/Coding Visit Charges Inpatient E&M: 83296 Subs Hosp L3
[2024-02-18] MEDS: Acetaminophen 500 MG Tablet 1000 MG PO (20:13)
[2024-02-18] MEDS: Finasteride 5 MG Tablet PO (20:14)
[2024-02-18] MEDS: Tacrolimus Anhydrous 1 MG Capsule 2 MG PO (20:14)
[2024-02-18] MEDS: Pyridoxine HCl 100 MG Tablet 200 MG PO (20:15)
[2024-02-18 20:30] VITALS: BP 172/83; PULSE 78; RESP 16; TEMP 36.7; O2SAT 100
[2024-02-19 04:30] VITALS: BP 171/75; PULSE 66; RESP 18; TEMP 36.8; O2SAT 98
[2024-02-19] MEDS: Acetaminophen 500 MG Tablet 1000 MG PO ×3 (05:38→21:30)
[2024-02-19] MEDS: Lactated Ringers 1,000 ML 100 ML IV (05:43)
--- NOTE | 2024-02-19 07:16 | PCM.PN.HOSP ---
Reason for Visit Reason for Visit: Diagnoses Anemia, unspecified (02/11/24) Hypokalemia (02/11/24) Acute kidney failure, unspecified (02/11/24) Chronic kidney disease, unspecified (02/11/24) Fracture of unspecified part of neck of left femur, initial encounter for closed fracture (02/11/24) Displaced intertrochanteric fracture of left femur, initial encounter for closed fracture (02/11/24) Kidney transplant status (02/11/24) Subjective Subjective Patient was seen and assessed by speech therapy they recommended for PEG tube placement. Consult subsequently placed back to GI plan is to consult general surgery for possible lap assisted PEG tube placement Objective Data Objective Data Vital Signs: Vital Signs Temp Pulse Resp BP Pulse Ox O2 Del Method O2 Flow Rate 98.2 F 66 18 171/75 H 98 Room Air 4 02/19/24 04:30 02/19/24 04:30 02/19/24 04:30 02/19/24 04:30 02/19/24 04:30 02/19/24 04:30 02/17/24 13:56 Oxygen Flow Rate (L/min) 4 Oxygen Delivery Method Room Air Weight: 71.1 kg Body Mass Index (BMI) 20.7 Intake & Output: Intake and Output for Last 24 Hours 02/17/24 02/18/24 02/19/24 23:59 23:59 23:59 Intake Total 3163.33 / 3163.33 1955 / 1955 945 / 945 Output Total 1700 / 1700 1500 / 1500 Balance 1463.33 / 1463.33 455 / 455 945 / 945 Lab / Micro Data 02/18/24 05:56 02/18/24 05:56 Micro: Microbiology 02/15/24 10:55 Stool Stool Occult Blood (PATRICK) - Final Occult Blood Positive Physical Exam Narrative GENERAL: cooperative HEENT: Atraumatic; normocephalic EYES; Anicteric, Normal Conjunctiva NECK; supple, normal thyroid, RESPIRATORY: Diminished to auscultation CARDIOVASCULAR: Regular S1 S2, GI: soft, normoactive bowel sounds, : No Renal angle tenderness; EXTREMITIES: No edema, no clubbing, MUSCULOSKELETAL: Left thigh surgical incision CDI NEURO: Awake; no lateralizing signs. SKIN: No Rash PSYCH; Flat affect Assessment & Plan Assessment/Plan (1) Intertrochanteric fracture of left femur: QUALIFIERS: Encounter type: initial encounter Fracture alignment: displaced Fracture type: closed Qualified Code(s): S72.142A - Displaced intertrochanteric fracture of left femur, initial encounter for closed fracture (2) Hip fracture, left: (3) Chronic anemia: (4) Acute hypokalemia: PLAN: Plan Patient is a 74-year-old gentleman admitted following a mechanical fall sustained left femoral neck fracture underwent left femur cephalomedullary nailing. Hospital stay complicated by significant anemia with hemoglobin dropping from 10.4 on admission to 6.5 consult placed to GI plans for patient to undergo endoscopic evaluation 1. Acute mechanical fall with left femoral neck fracture ? Patient underwent Left femur Cephalmedullary Nailing by Dr. Mina Griffin on 02/12/2024 2. Physical deconditioning - Requested for PT OT eval and bilingual social worker to assist with discharge planning 3. Anemia ? Due to combination of anemia of chronic disorder as well as acute blood loss anemia. Patient was transfused with 2 unit PRBC consult placed to GI plans for patient to undergo endoscopic evaluation 02/16/2024; patient underwent EGD results as below -- Normal esophagus. Small hiatal hernia. Evelio-en-Y gastrojejunostomy with gastrojejunal anastomosis characterized by erosion, erythema and friable mucosa. Biopsied. Normal examined jejunum. 4. Dysphagia ?Had a discussion with speech therapy regarding patient's swallowing issues. Patient apparently is at significant risk for aspiration. Decision was made to keep patient n.p.o. consult placed to Dr. Auguste for consideration for possible PEG tube placement. Dr. Auguste did perform EGD with esophageal dilatation 02/18/2020 patient underwent repeat EGD with esophageal dilatation Impressions : - Benign-appearing esophageal stenosis. Dilated. - Evelio-en-Y gastrojejunostomy. - Normal examined jejunum. - No specimens collected. Recommendations : - [facility]. - Advance diet as tolerated. - Continue present medications. Scheduled to undergo modified barium swallow -02/19/2024;Patient was seen and assessed by speech therapy they recommended for PEG tube placement. Consult subsequently placed back to GI plan is to consult general surgery for possible lap assisted PEG tube placement 5. Chronic kidney disease stage IV ? Patient has history of kidney transplant monitoring kidney function with daily BMPs 6. Vitamin D deficiency -Continue home cholecalciferol ; Vitamin D level is within normal limits 7. BPH with lower urinary obstructive symptoms - Patient treated with tamsulosin as well as finasteride 8. History of tongue cancer status post partial resection -Concern for dysphagia patient has been seen by speech therapy -02/16/2024. Evaluation by speech therapy on 02/15/2024 demonstrated abnormal looking right palatoglossal arch. This was of concern given patient previous history of tongue CA. Patient was informed of the finding instructed to call his ENT surgeon/oncology at [facility] to set up a follow-up appointment 9. History of previous CVA ? Patient was on Plavix held given worsening anemia 10. Hypothyroidism - Patient is on levothyroxine home dose continued 11. Chronic thrombocytopenia ? Platelet count remains stable 12. Essential hypertension ? Patient blood pressure control not optimal added amlodipine 10 mg daily 13. DVT prophylaxis ? Patient has been placed on Xarelto held given worsening anemia Time spent in the patient's overall evaluation,decision-making process, review of diagnostic data, adjustment of management, discussion with other providers, nursing nursing and ancillary staff involved in patient's care documentation, 35 Minutes Charges/Coding Visit Charges Inpatient E&M: 21112 Subs Hosp L2
[2024-02-19 08:05] VITALS: BP 177/81; PULSE 68; RESP 16; TEMP 36.7; O2SAT 95
[2024-02-19] MEDS: Folic Acid 1 MG Tablet PO (08:27)
[2024-02-19] MEDS: Cyanocobalamin 500 MCG Tablet PO (08:27)
[2024-02-19] MEDS: predniSONE 5 MG Tablet PO (08:27)
[2024-02-19] MEDS: Ferrous Sulfate 300 MG/5 ML UDC 325 MG PO (08:28)
[2024-02-19] MEDS: Tacrolimus Anhydrous 1 MG Capsule 3 MG PO (08:29)
--- NOTE | 2024-02-19 10:33 | CASEMGMT ---
Social Work Per physician, pt is not ready for discharge today. YULIANA spoke with Nita in inpatient rehab and a bed is still available for pt. Pt cannot admit on Thursday, but can admit on Thursday or after. YULIANA met with pt and updated that [facility] will take pt when he is ready. Phone call to pt's and the same information provided. Pt and appreciative of the update. Plan: [facility], Thursday or after KATIE Mckeon
--- NOTE | 2024-02-19 10:36 | CASEMGMT ---
Social Work SW spoke with pt to discuss advance directives.? Pt confirms pt has completed a living will and health care POA naming Antonette Luke.? Pt notified that documents are not on file at [facility] and SW requested they be brought in for scanning into the EMR.? KATIE Mckeon
[2024-02-19] MEDS: Cholecalciferol (VIT D3) 25 MCG TABLET (1,000 UNITS) 125 MCG PO (11:03)
[2024-02-19] MEDS: Pyridoxine HCl 100 MG Tablet 200 MG PO ×2 (11:03→21:29)
--- NOTE | 2024-02-19 11:50 | PCM.PN.REN ---
Subjective Subjective Sitting in chair, states tolerating liquid diet. Objective Data Objective Data Vital Signs: Vital Signs Temp Pulse Resp BP Pulse Ox O2 Del Method O2 Flow Rate 98.0 F 68 16 177/81 H 95 Room Air 4 02/19/24 08:05 02/19/24 08:05 02/19/24 08:05 02/19/24 08:05 02/19/24 08:05 02/19/24 08:05 02/17/24 13:56 Oxygen Flow Rate (L/min) 4 Oxygen Delivery Method Room Air Weight: 71.1 kg Body Mass Index (BMI) 20.7 Intake & Output: Intake and Output for Last 24 Hours 02/17/24 02/18/24 02/19/24 23:59 23:59 23:59 Intake Total 3163.33 / 3163.33 1955 / 1955 945 / 945 Output Total 1700 / 1700 1500 / 1500 Balance 1463.33 / 1463.33 455 / 455 945 / 945 Lab / Micro Data 02/18/24 05:56 02/18/24 05:56 Micro: Microbiology 02/15/24 10:55 Stool Stool Occult Blood (PATRICK) - Final Occult Blood Positive Physical Exam Narrative alert and oriented, no acute distress S1S2 RRR Lungs clear abdomen soft no edema legs AVF right FA +thrill and bruit Assessment & Plan Assessment/Plan (1) Acute kidney injury: PLAN: - MAURICE on CKD. Baseline creatinine was 1.2mg/dL 6 months ago. Increased to 2.0 recently as outpatient. He is following with [facility] transplant nephrology. Home immunosuppressants including tacrolimus and prednisone only. Currently on same dose of medications. Continue these at discharge Acute renal failure is likely from volume depletion. Serum creatinine peaked 2.8 and last labs 02/17 creatinine 1.97mg/dL. No labs today. Patient is on full liquid diet. We will stop IV fluids and monitor renal function off IV fluids. Today patient states he feels some fullness from IV fluids. Labs ordered am. 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 He had subacute renal failure over the last 6 months. It is possible that he has oxalate nephropathy in his current kidney as well, message was sent to [facility] transplant nephrology. They will follow-up after discharge. Patient's states she has contacted patient's transplant team, they are aware patient is in hospital. - HTN; bps elevated. Stop IV fluids and restart back on home dose amlodipine with holding parameters -Dysphagia; patient evaluated by GI. Had EGD with esophageal dilatation. Patient had modified barium swallow study yesterday and speech recommended PEG, GI consulted. Patient has history of tongue cancer status post partial resection. (2) History of kidney transplant:
[2024-02-19] MEDS: amLODIPine 10 MG Tablet PO (12:35)
--- NOTE | 2024-02-19 13:01 | PCM.PN.ORT ---
Subjective Subjective Postop day 7 status post left hip long gamma nailing. Patient doing well. Pain is well-controlled. Ambulated in hallway with walker with weightbearing as tolerated. Continues to struggle with dysphagia and is GI as well as pathology care. Objective Data Objective Data Vital Signs: Vital Signs Temp Pulse Resp BP Pulse Ox O2 Del Method O2 Flow Rate 98.0 F 68 16 177/81 H 95 Room Air 4 02/19/24 08:05 02/19/24 08:05 02/19/24 08:05 02/19/24 08:05 02/19/24 08:05 02/19/24 08:05 02/17/24 13:56 Oxygen Flow Rate (L/min) 4 Oxygen Delivery Method Room Air Weight: 156 lb 11.979 oz Body Mass Index (BMI) 20.7 Intake & Output: Intake and Output for Last 24 Hours 02/17/24 02/18/24 02/19/24 23:59 23:59 23:59 Intake Total 3163.33 / 3163.33 1955 / 1955 1608.33 / 1608.33 Output Total 1700 / 1700 1500 / 1500 Balance 1463.33 / 1463.33 455 / 455 1608.33 / 1608.33 Lab / Micro Data 02/18/24 05:56 02/18/24 05:56 Micro: Microbiology 02/15/24 10:55 Stool Stool Occult Blood (PATRICK) - Final Occult Blood Positive Physical Exam Narrative Dressing?CDI. Distal neurovascular exam is intact. Dressings were removed as he is postop day 7. Band-Aids were applied. No obvious redness or discharge. Assessment & Plan Assessment/Plan (1) Intertrochanteric fracture of left femur: QUALIFIERS: Encounter type: initial encounter Fracture type: closed Fracture alignment: displaced Qualified Code(s): S72.142A - Displaced intertrochanteric fracture of left femur, initial encounter for closed fracture PLAN: Plan Postop day 7 status post left long gamma nailing. PT OT mobilization as tolerated. DVT chemoprophylaxis may resume when safe. Appreciate hospitalist, speech pathology, GI management. Discharge to rehab when medically appropriate. Orthopedics will sign off for now. Please reach out for any questions or concerns.
[2024-02-19 14:04] VITALS: BP 122/62; PULSE 79; RESP 17; TEMP 36.8; O2SAT 96
[2024-02-19 21:26] VITALS: BP 176/80; PULSE 77; RESP 18; TEMP 37.3; O2SAT 97
[2024-02-19] MEDS: Finasteride 5 MG Tablet PO (21:29)
[2024-02-19] MEDS: Tamsulosin HCl 0.4 MG Capsule PO (21:29)
[2024-02-19] MEDS: Tacrolimus Anhydrous 1 MG Capsule 2 MG PO (21:29)
[2024-02-20 03:37] VITALS: BP 164/79; PULSE 72; RESP 18; TEMP 37.2; O2SAT 97
[2024-02-20] MEDS: Acetaminophen 500 MG Tablet 1000 MG PO ×3 (06:06→20:45)
[2024-02-20 06:56] LABS: Anion Gap 4 (5-15); BUN 27 mg/dL (7-18); BUN/Creat Ratio 14.4 RATIO (10-20); Calcium,Total 8.2 mg/dL (8.5-10.1); Chloride 109 mmol/L (98-107); Creatinine, Serum 1.87 mg/dL (0.70-1.30); EST Glomerular Filtration Rate 38 mL/min (>60); Est Glom Filt Rate - Afr Amer 45 mL/min (>60); Glucose 110 mg/dL (74-106); Potassium 3.2 mmol/L (3.5-5.1); Sodium Level 140 mmol/L (136-145)
--- NOTE | 2024-02-20 07:24 | PN.HOSP_ITS ---
Reason for Visit Reason for Visit: Diagnoses Anemia, unspecified (02/11/24) Hypokalemia (02/11/24) Acute kidney failure, unspecified (02/11/24) Chronic kidney disease, unspecified (02/11/24) Fracture of unspecified part of neck of left femur, initial encounter for closed fracture (02/11/24) Displaced intertrochanteric fracture of left femur, initial encounter for closed fracture (02/11/24) Kidney transplant status (02/11/24) Subjective Subjective Case was discussed with the friend the day prior. Recommended for patient to be transferred to a tertiary [facility] center for IR evaluation for placement of PEG tube. This recommendation discussed with patient. Patient not in favor of being transferred. He states that he does not even want a PEG tube and wants to have it discussion with the prior to making a final decision. Did discuss with the patient regarding the risk of eating by mouth including aspiration pneumonia. He is aware and is prepared to take the chance Objective Data Objective Data Vital Signs: Vital Signs Temp Pulse Resp BP Pulse Ox O2 Del Method O2 Flow Rate 99 F 72 18 164/79 H 97 Room Air 4 02/20/24 03:37 02/20/24 03:37 02/20/24 03:37 02/20/24 03:37 02/20/24 03:37 02/20/24 03:37 02/17/24 13:56 Oxygen Flow Rate (L/min) 4 Oxygen Delivery Method Room Air Weight: 71.1 kg Body Mass Index (BMI) 20.7 Intake & Output: Intake and Output for Last 24 Hours 02/18/24 02/19/24 02/20/24 23:59 23:59 23:59 Intake Total 1955 / 1955 1608.33 / 1608.33 Output Total 1500 / 1500 900 / 900 600 / 600 Balance 455 / 455 708.33 / 708.33 -600 / -600 Lab / Micro Data 02/18/24 05:56 02/20/24 05:44 Labs: Laboratory Results - last 24 hr 02/20/24 05:44: Sodium 140, Potassium 3.2 L, Chloride 109 H, Carbon Dioxide 27.0, Anion Gap 4 L, BUN 27 H, Creatinine 1.87 H, Estim Creat Clear Calc 33.80, Est GFR (MDRD) Af Amer 45 L, Est GFR (MDRD) Non-Af 38 L, BUN/Creatinine Ratio 14.4, Glucose 110 H, Calcium 8.2 L Micro: Microbiology 02/15/24 10:55 Stool Stool Occult Blood (PATRICK) - Final Occult Blood Positive Physical Exam Narrative GENERAL: cooperative HEENT: Atraumatic; normocephalic EYES; Anicteric, Normal Conjunctiva NECK; supple, normal thyroid, RESPIRATORY: Diminished to auscultation CARDIOVASCULAR: Regular S1 S2, GI: soft, normoactive bowel sounds, : No Renal angle tenderness; EXTREMITIES: No edema, no clubbing, MUSCULOSKELETAL: Left thigh surgical incision CDI NEURO: Awake; no lateralizing signs. SKIN: No Rash PSYCH; Flat affect Assessment & Plan Assessment/Plan (1) Intertrochanteric fracture of left femur: QUALIFIERS: Encounter type: initial encounter Fracture alignment: displaced Fracture type: closed Qualified Code(s): S72.142A - Displaced intertrochanteric fracture of left femur, initial encounter for closed fracture (2) Hip fracture, left: (3) Chronic anemia: (4) Acute hypokalemia: PLAN: Plan Patient is a 74-year-old gentleman admitted following a mechanical fall sustained left femoral neck fracture underwent left femur cephalomedullary nailing. Hospital stay complicated by significant anemia with hemoglobin dropping from 10.4 on admission to 6.5 consult placed to GI plans for patient to undergo endoscopic evaluation 1. Acute mechanical fall with left femoral neck fracture ? Patient underwent Left femur Cephalmedullary Nailing by Dr. Mina Griffin on 02/12/2024 2. Physical deconditioning - Requested for PT OT eval and social work job titles to assist with discharge planning 3. Anemia ? Due to combination of anemia of chronic disorder as well as acute blood loss anemia. Patient was transfused with 2 unit PRBC consult placed to GI plans for patient to undergo endoscopic evaluation 02/16/2024; patient underwent EGD results as below -- Normal esophagus. Small hiatal hernia. Evelio-en-Y gastrojejunostomy with gastrojejunal anastomosis characterized by erosion, erythema and friable mucosa. Biopsied. Normal examined jejunum. 4. Dysphagia ?Had a discussion with speech therapy regarding patient's swallowing issues. Patient apparently is at significant risk for aspiration. Decision was made to keep patient n.p.o. consult placed to Dr. Auguste for consideration for possible PEG tube placement. Dr. Auguste did perform EGD with esophageal dilatation 02/18/2020 patient underwent repeat EGD with esophageal dilatation Impressions : - Benign-appearing esophageal stenosis. Dilated. - Evelio-en-Y gastrojejunostomy. - Normal examined jejunum. - No specimens collected. Recommendations : - [facility]. - Advance diet as tolerated. - Continue present medications. Scheduled to undergo modified barium swallow -02/19/2024;Patient was seen and assessed by speech therapy they recommended for PEG tube placement. Consult subsequently placed back to GI plan is to consult general surgery for possible lap assisted PEG tube placement ? 02/20/2024; Case was discussed with the friend the day prior. Recommended for patient to be transferred to a tertiary care center for IR evaluation for placement of PEG tube. This recommendation discussed with patient. Patient not in favor of being transferred. He states that he does not even want a PEG tube and wants to have it discussion with the prior to making a final decision. Did discuss with the patient regarding the risk of eating by mouth including aspiration pneumonia. He is aware and is prepared to take the chance 5. Chronic kidney disease stage IV ? Patient has history of kidney transplant monitoring kidney function with daily BMPs 6. Vitamin D deficiency -Continue home cholecalciferol ; Vitamin D level is within normal limits 7. BPH with lower urinary obstructive symptoms - Patient treated with tamsulosin as well as finasteride 8. History of tongue cancer status post partial resection -Concern for dysphagia patient has been seen by speech therapy -02/16/2024. Evaluation by speech therapy on 02/15/2024 demonstrated abnormal looking right palatoglossal arch. This was of concern given patient previous history of tongue CA. Patient was informed of the finding instructed to call his ENT surgeon/oncology at [facility] to set up a follow-up appointment 9. History of previous CVA ? Patient was on Plavix held given worsening anemia 10. Hypothyroidism - Patient is on levothyroxine home dose continued 11. Chronic thrombocytopenia ? Platelet count remains stable 12. Essential hypertension ? Patient blood pressure control not optimal added amlodipine 10 mg daily 13. DVT prophylaxis ? Patient has been placed on Xarelto held given worsening anemia Time spent in the patient's overall evaluation,decision-making process, review of diagnostic data, adjustment of management, discussion with other providers, nursing nursing and ancillary staff involved in patient's care documentation, 35 Minutes Charges/Coding Visit Charges Inpatient E&M: 05015 Subs Hosp L2
[2024-02-20 08:58] VITALS: BP 129/66; PULSE 70; RESP 18; TEMP 36.8; O2SAT 97
[2024-02-20] MEDS: predniSONE 5 MG Tablet PO (09:06)
[2024-02-20] MEDS: Folic Acid 1 MG Tablet PO (09:06)
[2024-02-20] MEDS: Tacrolimus Anhydrous 1 MG Capsule 3 MG PO (09:07)
[2024-02-20] MEDS: Cyanocobalamin 500 MCG Tablet PO (09:07)
[2024-02-20] MEDS: Pyridoxine HCl 100 MG Tablet 200 MG PO ×2 (09:08→20:45)
[2024-02-20] MEDS: amLODIPine 10 MG Tablet PO (09:08)
[2024-02-20] MEDS: Potassium Chloride 10mEq/100mL 10 MEQ/100 ML IV.SOLN. 100 MEQ IV BOLUS ×4 (09:23→15:03)
[2024-02-20 14:00] VITALS: BP 131/75; PULSE 77; RESP 18; TEMP 37; O2SAT 99
[2024-02-20 19:39] VITALS: BP 138/67; PULSE 64; RESP 18; TEMP 36.4; O2SAT 96
[2024-02-20] MEDS: 0.9% Saline Lock 10 ML Syringe IV (19:47)
[2024-02-20] MEDS: Tamsulosin HCl 0.4 MG Capsule PO (20:45)
[2024-02-20] MEDS: Finasteride 5 MG Tablet PO (20:47)
[2024-02-20] MEDS: Tacrolimus Anhydrous 1 MG Capsule 2 MG PO (20:48)
[2024-02-21 02:01] VITALS: BP 152/71; PULSE 64; RESP 16; TEMP 36.4; O2SAT 94
[2024-02-21 05:46] VITALS: BP 149/71; PULSE 60; RESP 16; TEMP 36.8; O2SAT 96
[2024-02-21] MEDS: Acetaminophen 500 MG Tablet 1000 MG PO (05:50)
--- NOTE | 2024-02-21 07:41 | PN.HOSP_ITS ---
Reason for Visit Reason for Visit: Diagnoses Anemia, unspecified (02/11/24) Hypokalemia (02/11/24) Acute kidney failure, unspecified (02/11/24) Chronic kidney disease, unspecified (02/11/24) Fracture of unspecified part of neck of left femur, initial encounter for closed fracture (02/11/24) Displaced intertrochanteric fracture of left femur, initial encounter for closed fracture (02/11/24) Kidney transplant status (02/11/24) Subjective Subjective Patient seen still insistent on not proceeding with the PEG tube placement. Plan will be to reconsult speech therapy to recommend this advance diet for patient given his condition. Patient understands the risk Objective Data Objective Data Vital Signs: Vital Signs Temp Pulse Resp BP Pulse Ox O2 Del Method O2 Flow Rate 98.2 F 60 16 149/71 H 96 Room Air 4 02/21/24 05:46 02/21/24 05:46 02/21/24 05:46 02/21/24 05:46 02/21/24 05:46 02/21/24 05:46 02/17/24 13:56 Oxygen Flow Rate (L/min) 4 Oxygen Delivery Method Room Air Weight: 71.1 kg Body Mass Index (BMI) 20.7 Intake & Output: Intake and Output for Last 24 Hours 02/19/24 02/20/24 02/21/24 23:59 23:59 23:59 Intake Total 1608.33 / 1608.33 800 / 800 Output Total 900 / 900 900 / 900 150 / 150 Balance 708.33 / 708.33 -100 / -100 -150 / -150 Lab / Micro Data 02/18/24 05:56 02/20/24 05:44 Micro: Microbiology 02/15/24 10:55 Stool Stool Occult Blood (PATRICK) - Final Occult Blood Positive Physical Exam Narrative GENERAL: cooperative HEENT: Atraumatic; normocephalic EYES; Anicteric, Normal Conjunctiva NECK; supple, normal thyroid, RESPIRATORY: Diminished to auscultation CARDIOVASCULAR: Regular S1 S2, GI: soft, normoactive bowel sounds, : No Renal angle tenderness; EXTREMITIES: No edema, no clubbing, MUSCULOSKELETAL: Left thigh surgical incision CDI NEURO: Awake; no lateralizing signs. SKIN: No Rash PSYCH; Flat affect Assessment & Plan Assessment/Plan (1) Intertrochanteric fracture of left femur: QUALIFIERS: Encounter type: initial encounter Fracture alignment: displaced Fracture type: closed Qualified Code(s): S72.142A - Displaced intertrochanteric fracture of left femur, initial encounter for closed fracture (2) Hip fracture, left: (3) Chronic anemia: (4) Acute hypokalemia: PLAN: Plan Patient is a 74-year-old gentleman admitted following a mechanical fall castanon stained left femoral neck fracture underwent left femur cephalomedullary nailing. Hospital stay complicated by significant anemia with hemoglobin dropping from 10.4 on admission to 6.5 consult placed to GI plans for patient to undergo endoscopic evaluation 1. Acute mechanical fall with left femoral neck fracture ? Patient underwent Left femur Cephalmedullary Nailing by Dr. Mina Griffin on 02/12/2024 2. Physical deconditioning - Requested for PT OT eval and high school social studies teacher to assist with discharge planning 3. Anemia ? Due to combination of anemia of chronic disorder as well as acute blood loss anemia. Patient was transfused with 2 unit PRBC consult placed to GI plans for patient to undergo endoscopic evaluation 02/16/2024; patient underwent EGD results as below -- Normal esophagus. Small hiatal hernia. Evelio-en-Y gastrojejunostomy with gastrojejunal anastomosis characterized by erosion, erythema and friable mucosa. Biopsied. Normal examined jejunum. 4. Dysphagia ?Had a discussion with speech therapy regarding patient's swallowing issues. Patient apparently is at significant risk for aspiration. Decision was made to keep patient n.p.o. consult placed to Dr. Auguste for consideration for possible PEG tube placement. Dr. Auguste did perform EGD with esophageal dilatation 02/18/2020 patient underwent repeat EGD with esophageal dilatation Impressions : - Benign-appearing esophageal stenosis. Dilated. - Evelio-en-Y gastrojejunostomy. - Normal examined jejunum. - No specimens collected. Recommendations : - [facility]. - Advance diet as tolerated. - Continue present medications. Scheduled to undergo modified barium swallow -02/19/2024;Patient was seen and assessed by speech therapy they recommended for PEG tube placement. Consult subsequently placed back to GI plan is to consult general surgery for possible lap assisted PEG tube placement ? 02/20/2024; Case was discussed with the arnel the day prior. Recommended for patient to be transferred to a tertiary care center for IR evaluation for p lacement of PEG tube. This recommendation discussed with patient. Patient not in favor of being transferred. He states that he does not even want a PEG tube and wants to have it discussion with the prior to making a final decision. Did discuss with the patient regarding the risk of eating by mouth including aspiration pneumonia. He is aware and is prepared to take the chance ? 02/21/2024;Patient seen still insistent on not proceeding with the PEG tube placement. Plan will be to reconsult speech therapy to recommend this advance diet for patient given his condition. Patient understands the risk 5. Chronic kidney disease stage IV ? Patient has history of kidney transplant monitoring kidney function with daily BMPs 6. Vitamin D deficiency -Continue home cholecalciferol ; Vitamin D level is within normal limits 7. BPH with lower urinary obstructive symptoms - Patient treated with tamsulosin as well as finasteride 8. History of tongue cancer status post partial resection -Concern for dysphagia patient has been seen by speech therapy -02/16/2024. Evaluation by speech therapy on 02/15/2024 demonstrated abnormal looking right palatoglossal arch. This was of concern given patient previous history of tongue CA. Patient was informed of the finding instructed to call his ENT surgeon/oncology at [facility] to set up a follow-up appointment 9. History of previous CVA ? Patient was on Plavix held given worsening anemia 10. Hypothyroidism - Patient is on levothyroxine home dose continued 11. Chronic thrombocytopenia ? Platelet count remains stable 12. Essential hypertension ? Patient blood pressure control not optimal added amlodipine 10 mg daily 13. DVT prophylaxis ? Patient has been placed on Xarelto held given worsening anemia Time spent in the patient's overall evaluation,decision-making process, review of diagnostic data, adjustment of management, discussion with other providers, nursing nursing and ancillary staff involved in patient's care documentation, 36 Minutes Charges/Coding Visit Charges Inpatient E&M: 97683 Subs Hosp L2
[2024-02-21] MEDS: Cyanocobalamin 500 MCG Tablet PO (09:43)
[2024-02-21] MEDS: Calcitriol 0.25 MCG Capsule PO (09:43)
[2024-02-21] MEDS: Cholecalciferol (VIT D3) 25 MCG TABLET (1,000 UNITS) 125 MCG PO (09:43)
[2024-02-21] MEDS: Pyridoxine HCl 100 MG Tablet 200 MG PO (09:43)
[2024-02-21] MEDS: Folic Acid 1 MG Tablet PO (09:43)
[2024-02-21] MEDS: Ferrous Sulfate 300 MG/5 ML UDC 325 MG PO (09:44)
[2024-02-21] MEDS: amLODIPine 10 MG Tablet PO (09:44)
[2024-02-21] MEDS: Tacrolimus Anhydrous 1 MG Capsule 3 MG PO (09:44)
[2024-02-21] MEDS: predniSONE 5 MG Tablet PO (09:44)
--- NOTE | 2024-02-21 09:45 | DCINST_ITS ---
Discharge Instructions Diet Discharge Diet: - (Full liquids and nectar thick) Dressing / Incision Call your doctor if you observe: Fever of 101 or Higher, Shortness of breath, Fainting spells and Chest pain Follow Up Care Test Results: Test results from this visit will be discussed in further detail at your follow- up appointment, if applicable. Discharge Plan Admission Admit Date/Time: 02/11/24 19:10 Attending Provider: Reynaldo Murphy Primary Care Provider: James Eden Consulting Providers: Mina Griffin; Kevin Hall; Sarah Moser; Friend,Ilir; Milena Mary Discharge Orders/Prescriptions Prescriptions: New Xarelto 10 mg Tablet 10 mg PO DAILY@0600 Qty: 30 0RF oxycodone 5 mg Tablet 2.5 mg PO Q6H PRN PRN (Reason: Pain Score 4-10) 3 Days Qty: 10 0RF melatonin 3 mg Tablet 3 mg PO QHS PRN PRN (Reason: Insomnia) Qty: 0 0RF acetaminophen 500 mg Tablet 1,000 mg PO Q8 Qty: 0 0RF amlodipine 10 mg tablet 10 mg PO DAILY Qty: 30 0RF Continued finasteride 5 MG tablet 5 mg PO QHS calcitriol 0.25 MCG capsule 0.25 mcg PO QODAY sulfamethoxazole-trimethoprim 1 EACH tablet 1 tab PO DAILY cyanocobalamin (vitamin B-12) 500 MCG tablet 500 mcg PO DAILY@0900 folic acid 1 MG tablet 1 mg PO DAILY clopidogrel 75 MG tablet 75 mg PO DAILY Qty: 30 0RF pyridoxine (vitamin B6) 100 mg Tablet 200 mg PO BID prednisone 5 mg tablet 5 mg PO DAILY potassium chloride 10 mEq tablet extended release 20 meq PO DAILY tamsulosin 0.4 mg capsule 0.4 mg PO QHS cholecalciferol (vitamin D3) 125 mcg (5,000 unit) capsule 125 mcg PO Q3D tacrolimus [Prograf] 1 mg capsule 2 mg PO DAILY Rx Instructions: TAKE 3MG AT 9AM, AND 2MG AT 9PM tacrolimus [Prograf] 1 mg capsule 2 mg PO QPM Rx Instructions: TAKE 3MG AT 9AM AND 2MG AT 9PM acyclovir 400 mg tablet 400 mg PO PRN PRN (Reason: ANTIVIRAL) ferrous sulfate [Feosol] 325 mg (65 mg iron) tablet 325 mg PO DAILY latanoprost 0.005 % drops 1 drp RIGHT EYE .HS levothyroxine 50 mcg capsule 50 mcg PO DAILY Patient Comments: Thursday-Thursday levothyroxine 100 mcg tablet 100 mcg PO DAILY Patient Comments: Thursday and Thursday Referrals / Follow Up: James Eden MD [Primary Care Provider] - Within 1 Month (Following discharge to be referred to [facility] for patient to be evaluated by his ENT surgeon/oncology regarding tongue CA) Disposition Disposition (needs filled in before D/C Order can be placed): Inpatient Rehab Unit/Facility
[2024-02-21 10:00] VITALS: BP 119/65; PULSE 67; RESP 14; TEMP 36.7; O2SAT 97
--- NOTE | 2024-02-21 10:44 | PCM.PN.REN ---
Subjective Subjective No new complaints Objective Data Objective Data Vital Signs: Vital Signs Temp Pulse Resp BP Pulse Ox O2 Del Method O2 Flow Rate 8.0 F L 67 14 119/65 97 Room Air 4 02/21/24 10:00 02/21/24 10:00 02/21/24 10:00 02/21/24 10:00 02/21/24 10:00 02/21/24 10:00 02/17/24 13:56 Oxygen Flow Rate (L/min) 4 Oxygen Delivery Method Room Air Weight: 71.1 kg Body Mass Index (BMI) 20.7 Intake & Output: Intake and Output for Last 24 Hours 02/19/24 02/20/24 02/21/24 23:59 23:59 23:59 Intake Total 1608.33 / 1608.33 800 / 800 Output Total 900 / 900 900 / 900 150 / 150 Balance 708.33 / 708.33 -100 / -100 -150 / -150 Lab / Micro Data 02/18/24 05:56 02/20/24 05:44 Micro: Microbiology 02/15/24 10:55 Stool Stool Occult Blood (PATRICK) - Final Occult Blood Positive Physical Exam Narrative alert and oriented, no acute distress S1S2 RRR Lungs clear abdomen soft no edema legs AVF right FA +thrill and bruit Const alert, oriented x3 and no apparent distress General Appearance: well developed Orientation / Consciousness: oriented to person, oriented to place and oriented to time Nutritional Appearance: cachectic HEENT normocephalic Neck no lymphadenopathy Resp clear to auscultation bilaterally GI non-tender Auscultation: normoactive bowel sounds Extremity General Extremity: edema left (Hip is especially swollen) Skin no rashes or lesions noted Psych cooperative Assessment & Plan Assessment/Plan (1) Acute kidney injury: PLAN: - MAURICE on CKD. Baseline creatinine was 1.2mg/dL 6 months ago. Increased to 2.0 recently as outpatient. He is following with [facility] transplant nephrology. Home immunosuppressants including tacrolimus and prednisone only. Currently on same dose of medications. Continue these at discharge Acute renal failure is likely from volume depletion. Resolved -Dysphagia; patient evaluated by GI. Had EGD with esophageal dilatation. (2) History of kidney transplant:
--- NOTE | 2024-03-21 07:44 | DS.PCM_ITS ---
Providers Date of Admission: 02/11/24 Date of Discharge: 02/21/24 Primary Care Physician: Dr. James Eden MD Consultations 02/11/24 21:16 Consult: Orthopedics Routine Consulting Provider: Mina Griffin Reason for Consult: Left hip fracture EMERGENT Consult: No Notified: Yes Date Notified: 02/11/24 Time Notified: 19:16 Method of Notification: ED Physician Initiated 02/12/24 09:50 Consult: Nephrology Routine Consulting Provider: Sarah Moser Reason for Consult: History of transplant with worsening renal function EMERGENT Consult: No Notified: Yes Date Notified: 02/12/24 Time Notified: 10:30 Method of Notification: Answering Service 02/14/24 08:02 Consult: Gastroenterology Routine Consulting Provider: Ilir Auguste Reason for Consult: acute on chronic anemia EMERGENT Consult: No Notified: Yes Date Notified: 02/14/24 Time Notified: 10:01 Method of Notification: Text Reason For Visit: LEFT HIP FRACTURE Diagnosis Discharge Diagnosis (1) Acute kidney injury: Status: Resolved Code(s): N17.9 - Acute kidney failure, unspecified (2) History of kidney transplant: Status: Inactive Code(s): Z94.0 - Kidney transplant status Plan Patient is a 74-year-old gentleman admitted following a mechanical fall sustained left femoral neck fracture underwent left femur cephalomedullary nailing. Hospital stay complicated by significant anemia with hemoglobin dropping from 10.4 on admission to 6.5 consult placed to GI plans for patient to undergo endoscopic evaluation 1. Acute mechanical fall with left femoral neck fracture ? Patient underwent Left femur Cephalmedullary Nailing by Dr. Mina Griffin on 02/12/2024 2. Physical deconditioning - Requested for PT OT eval and elementary school social worker to assist with discharge planning 3. Anemia ? Due to combination of anemia of chronic disorder as well as acute blood loss anemia. Patient was transfused with 2 unit PRBC consult placed to GI plans for patient to undergo endoscopic evaluation 02/16/2024; patient underwent EGD results as below -- Normal esophagus. Small hiatal hernia. Evelio-en-Y gastrojejunostomy with gastrojejunal anastomosis characterized by erosion, erythema and friable mucosa. Biopsied. Normal examined jejunum. 4. Chronic thrombocytopenia ? Platelet count remains stable 5. Chronic kidney disease stage IV ? Patient has history of kidney transplant monitoring kidney function with daily BMPs 6. Vitamin D deficiency -Continue home cholecalciferol ; Vitamin D level is within normal limits 7. BPH with lower urinary obstructive symptoms - Patient treated with tamsulosin as well as finasteride 8. History of tongue cancer status post partial resection -Concern for dysphagia patient has been seen by speech therapy -02/16/2024. Evaluation by speech therapy on 02/15/2024 demonstrated abnormal looking right palatoglossal arch. This was of concern given patient previous history of tongue CA. Patient was informed of the finding instructed to call his ENT surgeon/oncology at [facility] to set up a follow-up appointment 9. History of previous CVA ? Patient was on Plavix held given worsening anemia 10. Hypothyroidism - Patient is on levothyroxine home dose continued 11. DVT prophylaxis ? Patient has been placed on Xarelto held given worsening anemia Time spent in the patient's overall evaluation,decision-making process, review of diagnostic data, adjustment of management, discussion with other providers, nursing nursing and ancillary staff involved in patient's care documentation, 35 Minutes Medications at Discharge Home Medications finasteride 5 mg tablet 5 mg PO QHS PROSTATE 12/08/13 calcitriol 0.25 mcg capsule 0.25 mcg PO QODAY SUPPLEMENT 04/21/17 cyanocobalamin (vitamin B-12) 500 mcg tablet 500 mcg PO DAILY@0900 vitamin 09/17/20 folic acid 1 mg tablet 1 mg PO DAILY SUPPLEMENT 09/17/20 sulfamethoxazole 400 mg-trimethoprim 80 mg tablet 1 tab PO DAILY atb 09/17/20 clopidogrel 75 mg tablet 75 mg PO DAILY blood thinner #30 tabs 09/18/20 pyridoxine (vitamin B6) 100 mg tablet 200 mg PO BID vitamin 11/12/21 acyclovir 400 mg tablet 400 mg PO PRN PRN ANTIVIRAL 02/11/24 cholecalciferol (vitamin D3) 125 mcg (5,000 unit) capsule 125 mcg PO Q3D vitamin 02/11/24 ferrous sulfate 325 mg (65 mg iron) tablet (Feosol) 325 mg PO DAILY vitamin 02/11/24 potassium chloride 10 mEq tablet,extended release 20 meq PO DAILY vitamin 02/11/24 prednisone 5 mg tablet 5 mg PO DAILY steroid 02/11/24 tacrolimus 1 mg capsule, immediate-release (Prograf) 2 mg PO QPM rejection 02/11/24 tamsulosin 0.4 mg capsule 0.4 mg PO QHS retention 02/11/24 amlodipine 10 mg tablet 10 mg PO DAILY bp #30 tabs 02/16/24 acetaminophen 500 mg tablet 1,000 mg (2 x 500 mg) PO Q8 PRN pain #1 TAB 03/04/24 apixaban 5 mg tablet (Eliquis) 2.5 mg (1/2 x 5 mg) PO BID@0600,2200 #60 tabs 03/04/24 tramadol 50 mg tablet 50 mg PO TID PRN Pain Score 1-10 #15 tabs 03/04/24 Physical Exam Narrative GENERAL: cooperative HEENT: Atraumatic; normocephalic EYES; Anicteric, Normal Conjunctiva NECK; supple, normal thyroid, RESPIRATORY: Diminished to auscultation CARDIOVASCULAR: Regular S1 S2, GI: soft, normoactive bowel sounds, : No Renal angle tenderness; EXTREMITIES: No edema, no clubbing, MUSCULOSKELETAL: Left thigh surgical incision CDI NEURO: Awake; no lateralizing signs. SKIN: No Rash PSYCH; Flat affect Weight / BMI Weight Weight: 71.1 kg Body Mass Index (BMI) 20.7 ABG / Lab / Microbiology Data 02/18/24 05:56 02/20/24 05:44 Microbiology: Microbiology 02/15/24 10:55 Stool Stool Occult Blood (PATRICK) - Final Occult Blood Positive D/C Instructions Discharge Diet: - (Full liquids and nectar thick) Discharge Activity: Return to Normal Activity Call your doctor if you observe: Fever of 101 or Higher, Shortness of breath, Fainting spells and Chest pain Meaningful Use Info Meaningful Use Meaningful Use Diagnoses (Choose all that apply): None applicable Ischemic Stroke Statin Dosing Therapy Reference: STATIN DOSE THERAPY REFERENCE: * Patients > 75 years receive moderate or high dose statin therapy. * Patients 75 years or YOUNGER should receive HIGH intensity statin dose unless contraindicated. You will be required to document reason for non-treatment if statin daily dose does not meet guidelines. HIGH DOSE STATIN THERAPY DAILY Atorvastatin > than or = to 40 mg Rosuvastatin > than or = to 20 mg Amlodipine + Atorvastatin > than or = to 2.5/40 mg Ezetimibe + Simvastatin 10/80 mg Simvastatin 80mg Discharge Plan Admission Admit Date/Time: 02/11/24 19:10 Attending Provider: Reynaldo Murphy Primary Care Provider: James Eden Consulting Providers: Mina Griffin; Kevin Hall; Sarah Moser; Friend,Ilir; Milena Mary Discharge Orders/Prescriptions Prescriptions: New amlodipine 10 mg tablet 10 mg PO DAILY Qty: 30 0RF Continued finasteride 5 MG tablet 5 mg PO QHS calcitriol 0.25 MCG capsule 0.25 mcg PO QODAY sulfamethoxazole-trimethoprim 1 EACH tablet 1 tab PO DAILY cyanocobalamin (vitamin B-12) 500 MCG tablet 500 mcg PO DAILY@0900 folic acid 1 MG tablet 1 mg PO DAILY clopidogrel 75 MG tablet 75 mg PO DAILY Qty: 30 0RF pyridoxine (vitamin B6) 100 mg Tablet 200 mg PO BID prednisone 5 mg tablet 5 mg PO DAILY potassium chloride 10 mEq tablet extended release 20 meq PO DAILY tamsulosin 0.4 mg capsule 0.4 mg PO QHS cholecalciferol (vitamin D3) 125 mcg (5,000 unit) capsule 125 mcg PO Q3D tacrolimus [Prograf] 1 mg capsule 2 mg PO QPM Rx Instructions: TAKE 3MG AT 9AM AND 2MG AT 9PM acyclovir 400 mg tablet 400 mg PO PRN PRN (Reason: ANTIVIRAL) ferrous sulfate [Feosol] 325 mg (65 mg iron) tablet 325 mg PO DAILY No Action Eliquis 5 mg Tablet 2.5 mg PO BID@0600,2200 Qty: 60 1RF tramadol 50 mg Tablet 50 mg PO TID PRN (Reason: Pain Score 1-10) Qty: 15 0RF acetaminophen 500 mg Tablet 1,000 mg PO Q8 PRN (Reason: pain) Qty: 1 0RF Referrals / Follow Up: James Eden MD [Primary Care Provider] - Within 1 Month (Following discharge to be referred to [facility] for patient to be evaluated by his ENT surgeon/oncology regarding tongue CA) Disposition Disposition (needs filled in before D/C Order can be placed): Inpatient Rehab Unit/Facility Charges/Coding Visit Charges Inpatient E&M: 12534 Disch Hosp >30min
== END 2024-02-21 11:51 | DRG 481 ==
LOC: ED 19:22 → MS3 19:36
PROVIDERS: Anesthesiology; Internal Medicine; Internal Medicine Gastroenterology; Nurse Practitioner Adult Health; Orthopaedic Surgery Orthopaedic Surgery of the Spine; Admitting Provider Hospitalist; Emergency Provider Emergency Medicine; PCP Family Medicine; Visit Provider Internal Medicine
PROC: 0QS706Z Reposition Left Upper Femur with Intramedullary Internal Fixation Device, Open Approach (ICD-10-PCS; CPT 27245; principal; 2024-02-12 14:00)
PROC: 0DJ08ZZ Inspection of Upper Intestinal Tract, Via Natural or Artificial Opening Endoscopic (ICD-10-PCS; CPT 43235; principal; 2024-02-15 10:55)
DX: S72.142A Displaced intertrochanteric fracture of left femur, initial encounter for closed fracture (principal); N17.9 Acute kidney failure, unspecified; E87.0 Hyperosmolality and hypernatremia; N18.4 Chronic kidney disease, stage 4 (severe); D62 Acute posthemorrhagic anemia; N13.8 Other obstructive and reflux uropathy; Z94.0 Kidney transplant status; D69.6 Thrombocytopenia, unspecified; D63.1 Anemia in chronic kidney disease; K22.2 Esophageal obstruction; E87.8 Other disorders of electrolyte and fluid balance, not elsewhere classified; E03.9 Hypothyroidism, unspecified; I12.9 Hypertensive chronic kidney disease with stage 1 through stage 4 chronic kidney disease, or unspecified chronic kidney disease; E78.00 Pure hypercholesterolemia, unspecified; E87.6 Hypokalemia; I95.1 Orthostatic hypotension; E55.9 Vitamin D deficiency, unspecified; K44.9 Diaphragmatic hernia without obstruction or gangrene; W01.0XXA Fall on same level from slipping, tripping and stumbling without subsequent striking against object, initial encounter; N40.1 Benign prostatic hyperplasia with lower urinary tract symptoms; R53.81 Other malaise; R13.12 Dysphagia, oropharyngeal phase; R13.19 Other dysphagia; Z98.84 Bariatric surgery status; Z66 Do not resuscitate; Z98.0 Intestinal bypass and anastomosis status; Z79.02 Long term (current) use of antithrombotics/antiplatelets; Z79.52 Long term (current) use of systemic steroids; Z79.899 Other long term (current) drug therapy; Z85.810 Personal history of malignant neoplasm of tongue; Z86.73 Personal history of transient ischemic attack (TIA), and cerebral infarction without residual deficits
CPT/HCPCS: 36415; 71045; 73501; 73502; 74230; 76000; 76770; 80048; 80069; 80076; 82274; 82306; 82607; 82728; 82746; 82962; 83036; 83540; 83550; 83735; 84100; 84443; 85018; 85025; 85027; 85610; 85730; 86850; 86900; 86901; 86920; 88305; 88342; 92526; 92610; 92611; 93005; 97110; 97116; 97162; 97165; 97530; 97535; 97802; 97803; 99284; C1776; J7040; J7120; P9016; A4216; C1769; J2405

== ENCOUNTER 2024-02-21 11:59 | Inpatient (IN) | payer MEDICARE, OTHER, SELFPAY ==
[2024-02-21 12:16] VITALS: BP 158/61; PULSE 75; RESP 18; TEMP 36.4; O2SAT 98
[2024-02-21 12:20] VITALS: PULSE 75
[2024-02-21 12:59] VITALS: BP 148/62; BP 148/64; PULSE 66; PULSE 76
[2024-02-21] MEDS: Acetaminophen 500 MG Tablet 1000 MG PO ×2 (14:46→20:16)
[2024-02-21 15:45] VITALS: O2SAT 96
--- NOTE | 2024-02-21 16:15 | CPS ---
Patient had IS and PEP on MS3 prior to admission to Rehab Unit. Reminded patient to continue use.
[2024-02-21] MEDS: Pyridoxine HCl 100 MG Tablet 200 MG PO (17:11)
[2024-02-21 19:00] VITALS: BP 142/70; PULSE 70; RESP 17; TEMP 36.6; O2SAT 98
[2024-02-21] MEDS: Latanoprost 0.005% 1 Bottle 1 DRP RIGHT EYE (20:16)
[2024-02-21] MEDS: Tamsulosin HCl 0.4 MG Capsule PO (20:17)
[2024-02-21] MEDS: Finasteride 5 MG Tablet PO (20:18)
[2024-02-21] MEDS: Tacrolimus Anhydrous 1 MG Capsule 2 MG PO (20:18)
[2024-02-21] MEDS: Menthol/Lanolin/Calamine/Znox 113 GM Tube 1 APPLIC TOPICAL (20:19)
[2024-02-22] MEDS: Acetaminophen 500 MG Tablet 1000 MG PO ×3 (05:23→22:19)
[2024-02-22] MEDS: Rivaroxaban 10 MG Tablet PO (05:23)
[2024-02-22] MEDS: Menthol/Lanolin/Calamine/Znox 113 GM Tube 1 APPLIC TOPICAL ×2 (05:38→22:32)
[2024-02-22 05:47] LABS: Hematocrit 27.3 % (40-54); Hemoglobin 8.8 g/dL (13.0-16.5); Mean Corp Hgb Conc 32.2 g/dL (32-36); Mean Corpuscular Hgb 31.8 pg (27.0-32.0); Mean Corpuscular Volume 98.6 fL (80-94); Mean Platelet Vol. 9.2 fl (6.2-12.0); Platelet Count 136 K/mm3 (150-450); RBC Distribution Width CV 14.8 % (11.6-14.6); RBC Distribution Width SD 54.5 fl (35.1-43.9); Red Blood Count 2.77 M/mm3 (4.6-6.2); White Blood Count 5.4 K/mm3 (4.4-11.0)
[2024-02-22 06:34] LABS: ALB/GLOB Ratio 0.9 RATIO (0.9-2.4); AST(SGOT) 21 U/L (15-37); Alanine Aminotransfer ALT/SGPT 19 U/L (16-61); Albumin, Serum 2.4 g/dL (3.2-5.0); Alkaline Phosphatase 62 U/L (45-117); Anion Gap 6 (5-15); BUN 24 mg/dL (7-18); BUN/Creat Ratio 13.5 RATIO (10-20); Calcium,Total 8.3 mg/dL (8.5-10.1); Chloride 108 mmol/L (98-107); Creatinine, Serum 1.78 mg/dL (0.70-1.30); EST Glomerular Filtration Rate 40 mL/min (>60); Est Glom Filt Rate - Afr Amer 48 mL/min (>60); Globulin 2.8 g/dL (2.2-4.2); Glucose 109 mg/dL (74-106); Magnesium 1.8 mg/dL (1.6-2.6); Phosphorus 3.3 mg/dL (2.5-4.9); Potassium 3.3 mmol/L (3.5-5.1); Protein, Total 5.2 g/dL (6.4-8.2); Sodium Level 140 mmol/L (136-145)
[2024-02-22 07:19] VITALS: O2SAT 94
[2024-02-22 07:56] VITALS: BP 158/74; PULSE 66; RESP 18; TEMP 36.4; O2SAT 94
--- NOTE | 2024-02-22 09:14 | PCM.HP.STD ---
HPI - General General Date of Admission: 02/21/24 Date of Service: 02/22/24 Chief Complaint: Debility due to fall/hip fracture HPI Narrative KELTON LUKE, is a 74 M with a PMH of diabetes mellitus type 2, dysphagia, fatty infiltration of the liver, hyperlipidemia, history of benign monoclonal gammopathy, hx of carotid stenosis (less than 50% BL on US in 2019), nephrolithiasis, chronic thrombocytopenia, hypertension, chronic renal failure stage IV, vitamin D deficiency, presbycusis, BPH, history of CVA, history of tongue cancer, history of gastric bypass surgery, history of renal transplant and alcohol use who presented to the ED at [facility] on 02/11/2024 complaining of left hip pain after a ground-level fall at home. He told the ER doc he lost his balance and there was no LOC. X-rays showed an intertrochanteric fracture of the left femoral neck and severe degenerative changes in the right hip. He was admitted to the hospitalist service and orthopedics was consulted. He was taken to the OR by Dr. Griffin on 02/12/24 and underwent L femur Cephalomedullary nailing. Postoperatively he was started on Xarelto for DVT prophylaxis. Post op complications included ABLA. He received 2 units of PRBC's. Stool was heme + and Dr. Auguste from GI was consulted. On 02/15/2024 he underwent an EGD which showed the esophagus to be normal. There was a small hiatal hernia. The gastrojejunal anastomosis was characterized by erosion, erythema and friable mucosa. The area was transversed following dilation. The pouch to jejunum limb was characterized by erosion and erythema. The examined jejunum was normal. Coagulation was achieved using a heater probe. Biopsy of the gastric mucosa showed chronic gastritis. H. pylori was negative. While in the hospital he was evaluated by speech therapy. Their exam was consistent with an abnormal looking right palatoglossal arch and the patient was instructed to call his ENT surgeon/oncology at [facility] for follow-up postdischarge from hospital. Upon further evaluation he was found by speech therapy to be at significant risk for aspiration. Dr. Auguste was reconsulted to evaluate Mr. Luke for possible PEG. He had a repeat EGD on 02/17/2024 and was found to have esophageal stenosis which was dilated. He continued to have oropharyngeal and esophageal dysphagia even following dilatation of the esophageal stenotic area. Transfer to a tertiary facility for PEG or J tube was recommended. The patient refused transfer and he understands that he is at risk for aspiration/pneumonia. He was transferred to the acute inpt rehab unit at [facility] on 02/21/24 for 3 hours of therapy daily to restore function/independence at or near his level prior to the fall/hip FX. All lab drawn this morning was personally reviewed. White blood cell count is normal at 5.4 and the hemoglobin is stable at 8.8 following transfusion of 2 units of packed red blood cells earlier in the hospital admission. Platelets are mildly decreased at 136,000 but he is known to have chronic thrombocytopenia. Sodium is 140 and the potassium is 3.3. Serum bicarb is 26. The BUN is 24 with a creatinine of 1.78. He was seen and followed by nephrology while in the hospital for acute on chronic kidney disease. Baseline creatinine apparently 6 months ago was 1.2 and increased to 2.82 on 02/14/2024. Phosphorus and magnesium are both normal. Serum iron was low in the hospital at 41 and the iron saturation was borderline low at 17.5. Ferritin is 39 which is within normal limits however ferritin is an acute phase reactant and it may be falsely elevated secondary to fracture/inflammation. GFR is 40 which is consistent with stage IIIb chronic renal failure at this time. He tells me that on the day he fell he had been out in the yard working for 4 hours and when he went inside he felt weak and tired and his legs gave out. He denies that he was dizzy and he tells me that he drinks 3 liters of fluid every day. He had 7 week as of radiation in the past to the head/neck. Has not taken anything for pain since arriving on rehab. He is afraid to take narcotics due to hallucinations in the past and to fear of becoming addicted. [facility] Medical History (Updated 02/22/24 @ 11:[address] Madison Sequeira DO) Arthritis Back pain BPH (benign prostatic hyperplasia) Cardiology follow-up encounter Carotid stenosis Chronic anemia Chronic renal insufficiency CVA (cerebral vascular accident) Diabetes Dietary restriction Dysphagia Easy bruising Esophageal stenosis Fatty liver Hiatal hernia High cholesterol History of colitis History of edema History of Holter monitoring History of irregular heartbeat History of renal disease History of stress test HTN (hypertension) Hx of benign monoclonal gammopathy Hx of echocardiogram Hx of tongue cancer Hypertension Immunosuppression due to chronic steroid use Injury of head and neck Loss of hearing Low iron Non-smoker Orthostatic hypotension Stroke/cerebrovascular accident Syncope Tongue carcinoma Wears glasses Home Medications finasteride 5 mg tablet 5 mg PO QHS PROSTATE 12/08/13 [History Last Taken 02/10/24] calcitriol 0.25 mcg capsule 0.25 mcg PO QODAY SUPPLEMENT 04/21/17 [History Last Taken 02/11/24] cyanocobalamin (vitamin B-12) 500 mcg tablet 500 mcg PO DAILY@0900 vitamin 09/17/20 [History Last Taken 02/11/24] folic acid 1 mg tablet 1 mg PO DAILY SUPPLEMENT 09/17/20 [History Last Taken 02/11/24] sulfamethoxazole 400 mg-trimethoprim 80 mg tablet 1 tab PO DAILY atb 09/17/20 [History Last Taken 02/11/24] clopidogrel 75 mg tablet 75 mg PO DAILY blood thinner #30 tabs 09/18/20 [Rx Last Taken 02/11/24] pyridoxine (vitamin B6) 100 mg tablet 200 mg PO BID vitamin 11/12/21 [History Last Taken 02/11/24] acyclovir 400 mg tablet 400 mg PO PRN PRN ANTIVIRAL 02/11/24 [History Last Taken Unknown] cholecalciferol (vitamin D3) 125 mcg (5,000 unit) capsule 125 mcg PO Q3D vitamin 02/11/24 [History Last Taken 02/09/24] ferrous sulfate 325 mg (65 mg iron) tablet (Feosol) 325 mg PO DAILY vitamin 02/11/24 [History Last Taken 02/11/24] latanoprost 0.005 % eye drops 1 drp RIGHT EYE .HS eye drop 02/11/24 [History Last Taken Unknown] levothyroxine 100 mcg tablet 100 mcg PO DAILY hypothyroid 02/11/24 [History Last Taken Unknown] levothyroxine 50 mcg capsule 50 mcg PO DAILY hypothryoid 02/11/24 [History Last Taken Unknown] potassium chloride 10 mEq tablet,extended release 20 meq PO DAILY vitamin 02/11/24 [History Last Taken 02/11/24] prednisone 5 mg tablet 5 mg PO DAILY steroid 02/11/24 [History Last Taken 02/11/24] tacrolimus 1 mg capsule, immediate-release (Prograf) 2 mg PO DAILY rejection 02/11/24 [History Last Taken 02/11/24] tacrolimus 1 mg capsule, immediate-release (Prograf) 2 mg PO QPM rejection 02/11/24 [History Last Taken 02/10/24] tamsulosin 0.4 mg capsule 0.4 mg PO QHS retention 02/11/24 [History Last Taken 02/10/24] acetaminophen 500 mg tablet 1,000 mg (2 x 500 mg) PO Q8 pain #0 tabs 02/16/24 [Rx Last Taken Unknown] amlodipine 10 mg tablet 10 mg PO DAILY bp #30 tabs 02/16/24 [Rx Last Taken Unknown] melatonin 3 mg tablet 3 mg PO QHS PRN PRN Insomnia #0 tabs 02/16/24 [Rx Last Taken Unknown] oxycodone 5 mg tablet 2.5 mg (1/2 x 5 mg) PO Q6H PRN PRN Pain Score 4-10 3 days #10 tabs 02/16/24 [Rx Last Taken Unknown] rivaroxaban 10 mg tablet (Xarelto) 10 mg PO DAILY@0600 blood thinner #30 tabs 02/16/24 [Rx Last Taken Unknown] Allergy/AdvReac Type Severity Reaction Status Date / Time amoxicillin Allergy Unknown Verified 02/11/24 17:17 ursodiol Allergy Rash Verified 02/11/24 17:17 exenatide [From [place]] AdvReac Nausea Verified 02/11/24 17:17 morphine AdvReac paranoid Verified 02/12/24 18:33 and hallucinations Surgical History (Updated 02/22/24 @ 11:[address] Madison Sequeira DO) History of esophagogastroduodenoscopy Hx of bariatric surgery Kidney transplant recipient S/P arteriovenous (AV) fistula creation Social History (Updated 02/22/24 @ 10:[address] 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 Smoking Status: Never smoker alcohol intake: never details: Never drinks now for many years. In the past has been a social drinker. substance use type: does not use ROS Constitutional Constitutional: Reports other Details: Initially had wt loss after the partial tongue resection but, he tells me that his weight has since stabilized. ; Denies anorexia, change in weight, chills, fatigue, fever(s), frequent falls, night sweats or weakness Eyes Eyes: Denies blurry vision, change in vision, eye pain or loss of vision ENT HEENT: Reports dysphagia; Denies abnormal hearing, dizziness, headache(s), hearing loss, nasal congestion, neck mass, odynophagia or sore throat Cardiovascular Cardiovascular: Reports edema and other Details: The edema is new since he has been in the hospital. ; Denies chest pain, dyspnea on exertion, lightheadedness, orthopnea, palpitations, paroxysmal nocturnal dyspnea or syncope Respiratory/Chest Respiratory/Chest: Denies cough, dyspnea, shortness of breath at rest, shortness of breath with exertion or wheezing Gastrointestinal Gastrointestinal: Denies abdominal pain, constipation, diarrhea, dyspepsia, hematemesis, hematochezia, nausea or vomiting Genitourinary Genitourinary: Denies dysuria, hematuria, nocturia, urinary frequency, urinary hesitancy, urinary incontinence or urinary urgency Musculoskeletal Musculoskeletal: Denies back pain, joint pain, joint swelling or neck pain Integumentary Integumentary: Reports alopecia; Denies changing lesions, jaundice, pruritus or rash Neurologic Neurologic: Reports weakness and other Details: Has hallucinations with narcotics. ; Denies confusion, disequilibrium, dizziness, focal weakness, headache(s), paresthesias, seizures or tremor(s) Psychiatric Psychiatric: Reports visual hallucinations; Denies anxiety, depression, homicidal ideation or suicidal ideation Endocrine Endocrinology: Denies change in body appearance, polydipsia or polyuria Hematologic/Lymphatic Hematologic/Lymphatic: Denies easy bleeding, easy bruising or lymphadenopathy Allergic/Immunologic Allergic/Immunologic: Denies rhinitis, eczemia or asthma Vital Signs Vital Signs Vital Signs: 02/21/24 12:16 02/21/24 12:20 02/21/24 12:59 Temperature 97.6 F L Temperature Source Temporal Pulse Rate 75 75 Pulse Rate [Lying] 76 Pulse Rate [Sitting (for 1 minute prior to obtaining)] 66 Respiratory Rate 18 Blood Pressure 158/61 H Blood Pressure [Lying] 148/64 H Blood Pressure [Sitting (for 1 minute prior to obtaining)] 148/62 H Blood Pressure Mean 93 Blood Pressure Mean [Lying] 92 Blood Pressure Mean [Sitting (for 1 minute prior to obtaining)] 90 Blood Pressure Source Monitor Blood Pressure Position Sitting Blood Pressure Location Left Arm Pulse Ox 98 Oxygen Delivery Method Room Air Room Air 02/21/24 15:45 02/21/24 19:00 02/22/24 07:19 Temperature 97.9 F Temperature Source Temporal Pulse Rate 70 Pulse Rate [Lying] Pulse Rate [Sitting (for 1 minute prior to obtaining)] Respiratory Rate 17 Blood Pressure 142/70 H Blood Pressure [Lying] Blood Pressure [Sitting (for 1 minute prior to obtaining)] Blood Pressure Mean 94 Blood Pressure Mean [Lying] Blood Pressure Mean [Sitting (for 1 minute prior to obtaining)] Blood Pressure Source Blood Pressure Position Sitting Blood Pressure Location Left Arm Pulse Ox 96 98 94 Oxygen Delivery Method Room Air Room Air Room Air 02/22/24 07:56 Temperature 97.5 F L Temperature Source Temporal Pulse Rate 66 Pulse Rate [Lying] Pulse Rate [Sitting (for 1 minute prior to obtaining)] Respiratory Rate 18 Blood Pressure 158/74 H Blood Pressure [Lying] Blood Pressure [Sitting (for 1 minute prior to obtaining)] Blood Pressure Mean 102 Blood Pressure Mean [Lying] Blood Pressure Mean [Sitting (for 1 minute prior to obtaining)] Blood Pressure Source Monitor Blood Pressure Position Blood Pressure Location Left Arm Pulse Ox 94 Oxygen Delivery Method Room Air Physical Exam Const alert, oriented x3 and no apparent distress Constitutional Narrative: Very pleasant and talkative. Making good eye contact with me. General Appearance: cooperative and well kempt; Negative for in distress HEENT hearing grossly normal bilaterally HEENT Narrative: Increased redness of the R posterior pharyngeal arch and a red spot on the R buccal mucosa. No ulcerations. Tongue has been partially resected on the R side. Head and Scalp: normocephalic and atraumatic Eyes PERRL, EOMs intact bilaterally, conjunctivae normal and no scleral icterus Neck No nodes Neck Narrative: Soft carotid bruit vs radiation of MM on the R side with a louder bruit on the Left that increases as the neck is ascended. Chest Chest: symmetrical chest wall rise Resp normal respiratory effort, normal air movement and clear to auscultation bilaterally Effort and Inspection: able to speak in complete sentences Cardio regular rate and regular rhythm Cardio Narrative: He has a systolic MM heard at the second RICS with radiation to the apex. No diastolic MM and no ectopy. GI normal to inspection, nondistended, normoactive bowel sounds, soft to palpation and non-tender GI Narrative: No guarding with palpation no CVA tenderness Extremity no calf tenderness Extremity Narrative: He has pitting edema of both LE's up to the posterior thighs BL. Wt has not changed since admission to the hospital but, he had no significant edema at admission to the hospital and no he has pitting edema of both LE's up to the posterior thighs. Denies any hx of DVT or PE. Skin no jaundice Skin Narrative: Hip incision on the left is covered with a bandage......will exam when the bandage is due to be changed. Neuro CN's II-XII intact bilaterally, moves all extremities and no focal motor deficits Neuro Narrative: Speech is slurred due to partial tongue resection and also had a CVA in the past with slurred speech. Psych cooperative and affect normal Results Lab / Micro Data 02/22/24 05:31 02/22/24 05:31 Labs: Laboratory Results - last 24 hr 02/22/24 05:31: WBC 5.4, RBC 2.77 L, Hgb 8.8 L, Hct 27.3 L, MCV 98.6 H, MCH 31.8, MCHC 32.2, RDW Std Deviation 54.5 H, RDW Coeff of Lacy 14.8 H, Plt Count 136 L, MPV 9.2, Sodium 140, Potassium 3.3 L, Chloride 108 H, Carbon Dioxide 26.0, Anion Gap 6, BUN 24 H, Creatinine 1.78 H, Est GFR (MDRD) Af Amer 48 L, Est GFR (MDRD) Non-Af 40 L, BUN/Creatinine Ratio 13.5, Glucose 109 H, Calcium 8.3 L, Phosphorus 3.3, Magnesium 1.8, Total Bilirubin 0.80, AST 21, ALT 19, Alkaline Phosphatase 62, Total Protein 5.2 L, Albumin 2.4 L, Globulin 2.8, Albumin/Globulin Ratio 0.9 Assessment & Plan Assessment/Plan (1) Debility: (2) Fall: QUALIFIERS: Encounter type: subsequent encounter Qualified Code(s): W19.XXXD - Unspecified fall, subsequent encounter (3) Intertrochanteric fracture of left femur: QUALIFIERS: Encounter type: initial encounter Fracture alignment: displaced Fracture type: closed Qualified Code(s): S72.142A - Displaced intertrochanteric fracture of left femur, initial encounter for closed fracture (4) History of open reduction and internal fixation (ORIF) procedure: PLAN: 02/12/[address] Griffin Left hip cephalomedullary nailing. (5) Esophageal stenosis: PLAN: Distal esophagus. Dilated by Dr. Auguste on 02/17/24. (6) History of esophagogastroduodenoscopy: PLAN: 02/15/24 and 02/17/[address] Auguste. Had dilation of the gastrojejunostomy anastomosis and heater probe of bleeding on 02/15/24 and esophageal dilation on 02/17/24. (7) Acute on chronic anemia: PLAN: Had 2 units of PRBC's while in the hospital. (8) Acute kidney injury: PLAN: Thought to be due to dehydration. (9) Acute hypokalemia: (10) Renal transplant recipient: (11) Immunosuppression due to chronic steroid use: PLAN: Continue Prednisone and Tacrolimus (12) Dysphagia: QUALIFIERS: Dysphagia type: oropharyngeal phase Qualified Code(s): R13.12 - Dysphagia, oropharyngeal phase PLAN: Plan PLAN PT for gait stability OT for ADL's ST for evaluation Analgesics as needed Bowel protocol Fall precautions Assess for Anxiety/Depression GI prophylaxis -Not discharged from the hospital on a PPI or a H2 alton. Will ask Dr. Auguste if he should be on one of these medications. DVT prophylaxis with Xarelto 10 mg daily for 1 month Follow up with PCP, Dr. Griffin, GI and nephrology following DC from IP Rehab AM lab including CMP, CBC, Mag and Phos Needs a repeat carotid US in future due to hx of carotid stenosis and hx of radiation to the H&N Venous ultrasound of both lower extremities due to 4 + pitting edema and hx of CA DC the Oxycodone - he will not take it due to hx of hallucinations and fear of addiction. Will try scheduling Tramadol for a few days to control pain while he is doing therapy. Recheck a BMP in a few days. Supplement potassium. and check a BMP in the AM. Charges/Coding Visit Charges Inpatient E&M: 16805 Init Hosp L2
--- NOTE | 2024-02-22 09:51 | REHABEVAL_ITS ---
Admission Information Primary Diagnosis:: Debility due to L hip FX/ORIF with cephalomedullary nailing. Status Changes from Prescreening?: No changes Identified Actual Problem List:: Falls, Skin Intergrity, Pain, ALteration in Cmfrt, Alteration in Nutrition, Mobility Impaired, Self Care Deficit, BP, Hypertension, Fluid Change-Dehydration and Alteration-Leisure Activ. Potential Problem List:: DVT, Bleeding, Infection, UTI, Aspiration, Falls, Skin Integrity and Depression Risk of Complications DVT: NICO Hose and - (Xarelto 10 mg daily) Bleeding: Monitor Lab Values, Nursing to Teach Precautions for anti-coagulation therapy., Wound, if applicable, to be assessed every shift. and Stroke patients assessed for lethargy or change in status. Infection: Clinical Staff to Monitor for S/S of infection: and S/S of infection include fever, redness, warmth, etc. Urinary Tract Infection: Monitor for frequency, burning, discomfort, or incontinence. and Nursing will obtain urine sample for urinalysis and C&S when ordered. Aspiration: Clinical staff will monitor for coughing, drooling, congestion., Speech will evaluate swallowing and dsyphasia. and Nursing will monitor patient swallowing during meals. Falls: Patient will be evaluated for Fall Precautions and Patient will be placed on Fall Precautions as indicated per protocol. Skin Breakdown: Nursing will assess skin daily using assessment tool. and Nursing will place on Skin Breakdown Precautions as indicated. Pain: Clinical staff will assess patient's pain level per protocol., Medications will be given, if needed, and the pain level reassessed. and Other methods: Massage, distraction, decrease stimulus, etc. used PRN. Plan of Care Patient requires physician specializing in physical medicine and rehab oversight to provide close medical supervision of rehab issues including: Pain Management, Sleep Problems, Bowel and Bladder, Medical and co-morbidity Management, DVT prophylaxis, Rehabilitation Leadership and Coordination of treatment team Patient needs Physical Therapy: For a minimum of 1 hour and At least 5 out of 7 days Patient needs Physical Therapy to improve:: Mobility, Strengthening, Transfers, Stretching, ROM, Endurance, Stairs, Gait and Balance Patient needs Occupational Therapy: For a minimum of 1 hour and At least 5 out of 7 days Patient needs Occupational Therapy to improve ADL's incl.: Eating, Grooming, Bathing, Dressing, Toileting, Toilet transfers, Community Reintegration, Higher functioning activities, Household tasks, Adaptive Equipment, Splinting and Other activities as determined Patient requires speech therapy: For a minimum of 1 hour and At least 5 out of 7 days Patient requires speech therapy for: Swallowing, Cognition, Language Skills and Compensatory Strategies Patient requires 24/7 Rehabilitation Nursing for: Pain Issues, Identifying and p reventing risk factors, Monitoring and reporting current medical conditions, Assisting with ambulation, transfer, and all ADL's, Teaching patients about disease process and medications, Family teaching, Providing safe environment, Bowel and Bladder Issues, Skin integrity and Medication Management Patient needs Therapeutic Assistant/ Case Management for: Discharge Planning, Arrang ing Home Equipment or Services and Family Interventions Patient needs Dietary and Nutrition Services for: Adequate Nutrition, Nutritional Supplements and Nutritional Education Goals Goals Patient will remain: free from falls Patient will perform eating at: MOD I level of assist. Patient will perform bed mobility at: MOD I level of assist. Patient will complete transfers from bed to chair at: MOD I level of assist. Patient will ambulate: - (350 feet with least restrictive device at mod I on various surfaces) Patient will complete upper body dressing at: MOD I level of assist. Patient will complete lower body dressing at: MOD I level of assist. (With adaptive equipment as needed for increased independence) Patient will complete toilet transfer at: MOD I level of assist. Patient will complete toileting at: MOD I level of assist. Patient will perform bathing at: MOD I level of assist. Patient will perform Tub/Shower transfer at: - (Supervision) Patient will complete grooming at: MOD I level of assist. Patient will achieve: 12 stairs (12 steps with 1 handrail at standby assist) Patient will have pain level of: of 3 or less Patient's skin will: remain intact Patient will receive: adequate nutrition. Discharge Planning Pt Prognosis for Sig. Practical Improv. w/in Reasonable Time: Good Estimated Length of stay (days): 21 Anticipated D/C Destination: Home with Home Health Was Preadmission Assessment Accurate?: Yes
[2024-02-22] MEDS: Smz/Tmp Ds Tablet 0.5 TABLET PO (10:44)
[2024-02-22] MEDS: Clopidogrel Bisulfate 75 MG Tablet PO (10:45)
[2024-02-22] MEDS: Pyridoxine HCl 100 MG Tablet 200 MG PO ×2 (10:45→17:48)
[2024-02-22] MEDS: Cyanocobalamin 500 MCG Tablet PO (10:46)
[2024-02-22] MEDS: predniSONE 5 MG Tablet PO (10:46)
[2024-02-22] MEDS: Potassium Chloride Oral Tablet 10 MEQ 20 MEQ PO (10:46)
[2024-02-22] MEDS: amLODIPine 10 MG Tablet PO (10:46)
[2024-02-22] MEDS: Folic Acid 1 MG Tablet PO (10:46)
[2024-02-22] MEDS: Ferrous Sulfate 325 MG Tablet PO (10:47)
[2024-02-22] MEDS: Tacrolimus Anhydrous 1 MG Capsule 3 MG PO (10:47)
--- NOTE | 2024-02-22 11:26 | VDLE_ITS ---
Reason For Study: BLE Swelling RIGHT LEFT GSV is normal. GSV is normal. CFV is compressible, spontaneous, phasic, CFV is compressible, spontaneous, phasic, competent and demonstrates normal competent, and demonstrates normal augmentation. augmentation. FV is compressible, spontaneous, phasic, FV is compressible, spontaneous, phasic, competent and demonstrates normal competent and demonstrates normal augmentation. augmentation. POP V is compressible, spontaneous, phasic, POP V is compressible, spontaneous, and competent and demonstrates normal phasic. augmentation. T/P Trunk is compressible. T/P Trunk is compressible. PTV is compressible. PTV is compressible. Acute deep vein thrombosis is noted in the RT PerV is compressible. Per V. It is dilated and NONCOMPRESSIBLE. Procedure Acute deep vein thrombosis is noted in the This is a venous duplex using B-mode, color Gastrocnemius V. It is dilated and flow and spectral Doppler. NONCOMPRESSIBLE. Exam performed portable in patient room. The exam was diagnostic. VL/Venous Duplex US - Madan Extrem Interpretation Summary No evidence for acute deep venous thrombosis right lower extremity Acute deep venous thrombosis left peroneal and gastrocnemius vein Patent and compressible bilateral great saphenous vein Ordering Physician: Madison Sequeira Referring Physician: James Eden Performed By: Willy Walker RVT
[2024-02-22] MEDS: traMADol 50 MG Tablet PO ×2 (13:54→20:01)
[2024-02-22] MEDS: Potassium Chloride Oral Tablet 20 MEQ PO (13:54)
--- NOTE | 2024-02-22 15:57 | CHAPLAIN ---
Type of Pastoral Visit ___ Initial Visit ___ Follow-up Visit ___ On-call Visit ___ General Patient Visit ___ Spiritual Assessment ___ Family Conference ___ Bereavement ___ Rapid Response ___ Code Blue ___ Other (describe below) Pastoral Care Referral From ___ Patient ___ Family ___ Nurse ___ Physician ___ Leather Skinner ___ Solar Energy Specialist ___ Other (describe below) Sacrament/Intervention ___ Active listening ___ Anointing ___ Jainism ___ Bereavement ___ Communion ___ Danay exploration ___ ___ Life review ___ Prayer ___ Reconciliation ___ Sacrament of Sick ___ Supportive presence ___ Wedding ___ Other (describe below) Pastoral Comments two attempts made today to visit this patient but he was occupied by staff attending to him at those times
[2024-02-22 19:40] VITALS: BP 127/63; PULSE 76; RESP 16; TEMP 36.4; O2SAT 95
[2024-02-22] MEDS: Tacrolimus Anhydrous 1 MG Capsule 2 MG PO (20:01)
[2024-02-22 20:13] VITALS: PULSE 77; RESP 16; O2SAT 93
[2024-02-22] MEDS: Tamsulosin HCl 0.4 MG Capsule PO (22:18)
[2024-02-22] MEDS: Finasteride 5 MG Tablet PO (22:19)
[2024-02-23 06:00] VITALS: BMI 23.0
[2024-02-23 06:04] LABS: Anion Gap 3 (5-15); BUN 24 mg/dL (7-18); BUN/Creat Ratio 12.8 RATIO (10-20); Calcium,Total 8.1 mg/dL (8.5-10.1); Chloride 109 mmol/L (98-107); Creatinine, Serum 1.87 mg/dL (0.70-1.30); EST Glomerular Filtration Rate 38 mL/min (>60); Est Glom Filt Rate - Afr Amer 45 mL/min (>60); Glucose 102 mg/dL (74-106); Potassium 3.8 mmol/L (3.5-5.1); Sodium Level 140 mmol/L (136-145)
[2024-02-23] MEDS: Rivaroxaban 10 MG Tablet PO (06:26)
[2024-02-23] MEDS: Menthol/Lanolin/Calamine/Znox 113 GM Tube 1 APPLIC TOPICAL ×2 (06:27→20:16)
[2024-02-23] MEDS: Acetaminophen 500 MG Tablet 1000 MG PO ×3 (06:27→20:17)
[2024-02-23] MEDS: traMADol 50 MG Tablet PO ×3 (06:28→20:08)
[2024-02-23 07:36] VITALS: BP 144/69; PULSE 70; RESP 16; TEMP 36.6; O2SAT 96
[2024-02-23] MEDS: Smz/Tmp Ds Tablet 0.5 TABLET PO (07:54)
[2024-02-23] MEDS: Potassium Chloride Oral Tablet 10 MEQ 20 MEQ PO (07:54)
[2024-02-23] MEDS: Clopidogrel Bisulfate 75 MG Tablet PO (07:54)
[2024-02-23] MEDS: Calcitriol 0.25 MCG Capsule PO (07:54)
[2024-02-23] MEDS: Cyanocobalamin 500 MCG Tablet PO (07:55)
[2024-02-23] MEDS: amLODIPine 10 MG Tablet PO (07:55)
[2024-02-23] MEDS: Pyridoxine HCl 100 MG Tablet 200 MG PO ×2 (07:55→16:42)
[2024-02-23] MEDS: predniSONE 5 MG Tablet PO (07:55)
[2024-02-23] MEDS: Tacrolimus Anhydrous 1 MG Capsule 3 MG PO (07:55)
[2024-02-23] MEDS: Folic Acid 1 MG Tablet PO (07:55)
[2024-02-23 08:40] VITALS: O2SAT 96
--- NOTE | 2024-02-23 09:02 | PCM.PROGNOTE ---
Subjective Subjective Afebrile VSS -blood pressure has ranged from 127/63 to 158/74 since admission to rehab. Heart rate is within normal limits. Maintaining appropriate oxygen saturation on RA-96% Oral intake - FOOD taking 50 to 100% of his meals. FLUIDS good Has had 1 postvoid residual and it was 90 cc. Weight is up 17 pounds since admission to the hospital. Discussed with nursing - no problems that need addressed Reviewed the THERAPY notes Medication list reviewed. All lab drawn this morning was personally reviewed. Potassium is up to 3.8 following supplementation yesterday. Sodium is stable at 140. The BUN is 24 and the creatinine today is 1.87. Calcium corrected for hypoalbuminemia is within normal limits. Denies SOB at rest. Denies orthopnea but, he sleeps with the HOB elevated. NO CP. Denies calf pain. Denies lightheadedness, palpitations, nausea/vomiting/abdominal pain, dysuria and cough. He tells me the tramadol was helping with his pain and it is more manageable today. Tells me that he slept well last night and felt rested today. Objective Data Objective Data Vital Signs: Vital Signs Temp Pulse Resp BP Pulse Ox O2 Del Method 97.8 F 70 16 144/69 H 96 Room Air 02/23/24 07:36 02/23/24 07:36 02/23/24 07:36 02/23/24 07:36 02/23/24 08:40 02/23/24 08:40 Oxygen Delivery Method Room Air Weight: 156 lb 11.979 oz Intake & Output: Intake and Output for Last 24 Hours 02/21/24 02/22/24 02/23/24 23:59 23:59 23:59 Intake Total 1110 / 1110 1620 / 1620 240 / 240 Output Total 400 / 600 1720 / 1870 370 / 370 Balance 710 / 510 -100 / -250 -130 / -130 Lab / Micro Data 02/22/24 05:31 02/23/24 05:35 Labs: Laboratory Results - last 24 hr 02/23/24 05:35: Sodium 140, Potassium 3.8, Chloride 109 H, Carbon Dioxide 28.0, Anion Gap 3 L, BUN 24 H, Creatinine 1.87 H, Estim Creat Clear Calc 33.80, Est GFR (MDRD) Af Amer 45 L, Est GFR (MDRD) Non-Af 38 L, BUN/Creatinine Ratio 12.8, Glucose 102, Calcium 8.1 L Physical Exam Const alert, oriented x3 and no apparent distress General Appearance: cooperative Orientation / Consciousness: Negative for confused HEENT HEENT Narrative: Positive JVD Resp Resp Narrative: Fine crackles in both bases. No wheezing, no cough with deep inspiration. No conversational dyspnea. Effort and Inspection: Negative for tachypneic Cardio regular rate, regular rhythm and no rub Cardio Narrative: No ectopy GI normal to inspection, nondistended, normoactive bowel sounds, soft to palpation and non-tender GI Narrative: No guarding with palpation Extremity no calf tenderness Extremity Narrative: 4+ pitting edema both lower extremities Skin General Skin Exam: no breakdown Rashes: no rashes Wound Narrative: There is no dehiscence of the incision. No erythema and no purulent DC. Psych affect normal Appearance: appropriate Assessment & Plan Assessment/Plan (1) Debility: (2) Biventricular congestive heart failure: PLAN: Due to volume overload. He has gained 17 pounds since admission to the hospital. (3) Deep vein thrombosis: (4) Fall: QUALIFIERS: Encounter type: subsequent encounter Qualified Code(s): W19.XXXD - Unspecified fall, subsequent encounter (5) Intertrochanteric fracture of left femur: QUALIFIERS: Encounter type: initial encounter Fracture type: closed Fracture alignment: displaced Qualified Code(s): S72.142A - Displaced intertrochanteric fracture of left femur, initial encounter for closed fracture (6) History of open reduction and internal fixation (ORIF) procedure: PLAN: 02/12/[address] Griffin Left hip cephalomedullary nailing. (7) Esophageal stenosis: PLAN: Distal esophagus. Dilated by Dr. Auguste on 02/17/24. (8) History of esophagogastroduodenoscopy: PLAN: 02/15/24 and 02/17/[address] Auguste. Had dilation of the gastrojejunostomy anastomosis and heater probe of bleeding on 02/15/24 and esophageal dilation on 02/17/24. (9) Acute on chronic anemia: PLAN: Had 2 units of PRBC's while in the hospital. (10) Acute kidney injury: PLAN: Thought to be due to dehydration. 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 Continue therapy 2. Place a hold on levothyroxine and Xalatan. Obtain med list from Dr. Eden. 3. Bumex 2 mg p.o. today. Continue potassium chloride 20 mEq daily. 4. Recheck a BMP, mag and HH in the a.m. 5. Deep vein thrombosis in the gastrocnemius vein. He has been on prophylactic Xarelto. I am going to transition from Xarelto to Eliquis in the AM because the creat clearance has been hovering between 25-33 since admission to the hospital. 6. Repeat a LLE venous US in 3-4 days to make sure the clot is not propagating to above the knee 7. Continue scheduled Tramadol for a few days and then transition to PRN 8. Add salt restriction to the current diet 9. DEEDEE wraps to the LE's and elevate. Charges/Coding Visit Charges Inpatient E&M: 84499 Subs Hosp L2
[2024-02-23] MEDS: Bumetanide 2 MG Tablet PO (12:23)
[2024-02-23] MEDS: Ferrous Sulfate 325 MG Tablet PO (12:23)
--- NOTE | 2024-02-23 16:30 | CHAPLAIN ---
Type of Pastoral Visit _x__ Initial Visit ___ Follow-up Visit ___ On-call Visit ___ General Patient Visit ___ Spiritual Assessment ___ Family Conference ___ Bereavement ___ Rapid Response ___ Code Blue ___ Other (describe below) Pastoral Care Referral From _x__ Patient ___ Family ___ Nurse ___ Physician ___ Medical Supply Technician ___ Analyst ___ Other (describe below) Sacrament/Intervention _x__ Active listening ___ Anointing ___ Buddhist ___ Bereavement ___ Communion _x__ Danay exploration ___ _x__ Life review ___ Prayer ___ Reconciliation ___ Sacrament of Sick _x__ Supportive presence ___ Wedding ___ Other (describe below) Pastoral Comments patient welcomes the visit and talks about his recovery, about his early life in this area, 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
--- NOTE | 2024-02-23 17:26 | CASEMGMT ---
Social Work SW met with patient at bedside to complete initial intake assessment. SW introduced self and role. Patient verified demographics and contact information. Patient confirmed code status as DNRCC-A. Patient informed SW that he has an Advanced Directive, , Antonette listed as primary. Patient informed SW that advanced directive is located in the medical chart. SW educated patient on Medicare Coverage and benefits. Patient is pending Medicare days approval. SW will continue to follow to provide accurate Medicare information. Patient informed SW that his goal is to walk and return home with . Patient has signficant family support. Patient informed SW that his son, Giovanni resides on the property in a home 50ft away and oldest son, Oracio resides 7 miles away. Patient has a history of obtaining home health care services and outpatient therapy via [facility]. Patient informed SW that he has significant trauma from his time employed as a [employer] employee. The patient informed SW during his time in [employer] custom he was exposed to and finding bodies during searches. He had night terrors from exposure. Patient informed SW that he is triggered by anesthesia and pain medications causing night terrors and vivid dreams. SW inquired about recent dreams. Patient informed SW that he does not have vivid dreams as much. Patient denies any history of counseling for mental health support. Patient informed SW that the government don't care about mental health. The patient informed SW that he has support from family. Patient chaim by being outside mowing and pruning the garden. SW discussed supportive services and encouraged communication. Patient BIM () and PhQ-2 (00) DEDRA Rodriges
[2024-02-23 19:57] VITALS: BP 130/68; PULSE 69; RESP 16; TEMP 37.1; O2SAT 94
[2024-02-23] MEDS: Tacrolimus Anhydrous 1 MG Capsule 2 MG PO (20:08)
[2024-02-23] MEDS: Finasteride 5 MG Tablet PO (20:17)
[2024-02-23] MEDS: Tamsulosin HCl 0.4 MG Capsule PO (20:17)
[2024-02-23 22:00] VITALS: PULSE 69; RESP 16; O2SAT 94
[2024-02-24] MEDS: APIXABAN 2.5 MG TABLET (WCH) PO ×2 (05:10→21:53)
[2024-02-24] MEDS: Acetaminophen 500 MG Tablet 1000 MG PO ×3 (05:10→21:53)
[2024-02-24] MEDS: Menthol/Lanolin/Calamine/Znox 113 GM Tube 1 APPLIC TOPICAL ×2 (05:10→22:03)
[2024-02-24 05:51] LABS: Hemoglobin 8.3 g/dL (13.0-16.5)
[2024-02-24 06:00] VITALS: BMI 23.1
[2024-02-24 06:14] LABS: Anion Gap 6 (5-15); BUN 28 mg/dL (7-18); BUN/Creat Ratio 13.9 RATIO (10-20); Calcium,Total 8.3 mg/dL (8.5-10.1); Chloride 108 mmol/L (98-107); Creatinine, Serum 2.01 mg/dL (0.70-1.30); EST Glomerular Filtration Rate 35 mL/min (>60); Est Glom Filt Rate - Afr Amer 42 mL/min (>60); Estimated Creatinine Clearance 34.85 ml/min; Glucose 96 mg/dL (74-106); Magnesium 1.7 mg/dL (1.6-2.6); Potassium 3.8 mmol/L (3.5-5.1); Sodium Level 139 mmol/L (136-145)
[2024-02-24] MEDS: traMADol 50 MG Tablet PO ×3 (06:52→21:53)
[2024-02-24 07:33] VITALS: BP 153/72; PULSE 72; RESP 16; TEMP 37; O2SAT 93
[2024-02-24] MEDS: Smz/Tmp Ds Tablet 0.5 TABLET PO (07:55)
[2024-02-24] MEDS: Tacrolimus Anhydrous 1 MG Capsule 3 MG PO (07:56)
[2024-02-24] MEDS: Folic Acid 1 MG Tablet PO (07:56)
[2024-02-24] MEDS: Cyanocobalamin 500 MCG Tablet PO (07:56)
[2024-02-24] MEDS: Pyridoxine HCl 100 MG Tablet 200 MG PO ×2 (07:57→16:46)
[2024-02-24] MEDS: predniSONE 5 MG Tablet PO (07:58)
[2024-02-24] MEDS: Potassium Chloride Oral Tablet 10 MEQ 20 MEQ PO (07:58)
[2024-02-24] MEDS: Cholecalciferol (Vit D3) 125 MCG CAPSULE (5,000 UNITS) PO (07:58)
[2024-02-24] MEDS: Clopidogrel Bisulfate 75 MG Tablet PO (07:59)
[2024-02-24] MEDS: amLODIPine 10 MG Tablet PO (07:59)
[2024-02-24] MEDS: Ferrous Sulfate 325 MG Tablet PO (13:17)
[2024-02-24 20:11] VITALS: BP 132/73; PULSE 69; RESP 17; TEMP 37.1; O2SAT 98
[2024-02-24] MEDS: Senna/Docusate Sodium 1 Tablet 2 TABLET PO (21:53)
[2024-02-24] MEDS: Tamsulosin HCl 0.4 MG Capsule PO (21:53)
[2024-02-24] MEDS: Tacrolimus Anhydrous 1 MG Capsule 2 MG PO (21:54)
[2024-02-24] MEDS: Finasteride 5 MG Tablet PO (21:54)
[2024-02-25 06:20] VITALS: BMI 23.3
[2024-02-25] MEDS: Acetaminophen 500 MG Tablet 1000 MG PO ×3 (06:29→20:51)
[2024-02-25] MEDS: traMADol 50 MG Tablet PO (06:29)
[2024-02-25] MEDS: APIXABAN 2.5 MG TABLET (WCH) PO ×2 (06:29→20:52)
[2024-02-25] MEDS: Menthol/Lanolin/Calamine/Znox 113 GM Tube 1 APPLIC TOPICAL ×2 (06:35→20:53)
[2024-02-25 09:00] VITALS: BP 123/73; PULSE 70; RESP 16; TEMP 37.1; O2SAT 95
[2024-02-25] MEDS: Tacrolimus Anhydrous 1 MG Capsule 3 MG PO (09:27)
[2024-02-25] MEDS: Potassium Chloride Oral Tablet 10 MEQ 20 MEQ PO (09:28)
[2024-02-25] MEDS: Smz/Tmp Ds Tablet 0.5 TABLET PO (09:28)
[2024-02-25] MEDS: Calcitriol 0.25 MCG Capsule PO (09:28)
[2024-02-25] MEDS: amLODIPine 10 MG Tablet PO (09:28)
[2024-02-25] MEDS: Pyridoxine HCl 100 MG Tablet 200 MG PO ×2 (09:28→17:06)
[2024-02-25] MEDS: predniSONE 5 MG Tablet PO (09:29)
[2024-02-25] MEDS: Cyanocobalamin 500 MCG Tablet PO (09:29)
[2024-02-25] MEDS: Folic Acid 1 MG Tablet PO (09:29)
[2024-02-25] MEDS: Clopidogrel Bisulfate 75 MG Tablet PO (09:30)
[2024-02-25 09:44] VITALS: O2SAT 95
--- NOTE | 2024-02-25 12:27 | PCM.PROGNOTE ---
Subjective Subjective Willett was seen on team rounds today. His Jemma was present in the room for rounds. All questions were asked and answered to their satisfaction. Afebrile VSS - Maintaining appropriate oxygen saturation on RA Oral intake - FOOD good FLUIDS fair to good Discussed with nursing - no problems that need addressed Reviewed the THERAPY notes- making progress with therapy Medication list reviewed. c/o dry mouth. Has tried a saliva substitute given to him by ENT and it made his mouth burn. He denies lightheadedness, chest pain, shortness of breath, nausea/vomiting/heartburn/abdominal pain, dysuria and calf pain. Objective Data Objective Data Vital Signs: Vital Signs Temp Pulse Resp BP Pulse Ox O2 Del Method 98.8 F 70 16 123/73 H 95 Room Air 02/25/24 09:00 02/25/24 09:00 02/25/24 09:00 02/25/24 09:00 02/25/24 09:44 02/25/24 09:44 Oxygen Delivery Method Room Air Weight: 176 lb 5.917 oz Body Mass Index (BMI) 23.3 Intake & Output: Intake and Output for Last 24 Hours 02/23/24 02/24/24 02/25/24 23:59 23:59 23:59 Intake Total 1160 / 1160 1530 / 1530 390 / 390 Output Total 690 / 690 750 / 750 350 / 350 Balance 470 / 470 780 / 780 40 / 40 Lab / Micro Data 02/24/24 05:32 02/24/24 05:32 Physical Exam Const alert, oriented x3 and no apparent distress General Appearance: cooperative Resp Resp Narrative: No conversational dyspnea. Symmetrical chest rise. Few coarse crackles in the bases bilaterally but no fine crackles today and no wheezes. Effort and Inspection: Negative for tachypneic or respiratory distress Cardio regular rate, regular rhythm and no rub Cardio Narrative: No ectopy GI normal to inspection, nondistended, normoactive bowel sounds, soft to palpation and non-tender GI Narrative: No guarding with palpation Extremity Extremity Narrative: Lower extremity edema is much improved. He has Foreign wrap's on and they are loose and falling down. Will have nursing apply NICO hose after this. Skin General Skin Exam: no breakdown Rashes: no rashes Wound Narrative: There is no dehiscence of the incision. No erythema and no purulent DC. Psych affect normal Appearance: appropriate Assessment & Plan Assessment/Plan (1) Debility: (2) Biventricular congestive heart failure: PLAN: Due to volume overload. He has gained 17 pounds since admission to the hospital. (3) Deep vein thrombosis: QUALIFIERS: DVT location: lower extremity Affected thrombotic vein of extremity: peroneal Chronicity: acute Laterality: left Qualified Code(s): I82.452 - Acute embolism and thrombosis of left peroneal vein (4) Fall: QUALIFIERS: Encounter type: subsequent encounter Qualified Code(s): W19.XXXD - Unspecified fall, subsequent encounter (5) Intertrochanteric fracture of left femur: QUALIFIERS: Encounter type: initial encounter Fracture type: closed Fracture alignment: displaced Qualified Code(s): S72.142A - Displaced intertrochanteric fracture of left femur, initial encounter for closed fracture (6) History of open reduction and internal fixation (ORIF) procedure: PLAN: 02/12/[address] Griffin Left hip cephalomedullary nailing. (7) Esophageal stenosis: PLAN: Distal esophagus. Dilated by Dr. Auguste on 02/17/24. (8) History of esophagogastroduodenoscopy: PLAN: 02/15/24 and 02/17/[address] Auguste. Had dilation of the gastrojejunostomy anastomosis and heater probe of bleeding on 02/15/24 and esophageal dilation on 02/17/24. (9) Acute on chronic anemia: PLAN: Had 2 units of PRBC's while in the hospital. (10) Acute kidney injury: PLAN: Thought to be due to dehydration. 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 Continue therapy 2. Try Biotene mouthwash and he is to rinse and spit 4 times to 5 times daily. 3. Discontinue Foreign wrap's and start using NICO hose on his lower extremities. 4. Will continue Eliquis 2.5 mg twice daily. Recheck an ultrasound of his left lower extremity on Thursday to make sure the clots are not propagating. Charges/Coding Visit Charges Inpatient E&M: 90417 Subs Hosp L2
[2024-02-25] MEDS: Ferrous Sulfate 325 MG Tablet PO (12:55)
--- NOTE | 2024-02-25 13:14 | CASEMGMT ---
Social Work IDT met with patient and at bedside to complete care plan meeting. Discussed patient progress with therapy (PT/OT/ST) and nursing. Patient requires min A with OT for bathing. Patient requires mod A for sit/stand and transfer assistance. Patient is ambulating 83ft with PT. Patient continues to progress with therapy. Patient remains on nectar thick liquids/puree diet. Patient remains on aspiration precaution. SW educated patient and of Medicare insurance approval for IPR. Patient has been approved for 14 days by Medicare; anticipated discharge 03/06. Patient's expressed concerns for steps in patient's home. Patient's son will be building ramp in entry of home. Patient goal remains to return home with home health care. SW will continue to follow to assist patient with discharge plans. DEDRA Rodriges
[2024-02-25 20:00] VITALS: BP 121/62; PULSE 70; RESP 16; TEMP 36.8; O2SAT 95
[2024-02-25] MEDS: Finasteride 5 MG Tablet PO (20:52)
[2024-02-25] MEDS: Tamsulosin HCl 0.4 MG Capsule PO (20:52)
[2024-02-25] MEDS: Tacrolimus Anhydrous 1 MG Capsule 2 MG PO (20:53)
[2024-02-26] MEDS: Acetaminophen 500 MG Tablet 1000 MG PO ×3 (05:26→21:56)
[2024-02-26] MEDS: APIXABAN 2.5 MG TABLET (WCH) PO ×2 (05:27→21:55)
[2024-02-26] MEDS: Menthol/Lanolin/Calamine/Znox 113 GM Tube 1 APPLIC TOPICAL ×2 (05:28→21:58)
[2024-02-26 06:00] VITALS: BMI 23.1
[2024-02-26 07:44] VITALS: BP 146/69; PULSE 69; RESP 17; TEMP 36.6; O2SAT 97
[2024-02-26] MEDS: Pyridoxine HCl 100 MG Tablet 200 MG PO ×2 (08:07→17:12)
[2024-02-26] MEDS: Clopidogrel Bisulfate 75 MG Tablet PO (08:07)
[2024-02-26] MEDS: Potassium Chloride Oral Tablet 10 MEQ 20 MEQ PO (08:07)
[2024-02-26] MEDS: traMADol 50 MG Tablet PO (08:07)
[2024-02-26] MEDS: Cyanocobalamin 500 MCG Tablet PO (08:07)
[2024-02-26] MEDS: amLODIPine 10 MG Tablet PO (08:08)
[2024-02-26] MEDS: Tacrolimus Anhydrous 1 MG Capsule 3 MG PO (08:08)
[2024-02-26] MEDS: Folic Acid 1 MG Tablet PO (08:12)
[2024-02-26] MEDS: predniSONE 5 MG Tablet PO (08:12)
[2024-02-26] MEDS: Smz/Tmp Ds Tablet 0.5 TABLET PO (08:12)
[2024-02-26] MEDS: Ferrous Sulfate 325 MG Tablet PO (11:38)
[2024-02-26] MEDS: Saliva Substitute 237 ML BOTTLE 15 ML MUCOUS MEM ×2 (14:46→17:12)
[2024-02-26] MEDS: Tacrolimus Anhydrous 1 MG Capsule 2 MG PO (21:54)
[2024-02-26] MEDS: Tamsulosin HCl 0.4 MG Capsule PO (21:56)
[2024-02-26] MEDS: Finasteride 5 MG Tablet PO (21:56)
[2024-02-26 22:00] VITALS: BP 142/79; PULSE 71; RESP 18; TEMP 37.5; O2SAT 96
[2024-02-27 06:00] VITALS: BMI 22.0
[2024-02-27] MEDS: APIXABAN 2.5 MG TABLET (WCH) PO ×2 (06:44→21:19)
[2024-02-27] MEDS: Acetaminophen 500 MG Tablet 1000 MG PO ×3 (06:45→21:19)
[2024-02-27] MEDS: Menthol/Lanolin/Calamine/Znox 113 GM Tube 1 APPLIC TOPICAL ×2 (06:50→21:30)
[2024-02-27] MEDS: Tacrolimus Anhydrous 1 MG Capsule 3 MG PO (08:22)
[2024-02-27] MEDS: Smz/Tmp Ds Tablet 0.5 TABLET PO (08:24)
[2024-02-27] MEDS: Pyridoxine HCl 100 MG Tablet 200 MG PO ×2 (08:24→17:05)
[2024-02-27] MEDS: Cyanocobalamin 500 MCG Tablet PO (08:24)
[2024-02-27] MEDS: amLODIPine 10 MG Tablet PO (08:26)
[2024-02-27] MEDS: Clopidogrel Bisulfate 75 MG Tablet PO (08:29)
[2024-02-27] MEDS: Calcitriol 0.25 MCG Capsule PO (08:30)
[2024-02-27] MEDS: Potassium Chloride Oral Tablet 10 MEQ 20 MEQ PO (08:41)
[2024-02-27] MEDS: predniSONE 5 MG Tablet PO (08:41)
[2024-02-27] MEDS: Folic Acid 1 MG Tablet PO (08:41)
[2024-02-27] MEDS: Cholecalciferol (Vit D3) 125 MCG CAPSULE (5,000 UNITS) PO (08:42)
[2024-02-27 09:53] VITALS: BP 153/67; PULSE 69; RESP 17; TEMP 37.7; O2SAT 93
[2024-02-27] MEDS: Ferrous Sulfate 325 MG Tablet PO (12:13)
[2024-02-27] MEDS: Saliva Substitute 237 ML BOTTLE 15 ML MUCOUS MEM ×2 (13:04→17:05)
[2024-02-27 19:22] VITALS: BP 144/66; PULSE 71; RESP 18; TEMP 36.9; O2SAT 97
[2024-02-27] MEDS: Tacrolimus Anhydrous 1 MG Capsule 2 MG PO (21:19)
[2024-02-27] MEDS: Tamsulosin HCl 0.4 MG Capsule PO (21:19)
[2024-02-27] MEDS: Finasteride 5 MG Tablet PO (21:20)
[2024-02-27 22:00] VITALS: PULSE 72; RESP 16; O2SAT 97
[2024-02-28] MEDS: Menthol/Lanolin/Calamine/Znox 113 GM Tube 1 APPLIC TOPICAL ×2 (05:04→20:52)
[2024-02-28] MEDS: APIXABAN 2.5 MG TABLET (WCH) PO ×2 (05:04→20:52)
[2024-02-28] MEDS: Acetaminophen 500 MG Tablet 1000 MG PO ×3 (05:04→20:53)
[2024-02-28 05:18] VITALS: BMI 21.7
[2024-02-28 08:00] VITALS: BP 155/67; PULSE 64; RESP 18; TEMP 36.3; O2SAT 95
[2024-02-28] MEDS: Tacrolimus Anhydrous 1 MG Capsule 3 MG PO (08:26)
[2024-02-28] MEDS: Potassium Chloride Oral Tablet 10 MEQ 20 MEQ PO (08:27)
[2024-02-28] MEDS: Smz/Tmp Ds Tablet 0.5 TABLET PO (08:28)
[2024-02-28] MEDS: Folic Acid 1 MG Tablet PO (08:28)
[2024-02-28] MEDS: Cyanocobalamin 500 MCG Tablet PO (08:29)
[2024-02-28] MEDS: predniSONE 5 MG Tablet PO (08:29)
[2024-02-28] MEDS: Pyridoxine HCl 100 MG Tablet 200 MG PO ×2 (08:29→17:04)
[2024-02-28] MEDS: amLODIPine 10 MG Tablet PO (08:30)
[2024-02-28] MEDS: Clopidogrel Bisulfate 75 MG Tablet PO (08:31)
[2024-02-28] MEDS: Saliva Substitute 237 ML BOTTLE 15 ML MUCOUS MEM (10:56)
[2024-02-28] MEDS: Ferrous Sulfate 325 MG Tablet PO (11:24)
[2024-02-28 20:28] VITALS: BP 103/57; PULSE 75; RESP 16; TEMP 37.1; O2SAT 96
[2024-02-28 20:31] VITALS: PULSE 75; RESP 16; O2SAT 96
[2024-02-28] MEDS: Tacrolimus Anhydrous 1 MG Capsule 2 MG PO (20:37)
[2024-02-28] MEDS: Finasteride 5 MG Tablet PO (20:52)
[2024-02-28] MEDS: Tamsulosin HCl 0.4 MG Capsule PO (20:52)
[2024-02-29] MEDS: APIXABAN 2.5 MG TABLET (WCH) PO ×2 (04:59→20:51)
[2024-02-29] MEDS: Menthol/Lanolin/Calamine/Znox 113 GM Tube 1 APPLIC TOPICAL ×2 (04:59→20:57)
[2024-02-29] MEDS: Acetaminophen 500 MG Tablet 1000 MG PO ×3 (05:00→20:51)
[2024-02-29 05:16] VITALS: BMI 21.7
[2024-02-29] MEDS: amLODIPine 10 MG Tablet PO (09:21)
[2024-02-29] MEDS: predniSONE 5 MG Tablet PO (09:21)
[2024-02-29] MEDS: Pyridoxine HCl 100 MG Tablet 200 MG PO ×2 (09:21→16:44)
[2024-02-29] MEDS: Clopidogrel Bisulfate 75 MG Tablet PO (09:21)
[2024-02-29] MEDS: Smz/Tmp Ds Tablet 0.5 TABLET PO (09:21)
[2024-02-29] MEDS: Calcitriol 0.25 MCG Capsule PO (09:22)
[2024-02-29] MEDS: Potassium Chloride Oral Tablet 10 MEQ 20 MEQ PO (09:22)
[2024-02-29] MEDS: Folic Acid 1 MG Tablet PO (09:22)
[2024-02-29] MEDS: Tacrolimus Anhydrous 1 MG Capsule 3 MG PO (09:23)
[2024-02-29] MEDS: Cyanocobalamin 500 MCG Tablet PO (09:23)
[2024-02-29 09:38] VITALS: BP 161/75; PULSE 68; RESP 18; TEMP 37.3; O2SAT 95
[2024-02-29 10:00] VITALS: PULSE 72; RESP 14
--- NOTE | 2024-02-29 10:57 | PN_ITS ---
Subjective Subjective Afebrile -he had a temp to 99.9 on 02/27/2024 at approximately 10 AM but this has resolved. VSS -systolic blood pressure is more often than not high. Heart rate is within normal limits. Maintaining appropriate oxygen saturation on RA Oral intake - FOOD usually 50 to 100% but occasionally he only has 25 to 49% of his food intake FLUIDS fair fluid balance has been negative most days. His wt is down to 165 pounds today from 176 pounds at admission to rehab. Discussed with nursing - Does not want Biotene.......it makes his mouth tingle/burn and he choked on it once. Sleeping well at night. Reviewed the THERAPY notes Medication list reviewed. Rare cough. Denies chest pain, shortness of breath, nausea /vomiting/heartburn/abdominal pain, dysuria and calf pain. Also denies lightheadedness but does have a history of orthostatic hypotension. He is asymptomatic at this time. Objective Data Objective Data Vital Signs: Vital Signs Temp Pulse Resp BP Pulse Ox O2 Del Method 99.1 F 68 18 161/75 H 95 Room Air 02/29/24 09:38 02/29/24 09:38 02/29/24 09:38 02/29/24 09:38 02/29/24 09:38 02/29/24 09:38 Oxygen Delivery Method Room Air Weight: 165 lb 2.02 oz Body Mass Index (BMI) 21.7 Intake & Output: Intake and Output for Last 24 Hours 02/27/24 02/28/24 02/29/24 23:59 23:59 23:59 Intake Total 1240 / 1240 1150 / 1150 160 / 160 Output Total 2150 / 2150 1700 / 2080 780 / 780 Balance -910 / -910 -550 / -930 -620 / -620 Lab / Micro Data 02/24/24 05:32 02/24/24 05:32 Physical Exam Const alert, oriented x3 and no apparent distress Resp clear to auscultation bilaterally Resp Narrative: No conversational dyspnea Effort and Inspection: Negative for tachypneic Cardio regular rate, regular rhythm and no gallops GI normal to inspection, nondistended, normoactive bowel sounds, soft to palpation and non-tender Extremity no calf tenderness General Extremity: edema bilateral (Better controlled with NICO hose. Denies lightheadedness.) Skin Wound Narrative: The incisions have been closed with deanne and there is no estrellita-incisional erythema and no discharge. Psych thought process normal, cooperative and affect normal Assessment & Plan Assessment/Plan (1) Debility: (2) Biventricular congestive heart failure: (3) Deep vein thrombosis: QUALIFIERS: DVT location: lower extremity Affected thrombotic vein of extremity: peroneal Chronicity: acute Laterality: left Qualified Code(s): I82.452 - Acute embolism and thrombosis of left peroneal vein (4) Fall: QUALIFIERS: Encounter type: subsequent encounter Qualified Code(s): W19.XXXD - Unspecified fall, subsequent encounter (5) Intertrochanteric fracture of left femur: QUALIFIERS: Encounter type: initial encounter Fracture type: closed Fracture alignment: displaced Qualified Code(s): S72.142A - Displaced intertrochanteric fracture of left femur, initial encounter for closed fracture (6) History of open reduction and internal fixation (ORIF) procedure: PLAN: 02/12/[address] Griffin Left hip cephalomedullary nailing. (7) Esophageal stenosis: PLAN: Distal esophagus. Dilated by Dr. Auguste on 02/17/24. (8) History of esophagogastroduodenoscopy: PLAN: 02/15/24 and 02/17/[address] uAguste. Had dilation of the gastrojejunostomy anastomosis and heater probe of bleeding on 02/15/24 and esophageal dilation on 02/17/24. (9) Acute on chronic anemia: PLAN: Had 2 units of PRBC's while in the hospital. (10) Acute kidney injury: PLAN: Thought to be due to dehydration. 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 Continue therapy 2. Venous ultrasound was repeated today and he continues to have clot in the gastrocnemius on the left and the peroneal vein but they are unchanged since last week. Will continue Eliquis 2.5 mg twice daily. 3. Recheck a CBC, BMP and magnesium in the a.m. 4. Check orthostatics in the a.m. 5. Because of orthostatic hypotension will likely need compression stockings for the rest of his life. He also tends to third space fluid because of low albumin. NICO menendez will be very difficult for he and his to get on following discharge from rehab. Will refer him to the wound care center to follow-up with Dr. Barnes to be measured for CircAid's and to follow-up on the DVT in the left lower extremity. 6. Will remove deanne in the AM. Charges/Coding Visit Charges Inpatient E&M: 41650 Subs Hosp L1
--- NOTE | 2024-02-29 11:08 | VDLE_ITS ---
Reason For Study: Known DVT LLE RIGHT LEFT CFV is compressible, spontaneous, phasic, GSV is normal. competent and demonstrates normal CFV is compressible, spontaneous, phasic, augmentation. competent, and demonstrates normal Procedure augmentation. This is a venous duplex using B-mode, color FV is compressible, spontaneous, phasic, flow and spectral Doppler. competent and demonstrates normal Exam performed portable in patient room. augmentation. A preliminary report was called and/or faxed POP V is compressible, spontaneous, phasic, to Patients' RN. competent and demonstrates normal augmentation. T/P Trunk is compressible. PTV is compressible. Lt GastrocV and Lt PeroV are DILATED and NON COMPRESSIBLE; no change from previous study on 02/22/24. VL/Venous Duplex US, Unilateral Interpretation Summary Acute deep vein thrombosis is noted in the left gastrocnemius vein, peroneal ve in. No change from prior study. Ordering Physician: Madison Sequeira Referring Physician: James Eden Performed By: Radha Chandler, TROY, RVT
[2024-02-29] MEDS: Ferrous Sulfate 325 MG Tablet PO (11:48)
[2024-02-29] MEDS: Saliva Substitute 237 ML BOTTLE 15 ML MUCOUS MEM (14:27)
[2024-02-29 19:56] VITALS: BP 123/68; PULSE 68; RESP 17; TEMP 36.8; O2SAT 98
[2024-02-29] MEDS: Tamsulosin HCl 0.4 MG Capsule PO (20:51)
[2024-02-29] MEDS: Tacrolimus Anhydrous 1 MG Capsule 2 MG PO (20:52)
[2024-02-29] MEDS: Finasteride 5 MG Tablet PO (20:52)
[2024-03-01] MEDS: APIXABAN 2.5 MG TABLET (WCH) PO ×2 (05:19→20:06)
[2024-03-01] MEDS: Menthol/Lanolin/Calamine/Znox 113 GM Tube 1 APPLIC TOPICAL ×2 (05:19→20:16)
[2024-03-01] MEDS: Acetaminophen 500 MG Tablet 1000 MG PO ×3 (05:19→20:07)
[2024-03-01 06:00] VITALS: BMI 21.5
[2024-03-01] MEDS: Smz/Tmp Ds Tablet 0.5 TABLET PO (08:16)
[2024-03-01] MEDS: amLODIPine 10 MG Tablet PO (08:16)
[2024-03-01] MEDS: Folic Acid 1 MG Tablet PO (08:17)
[2024-03-01] MEDS: Cyanocobalamin 500 MCG Tablet PO (08:17)
[2024-03-01] MEDS: Clopidogrel Bisulfate 75 MG Tablet PO (08:17)
[2024-03-01] MEDS: Potassium Chloride Oral Tablet 10 MEQ 20 MEQ PO (08:17)
[2024-03-01] MEDS: predniSONE 5 MG Tablet PO (08:18)
[2024-03-01] MEDS: Pyridoxine HCl 100 MG Tablet 200 MG PO ×2 (08:18→16:42)
[2024-03-01] MEDS: Cholecalciferol (Vit D3) 125 MCG CAPSULE (5,000 UNITS) PO (08:18)
[2024-03-01] MEDS: Tacrolimus Anhydrous 1 MG Capsule 3 MG PO (08:18)
[2024-03-01 08:32] VITALS: BP 156/68; PULSE 63; RESP 17; TEMP 36.6; O2SAT 94
--- NOTE | 2024-03-01 11:18 | PCM.PROGNOTE ---
Subjective Subjective Afebrile VSS - Maintaining appropriate oxygen saturation on RA Oral intake - FOOD good FLUIDS documentation only shows that he had 640 cc yesterday and I do not believe this. D/W charge nurse and the importance of accurate I&O was stressed. Discussed with nursing - no problems that need addressed Reviewed the THERAPY notes Medication list reviewed. Brennon has no complaints today. He denies lightheadedness, shortness of breath, chest pain, palpitations, dysuria and calf tenderness. Objective Data Objective Data Vital Signs: Vital Signs Temp Pulse Resp BP Pulse Ox O2 Del Method 97.9 F 63 17 156/68 H 94 Room Air 03/01/24 08:32 03/01/24 08:32 03/01/24 08:32 03/01/24 08:32 03/01/24 08:32 03/01/24 08:32 Oxygen Delivery Method Room Air Weight: 163 lb 2.273 oz Body Mass Index (BMI) 21.5 Intake & Output: Intake and Output for Last 24 Hours 02/28/24 02/29/24 03/01/24 23:59 23:59 23:59 Intake Total 1150 / 1150 640 / 840 260 / 260 Output Total 1700 / 2080 1480 / 1780 750 / 750 Balance -550 / -930 -840 / -940 -490 / -490 Lab / Micro Data 02/24/24 05:32 02/24/24 05:32 Radiography Diagnostic Testing: Radiology Impression Venous Doppler Study 02/29/24 11:08 Interpretation Summary Acute deep vein thrombosis is noted in the left gastrocnemius vein, peroneal vein. No change from prior study. Ordering Physician: Madison Sequeira Referring Physician: James Eden Performed By: Radha Chandler, RDCS, RVT Physical Exam Const alert, oriented x3 and no apparent distress Resp clear to auscultation bilaterally Resp Narrative: No conversational dyspnea Effort and Inspection: Negative for tachypneic Cardio regular rate, regular rhythm and no gallops GI normal to inspection, nondistended, normoactive bowel sounds, soft to palpation and non-tender Extremity no calf tenderness General Extremity: edema bilateral (Better controlled with NICO hose. Denies lightheadedness.) Skin Wound Narrative: The incisions have been closed with deanne and there is no estrellita-incisional erythema and no discharge. Psych thought process normal, cooperative and affect normal Assessment & Plan Assessment/Plan (1) Debility: (2) Biventricular congestive heart failure: (3) Deep vein thrombosis: QUALIFIERS: DVT location: lower extremity Affected thrombotic vein of extremity: peroneal Chronicity: acute Laterality: left Qualified Code(s): I82.452 - Acute embolism and thrombosis of left peroneal vein (4) Fall: QUALIFIERS: Encounter type: subsequent encounter Qualified Code(s): W19.XXXD - Unspecified fall, subsequent encounter (5) Intertrochanteric fracture of left femur: QUALIFIERS: Encounter type: initial encounter Fracture type: closed Fracture alignment: displaced Qualified Code(s): S72.142A - Displaced intertrochanteric fracture of left femur, initial encounter for closed fracture (6) History of open reduction and internal fixation (ORIF) procedure: (7) Esophageal stenosis: (8) History of esophagogastroduodenoscopy: (9) Acute on chronic anemia: (10) Acute kidney injury: (11) Acute hypokalemia: (12) Renal transplant recipient: (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 Continue therapy 2. CBC, BMP, Mag and Alb in the AM. I was asked to comment on a CXR done prior to connelly coming to acute rehab. The CXR report reads no pleural effusion, no PVC, no infiltrates. His lungs are CTA. there are no acute problems to address. He is on oxygen due to chronic biventricular HF hx. Charges/Coding Visit Charges Inpatient E&M: 83309 Subs Hosp L1
--- NOTE | 2024-03-01 11:41 | NURSING ---
Spoke with Dr Griffin office ok to remove deanne
[2024-03-01] MEDS: Ferrous Sulfate 325 MG Tablet PO (12:23)
--- NOTE | 2024-03-01 13:33 | NURSING ---
Removed 17 deanne from pt hip per Drs orders, pt tolerated well.
--- NOTE | 2024-03-01 16:00 | RAD_ITS ---
STUDY: X-RAY - LEFT FEMUR REASON FOR STUDY: Male, 74 years old. Post op TECHNIQUE: 2 view(s) of the femur. COMPARISON: 02/11/2024 FINDINGS: Interval recent open reduction internal fixation of fracture of the intertrochanteric femur with a femoral neck compression screw and a long intramedullary pee with skin deanne. Normal visualized soft tissue structure. RAD/Femur Min 2 Views IMPRESSION: Interval recent open reduction internal fixation of fracture of the intertrochanteric femur. Electronically Signed: Edmundo Heart MD at 20:05 EDT ,
--- NOTE | 2024-03-01 16:00 | RAD_ITS ---
INDICATION: Post op EXAMINATION/TECHNIQUE: X-RAY - XR Pelvis 1 or 2 Views COMPARISON: 02/12/2024 hip fluoroscopy images. FINDINGS: Single frontal view of the pelvis. BONES: Again is noted left proximal femur intertrochanteric fracture with partially imaged left femur intramedullary nail and hip retention screw in place, no obvious hardware complication. Again noted left superior pubic ramus bony deformity as well. JOINTS: Severe right femoral acetabular joint degenerative change. SOFT TISSUES: Dense atherosclerotic vascular calcifications. RAD/Pelvis 1 or 2 Views IMPRESSION: Postprocedure and posttraumatic change as above. Electronically Signed: Cleveland Hobbs MD at 0:53 EDT ,
[2024-03-01 20:05] VITALS: BP 135/67; PULSE 72; RESP 17; TEMP 36.6; O2SAT 99
[2024-03-01] MEDS: Tacrolimus Anhydrous 1 MG Capsule 2 MG PO (20:06)
[2024-03-01] MEDS: Finasteride 5 MG Tablet PO (20:06)
[2024-03-01] MEDS: Tamsulosin HCl 0.4 MG Capsule PO (20:07)
[2024-03-02 05:30] LABS: Hematocrit 27.6 % (40-54); Hemoglobin 8.5 g/dL (13.0-16.5); Mean Corp Hgb Conc 30.8 g/dL (32-36); Mean Corpuscular Volume 103.8 fL (80-94); Mean Platelet Vol. 8.8 fl (6.2-12.0); Platelet Count 162 K/mm3 (150-450); RBC Distribution Width CV 15.3 % (11.6-14.6); RBC Distribution Width SD 57.9 fl (35.1-43.9); Red Blood Count 2.66 M/mm3 (4.6-6.2); White Blood Count 3.9 K/mm3 (4.4-11.0)
[2024-03-02] MEDS: Acetaminophen 500 MG Tablet 1000 MG PO ×3 (05:39→22:41)
[2024-03-02] MEDS: APIXABAN 2.5 MG TABLET (WCH) PO ×2 (05:39→20:09)
[2024-03-02] MEDS: Menthol/Lanolin/Calamine/Znox 113 GM Tube 1 APPLIC TOPICAL ×2 (05:43→20:09)
[2024-03-02 05:44] VITALS: BMI 21.4
[2024-03-02 06:22] LABS: Albumin, Serum 2.6 g/dL (3.2-5.0); Anion Gap 3 (5-15); BUN 24 mg/dL (7-18); BUN/Creat Ratio 11.4 RATIO (10-20); Calcium,Total 8.4 mg/dL (8.5-10.1); Chloride 110 mmol/L (98-107); EST Glomerular Filtration Rate 33 mL/min (>60); Est Glom Filt Rate - Afr Amer 40 mL/min (>60); Estimated Creatinine Clearance 31.28 ml/min; Glucose 95 mg/dL (74-106); Magnesium 1.9 mg/dL (1.6-2.6); Potassium 4.3 mmol/L (3.5-5.1); Sodium Level 142 mmol/L (136-145)
[2024-03-02 07:26] VITALS: BP 139/70; PULSE 64; RESP 16; TEMP 37.2; O2SAT 95
[2024-03-02] MEDS: Tacrolimus Anhydrous 1 MG Capsule 3 MG PO (08:08)
[2024-03-02] MEDS: Potassium Chloride Oral Tablet 10 MEQ 20 MEQ PO (08:09)
[2024-03-02] MEDS: Pyridoxine HCl 100 MG Tablet 200 MG PO ×2 (08:10→16:50)
[2024-03-02] MEDS: Folic Acid 1 MG Tablet PO (08:10)
[2024-03-02] MEDS: Clopidogrel Bisulfate 75 MG Tablet PO (08:10)
[2024-03-02] MEDS: amLODIPine 10 MG Tablet PO (08:10)
[2024-03-02] MEDS: Calcitriol 0.25 MCG Capsule PO (08:10)
[2024-03-02] MEDS: Cyanocobalamin 500 MCG Tablet PO (08:11)
[2024-03-02] MEDS: Smz/Tmp Ds Tablet 0.5 TABLET PO (08:11)
[2024-03-02] MEDS: predniSONE 5 MG Tablet PO (08:11)
[2024-03-02] MEDS: Ferrous Sulfate 325 MG Tablet PO (11:59)
[2024-03-02 20:00] VITALS: BP 133/71; PULSE 74; RESP 18; TEMP 37.2; O2SAT 94
[2024-03-02] MEDS: Tacrolimus Anhydrous 1 MG Capsule 2 MG PO (20:08)
[2024-03-02] MEDS: Tamsulosin HCl 0.4 MG Capsule PO (20:08)
[2024-03-02] MEDS: Finasteride 5 MG Tablet PO (20:09)
[2024-03-03] MEDS: APIXABAN 2.5 MG TABLET (WCH) PO ×2 (05:22→20:51)
[2024-03-03] MEDS: Acetaminophen 500 MG Tablet 1000 MG PO ×3 (05:22→20:52)
[2024-03-03] MEDS: Menthol/Lanolin/Calamine/Znox 113 GM Tube 1 APPLIC TOPICAL ×2 (05:22→20:52)
[2024-03-03 05:53] VITALS: BMI 21.5
[2024-03-03] MEDS: Smz/Tmp Ds Tablet 0.5 TABLET PO (08:53)
[2024-03-03] MEDS: Clopidogrel Bisulfate 75 MG Tablet PO (08:54)
[2024-03-03] MEDS: Cyanocobalamin 500 MCG Tablet PO (08:54)
[2024-03-03] MEDS: Tacrolimus Anhydrous 1 MG Capsule 3 MG PO (08:54)
[2024-03-03] MEDS: Pyridoxine HCl 100 MG Tablet 200 MG PO ×2 (08:54→17:00)
[2024-03-03] MEDS: Folic Acid 1 MG Tablet PO (08:54)
[2024-03-03] MEDS: Potassium Chloride Oral Tablet 10 MEQ 20 MEQ PO (08:54)
[2024-03-03] MEDS: predniSONE 5 MG Tablet PO (08:54)
[2024-03-03] MEDS: amLODIPine 10 MG Tablet PO (08:54)
[2024-03-03 09:08] VITALS: BP 146/64; PULSE 64; RESP 17; TEMP 36.6; O2SAT 96
--- NOTE | 2024-03-03 11:38 | PN_ITS ---
Subjective Subjective Afebrile VSS -systolic blood pressures are very mildly elevated but diastolic is always within normal limits. He has a history of orthostatic hypotension show no adjustments will be made to his antihypertensive regimen at this time. He denies lightheadedness. Maintaining appropriate oxygen saturation on RA Oral intake - FOOD good FLUIDS good Discussed with nursing - no problems that need addressed Reviewed the THERAPY notes Medication list reviewed. Hemoglobin is stable at 8.5. MCV is elevated at one 3.8. White blood cell count is mildly decreased at 3.8 platelets are within normal limits. Sodium is 142 potassium is 4.4. BUN is 24 and stable and the creatinine is 2.10 which is within his baseline and still better than it had been in January. Magnesium is 1.9. Calcium corrected for hypoalbuminemia is normal. Cough with eating and drinking at times. I do not hear him coughing when he is not eating. Denies CP and also denies SOB. No lightheadedness. Denies N/V/abd pain, dysuria and calf pain. Objective Data Objective Data Vital Signs: Vital Signs Temp Pulse Resp BP Pulse Ox O2 Del Method 97.9 F 64 17 146/64 H 96 Room Air 03/03/24 09:08 03/03/24 09:08 03/03/24 09:08 03/03/24 09:08 03/03/24 09:08 03/03/24 09:08 Oxygen Delivery Method Room Air Weight: 163 lb 1.6 oz Body Mass Index (BMI) 21.5 Intake & Output: Intake and Output for Last 24 Hours 03/01/24 03/02/24 03/03/24 23:59 23:59 23:59 Intake Total 1120 / 1120 1435 / 1435 770 / 770 Output Total 1400 / 1400 1150 / 1150 770 / 770 Balance -280 / -280 285 / 285 0 / 0 Lab / Micro Data 03/02/24 05:14 03/02/24 05:14 Physical Exam Const alert, oriented x3 and no apparent distress Constitutional Narrative: Very pleasant and talkative. Making good eye contact with me. General Appearance: cooperative and well kempt; Negative for in distress Orientation / Consciousness: Negative for confused HEENT hearing grossly normal bilaterally Eyes PERRL, EOMs intact bilaterally, conjunctivae normal and no scleral icterus Neck No nodes Neck Narrative: Soft carotid bruit vs radiation of MM on the R side with a louder bruit on the Left that increases as the neck is ascended. Chest Chest: symmetrical chest wall rise Resp normal respiratory effort, normal air movement and clear to auscultation bilaterally Resp Narrative: No conversational dyspnea Effort and Inspection: able to speak in complete sentences; Negative for tachypneic or respiratory distress Cardio regular rate, regular rhythm, no rub and no gallops Cardio Narrative: No ectopy GI normal to inspection, nondistended, normoactive bowel sounds, soft to palpation and non-tender GI Narrative: No guarding with palpation no CVA tenderness Extremity no calf tenderness Extremity Narrative: Lower extremity edema is much improved. He has Foreign wrap's on and they are loose and falling down. Will have nursing apply NICO hose after this. General Extremity: edema bilateral (Better controlled with NICO hose. Denies lightheadedness.) Skin no jaundice Skin Narrative: Hip incision on the left is covered with a bandage......will exam when the bandage is due to be changed. General Skin Exam: no breakdown Rashes: no rashes Wound Narrative: The incisions have been closed with deanne and there is no estrellita-incisional erythema and no discharge. Neuro CN's II-XII intact bilaterally, moves all extremities and no focal motor deficits Neuro Narrative: Speech is slurred due to partial tongue resection and also had a CVA in the past with slurred speech. Psych thought process normal, cooperative and affect normal Appearance: appropriate Assessment & Plan Assessment/Plan (1) Debility: (2) Biventricular congestive heart failure: (3) Deep vein thrombosis: QUALIFIERS: DVT location: lower extremity Affected thrombotic vein of extremity: peroneal Chronicity: acute Laterality: left Qualified Code(s): I82.452 - Acute embolism and thrombosis of left peroneal vein (4) Fall: QUALIFIERS: Encounter type: subsequent encounter Qualified Code(s): W19.XXXD - Unspecified fall, subsequent encounter (5) Intertrochanteric fracture of left femur: QUALIFIERS: Encounter type: initial encounter Fracture type: c losed Fracture alignment: displaced Qualified Code(s): S72.142A - Displaced intertrochanteric fracture of left femur, initial encounter for closed fracture (6) History of open reduction and internal fixation (ORIF) procedure: (7) Esophageal stenosis: (8) History of esophagogastroduodenoscopy: (9) Acute on chronic anemia: (10) Acute kidney injury: (11) Acute hypokalemia: (12) Renal transplant recipient: (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 Continue therapy 2. Plan DC home on 03/06 with [facility] initially and then transitioning to OP therapy. Will follow up with ST after he is discharged from [facility]. Charges/Coding Visit Charges Inpatient E&M: 18921 [facility] H[facility] L1
[2024-03-03] MEDS: Ferrous Sulfate 325 MG Tablet PO (12:01)
--- NOTE | 2024-03-03 13:06 | CASEMGMT ---
Addendum entered by Raj Kowalski 03/03/24 14:34: YULIANA met with patient and to discuss home health care provider choice. Patient and requested for home health care referral to be submitted to [facility]. YULIANA contacted [facility] to request for home health care. YULIANA spoke with Meaghan who confirmed [facility] Home health is able to accept patient for Physical Therapy with SOC: Thursday, 03/07 Original Note: Social Work IDT Met with patient and at bedside to complete care plan meeting. Discussed patient progress with therapy (PT/OT/ST) and nursing. Patient is progressing with therapy. Patient is ambulating 125ft with contact guard. Patient continues to progress with speech with myofascial therapy; anticipates modified barium swallow today to evaluate improvements. YULIANA discussed discharge plans for home health care services. Patient's inquired about home health care services. YULIANA educated patient's of home health care services. Patient's would like patient to return home with home health care PT services to continue therapy in home. Patient will resume outpatient speech therapy via Oncology once home health care is completed. Patient's will provide transportation at discharge. Patient will be transitioning home with Eliquis due to blood clot. YULIANA provided patient with printed home health care list with preferred geographic area, medical needs, insurance network via careport guide. YULIANA will continue to follow to prearrange home health care services. DEDRA Rodriges
--- NOTE | 2024-03-03 16:33 | SP.MBSS_ITS ---
Modified Barium Swallow Patient Information Study Date: 03/03/24 Study Time: 14:00 Direct Billable Minutes: 120 Total Minutes procedure & reportin Diagnosis: Dysphagia R13.10 Referring Physician: Madison Sequeira Reason for Referral: Objectively assess swallow function, assess risk for aspiration, and determine recommendations for least restrictive diet textures and compensatory strategies to improve safety of swallow. Medical History: Patient was admitted to [facility] ED 02/11/24 with left hip pain after a fall at home. Patient was found on left hip x-ray to have a left intratrochanteric hip fracture. He was admitted for management of hip fracture and hypokalemia with surgery completed on 02/12/24. He was referred for ST consult during stay due to history of dysphagia s/p hemiglossectomy for tongue cancer. He was initially placed on a softened diet, but he was advanced to regular textures during stay. He presented with consistent throat clearing across all textures on 02/15/24 and DIRECTOR OF CATH LAB recommended repeat MBSS. MBSS 01/16/24 revealed significant aspiration of thin liquids and minimal to no pharyngeal clearance of pudding with inability to expectorate oropharyngeal residues requiring Yankauer suction. Pt was made NPO with water after oral care and meds dissolved in water only. DIRECTOR OF CATH LAB recommended GI reconsult with repeat MBSS prior to diet advancement. EGD completed 02/17/24 with dilation of severe esophageal stenosis. Repeat MBSS 02/18/24 to consider diet advancement. MBSS 02/18/24 revealed severe oropharyngeal dysphagia and recommended Full Formoso/Mildly Thick Liquids ? multiple swallows, cough and re-swallow after every sip; Medications dissolved in Formoso/Mildly Thick Liquids; Free Alcantara Water Protocol; Distant supervision. He was transferred to inpatient rehab for skilled PT, OT, and ST. He participated in dysphagia therapy with myofascial release in junction with oropharyngeal and neck ROM exercise program. He has been recommended for repeat MBSS to consider diet advancement as he is currently consuming pudding and other purees included on full liquid diet with less effort and difficulty. He is planning to discharge home with home health care and therapies on 03/06/24. 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 He then had 7 weeks of radiation treatment (07/2021-09/2021). He had feeding tube dependence,but was able to stop using tube feeding in early December 2021 and had it removed late December 2021. He was following speech therapy with DIRECTOR OF CATH LAB, Cristy Rogers, at the . She referred him locally to this DIRECTOR OF CATH LAB to address articulation deficits related to tongue cancer initially, then dysphagia POC, as well. He is following w/ OT for lymphedema management. Most recent MBSS 09/02/2023 revealed moderate oropharyngeal phase dysphagia with aspiration of thin liquids both during and after the swallow. He also presented with poor bolus control s/p L hemiglossectomy and moderate-severe residues in the oropharynx. He was recommended for Soft and bite size textures (IDDSI Level 6) and Thin Liquids with Cough and Re-swallow on each sip, Small Bites, Small Sips, Slow Rate, Multiple Swallows, Alternate bites/solids and sips/liquids, Sitting upright and Remain sitting upright for 30 minutes after PO intake. He participated in follow-up dysphagia therapy and had been tolerating diet with no respiratory infections. Other PMH: falls w/ pelvic and wrist fractures (04/2023) and rib fractures (07/2023), Heart valve implant (07/2023), Gastric bypass surgery (2010), kidney failure (2011), kidney transplant (2017), TIA (August 2020), alcohol use, diabetes, high cholesterol, hx of irregular heartbeat, hx of colitis, HTN, low iron, prostate disease, CVA, syncope (see EMR for full PMH). Current Diet Ordered: Full nectar/mildly thick liquid diet Mental Status: WNL Respiratory Status: Oxygenating on Room Air Penetration-Aspiration Scale Penetration-Aspiration Scale: OBJECTIVE ASSESSMENT OF SWALLOW FUNCTION (QUANTITATIVE ? PER TRIAL): PENETRATION / ASPIRATION SCALE (HARMON): 1 = does not enter airway 2 = enters airway/above vocal folds/ejected 3 = enters airway/above vocal folds/not ejected 4 = enters airway/contacts vocal folds/ejected 5 = enters airway/contacts vocal folds/not ejected 6 = enters airway/below vocal folds/ejected 7 = enters airway/below vocal folds/not ejected despite effort 8 = enters airway/below vocal folds/no effort VIDEOFLOROSCOPIC SCALE SCORE (HARMON): Grade I = aspiration of material that has penetrated into the laryngeal vestibule, intact cough reflex Grade II = aspiration < 10 % of the bolus, intact cough reflex Grade III = aspiration of < 10 % of the bolus, reduced cough reflex or aspiration of > 10 % of the bolus, intact cough reflex Grade IV = aspiration of > 10 % of the bolus, reduced cough reflex Penetration-Aspiration Scale Score Thin Liquid via teaspoon: Result: 2= enter airway/above vocal folds/ejected Thin Liquid via teaspoon Trial 2: Result: 7= enters airways/below vocal folds/not ejected despite effort Thin Liquid via large single sip: cup: Result: 7= enters airways/below vocal folds/not ejected despite effort Formoso Thick Liquid via small single sip: cup: Result: 7= enters airways/below vocal folds/not ejected despite effort Pudding via teaspoon: Result: 3= enters airways/above vocal folds/not ejected (Pudding only - See liquid wash score in comment.) Comment: Formoso/mildly thick liquid wash during trial - PAS of 7. L head turn attempted to clear pharyngeal residue - somewhat effective. Thin Liquid via small single sip: cup: Result: 7= enters airways/below vocal folds/not ejected despite effort Thin Liquid via small single sip: cup Chin tuck: Result: 7= enters airways/below vocal folds/not ejected despite effort Honey Thick Liquid via small single sip: cup: Result: 3= enters airways/above vocal folds/not ejected Oral Phase Labial Seal: Interlabial escape, no progression to anterior lip Tongue Control During Bolus Hold: Posterior escape of greater than half of bolus Bolus Transport/Lingual Motion: Repetitive/disorganized tongue motion Oral Residue: Majority of bolus remaining (pudding) Pharyngeal Phase Initiation of Pharyngeal Swallow: Bolus head in pyriforms Soft Palate Elevation: No bolus between soft palate and pharyngeal wall Laryngeal Elevation: Partial superior movement thyroid cart/partial apprx aryt- epig petiole Anterior Hyoid Excursion: No anterior movement (minimal anterior movement) Epiglottic Movement: Partial inversion Laryngeal Vestibule Closure at Height of Swallow: Incomplete; narrow column of air/contrast in laryngeal vestibule Pharyngeal Stripping Wave: Present - diminished Pharyngoesophageal Segment Opening: Minimal distension and minimal duration; marked obstruction of flow (pudding) Tongue Base Retraction: Wide column of contrast between tongue base & post. pharyngeal wall (minimal tongue base retraction) Pharyngeal Residue: Majority of contrast within or on pharyngeal structures Diagnosis/Impression Diagnosis: Severe oropharyngeal dysphagia R13.12 Impression: The oral phase is primarily marked by... -Decreased bolus control with premature posterior loss to the pyriforms prior to swallow onset, most notable with liquids. -Minimal tongue motion for A-P transport. Residues collects in a pouch-like structure in his oral cavity. -Severe oral residue of pudding from the back surface of tongue to the vallecula. He requires liquid washes to clear the bolus with mild-moderate oral residue following. The pharyngeal phase is primarily marked by... -Decreased airway closure during the swallow due to minimal anterior hyoid excursion, decreased laryngeal elevation, and partial epiglottic inversion. -As compared to previous MBSS 02/22/24, he was able to initiate a swallow with pudding; however, he did require liquid washes to better clear the pudding from his pharynx. -Severely decreased tongue base retraction, moderate-severely decreased UES opening/duration, and diminished pharyngeal stripping wave resulting in severe pharyngeal residue of pudding trial. -Aspiration of thin liquids by cup, thin liquids by tsp, mildly/nectar thick liquids by cup. Did not assess swallow function with cookie due to concern for HIGH choking risk given poor pharyngeal clearance and poor bolus control due to limited tongue ROM s/p tongue base cancer w/ hemiglossectomy. Recommendations Diet: Puree Textures (MOIST Purees) and Thin Liquids Comment: Alcantara Free Water Protocol - After meals, clean mouth thoroughly, wait 30 min, and consume water BY ITSELF to encourage improved hydration. Compensatory Strategies: Small Bites (Liquid wash after every bite), Small Sips (Cough and re-swallow after every sip), Slow Rate, Multiple Swallows, Alternate bites/solids and sips/liquids, Sitting upright (Sit slightly reclined so NECK IS UPRIGHT) and Remain sitting upright for 30 minutes after PO intake Supervision: Distant Supervision Recommend Repeat Modified Barium Swallow: Yes Need for Skilled Speech Therapy Services: Yes Comment: Continue oropharyngeal and neck ROM exercise programs in junction with myofascial release, which the patient has been recently cleared to pariticipate in by his surgeon, Dr. Hutson, his oncologist, Dr. William, and his hospitalist, Dr. Sequeira. Continued dysphagia therapy to train in diet texture preparation, oral care regimen, and aspiration precautions. Education Completed: 1. Described result of evaluation., 2. Pt understands evaluation & agrees with goals and treatment plan. and 4. Family/caregivers understand evaluation & agree w/ goals & tx plan. Status Active ST Patient: Active Contact Information [facility] Speech Therapy:: Nathalie Sierra M.A. CCC-DIRECTOR OF CATH LAB? Speech-Language Pathologist?? [address] [id number]?? [place] [address]?? [email or web address]?? [phone]
[2024-03-03 19:17] VITALS: BP 139/69; PULSE 66; RESP 16; TEMP 37.2; O2SAT 96
[2024-03-03 19:42] VITALS: PULSE 69; RESP 16; O2SAT 96
[2024-03-03] MEDS: Tacrolimus Anhydrous 1 MG Capsule 2 MG PO (20:47)
[2024-03-03] MEDS: Arthritis Pain Compound 60 CLICK TUBE TOPICAL (20:47)
[2024-03-03] MEDS: Finasteride 5 MG Tablet PO (20:50)
[2024-03-03] MEDS: Tamsulosin HCl 0.4 MG Capsule PO (20:51)
[2024-03-04] MEDS: Acetaminophen 500 MG Tablet 1000 MG PO ×3 (05:05→20:25)
[2024-03-04] MEDS: APIXABAN 2.5 MG TABLET (WCH) PO ×2 (05:05→20:25)
[2024-03-04] MEDS: Menthol/Lanolin/Calamine/Znox 113 GM Tube 1 APPLIC TOPICAL ×2 (05:05→20:25)
[2024-03-04] MEDS: Arthritis Pain Compound 60 CLICK TUBE TOPICAL ×2 (05:06→20:24)
[2024-03-04 06:00] VITALS: BMI 21.1
[2024-03-04 07:27] VITALS: BP 142/80; PULSE 56; RESP 16; TEMP 37.2; O2SAT 95
[2024-03-04] MEDS: Folic Acid 1 MG Tablet PO (08:07)
[2024-03-04] MEDS: Smz/Tmp Ds Tablet 0.5 TABLET PO (08:07)
[2024-03-04] MEDS: Potassium Chloride Oral Tablet 10 MEQ 20 MEQ PO (08:08)
[2024-03-04] MEDS: Pyridoxine HCl 100 MG Tablet 200 MG PO ×2 (08:08→17:33)
[2024-03-04] MEDS: predniSONE 5 MG Tablet PO (08:08)
[2024-03-04] MEDS: amLODIPine 10 MG Tablet PO (08:09)
[2024-03-04] MEDS: Cyanocobalamin 500 MCG Tablet PO (08:09)
[2024-03-04] MEDS: Clopidogrel Bisulfate 75 MG Tablet PO (08:09)
[2024-03-04] MEDS: Tacrolimus Anhydrous 1 MG Capsule 3 MG PO (08:09)
[2024-03-04] MEDS: Cholecalciferol (Vit D3) 125 MCG CAPSULE (5,000 UNITS) PO (08:10)
[2024-03-04] MEDS: Calcitriol 0.25 MCG Capsule PO (08:10)
--- NOTE | 2024-03-04 10:58 | PN.ORTHO_ITS ---
Subjective Subjective Patient is now 3 weeks status post left hip long gamma nailing. He was discharged to inpatient rehab. I was able to see him in the rehab unit on the fourth floor. Because of his stay in the rehab, he was not able to follow-up with me in clinic. He continues to recover well in the rehab. He denies any pain in the hip or thigh. He got his deanne removed earlier this week. He is gradually improving with physical therapy. He denies any wound issues. Objective Data Objective Data Vital Signs: Vital Signs Temp Pulse Resp BP Pulse Ox O2 Del Method 99.0 F 56 L 16 142/80 H 95 Room Air 03/04/24 07:27 03/04/24 07:27 03/04/24 07:27 03/04/24 07:27 03/04/24 07:27 03/04/24 07:27 Oxygen Delivery Method Room Air Weight: 160 lb 0.889 oz Body Mass Index (BMI) 21.1 Intake & Output: Intake and Output for Last 24 Hours 03/02/24 03/03/24 03/04/24 23:59 23:59 23:59 Intake Total 1435 / 1435 1490 / 1490 350 / 350 Output Total 1150 / 1150 1170 / 1170 810 / 810 Balance 285 / 285 320 / 320 -460 / -460 Lab / Micro Data 03/02/24 05:14 03/02/24 05:14 Physical Exam Narrative I saw the patient while he was in physical therapy and was working on hip abduction exercises with thigh bands. As he was in the rehab room, I could not evaluate his incisions. He says that he does not have any symptoms at the incisional areas. Distal neurovascular exam is intact. Assessment & Plan Assessment/Plan (1) Intertrochanteric fracture of left femur: QUALIFIERS: Encounter type: initial encounter Fracture type: c losed Fracture alignment: displaced Qualified Code(s): S72.142A - Displaced intertrochanteric fracture of left femur, initial encounter for closed fracture PLAN: Plan I evaluated his x-rays done on 03/01/2024 which was 3 days ago. These show hardware in good position with good fracture alignment maintenance. Clinically he is doing well. He has been working with physical therapy. He should continue being weightbearing as tolerated. He will now see me in 4 weeks for 6-week follow-up visit in orthopedic clinic. All questions were answered. Patient was in agreement.
[2024-03-04] MEDS: Ferrous Sulfate 325 MG Tablet PO (12:49)
--- NOTE | 2024-03-04 16:58 | CASEMGMT ---
Social Work SW met with patient and to review discharge disposition. Patient anticipates discharge on 03/06/2024 to home with [facility] PT services; SOC 03/07/2024 Patient and confirmed discharge plans. to provide transportation to home. Patient and denies any concerns at this time. DEDRA Rodriges
--- NOTE | 2024-03-04 17:20 | DCINST_ITS ---
Discharge Instructions Diet Discharge Diet: - (low salt diet. 8 oz of Boost glucose control with all meals. Pureed foods and this liquids - Alcantara free water protocol) Activity Discharge Activity: May Not Drive and May Not Shower Weight Bearing Status: Full weight bearing Keep extremity elevated above heart level: Legs Dressing / Incision Call your doctor if your incision/area has: Continuous Slow Oozing, Increased Pain/ Swelling, Increased Redness, Foul Smelling Discharge and Swelling at the incision site Call your doctor if you observe: Fever of 101 or Higher, Inability to urinate, Inability to have a bowel movement, Shortness of breath, Dizziness, Chest pain, Increased palpitations (irregular heartbeat), Calf discomfort, Uncontrolled pain and - (Increased cough, night sweats, fevers increased sputum production, shortness of breath. ) Suture Line Care: Avoid Pulling/Pushing and Avoid Pinching/Bending Cleanse incision/area with: Soap & Water and - (No dressing is needed unless there is friction/irritation from your clothing. ) Follow Up Care Please Follow Up With: James Eden MD When: Will also need to follow up with Dr. Griffin and the wound care center. He needs to wear compression stockings to control the edema in the legs and neither Brennon or his are able to get the TEDS on. He is going to go to the wound care center for venous insufficiency and to get fitted for Circaids which are compression stockings that are much easier to apply. Test Results: Test results from this visit will be discussed in further detail at your follow- up appointment, if applicable. Pending Tests Upon Discharge: none Discharge Plan Admission Admit Date/Time: 02/21/24 11:59 Primary Reason for Your Visit: Debility post fall with hip fracture. Attending Provider: Madison Sequeira Primary Care Provider: James Eden Instructions Patient Instructions: CVI Additional Instructions / Restrictions: 1. Brennon it has been a pleasure having you on rehab. If you ever need us again in the future you are certainly welcome back. You have made good progress. 2. I have given you a handout to read about venous insufficiency. The swelling in your legs is due to venous insufficiency. This kind og swelling is best controlled with compression. NICO hose can be very difficult to get on, azar as we get older and lose strength in the hands. I am referring you to the wound care center so that they can get you fitted for a type of compression stocking called a Circaid. These are much easier to get on and they have velcro straps that are adjustable. 3. You have 2 blood clots in the left leg. They are both distal to the knee and these are less likely to cause a blood clot to the lung. We did 2 ultrasounds while you were on rehab and the clots are not getting any larger or spreading above the knee. Blood clts can happen after a hip surgery and so you were placed an a low dose anticoagulant to prevent blood clots. Usually after a hip surgery you will be on the prophylactic dose of and blood thinner for 3-4 weeks. Because you actually have blood clots I am going to leave you on the blood thinner when you go home. The blood thinner you are on is called Eliquis (also called Apixaban). The blood thinner does not dissolve the clots.......your own body will do this. The blood thinner prevents the clot from getting bigger. People with cancer are more likely to form blood clots. Before the Eliquis is discontinued you will need to have another ultrasound (US) of the Left leg to make sure the clots are gone. Either Dr. Eden or the doctor in the wound care center can order the follow up US. IF the blood clots get bigger you will need to be on a bigger dose of anticoagulant OR sometimes people with cancer will need to use an injectable anticoagulant called Lovenox. If you develop sudden chest pain or sudden shortness of breath or you cough up blood call 911 and go to the ER........this can happen if one of the clots breaks lose and goes to the lung. I do not want to scare you.......I just want to make you aware of what to look for. I think you will be fine on the Eliquis 2.5 mg twice a day. 4. If you or Vonnie have any questions after you leave rehab please do not hesitate to call me! OFFICE: [phone] CELL: [phone]. Discharge Orders/Prescriptions Prescriptions: New Eliquis 5 mg Tablet 2.5 mg PO BID@0600,2200 Qty: 60 1RF tramadol 50 mg Tablet 50 mg PO TID PRN (Reason: Pain Score 1-10) Qty: 15 0RF Continued finasteride 5 MG tablet 5 mg PO QHS calcitriol 0.25 MCG capsule 0.25 mcg PO QODAY sulfamethoxazole-trimethoprim 1 EACH tablet 1 tab PO DAILY cyanocobalamin (vitamin B-12) 500 MCG tablet 500 mcg PO DAILY@0900 folic acid 1 MG tablet 1 mg PO DAILY clopidogrel 75 MG tablet 75 mg PO DAILY Qty: 30 0RF pyridoxine (vitamin B6) 100 mg Tablet 200 mg PO BID prednisone 5 mg tablet 5 mg PO DAILY potassium chloride 10 mEq tablet extended release 20 meq PO DAILY tamsulosin 0.4 mg capsule 0.4 mg PO QHS cholecalciferol (vitamin D3) 125 mcg (5,000 unit) capsule 125 mcg PO Q3D tacrolimus [Prograf] 1 mg capsule 2 mg PO QPM Rx Instructions: TAKE 3MG AT 9AM AND 2MG AT 9PM acyclovir 400 mg tablet 400 mg PO PRN PRN (Reason: ANTIVIRAL) ferrous sulfate [Feosol] 325 mg (65 mg iron) tablet 325 mg PO DAILY melatonin 3 mg Tablet 3 mg PO QHS PRN PRN (Reason: Insomnia) Qty: 0 0RF amlodipine 10 mg tablet 10 mg PO DAILY Qty: 30 0RF Changed acetaminophen 500 mg Tablet 1,000 mg PO Q8 PRN (Reason: pain) Qty: 1 0RF Discontinued tacrolimus [Prograf] 1 mg capsule 2 mg PO DAILY Rx Instructions: TAKE 3MG AT 9AM, AND 2MG AT 9PM latanoprost 0.005 % drops 1 drp RIGHT EYE .HS levothyroxine 50 mcg capsule 50 mcg PO DAILY Patient Comments: Thursday-Thursday levothyroxine 100 mcg tablet 100 mcg PO DAILY Patient Comments: Thursday and Thursday Xarelto 10 mg Tablet 10 mg PO DAILY@0600 Qty: 30 0RF oxycodone 5 mg Tablet 2.5 mg PO Q6H PRN PRN (Reason: Pain Score 4-10) 3 Days Qty: 10 0RF Referrals / Follow Up: Mina Griffin MD [Med Staff - Active Staff] - 03/09/24 11:30 am James Eden MD [Primary Care Provider] - 03/15/24 2:00 pm [facility],Janine [Non-Staff] - 03/11/24 10:00 am (Cercaid Stockings ) Disposition Disposition (needs filled in before D/C Order can be placed): Home Health Service
--- NOTE | 2024-03-04 18:35 | PCM.DC.SUM ---
Providers Date of Admission: 02/21/24 Date of Discharge: 03/06/24 Primary Care Physician: Dr. James Eden MD Reason For Visit: HIP FRACTURE Diagnosis Discharge Diagnosis (1) Debility: Status: Acute Code(s): R53.81 - Other malaise (2) Fall: Status: Inactive Code(s): W19.XXXA - Unspecified fall, initial encounter Qualifiers: Encounter type: subsequent encounter Qualified Code(s): W19.XXXD - Unspecified fall, subsequent encounter (3) Intertrochanteric fracture of left femur: Status: Inactive Code(s): S72.142A - Displaced intertrochanteric fracture of left femur, initial encounter for closed fracture Qualifiers: Encounter type: initial encounter Fracture alignment: displaced Fracture type: closed Qualified Code(s): S72.142A - Displaced intertrochanteric fracture of left femur, initial encounter for closed fracture Plan: Taken to the OR on 02/12/[address] Vaughn for left femur cephalomedullary nailing. (4) History of open reduction and internal fixation (ORIF) procedure: Status: Acute Code(s): Z98.890 - Other specified postprocedural states (5) Biventricular congestive heart failure: Status: Resolved Code(s): I50.82 - Biventricular heart failure (6) Deep vein thrombosis: Status: Acute Code(s): I82.409 - Acute embolism and thrombosis of unspecified deep veins of unspecified lower extremity Qualifiers: Affected thrombotic vein of extremity: peroneal Chronicity: acute DVT location: lower extremity Laterality: left Qualified Code(s): I82.452 - Acute embolism and thrombosis of left peroneal vein Plan: Has 2 clots distal to the knee in the LLE.....gastrocnemius and peroneal. Had had a second venous Doppler 1 week after the first and there was no propagation of the clots. Would continue the Eliquis for at least 6 weeks and then do another venous US prior to discontinuing anticoagulation. (7) Esophageal stenosis: Status: Chronic Code(s): K22.2 - Esophageal obstruction Plan: He underwent EGD on 02/15/2024 and the esophagus was normal with a small hiatal hernia. The gastrojejunal anastomosis was characterized by erosion, erythema and friable mucosa. The area was dilated and then traversed with the scope. The pouch to jejunum limb was characterized by erosion and erythema and coagulation was achieved using a heater probe. The jejunum was normal. Biopsy of gastric mucosa showed chronic gastritis and the H. pylori was negative. Coagulation was achieved using a heater probe. He continued to have dysphagia and had a repeat EGD on 02/17/2024 and was found to have esophageal stenosis which was dilated. Dysphagia persisted following dilation. (8) History of esophagogastroduodenoscopy: Status: Acute Code(s): Z98.890 - Other specified postprocedural states (9) Acute on chronic anemia: Status: Chronic Code(s): D64.9 - Anemia, unspecified Plan: Hemoglobin is stable at 8.5 at the time of discharge from acute rehab. (10) Acute hypokalemia: Status: Acute Code(s): E87.6 - Hypokalemia (11) Renal transplant recipient: Status: Chronic Code(s): Z94.0 - Kidney transplant status Plan: Will follow-up with [facility] nephrology. 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 (15) Dysphagia: Status: Acute Code(s): R13.10 - Dysphagia, unspecified Qualifiers: Dysphagia type: oropharyngeal phase Qualified Code(s): R13.12 - Dysphagia, oropharyngeal phase Plan: Esophageal and oropharyngeal dysphagia. Multifactorial. Did not resolve with esophageal dilatation. Will continue to follow-up with speech [facility] Plan 1. Discharge home on 03/06/2024 with home health care. 2. Follow-up was scheduled with Dr. Vaughn on 03/09/2024 at 11:[address] Eden on 03/15/2024 at 2 PM. 3. He was referred to Dr. Barnes at the wound care center for the DVT in the left lower extremity and also to be fitted with CircAid's to provide compression to the lower extremities that will be easier for him to apply. 4. Brennon will schedule an appointment with Dr. Inman for cardiology follow-up. Medications at Discharge Home Medications finasteride 5 mg tablet 5 mg PO QHS PROSTATE 12/08/13 calcitriol 0.25 mcg capsule 0.25 mcg PO QODAY SUPPLEMENT 04/21/17 cyanocobalamin (vitamin B-12) 500 mcg tablet 500 mcg PO DAILY@0900 vitamin 09/17/20 folic acid 1 mg tablet 1 mg PO DAILY SUPPLEMENT 09/17/20 sulfamethoxazole 400 mg-trimethoprim 80 mg tablet 1 tab PO DAILY atb 09/17/20 clopidogrel 75 mg tablet 75 mg PO DAILY blood thinner #30 tabs 09/18/20 pyridoxine (vitamin B6) 100 mg tablet 200 mg PO BID vitamin 11/12/21 acyclovir 400 mg tablet 400 mg PO PRN PRN ANTIVIRAL 02/11/24 cholecalciferol (vitamin D3) 125 mcg (5,000 unit) capsule 125 mcg PO Q3D vitamin 02/11/24 ferrous sulfate 325 mg (65 mg iron) tablet (Feosol) 325 mg PO DAILY vitamin 02/11/24 potassium chloride 10 mEq tablet,extended release 20 meq PO DAILY vitamin 02/11/24 prednisone 5 mg tablet 5 mg PO DAILY steroid 02/11/24 tacrolimus 1 mg capsule, immediate-release (Prograf) 2 mg PO QPM rejection 02/11/24 tamsulosin 0.4 mg capsule 0.4 mg PO QHS retention 02/11/24 amlodipine 10 mg tablet 10 mg PO DAILY bp #30 tabs 02/16/24 melatonin 3 mg tablet 3 mg PO QHS PRN PRN Insomnia #0 tabs 02/16/24 acetaminophen 500 mg tablet 1,000 mg (2 x 500 mg) PO Q8 PRN pain #1 TAB 03/04/24 apixaban 5 mg tablet (Eliquis) 2.5 mg (1/2 x 5 mg) PO BID@0600,2200 #60 tabs 03/04/24 tramadol 50 mg tablet 50 mg PO TID PRN Pain Score 1-10 #15 tabs 03/04/24 Hospital Course Operations - (Left femur cephalomedullary nailing on 02/12/[address] Milton Vaughn) Procedures EGD (The first EGD was on 02/15/[address] Auguste and a repeat was done on 02/17/2024.) and Modified Barium Swallow (Diagnosis/Impression Diagnosis: Severe oropharyngeal dysphagia R13.12 Impression: The oral phase is primarily marked by... -Decreased bolus control with premature posterior loss to the pyriforms prior to swallow onset, most notable with liquids. -Minimal tongue motion for A-P transport. Residues c) Summary of Care Provided Minutes Spent on Discharge: 45 Hospital Course: BRENNON LUKE, is a 74 M with a PMH of diabetes mellitus type 2, dysphagia, fatty infiltration of the liver, hyperlipidemia, history of benign monoclonal gammopathy, hx of carotid stenosis (less than 50% BL on US in 2019), nephrolithiasis, chronic thrombocytopenia, hypertension, chronic renal failure stage IV, vitamin D deficiency, presbycusis, BPH, history of CVA, history of tongue cancer, history of gastric bypass surgery, history of renal transplant and alcohol use who presented to the ED at [facility] on 02/11/2024 complaining of left hip pain after a ground-level fall at home. He told the ER doc he lost his balance and there was no LOC. X-rays showed an intertrochanteric fracture of the left femoral neck and severe degenerative changes in the right hip. He was admitted to the hospitalist service and orthopedics was consulted. He was taken to the OR by Dr. Griffin on 02/12/24 and underwent L femur Cephalomedullary nailing. Postoperatively he was started on Xarelto for DVT prophylaxis. Post op complications included ABLA. He received 2 units of PRBC's. Stool was heme + and Dr. Auguste from GI was consulted. On 02/15/2024 he underwent an EGD which showed the esophagus to be normal. There was a small hiatal hernia. The gastrojejunal anastomosis was characterized by erosion, erythema and friable mucosa. The area was transversed following dilation. The pouch to jejunum limb was characterized by erosion and erythema. The examined jejunum was normal. Coagulation was achieved using a heater probe. Biopsy of the gastric mucosa showed chronic gastritis. H. pylori was negative. While in the hospital he was evaluated by speech therapy. Their exam was consistent with an abnormal looking right palatoglossal arch and the patient was instructed to call his ENT surgeon/oncology at [facility] for follow-up postdischarge from hospital. Upon further evaluation he was found by speech therapy to be at significant risk for aspiration. Dr. Auguste was reconsulted to evaluate Mr. Luke for possible PEG. He had a repeat EGD on 02/17/2024 and was found to have esophageal stenosis which was dilated. He continued to have oropharyngeal and esophageal dysphagia even following dilatation of the esophageal stenotic area. Transfer to a tertiary facility for PEG or J tube was recommended. The patient refused transfer and he understands that he is at risk for aspiration/pneumonia. He was transferred to the acute inpt rehab unit at [facility] on 02/21/24 for 3 hours of therapy daily to restore function/independence at or near his level prior to the fall/hip FX. Lamberto weighed 174 pounds at presentation to acute rehab and had 4+ pitting edema of both lower extremities with diminished breath sounds in both bases. With gentle diuresis and application of compression stockings his weight at discharge was 101 159 pounds. Edema in his lower extremities was well-controlled with compression stockings at the time of discharge. Neither Brennon or his are able to get the compression stockings on. He was referred to the wound care center to see Dr. Barnes to arrange for Circaids. He will also need follow up for DVT in the LLE. The clots are in the gastrocnemius and the Peroneal veins. An US was repeated 1 week after the first venous Doppler was done and the clots are stable with no propagation. Brennon recently had a GI bleed due to friable mucosa at the site of the gastrojejunal anastomosis of prior gastric bypass. There was also friable mucosa at the site of the jejunal pouch anastomosis. A heater probe was used for coagulation by Dr. Auguste. Because the clots are distal to the knee in this pt with GI bleeding and acute on chronic anemia I elected to continue Eliquis at 2.5 mg for prophylaxis and continue to follow the clots closely for any propagation. Would repeat an US in 3-4 weeks and if the clots are still there would continue the Eliquis. HGB is stable at 8.5 at the time of discharge from rehab. Creat is 2.1. He will follow up with [facility] nephrology for CRF in renal transplant patient. Brennon did very well in therapy. At the time of discharge he is contact-guard assist for toilet transfer. He requires minimal assistance for toileting, lower body dressing and tub/shower transfer.. He is supervision/set up for grooming and upper body dressing. He is able to ascend/descend 12 steps with 2 handrails at minimal assistance. He has ambulated up to 165 feet with a wheeled walker on even surfaces and approximately 100 feet on carpet and up and down incline surfaces to simulate the ramp he has at home. Prior to DC from rehab Brennon's , Alisha came in for family training/shared care and she felt she could provide the assistance he will need at home. He was discharged home on 03/06/24 with [facility]. Follow up appts were scheduled for Brennon with Dr. Eden and Dr. Griffin. Javier is going to make an appt for him to follow up with his Sleeve Tailor, Dr. Inman. He is going to follow up in the Wound Care Center with Dr. Barnes to discuss ordering Circaids for Compression of the LE's that will easier for Vibreee to apply. He will need a BMP and CBC in 1 week and will need a follow up US of the LLE in 3-4 weeks to see if the clots have resolved. Physical Exam Const alert, oriented x3 and no apparent distress Constitutional Narrative: Sitting in the recliner at the bedside with his legs dependent. Pleasant and in no distress. Not tachypneic and denies SOB. General Appearance: cooperative Orientation / Consciousness: Negative for confused HEENT head/scalp atraumatic and moist oral mucous membranes Eyes PERRL and EOMs intact bilaterally Eyes Narrative: No conjunctival injection, no discharge from the eyes and no scleral icterus. Neck Neck Narrative: ROM in the neck is much improved. Has been getting myofascial therapy from . He has bilateral bruits, left greater than right. Resp normal respiratory effort, normal air movement and clear to auscultation bilaterally Resp Narrative: Mildly diminished in the bases. No cough with deep breathing. Coughs some with eating/drinking. Denies orthopnea. Effort and Inspection: Negative for tachypneic or respiratory distress Cardio regular rate, regular rhythm, no rub and no gallops Cardio Narrative: He has a systolic murmur heard best at the second right intercostal space with radiation to the apex. No ectopy. GI normal to inspection, nondistended, normoactive bowel sounds, soft to palpation and non-tender GI Narrative: No guarding with palpation. Having regular bowel movements. Has been refusing senna. Extremity no calf tenderness Extremity Narrative: Edema is limited to the ankles now. It is well-controlled with knee-high NICO hose. Skin Skin Narrative: Thorp have been removed. The incisions are intact with no estrellita-incisional erythema and no purulent discharge. General Skin Exam: no breakdown Rashes: no rashes Neuro CN's II-XII intact bilaterally and no focal motor deficits Neuro Narrative: He has dysarthria related to partial tongue resection. Psych affect normal Appearance: appropriate Attitude: No agitated Activity / Motor Behavior: Negative for restless Weight / BMI Weight Weight: 160 lb 0.889 oz Body Mass Index (BMI) 21.1 ABG / Lab / Microbiology Data 03/02/24 05:14 03/02/24 05:14 D/C Instructions Discharge Diet: - (low salt diet. 8 oz of Boost glucose control with all meals. Pureed foods and this liquids - Alcantara free water protocol) Weight Bearing Status: Full weight bearing Keep extremity elevated above heart level: Legs Call your doctor if your incision/area has: Continuous Slow Oozing, Increased Pain/ Swelling, Increased Redness, Foul Smelling Discharge and Swelling at the incision site Call your doctor if you observe: Fever of 101 or Higher, Inability to urinate, Inability to have a bowel movement, Shortness of breath, Dizziness, Chest pain, Increased palpitations (irregular heartbeat), Calf discomfort, Uncontrolled pain and - (Increased cough, night sweats, fevers increased sputum production, shortness of breath. ) Suture Line Care: Avoid Pulling/Pushing and Avoid Pinching/Bending Cleanse incision/area with: Soap & Water and - (No dressing is needed unless there is friction/irritation from your clothing. ) Pending Tests Upon Discharge: none Please Follow Up With: James Eden MD When: Will also need to follow up with Dr. Griffin and the wound care center. He needs to wear compression stockings to control the edema in the legs and neither Brennon or his are able to get the TEDS on. He is going to go to the wound care center for venous insufficiency and to get fitted for Circaids which are compression stockings that are much easier to apply. Meaningful Use Info Meaningful Use Meaningful Use Diagnoses (Choose all that apply): None applicable Ischemic Stroke Statin Dosing Therapy Reference: STATIN DOSE THERAPY REFERENCE: * Patients > 75 years receive moderate or high dose statin therapy. * Patients 75 years or YOUNGER should receive HIGH intensity statin dose unless contraindicated. You will be required to document reason for non-treatment if statin daily dose does not meet guidelines. HIGH DOSE STATIN THERAPY DAILY Atorvastatin > than or = to 40 mg Rosuvastatin > than or = to 20 mg Amlodipine + Atorvastatin > than or = to 2.5/40 mg Ezetimibe + Simvastatin 10/80 mg Simvastatin 80mg Discharge Plan Admission Admit Date/Time: 02/21/24 11:59 Primary Reason for Your Visit: Debility post fall with hip fracture. Attending Provider: Madison Sequeira Primary Care Provider: James Eden Instructions Patient Instructions: CVI Additional Instructions / Restrictions: 1. Willett it has been a pleasure having you on rehab. If you ever need us again in the future you are certainly welcome back. You have made good progress. 2. I have given you a handout to read about venous insufficiency. The swelling in your legs is due to venous insufficiency. This kind og swelling is best controlled with compression. NICO hose can be very difficult to get on, azar as we get older and lose strength in the hands. I am referring you to the wound care center so that they can get you fitted for a type of compression stocking called a Circaid. These are much easier to get on and they have velcro straps that are adjustable. 3. You have 2 blood clots in the left leg. They are both distal to the knee and these are less likely to cause a blood clot to the lung. We did 2 ultrasounds while you were on rehab and the clots are not getting any larger or spreading above the knee. Blood clts can happen after a hip surgery and so you were placed an a low dose anticoagulant to prevent blood clots. Usually after a hip surgery you will be on the prophylactic dose of and blood thinner for 3-4 weeks. Because you actually have blood clots I am going to leave you on the blood thinner when you go home. The blood thinner you are on is called Eliquis (also called Apixaban). The blood thinner does not dissolve the clots.......your own body will do this. The blood thinner prevents the clot from getting bigger. People with cancer are more likely to form blood clots. Before the Eliquis is discontinued you will need to have another ultrasound (US) of the Left leg to make sure the clots are gone. Either Dr. Eden or the doctor in the wound care center can order the follow up US. IF the blood clots get bigger you will need to be on a bigger dose of anticoagulant OR sometimes people with cancer will need to use an injectable anticoagulant called Lovenox. If you develop sudden chest pain or sudden shortness of breath or you cough up blood call 911 and go to the ER........this can happen if one of the clots breaks lose and goes to the lung. I do not want to scare you.......I just want to make you aware of what to look for. I think you will be fine on the Eliquis 2.5 mg twice a day. 4. If you or Vonnie have any questions after you leave rehab please do not hesitate to call me! OFFICE: [phone] CELL: [phone]. Discharge Orders/Prescriptions Prescriptions: New Eliquis 5 mg Tablet 2.5 mg PO BID@0600,2200 Qty: 60 1RF tramadol 50 mg Tablet 50 mg PO TID PRN (Reason: Pain Score 1-10) Qty: 15 0RF Continued finasteride 5 MG tablet 5 mg PO QHS calcitriol 0.25 MCG capsule 0.25 mcg PO QODAY sulfamethoxazole-trimethoprim 1 EACH tablet 1 tab PO DAILY cyanocobalamin (vitamin B-12) 500 MCG tablet 500 mcg PO DAILY@0900 folic acid 1 MG tablet 1 mg PO DAILY clopidogrel 75 MG tablet 75 mg PO DAILY Qty: 30 0RF pyridoxine (vitamin B6) 100 mg Tablet 200 mg PO BID prednisone 5 mg tablet 5 mg PO DAILY potassium chloride 10 mEq tablet extended release 20 meq PO DAILY tamsulosin 0.4 mg capsule 0.4 mg PO QHS cholecalciferol (vitamin D3) 125 mcg (5,000 unit) capsule 125 mcg PO Q3D tacrolimus [Prograf] 1 mg capsule 2 mg PO QPM Rx Instructions: TAKE 3MG AT 9AM AND 2MG AT 9PM acyclovir 400 mg tablet 400 mg PO PRN PRN (Reason: ANTIVIRAL) ferrous sulfate [Feosol] 325 mg (65 mg iron) tablet 325 mg PO DAILY melatonin 3 mg Tablet 3 mg PO QHS PRN PRN (Reason: Insomnia) Qty: 0 0RF amlodipine 10 mg tablet 10 mg PO DAILY Qty: 30 0RF Changed acetaminophen 500 mg Tablet 1,000 mg PO Q8 PRN (Reason: pain) Qty: 1 0RF Discontinued tacrolimus [Prograf] 1 mg capsule 2 mg PO DAILY Rx Instructions: TAKE 3MG AT 9AM, AND 2MG AT 9PM latanoprost 0.005 % drops 1 drp RIGHT EYE .HS levothyroxine 50 mcg capsule 50 mcg PO DAILY Patient Comments: Thursday-Thursday levothyroxine 100 mcg tablet 100 mcg PO DAILY Patient Comments: Thursday and Thursday Xarelto 10 mg Tablet 10 mg PO DAILY@0600 Qty: 30 0RF oxycodone 5 mg Tablet 2.5 mg PO Q6H PRN PRN (Reason: Pain Score 4-10) 3 Days Qty: 10 0RF Referrals / Follow Up: Mina Griffin MD [Med Staff - Active Staff] - 03/09/24 11:30 am James Eden MD [Primary Care Provider] - 03/15/24 2:00 pm Wound,Center [Non-Staff] - 03/11/24 10:00 am (Cercaid Stockings ) Disposition Disposition (needs filled in before D/C Order can be placed): Home Health Service Charges/Coding Visit Charges Inpatient E&M: 73662 Disch Hosp >30min
[2024-03-04 19:48] VITALS: BP 131/65; PULSE 68; RESP 17; TEMP 37.2; O2SAT 97
[2024-03-04] MEDS: Tacrolimus Anhydrous 1 MG Capsule 2 MG PO (20:04)
[2024-03-04 20:10] VITALS: PULSE 68; RESP 16; O2SAT 97
[2024-03-04] MEDS: Finasteride 5 MG Tablet PO (20:25)
[2024-03-04] MEDS: Tamsulosin HCl 0.4 MG Capsule PO (20:25)
[2024-03-05] MEDS: Acetaminophen 500 MG Tablet 1000 MG PO ×3 (05:01→21:23)
[2024-03-05] MEDS: APIXABAN 2.5 MG TABLET (WCH) PO ×2 (05:01→21:24)
[2024-03-05] MEDS: Menthol/Lanolin/Calamine/Znox 113 GM Tube 1 APPLIC TOPICAL ×2 (05:01→21:38)
[2024-03-05] MEDS: Arthritis Pain Compound 60 CLICK TUBE TOPICAL ×2 (05:02→21:25)
[2024-03-05 06:00] VITALS: BMI 21.2
[2024-03-05] MEDS: Smz/Tmp Ds Tablet 0.5 TABLET PO (08:03)
[2024-03-05] MEDS: Clopidogrel Bisulfate 75 MG Tablet PO (08:04)
[2024-03-05] MEDS: Potassium Chloride Oral Tablet 10 MEQ 20 MEQ PO (08:04)
[2024-03-05] MEDS: predniSONE 5 MG Tablet PO (08:05)
[2024-03-05] MEDS: Folic Acid 1 MG Tablet PO (08:05)
[2024-03-05] MEDS: Pyridoxine HCl 100 MG Tablet 200 MG PO ×2 (08:06→17:02)
[2024-03-05] MEDS: amLODIPine 10 MG Tablet PO (08:06)
[2024-03-05] MEDS: Cyanocobalamin 500 MCG Tablet PO ×2 (08:07)
[2024-03-05] MEDS: Tacrolimus Anhydrous 1 MG Capsule 3 MG PO (08:07)
[2024-03-05 09:18] VITALS: BP 143/68; PULSE 57; RESP 16; TEMP 37.2; O2SAT 95
[2024-03-05] MEDS: Ferrous Sulfate 325 MG Tablet PO (12:41)
[2024-03-05 21:04] VITALS: BP 117/60; PULSE 74; RESP 16; TEMP 37.4; O2SAT 97
[2024-03-05] MEDS: Tamsulosin HCl 0.4 MG Capsule PO (21:24)
[2024-03-05] MEDS: Finasteride 5 MG Tablet PO (21:26)
[2024-03-05] MEDS: Tacrolimus Anhydrous 1 MG Capsule 2 MG PO (21:27)
[2024-03-06 06:00] VITALS: BMI 20.9
[2024-03-06] MEDS: Arthritis Pain Compound 60 CLICK TUBE TOPICAL (06:12)
[2024-03-06] MEDS: APIXABAN 2.5 MG TABLET (WCH) PO (06:13)
[2024-03-06] MEDS: Acetaminophen 500 MG Tablet 1000 MG PO (06:13)
[2024-03-06] MEDS: Menthol/Lanolin/Calamine/Znox 113 GM Tube 1 APPLIC TOPICAL (06:14)
[2024-03-06 08:17] VITALS: BP 148/65; PULSE 59; RESP 16; TEMP 37.2; O2SAT 97
[2024-03-06] MEDS: Potassium Chloride Oral Tablet 10 MEQ 20 MEQ PO (08:31)
[2024-03-06] MEDS: Clopidogrel Bisulfate 75 MG Tablet PO (08:32)
[2024-03-06] MEDS: Folic Acid 1 MG Tablet PO (08:33)
[2024-03-06] MEDS: Smz/Tmp Ds Tablet 0.5 TABLET PO (08:34)
[2024-03-06] MEDS: predniSONE 5 MG Tablet PO (08:35)
[2024-03-06] MEDS: Pyridoxine HCl 100 MG Tablet 200 MG PO (08:36)
[2024-03-06] MEDS: Tacrolimus Anhydrous 1 MG Capsule 3 MG PO (08:37)
[2024-03-06] MEDS: Calcitriol 0.25 MCG Capsule PO (08:39)
[2024-03-06] MEDS: amLODIPine 10 MG Tablet PO (08:49)
== END 2024-03-06 11:30 | disposition home health service (06) | DRG 559 ==
PROVIDERS: Admitting Provider Internal Medicine; PCP Family Medicine; Visit Provider Internal Medicine
DX: S72.142D Displaced intertrochanteric fracture of left femur, subsequent encounter for closed fracture with routine healing (principal); K29.51 Unspecified chronic gastritis with bleeding; D84.821 Immunodeficiency due to drugs; I13.0 Hypertensive heart and chronic kidney disease with heart failure and stage 1 through stage 4 chronic kidney disease, or unspecified chronic kidney disease; D62 Acute posthemorrhagic anemia; N18.4 Chronic kidney disease, stage 4 (severe); I82.452 Acute embolism and thrombosis of left peroneal vein; K91.89 Other postprocedural complications and disorders of digestive system; Z94.0 Kidney transplant status; D69.6 Thrombocytopenia, unspecified; K22.2 Esophageal obstruction; I50.82 Biventricular heart failure; E11.22 Type 2 diabetes mellitus with diabetic chronic kidney disease; K76.0 Fatty (change of) liver, not elsewhere classified; W19.XXXD Unspecified fall, subsequent encounter; E78.5 Hyperlipidemia, unspecified; K44.9 Diaphragmatic hernia without obstruction or gangrene; E55.9 Vitamin D deficiency, unspecified; M16.11 Unilateral primary osteoarthritis, right hip; R13.12 Dysphagia, oropharyngeal phase; Z79.52 Long term (current) use of systemic steroids; Z79.899 Other long term (current) drug therapy; Z98.84 Bariatric surgery status; Y83.2 Surgical operation with anastomosis, bypass or graft as the cause of abnormal reaction of the patient, or of later complication, without mention of misadventure at the time of the procedure; Z79.01 Long term (current) use of anticoagulants; N40.0 Benign prostatic hyperplasia without lower urinary tract symptoms; K63.89 Other specified diseases of intestine; Z86.73 Personal history of transient ischemic attack (TIA), and cerebral infarction without residual deficits
CPT/HCPCS: 36415; 72170; 73552; 74230; 80048; 80053; 82040; 83735; 84100; 85014; 85018; 85027; 92526; 92610; 92611; 93970; 93971; 94668; 97110; 97116; 97162; 97166; 97530; 97535; 97802; 97803

== ENCOUNTER 2024-03-11 09:40 | Outpatient (RCR) | payer MEDICARE, OTHER, SELFPAY ==
[2024-03-11 09:54] VITALS: BP 175/59; PULSE 61; RESP 18; TEMP 36.7; BMI 20.4
--- NOTE | 2024-03-11 13:35 | PCM.WC.HP ---
History of Present Illness Date of Service: 03/11/24 Chief Complaint: Bilateral lower extremity edema History of Wound: Brennon is a pleasant 74 yo gentleman with a history of oral cancer, s/p kidney transplant for renal failure, chronic congestive heart failure and recent left lower leg DVT after hip fracture and repair. He was recently hospitalized at the [facility] inpatient Rehab unit for therapy and rehabilitation after his hip fracture to improve mobility before returning home independently with his . He was referred for evaluation and treatment of edema due to chronic venous insufficiency due to left lower leg DVT. His edema was well controlled while in the Rehab unit but since he has been home he and his have not been able to don compression stockings. He denies any history of nonhealing wounds of his lower legs or blisters or seeping of fluid from his lower legs. They have been elevating his legs and having him try to sleep in bed but he continues to have edema. He denies fever, chills, drainage or erythema. REPLACED BY [facility] Medical History Chronic renal failure, stage 3b Hiatal hernia Tongue carcinoma BPH (benign prostatic hyperplasia) Dysphagia Carotid stenosis Immunosuppression due to chronic steroid use Esophageal stenosis Hx of tongue cancer Chronic anemia Chronic renal insufficiency Loss of hearing Wears glasses Diabetes Arthritis Hx of benign monoclonal gammopathy History of renal disease Low iron Fatty liver High cholesterol Easy bruising Back pain Injury of head and neck Stroke/cerebrovascular accident Syncope Dietary restriction History of colitis Non-smoker History of edema Hx of echocardiogram History of Holter monitoring History of stress test Cardiology follow-up encounter Hypertension History of irregular heartbeat Orthostatic hypotension HTN (hypertension) CVA (cerebral vascular accident) Home Medications ?Medication ?Instructions ?Recorded ?Last Taken ?Type finasteride 5 mg tablet 5 mg PO QHS PROSTATE 12/08/13 02/10/24 History calcitriol 0.25 mcg capsule 0.25 mcg PO QODAY SUPPLEMENT 04/21/17 02/11/24 History cyanocobalamin (vitamin B-12) 500 500 mcg PO DAILY@0900 vitamin 09/17/20 02/11/24 History mcg tablet folic acid 1 mg tablet 1 mg PO DAILY SUPPLEMENT 09/17/20 02/11/24 History sulfamethoxazole 400 1 tab PO DAILY atb 09/17/20 02/11/24 History mg-trimethoprim 80 mg tablet clopidogrel 75 mg tablet 75 mg PO DAILY blood thinner #30 09/18/20 02/11/24 Rx tabs pyridoxine (vitamin B6) 100 mg 200 mg PO BID vitamin 11/12/21 02/11/24 History tablet acyclovir 400 mg tablet 400 mg PO PRN PRN ANTIVIRAL 02/11/24 Unknown History cholecalciferol (vitamin D3) 125 125 mcg PO Q3D vitamin 02/11/24 02/09/24 History mcg (5,000 unit) capsule ferrous sulfate 325 mg (65 mg 325 mg PO DAILY vitamin 02/11/24 02/11/24 History iron) tablet (Feosol) potassium chloride 10 mEq 20 meq PO DAILY vitamin 02/11/24 02/11/24 History tablet,extended release prednisone 5 mg tablet 5 mg PO DAILY steroid 02/11/24 02/11/24 History tacrolimus 1 mg capsule, 2 mg PO QPM rejection 02/11/24 02/10/24 History immediate-release (Prograf) tamsulosin 0.4 mg capsule 0.4 mg PO QHS retention 02/11/24 02/10/24 History amlodipine 10 mg tablet 10 mg PO DAILY bp #30 tabs 02/16/24 Unknown Rx acetaminophen 500 mg tablet 1,000 mg (2 x 500 mg) PO Q8 PRN 03/04/24 Unknown Rx pain #1 TAB apixaban 5 mg tablet (Eliquis) 2.5 mg (1/2 x 5 mg) PO 03/04/24 Unknown Rx BID@0600,2200 #60 tabs tramadol 50 mg tablet 50 mg PO TID PRN Pain Score 1-10 03/04/24 Unknown Rx #15 tabs Allergy/AdvReac Type Severity Reaction Status Date / Time amoxicillin Allergy Unknown Verified 03/11/24 10:01 ursodiol Allergy Rash Verified 03/11/24 10:01 exenatide (From [place]) AdvReac Nausea Verified 03/11/24 10:01 morphine AdvReac paranoid Verified 03/11/24 10:01 and hallucinations Surgical History History of esophagogastroduodenoscopy S/P arteriovenous (AV) fistula creation Hx of bariatric surgery Kidney transplant recipient Social History household members: significant other and other details: his 's name is Alisha housing: house number of children: 2 current occupational status: retired current occupation: spent 30 years in service nad worked in [employer] in [place] and [place]. Smoking Status: Never smoker alcohol intake: never details: Never drinks now for many years. In the past has been a social drinker. substance use type: does not use ROS Constitutional Constitutional: Denies chills, fatigue or fever(s) Eyes Eyes: Denies blurry vision, change in vision or loss of vision ENT HEENT: Denies dysphagia, hearing loss or sore throat Cardiovascular Cardiovascular: Denies chest pain, edema or palpitations Respiratory/Chest Respiratory/Chest: Denies dry cough, dyspnea, dyspnea on exertion, productive cough or wheezing Gastrointestinal Gastrointestinal: Denies diarrhea, nausea or vomiting Genitourinary Genitourinary: Denies dysuria or polyuria Musculoskeletal Musculoskeletal: Denies arthralgias, joint stiffness or muscle weakness Integumentary Integumentary: Reports erythema and wounds Neurologic Neurologic: Denies dizziness, memory loss or weakness Psychiatric Psychiatric: Denies homicidal ideation or suicidal ideation Endocrine Endocrinology: Denies polydipsia, polyphagia or polyuria Hematologic/Lymphatic Hematologic/Lymphatic: Denies easy bleeding or easy bruising Allergic/Immunologic Allergic/Immunologic: Denies throat swelling, tongue swelling or urticaria Vital Signs Vital Signs Vital Signs: 03/11/24 09:54 Temperature 98.1 F Temperature Source Temporal Pulse Rate 61 Respiratory Rate 18 Blood Pressure 175/59 H Blood Pressure Mean 97 Blood Pressure Source Monitor Blood Pressure Position Semi-Fowlers Blood Pressure Location Left Arm Oxygen Delivery Method Room Air Weight Weight: 70.307 kg Body Mass Index (BMI) 20.4 Physical Exam Const alert, oriented x3 and no apparent distress General Appearance: cooperative and comfortable HEENT normocephalic and head/scalp atraumatic Lymph Lymphatic: lymphedema severe (bilateral LE) and pitting Resp normal respiratory effort Effort and Inspection: able to speak in complete sentences Cardio regular rate and regular rhythm Extremity General Extremity: edema bilateral lower extremity Details: severe Peripheral Pulses: Yes dorsalis pedis pulses present bilateral 2+ Skin General Skin Exam: pallor Wounds: wounds noted Wound Narrative: as in clinical panel Hair: other lack of hair lower extremities bilaterally Psych mental status grossly normal, thought process normal, cooperative and affect normal Debridement Note Debridement Note No debridement was completed: No debridement was completed today Post-Debridement Measurements and Additional Note: Post-Debridement Measurements/Treatment MICHELL - Nurse 1 - General Ulcer Assessment Start: 03/11/24 09:54 Freq: Status: Active Protocol: JUANITA Activity Type Activity Date Activity User E-sign Co-sign Detail Recorded Client Recorded Date Recorded By Document 03/11/24 09:54 KW wound care 03/11/24 10:12 KW 03/11/24 09:54 WC - Today's Visit Information Type of service Initial Visit Arrival Mode Wheelchair Accompanied by Patient Identification Verified (Name & Yes ) Height and Weight Height 6 ft 1 in Weight 70.307 kg Weight in Pounds 155.0 lbs Weight Measurement Method Estimated by Patient Body Mass Index (BMI) 20.4 BMI Classification Normal BSA - iLna 1.93 Vital Signs Temperature (97.8 F-99.1 F) 98.1 F Temperature Source Temporal Pulse Rate (60-100) 61 Pulse Location Monitor Respiratory Rate (12-18) 18 Respiratory rate source Observation Oxygen Delivery Method Room Air Blood Pressure (90/60-120/80) 175/59 H Blood Pressure Mean 97 Source Monitor Position Semi-Fowlers Blood Pressure Location Left Arm History Since Last Visit- (Skip if this is Patient's initial visit) Left Footwear Regular Shoe Right Footwear Regular Shoe Pain Scale: 0-10 Numeric Is Patient Pain Free? Yes Communication Assessment Preferred language Khmer Street Worker Required No Able to Read Yes Able to Write Yes Communication Tools None Caregiver Communication Skills No Impairment Impairment Right Hearing Abillity Normal Left Hearing Abillity Normal Visual Assistive Devices Glasses Teaching Assessment Preferences Verbal,Written, Demonstration Barriers to Learning None Readiness To Learn Excellent Willingness to Engage in Self Management High Activies Readiness to Engage in Self Management High Activities Anxiety Level Calm Cooperation Cooperative Perception Coherent Interest in Health Problem Asks Questions Education Importance Acknowledges Need Does Patient Smoke tobacco or other Yes substances Smoking Status Never smoker Is Patient Diabetic No Functional Assessment Recent Decline in Ability to Perform Ambulation, Bathing,Eating/ Feeding,Lower Body Dressing, Transferring Culture/Taoism/Marketing Sales Consultant Cultural/Taoism Needs that may affect No Treatment Plan Would you allow our hospital hydraulic press operator to No meet you for the purpose of spiritual/ emotional support? Marketing Sales Consultant to contact place of sabianism No WC - Nurse 2 - General Ulcer CM Notes Start: 03/11/24 09:54 Freq: Status: Active Protocol: Activity Type Activity Date Activity User E-sign Co-sign Detail Recorded Client Recorded Date Recorded By Document 03/11/24 10:33 GM WC 03/11/24 10:36 GM 03/11/24 10:33 Pain Scale: 0-10 Numeric Is Patient Pain Free? Yes - Nurse 3 - General Ulcer D/C NN Start: 03/11/24 09:54 Freq: Status: Active Protocol: Activity Type Activity Date Activity User E-sign Co-sign Detail Recorded Client Recorded Date Recorded By Document 03/11/24 11:01 KW wound care 03/11/24 11:01 KW 03/11/24 11:01 Wound Care Center Nurse 3 BLE -Multi-Layered Wrap Application Unna Boot - Bilateral ($) Pain Scale: 0-10 Numeric Is Patient Pain Free? Yes WC - Visit Discharge Discharge Condition Stable Ambulatory Status Wheelchair Transportation Private Auto Medication Reconcilliation completed & No provided to patient/care provider Clinical Summary of Care Provided Yes Assessment/Plan Assessment/Plan (1) Deep vein thrombosis: CODE(S): I82.409 - Acute embolism and thrombosis of unspecified deep veins of unspecified lower extremity QUALIFIERS: DVT location: lower extremity Affected thrombotic vein of extremity: peroneal Chronicity: acute Laterality: left Qualified Code(s): I82.452 - Acute embolism and thrombosis of left peroneal vein (2) Biventricular congestive heart failure: CODE(S): I50.82 - Biventricular heart failure (3) Immunosuppression due to chronic steroid use: CODE(S): D84.821 - Immunodeficiency due to drugs; T38.0X5A - Adverse effect of glucocorticoids and synthetic analogues, initial encounter; Z79.52 - terminal gauger (current) use of systemic steroids (4) Renal transplant recipient: CODE(S): Z94.0 - Kidney transplant status (5) Lymphedema associated with obesity: CODE(S): I89.0 - Lymphedema, not elsewhere classified; E66.9 - Obesity, unspecified (6) Chronic venous insufficiency of lower extremity: CODE(S): I87.2 - Venous insufficiency (chronic) (peripheral) PLAN: Plan Debridement performed today in clinic as annotated above. At home wound-care instructions: Will gain better control of edema today with application of UNNA boot therapy and will have this changed next week. Follow up in 2 weeks and as long as improved edema would apply for insurance approval of Circaid compression. Keep dressing clean and dry. Off-loading: The patient was instructed to avoid pressure and friction on the affected areas. Reposition every 2 hours at minimum. Avoid prolonged standing and/or dangling of legs. When seated, feet should be elevated at chest level. Frequent ambulation is encouraged. Diet: Patient encouraged to increase protein intake while taking caution to avoid high carbohydrate and/or sugar intake. Labs/cultures/imaging: Follow-up: Return in 2 weeks for wound care follow up. Return sooner or report to the emergency room should symptoms worsen, or new symptoms arise. Note: DianDian speech recognition business risk analyst software was used to create portions of this document. Sound-alike and misspelled words, as well as other business risk analyst errors may be contained in the documentation.
== END 2024-03-18 23:59 | disposition home or self-care (01) ==
LOC: WC 09:40
PROVIDERS: PCP Family Medicine; Referring Provider Internal Medicine; Visit Provider Family Medicine
DX: I89.0 Lymphedema, not elsewhere classified (principal); I50.82 Biventricular heart failure; I82.452 Acute embolism and thrombosis of left peroneal vein; N18.32 Chronic kidney disease, stage 3b; I87.2 Venous insufficiency (chronic) (peripheral); Z94.0 Kidney transplant status; R60.0 Localized edema; Z79.899 Other long term (current) drug therapy; Z79.02 Long term (current) use of antithrombotics/antiplatelets
CPT/HCPCS: 29580; 99213; G0463

== ENCOUNTER 2024-04-15 10:45 | Outpatient (RCR) | payer MEDICARE, OTHER, SELFPAY ==
[2024-03-19 01:23] VITALS: BP 175/59; PULSE 61; RESP 18; TEMP 36.7; BMI 20.4
[2024-03-25 10:13] VITALS: BP 161/82; PULSE 76; RESP 18; TEMP 36.6; BMI 20.4
--- NOTE | 2024-03-25 12:33 | PCM.WC.PN ---
History of Present Illness Date of Service: 03/25/24 Chief Complaint: Bilateral lower extremity edema History of Wound: Brennon is a pleasant 74 yo gentleman with a history of oral cancer, s/p kidney transplant for renal failure, chronic congestive heart failure and recent left lower leg DVT after hip fracture and repair. He was recently hospitalized at the [facility] inpatient Rehab unit for therapy and rehabilitation after his hip fracture to improve mobility before returning home independently with his . He was referred for evaluation and treatment of edema due to chronic venous insufficiency due to left lower leg DVT. His edema was well controlled while in the Rehab unit but since he has been home he and his have not been able to don compression stockings. He denies any history of nonhealing wounds of his lower legs or blisters or seeping of fluid from his lower legs. They have been elevating his legs and having him try to sleep in bed but he continues to have edema. He denies fever, chills, drainage or erythema. Subjective Subjective Brennon returns today for follow up of lymphedema of his bilateral lower legs. He tolerated treatment with UNNA boot compression for the last 2 weeks with much improved circumference of his lower legs. He continues to have difficulty with mobility and he and his have arthritis which make it difficult for them to apply compression stockings effectively. He also has 2 areas of skin breakdown on his left buttock and left posterior thigh that Home Health and his have been treating with Calmoseptine and off loading but they don't seem to be improving. They asked for us to evaluate and make any suggestions of wound care regarding treatment of these areas as well. Objective Data Objective Data Vital Signs: Vital Signs Temp Pulse Resp BP O2 Del Method 97.8 F 76 18 161/82 H Room Air 03/25/24 10:13 03/25/24 10:13 03/25/24 10:13 03/25/24 10:13 03/25/24 10:13 Oxygen Delivery Method Room Air Weight: 70.307 kg Body Mass Index (BMI) 20.4 Physical Exam Const alert, oriented x3 and no apparent distress General Appearance: cooperative and comfortable HEENT normocephalic and head/scalp atraumatic Resp normal respiratory effort Effort and Inspection: able to speak in complete sentences Cardio regular rate and regular rhythm Skin Wounds: wounds noted Wound Narrative: as in clinical panel Psych mental status grossly normal, thought process normal, cooperative and affect normal Debridement Note Debridement Note Wound debrided: left buttock Laterality: Left Wound Grade/Stage: Stage 2 pressure ulcer Type of Debridement: Selective debridement Depth: Down to and including healthy tissue and in the subcutaneous layer Percentage of wound debrided: 100 Instrument Used: - (gauze) Tissue Removed: Yellow slough, devitalized tissue Severity: Fat Layer Exposed Amount of bleeding with debridement: None Bleeding Controlled with: Compression and gauze Patient tolerated procedure: Patient tolerated procedure well Post-Debridement Measurements and Additional Note: Post-Debridement Measurements/Treatment - Nurse 1 - General Ulcer Assessment Start: 03/25/24 10:13 Freq: Status: Active Protocol: JUANITA Activity Type Activity Date Activity User E-sign Co-sign Detail Recorded Client Recorded Date Recorded By Document 03/25/24 10:13 wound center 03/25/24 10:27 03/25/24 10:13 WC - Today's Visit Information Type of service Follow-up Visit (Physician/SKI BINDING FITTER AND REPAIRER ) Arrival Mode Ambulatory, Walker Patient Identification Verified (Name & Yes ) Height and Weight Body Mass Index (BMI) 20.4 BMI Classification Normal Vital Signs Temperature (97.8 F-99.1 F) 97.8 F Temperature Source Temporal Pulse Rate (60-100) 76 Pulse Location Monitor Respiratory Rate (12-18) 18 Respiratory rate source Observation Oxygen Delivery Method Room Air Blood Pressure (90/60-120/80) 161/82 H Blood Pressure Mean (mm Hg) 108 Source Monitor Position Semi-Fowlers Blood Pressure Location Left Arm History Since Last Visit- (Skip if this is Patient's initial visit) Have you changed medications since your No last visit? Any new allergies or adverse reactions No Had a fall/change in ADL's that may No increase risk of falls Signs or symptoms of abuse and/or No neglect since last visit Have you been in the hospital since your No last visit? Left Footwear Regular Shoe Right Footwear Regular Shoe Pain Scale: 0-10 Numeric Is Patient Pain Free? Yes [facility] Nurse 1 - General Ulcer Measurement Start: 03/25/24 10:13 Freq: Status: Active Protocol: Activity Type Activity Date Activity User E-sign Co-sign Detail Recorded Client Recorded Date Recorded By Document 03/25/24 10:13 wound center 03/25/24 10:27 03/25/24 10:13 Wound Center Nurse 1 Right Calf (cm) 26.5 Right Ankle (cm) 21 Left Calf (cm) 27.2 Left Ankle (cm) 23.5 WC - Nurse 2 - General Ulcer CM Notes Start: 03/25/24 10:13 Freq: Status: Active Protocol: Activity Type Activity Date Activity User E-sign Co-sign Detail Recorded Client Recorded Date Recorded By Document 03/25/24 10:53 [facility] 03/25/24 11:04 03/25/24 10:53 Wound Center Nurse 2 #2 Left posterior thigh -Time 11:03 -Correct Patient Yes -Correct Side, Site, Position Yes -Correct Procedure Yes -Procedure Performed Yes -Type of Procedure Debridement -Clinical Debridement Epidermis / Dermis -Tissue Removed Epidermis -Tunneling No -Undermining/Tunneling No -Circular Undermining No -Wound/Ulcer Outcome Not Healed -Ulcer Cleansing Rinsed/ Irrigated with Saline -Foul Odor after Cleansing No -Bioengineered Tissue No -Bleeding Controlled with Pressure -Treatment Response Procedure Tolerated Well -Debridement - Open, 1st 20sq cm No #1 Left buttocks -Time 11:02 -Correct Patient Yes -Correct Side, Site, Position Yes -Correct Procedure Yes -Procedure Performed Yes -Type of Procedure Debridement -Clinical Debridement Epidermis / Dermis -Tissue Removed Epidermis -Post Debridement (cm) - Length 1.5 -Post Debridement (cm) - Width 2.0 -Post Debridement (cm) - Depth 0.1 -Total Square (Post) (cm) 3.00 -Area of Debridement (cm) - Length 1.5 -Area of Debridement (cm) - Width 2.0 -Total Square (Area) (cm) 3.00 -Tunneling No -Undermining/Tunneling No -Circular Undermining No -Wound/Ulcer Outcome Not Healed -Ulcer Cleansing Rinsed/ Irrigated with Saline -Foul Odor after Cleansing No -Bioengineered Tissue No -Bleeding Controlled with Pressure -Treatment Response Procedure Tolerated Well -Debridement - Open, 1st 20sq cm Yes Pain Scale: 0-10 Numeric Is Patient Pain Free? Yes - Nurse 3 - General Ulcer D/C NN Start: 03/25/24 10:13 Freq: Status: Active Protocol: Activity Type Activity Date Activity User E-sign Co-sign Detail Recorded Client Recorded Date Recorded By Document 03/25/24 11:23 wound center 06/07/24 11:24 03/25/24 11:23 Wound Care Center Nurse 3 #2 Left posterior thigh -Primary Dressing Applied C Hydrogel ($), Mepilex Border -Mepilex Border 1 #1 Left buttocks -Primary Dressing Applied Mepilex Border -Mepilex Border 1 Right -Tubular Bandage Double Layer -Size of Tubigrip Used Size D -Size D ($) 2 Left -Tubular Bandage Double Layer -Size of Tubigrip Used Size D -Size D ($) 2 Pain Scale: 0-10 Numeric Is Patient Pain Free? Yes WC - Visit Discharge Discharge Condition Stable Ambulatory Status Walker Transportation Private Auto Medication Reconcilliation completed & No provided to patient/care provider Clinical Summary of Care Provided Yes Additional Wound Wound debrided: left posterior thigh Laterality: Left Wound Grade/Stage: Stage 2 Type of Debridement: Selective debridement Depth: Down to and including healthy tissue and in the subcutaneous layer Percentage of wound debrided: 100 Instrument Used: - (gauze) Tissue Removed: Yellow slough, devitalized tissue Severity: Fat Layer Exposed Amount of bleeding with debridement: Mild Bleeding Controlled with: Compression and gauze Patient tolerated procedure: Patient tolerated procedure well Assessment/Plan Assessment/Plan (1) Deep vein thrombosis: CODE(S): I82.409 - Acute embolism and thrombosis of unspecified deep veins of unspecified lower extremity QUALIFIERS: DVT location: lower extremity Affected thrombotic vein of extremity: peroneal Chronicity: acute Laterality: left Qualified Code(s): I82.452 - Acute embolism and thrombosis of left peroneal vein (2) Biventricular congestive heart failure: CODE(S): I50.82 - Biventricular heart failure (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 At home wound-care instructions: Edema is much improved today after application of UNNA boot therapy. Will have him use tubigrip single layer compression medium pressure. He would benefit from Circaid compression as maintenance for his lymphedema as he and his have arthritis and they are unable to apply traditional compression stockings. Will apply for insurance approval for Circaid compression garments to prevent recurrent lymphedema and potential skin ulcers and venous ulcers. Left posterior thigh and left buttock ulcers will be dressed with collagen hydrogel and covered with foam silicone bordered dressings changed daily. Off-loading: The patient was instructed to avoid pressure and friction on the affected areas. Reposition every 2 hours at minimum. Avoid prolonged standing and/or dangling of legs. When seated, feet should be elevated at chest level. Frequent ambulation is encouraged. Diet: Patient encouraged to increase protein intake while taking caution to avoid high carbohydrate and/or sugar intake. Labs/cultures/imaging: Follow-up: Return in 1 week for wound care follow up. Return sooner or report to the emergency room should symptoms worsen, or new symptoms arise. Note: [employer] speech recognition electronic warfare operator software was used to create portions of this document. Sound-alike and misspelled words, as well as other electronic warfare operator errors may be contained in the documentation.
[2024-04-01 10:48] VITALS: BP 124/66; PULSE 75; RESP 18; TEMP 36.1; BMI 20.4
--- NOTE | 2024-04-01 13:30 | PN.PCM_ITS ---
History of Present Illness Date of Service: 04/01/24 Chief Complaint: Bilateral lower extremity edema History of Wound: Brennon is a pleasant 74 yo gentleman with a history of oral cancer, s/p kidney transplant for renal failure, chronic congestive heart failure and recent left lower leg DVT after hip fracture and repair. He was recently hospitalized at the [facility] inpatient Rehab unit for therapy and rehabilitation after his hip fracture to improve mobility before returning home independently with his . He was referred for evaluation and treatment of edema due to chronic venous insufficiency due to left lower leg DVT. His edema was well controlled while in the Rehab unit but since he has been home he and his have not been able to don compression stockings. He denies any history of nonhealing wounds of his lower legs or blisters or seeping of fluid from his lower legs. They have been elevating his legs and having him try to sleep in bed but he continues to have edema. He denies fever, chills, drainage or erythema. Subjective Subjective Brennon returns today for follow up of lymphedema of his bilateral lower legs. He tolerated treatment with UNNA boot compression for 2 weeks with much improved circumference of his lower legs. He continues to have difficulty with mobility and he and his have arthritis which make it difficult for them to apply compression stockings effectively. He tolerated treatment with tubigrip compression and has had only minimal increase in the circumference of his legs. The areas on his left buttock and thigh are also improving with hydrogel and foam dressings. He did not receive any calls regarding the Circaids that we ordered last week. Objective Data Objective Data Vital Signs: Vital Signs Temp Pulse Resp BP O2 Del Method 97 F L 75 18 124/66 H Room Air 04/01/24 10:48 04/01/24 10:48 04/01/24 10:48 04/01/24 10:48 03/25/24 10:13 Oxygen Delivery Method Room Air Weight: 70.307 kg Body Mass Index (BMI) 20.4 Physical Exam Const alert, oriented x3 and no apparent distress General Appearance: cooperative and comfortable HEENT normocephalic and head/scalp atraumatic Resp normal respiratory effort Effort and Inspection: able to speak in complete sentences Cardio regular rate and regular rhythm Skin Wounds: wounds noted Wound Narrative: as in clinical panel Psych mental status grossly normal, thought process normal, cooperative and affect normal Debridement Note Debridement Note No debridement was completed: No debridement was completed today Post-Debridement Measurements and Additional Note: Post-Debridement Measurements/Treatment WC - Nurse 1 - General Ulcer Assessment Start: 03/25/24 10:13 Freq: Status: Active Protocol: JUANITA Activity Type Activity Date Activity User E-sign Co-sign Detail Recorded Client Recorded Date Recorded By Document 03/25/24 10:13 KW wound center 03/25/24 10:27 KW Document 04/01/24 10:48 RB wound 04/01/24 10:54 RB 03/25/24 04/01/24 10:13 10:48 WC - Today's Visit Information Type of service Follow-up Visit Follow-up Visit (Physician/STATOR PLATE WASHER (Physician/STATOR PLATE WASHER ) ) Arrival Mode Ambulatory, Ambulatory Walker Transfer Assistance None Patient Identification Verified (Name & Yes Yes ) Patient Requires Transmission-Based No Precautions Height and Weight Body Mass Index (BMI) 20.4 20.4 BMI Classification Normal Normal Vital Signs Temperature (97.8 F-99.1 F) 97.8 F 97 F L Temperature Source Temporal Temporal Pulse Rate (60-100) 76 75 Pulse Location Monitor Monitor Respiratory Rate (12-18) 18 18 Respiratory rate source Observation Observation Oxygen Delivery Method Room Air Blood Pressure (90/60-120/80) 161/82 H 124/66 H Blood Pressure Mean (mm Hg) 108 85 Source Monitor Monitor Position Semi-Fowlers Semi-Fowlers Blood Pressure Location Left Arm Left Arm History Since Last Visit- (Skip if this is Patient's initial visit) Have you changed medications since your No No last visit? Any new allergies or adverse reactions No No Had a fall/change in ADL's that may No No increase risk of falls Signs or symptoms of abuse and/or No No neglect since last visit Have you been in the hospital since your No No last visit? Has dressing in place as prescribed Yes Has compression in place as prescribed Yes Has offloadiing in place as prescribed No Experienced any changes in pain level or No management Left Footwear Regular Shoe Right Footwear Regular Shoe Pain Scale: 0-10 Numeric Is Patient Pain Free? Yes Yes MICHELL Ortez Nurse 1 - General Ulcer Measurement Start: 03/25/24 10:13 Freq: Status: Active Protocol: Activity Type Activity Date Activity User E-sign Co-sign Detail Recorded Client Recorded Date Recorded By Document 03/25/24 10:13 KW wound center 03/25/24 10:27 KW Document 04/01/24 10:48 RB wound 04/01/24 10:54 RB 03/25/24 04/01/24 10:13 10:48 Wound Center Nurse 1 #2 Left posterior thigh -Combined with other wound No -Current Size (cm) - Length 0.1 -Current Size (cm) - Width 0.1 -Current Size (cm) - Depth 0.1 -Total Square Cm 0.01 -Photo Taken Yes -Tunneling No -Undermining/Tunneling No -Circular Undermining No -Exudate Amt Medium -Exudate Type Serosanguineous -Wound Margin Distinct, Outline Attached -Granulation Amt Medium (34-66%) -Granulation Quality Douglas -Slough/Fibrin Yes -Necrosis Amt Medium (34-66%) -Necrotic Tissue Type Adherent Slough -Structure Exposed N/A -Texture (Nallely-wound Skin Appearance) Assessed, Scarring -Moisture (Nallely-wound Skin Appearance) Assessed -Color (Nallely-wound Skin Appearance) Assessed -Temperature (Nallely-wound Skin No Abnormality Appearance) (Pt Warm) -Tenderness on Palpation (Nallely-wound No Skin Appearance) -Ulcer Cleansing Wound Cleanser -Foul Odor after Cleansing No -Anesthetic Used 5% Lidocaine Gel #1 Left buttocks -Combined with other wound No -Current Size (cm) - Length 0.1 -Current Size (cm) - Width 0.1 -Current Size (cm) - Depth 0.1 -Total Square Cm 0.01 -Epithelialization Large 67-100% -Tunneling No -Undermining/Tunneling No -Circular Undermining No -Exudate Amt None Present -Granulation Amt Large (67-100%) -Granulation Quality Douglas -Slough/Fibrin Yes -Necrosis Amt Medium (34-66%) -Necrotic Tissue Type Adherent Slough -Structure Exposed N/A -Texture (Nallely-wound Skin Appearance) Assessed, Scarring -Moisture (Nallely-wound Skin Appearance) Assessed -Color (Nallely-wound Skin Appearance) Assessed -Temperature (Nallely-wound Skin No Abnormality Appearance) (Pt Warm) -Tenderness on Palpation (Nallely-wound No Skin Appearance) -Ulcer Cleansing Wound Cleanser -Foul Odor after Cleansing No Lower Limb Edema Present Yes Right Calf (cm) 26.5 28 Right Ankle (cm) 21 23.2 Left Calf (cm) 27.2 30.5 Left Ankle (cm) 23.5 26 WC - Nurse 2 - General Ulcer CM Notes Start: 03/25/24 10:13 Freq: Status: Active Protocol: Activity Type Activity Date Activity User E-sign Co-sign Detail Recorded Client Recorded Date Recorded By Document 03/25/24 10:53 GM 03/25/24 11:04 Document 04/01/24 11:05 [facility] 04/01/24 11:11 03/25/24 04/01/24 10:53 11:05 Wound Center Nurse 2 #2 Left posterior thigh -Time 11:03 11:05 -Correct Patient Yes Yes -Correct Side, Site, Position Yes Yes -Correct Procedure Yes -Procedure Performed Yes -Type of Procedure Debridement -Clinical Debridement Epidermis / Dermis -Tissue Removed Epidermis -Tunneling No -Undermining/Tunneling No -Circular Undermining No -Wound/Ulcer Outcome Not Healed -Ulcer Cleansing Rinsed/ Irrigated with Saline -Foul Odor after Cleansing No -Bioengineered Tissue No -Bleeding Controlled with Pressure -Treatment Response Procedure Tolerated Well -Debridement - Open, 1st 20sq cm No #1 Left buttocks -Time 11:02 11:05 -Correct Patient Yes Yes -Correct Side, Site, Position Yes Yes -Correct Procedure Yes -Procedure Performed Yes -Type of Procedure Debridement -Clinical Debridement Epidermis / Dermis -Tissue Removed Epidermis -Post Debridement (cm) - Length 1.5 -Post Debridement (cm) - Width 2.0 -Post Debridement (cm) - Depth 0.1 -Total Square (Post) (cm) 3.00 -Area of Debridement (cm) - Length 1.5 -Area of Debridement (cm) - Width 2.0 -Total Square (Area) (cm) 3.00 -Tunneling No -Undermining/Tunneling No -Circular Undermining No -Wound/Ulcer Outcome Not Healed -Ulcer Cleansing Rinsed/ Irrigated with Saline -Foul Odor after Cleansing No -Bioengineered Tissue No -Bleeding Controlled with Pressure -Treatment Response Procedure Tolerated Well -Debridement - Open, 1st 20sq cm Yes Pain Scale: 0-10 Numeric Is Patient Pain Free? Yes Yes WC - Nurse 3 - General Ulcer D/C NN Start: 03/25/24 10:13 Freq: Status: Active Protocol: Activity Type Activity Date Activity User E-sign Co-sign Detail Recorded Client Recorded Date Recorded By Document 03/25/24 11:23 KW wound center 03/25/24 11:24 KW Document 04/01/24 11:22 RB wound 04/01/24 11:24 RB 03/25/24 04/01/24 11:23 11:22 Wound Care Center Nurse 3 #2 Left posterior thigh -Primary Dressing Applied C Hydrogel ($), Mepilex Border -Primary Dressing Covered/Secured with Dry Gauze, Secured with Tape -Mepilex Border 1 #1 Left buttocks -Primary Dressing Applied Mepilex Border -Primary Dressing Covered/Secured with Dry Gauze, Secured with Tape -Mepilex Border 1 Right -Tubular Bandage Double Layer Double Layer -Size of Tubigrip Used Size D Size C -Size C ($) 2 -Size D ($) 2 Left -Tubular Bandage Double Layer Double Layer -Size of Tubigrip Used Size D Size C -Size C ($) 2 -Size D ($) 2 Treatment Response Procedure Tolerated Well Pain Scale: 0-10 Numeric Is Patient Pain Free? Yes Yes WC - Visit Discharge Discharge Condition Stable Stable Ambulatory Status Walker Ambulatory Transportation Private Auto Private Auto Medication Reconcilliation completed & No No provided to patient/care provider Clinical Summary of Care Provided Yes Yes Assessment/Plan Assessment/Plan (1) Deep vein thrombosis: CODE(S): I82.409 - Acute embolism and thrombosis of unspecified deep veins of unspecified lower extremity QUALIFIERS: DVT location: lower extremity Affected thrombotic vein of extremity: peroneal Chronicity: acute Laterality: left Qualified Code(s): I82.452 - Acute embolism and thrombosis of left peroneal vein (2) Biventricular congestive heart failure: CODE(S): I50.82 - Biventricular heart failure (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 At home wound-care instructions: Edema is somewhat controlled with tibigrip compression but there has been an increase in the circumference of his legs this week. Will have him use tubigrip double layer compression high pressure. He would benefit from Circaid compression as maintenance for his lymphedema as he and his have arthritis and they are unable to apply traditional compression stockings. Will apply for insurance approval for Circaid compression garments to prevent recurrent lymphedema and potential skin ulcers and venous ulcers. They are still awaiting contact from [employer] regarding Circaid compression ordered. They have been released by Home Health from treatment. Left posterior thigh and left buttock ulcers will be dressed with collagen hydrogel and covered with foam silicone bordered dressings changed daily. Off-loading: The patient was instructed to avoid pressure and friction on the affected areas. Reposition every 2 hours at minimum. Avoid prolonged standing and/or dangling of legs. When seated, feet should be elevated at chest level. Frequent ambulation is encouraged. Diet: Patient encouraged to increase protein intake while taking caution to avoid high carbohydrate and/or sugar intake. Labs/cultures/imaging: Follow-up: Return for follow up with nurse visit when Circaids received and s ooner if needed for worsening in edema or worsening of left buttock/thigh ulcer. Return sooner or report to the emergency room should symptoms worsen, or new symptoms arise. Note: [employer] speech recognition private branch exchange service adviser software was used to create portions of this document. Sound-alike and misspelled words, as well as other private branch exchange service adviser errors may be contained in the documentation.
[2024-04-15 11:34] VITALS: BP 101/71; PULSE 67; RESP 18; TEMP 36.3; BMI 20.4
== END 2024-04-17 23:59 | disposition home or self-care (01) ==
LOC: WC 10:45
PROVIDERS: PCP Family Medicine; Referring Provider Internal Medicine; Visit Provider Family Medicine
DX: I89.0 Lymphedema, not elsewhere classified (principal); I50.82 Biventricular heart failure; I82.452 Acute embolism and thrombosis of left peroneal vein; Z94.0 Kidney transplant status; I87.2 Venous insufficiency (chronic) (peripheral); R60.0 Localized edema; S71.102A Unspecified open wound, left thigh, initial encounter; X58.XXXA Exposure to other specified factors, initial encounter
CPT/HCPCS: 97597; 99211; 99213; G0463

== ENCOUNTER 2024-05-11 10:30 | Outpatient (RCR) | payer MEDICARE, OTHER, SELFPAY ==
--- NOTE | 2022-05-01 15:50 | HP.SP.EVAL ---
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 He then had 7 weeks of radiation treatment (07/2021-09/2021). He is seeing a speech therapist in [facility] to address oropharyngeal dysphagia. He is following with her every 3 months. He had feeding tube dependence, but was able to stop using tube feeding in early December 2021 and had it removed late December 2021. He is wishing to continue following his [facility] speech therapist, Cristy, to address dysphagia. She referred him locally to this SOUNDING DEVICE OPERATOR to address articulation deficits related to tongue cancer. He did have mild dysarthria following his TIA. He is following another therapist for lymphedema. 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 Vonnie, his , was present for the evaluation. Other PMH: Gastric bypass surgery (2010), kidney failure (2011), kidney transplant (2017), TIA (August 2020) Smoking Status: Never smoker Hx Smoking: No Hx Tobacco Use: No - Pain Is pain an issue with your current prescribed condition?: No Patient Allergies - Allergies Allergies amoxicillin Allergy (Verified 12/08/21 07:42) Unknown morphine Allergy (Verified 12/08/21 07:42) Other ursodiol Allergy (Verified 12/08/21 07:42) Rash exenatide [From Byetta] Adverse Reaction (Verified 12/08/21 07:42) Nausea Subjective Articulation/Phonol - Subjective Patient is: Difficult to understand, Frequently repeats Concerns: The patient reports the most difficulty sound is /g/ and ch. He has excessive saliva. Additional Information: He reports no concerns for changes in volume. His sustained /a/ was 12 seconds during the evaluation. He reported prior to treatment, he felt he had higher vocal quality but now he feels he is close to baseline for vocal quality. Objective Articulation/Phon - Articulation Intelligibility percentage in single words: 96% Intelligibility percentage in conversation: 85% Errors include: Initial Position: Substitution of /h/ for /k/, /s/ for sh, /t/ for ch. Omission of /j/ and /k/ in s-blends. Distortion of /t/ (palatal). Errors include: Medial Position: Substitution of sh for /s/, /t/ for ch. Omission of medial /k/ and /j/. Distortion of /g/ and /k/ (reduced articulatory precision). Distortion of /t/ (palatal). Errors include: Final Position: Substitution of /h/ for /k/, sh for /s/, /t/ for ch. Omission of final /t/ in s-blends, final ng, and /j/. Distortion of /g/ and /k/ (reduced articulatory precision). - Stimulability Patient is stimulable for the following sounds: The patient is stimulable for all sounds in word level and in isolation with the exception of /j/ and ch. Subjective Oral Motor - Subjective Patient Reports: Drooling, Slurred Speech, Difficulty being Understood - Comments Comments: The patient reports often biting his cheek and tongue. He has excessive saliva and often drools. He and his feels his excess saliva impacts speech clarity. Objective Oral Motor - Oral Status Dentition: WNL - Labial Impairment: WNL Closure: Drooling Pucker: WNL Retraction: WNL Alternating Pucker/Retraction: WNL - Lingual Impairment: Moderate Observation: Deviated Right Protrusion: WFL Retraction: Severe Lateralization: Moderate - Lingual Comments Comments: R sided lateralization WNL. Minimal movement for L sided lateralization. Minimal movement for tongue retraction during oral motor examination. Pt is s/p partial glossectomy with flap reconstruction. - Jaw Impairment: WNL Opening: WNL Closing: WNL Opening Measurement: 41mm - Respiratory Status Respiratory Status: Room Air Objective Dysarthira/Motor - Speech Intelligibility Single Words: Mild Phrases: Mild Sentences: Moderate Paragraphs: Moderate Conversation: Moderate - Volume Volume: WNL - Observation Observation of Apraxia of Speech: No - Awareness/Strategy Use Uses strategies intermittently to improve intelligibility or listener's understanding of message: Yes - Comments Reading Passage -: Pt read the Grandfather Passage. He had overall decreased articulatory precision as compared to word level repetition articulation assessment. Most notable errors included omission of /l/, /j/, and /t/ & /d/ in consonant clusters. ~85% speech intelligibility. Diadochokinetic Rates -: /p^/ - 4.8 syllables per second (WNL = at least 6.4 syllables per second), /t^/ - 2.5 syllables per second; however pt substituted /s/ for /t/ in a majority of repetitions (WNL = at least 6.1 syllables per second), /k^/ - 2.9 syllables per second; however pt substituted /h/ for /k/ in a majority of repetitions (WNL = at least 5.7 syllables per second). Plan - Plan Plan: Will recommend the patient for skilled outpatient speech therapy to address moderate dysarthria s/p partial glossectomy with flap reconstruction due to primary base of tongue cancer. He also received radiation treatment for 7 weeks to the cancer site. Without skilled ST services, the patient is at risk for increased difficulty expressing wants and needs in medical and social settings. - Recommendations MBS: No Treatment Warranted: Yes Treatment Warranted: Speech Sound Production - Progress Prognosis: Good - Frequency Frequency: 1x/Week Duration: 2-4 Months - Patient/Family Goal Patient/Family Goal: Improve speech clarity - Goal #1-5 Goal #1: The patient will produce /j/ in isolation with 90% accuracy with minimal verbal and visual cues to improve speech clarity. Goal #2: The patient will produce /g/ and /k/ at the word level with 90% accuracy with minimal verbal and visual cues to improve speech clarity. Goal #3: The patient will produce /t/ and /d/ at the sentence level with 90% accuracy with minimal verbal and visual cues to improve speech clarity. (Most notable difficulty on initial evaluation omitting /t/ in consonant clusters.) Goal #4: The patient will produce /s/ in the word level with 90% accuracy with minimal verbal and visual cues to improve speech clarity. Goal #5: The patient will produce ch and /d3/ in the word level with 90% accuracy with minimal verbal and visual cues to improve speech clarity. - Goal #6-10 Goal #6: The patient will utilize compensatory strategies independently in conversational speech to improve speech intelligibility to 95% accuracy. Education - Patient Instruction Patient Education: Diagnosis, Treatment Plan, Goals, Home Exercise Program Person Taught: Patient, Significant Other Teaching Method: Discussion, Demonstration Response to teaching: Return demonstration, Verbalize understanding, Reinforcement needed
--- NOTE | 2022-07-01 16:56 | HP.SP.REEV ---
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 He then had 7 weeks of radiation treatment (07/2021-09/2021). He is seeing a speech therapist in [facility] to address oropharyngeal dysphagia. He is following with her every 3 months. He had feeding tube dependence, but was able to stop using tube feeding in early December 2021 and had it removed late December 2021. He is wishing to continue following his [facility] speech therapist, Cristy, to address dysphagia. She referred him locally to this MOTOR OVERHAULER to address articulation deficits related to tongue cancer. He did have mild dysarthria following his TIA. He is following another therapist for lymphedema. 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 Vonnie, his , was present for the evaluation. Other PMH: Gastric bypass surgery (2010), kidney failure (2011), kidney transplant (2017), TIA (August 2020). The patient has attended 8 speech therapy sessions to address moderate dysarthria from 05/01/2022-07/01/2022. Smoking Status: Never smoker Hx Smoking: No Hx Tobacco Use: No - Pain Is pain an issue with your current prescribed condition?: No Patient Allergies - Allergies Allergies amoxicillin Allergy (Verified 12/08/21 07:42) Unknown morphine Allergy (Verified 12/08/21 07:42) Other ursodiol Allergy (Verified 12/08/21 07:42) Rash exenatide [From Byetta] Adverse Reaction (Verified 12/08/21 07:42) Nausea Previous/Current Goals - Goals 1-5 Previous Goal #1: The patient will produce /j/ in isolation with 90% accuracy with minimal verbal and visual cues to improve speech clarity. Goal 1 Status: GOAL MET - 90-100% acc Previous Goal #2: The patient will produce /g/ and /k/ at the word level with 90% accuracy with minimal verbal and visual cues to improve speech clarity. Goal 2 Status: PROGRESSING - Goal met with the exception of remaining impairments articulating /g/ and /k/ when preceding a front vowel (~70% acc). Previous Goal #3: The patient will produce /t/ and /d/ at the sentence level with 90% accuracy with minimal verbal and visual cues to improve speech clarity. (Most notable difficulty on initial evaluation omitting /t/ in consonant clusters.) Goal 3 Status: PROGRESSING - /t/ 80% in sentence level, /d/ 90% in sentence level Previous Goal #4: The patient will produce /s/ in the word level with 90% accuracy with minimal verbal and visual cues to improve speech clarity. Goal 4 Status: LIMITED PROGRESS DUE TO THERAPY FOCUSING ON OTHER GOALS Previous Goal #5: The patient will produce ch and /d3/ in the word level with 90% accuracy with minimal verbal and visual cues to improve speech clarity. Goal 5 Status: PROGRESSING - 85-90% in word level; however, max cues to produce in isolation - Goals 6-10 Previous Goal #6: The patient will utilize compensatory strategies independently in conversational speech to improve speech intelligibility to 95% accuracy. Goal 6 Status: PROGRESSING - Mild-mod cues required for application of strategies in conversation. Subjective Articulation/Phonol - Subjective Patient is: Difficult to understand, Frequently repeats Concerns: The patient reports the most difficulty sound is /g/ and ch. He has excessive saliva. Additional Information: He reports concerns for decreased volume in conversation and sensation of decreased breath support. Objective Articulation/Phon - Articulation Intelligibility percentage in single words: 96% Intelligibility percentage in conversation: 87% Errors include: Initial Position: /s/ for sh, /t/ for ch. Omission of /t/ in s-blends. Errors include: Medial Position: Substitution of /s/ for sh, /t/ for ch. Distortion of /g/ and /k/ (reduced articulatory precision). Distortion of /t/ (palatal). Errors include: Final Position: Substitution of /h/ for /k/, /s/ for sh, /t/ for ch. Omission of final /t/, /t/ in s-blends, final ng, and /d/. Distortion of /g/ and /k/ (reduced articulatory precision). Articulation Re-Eval - Re-Evaluation Articulation/Phonology Re-Evaluation: Diadochokinetic rates - /p^/ - 5.1 syllables per second (WNL = at least 6.4 syllables per second), /t^/ - 3.4 syllables per second and /t/ was imprecise (substituted /s/ ~50%) (WNL = at least 6.1 syllables per second), /k^/ - 2.3 syllables per second (WNL = at least 5.7 syllables per second). /p^t^k^/ - 0.7 syllables per second. Sustained ah - 15.5 seconds. The patient presents with mild-moderate dysarthria characterized by decreased volume, quick rate of speech, and imprecise articulation s/p partial glossectomy and radiation treatment. Subjective Oral Motor - Subjective Patient Reports: Drooling, Slurred Speech, Difficulty being Understood - Comments Comments: The patient reports often biting his cheek and tongue. He has excessive saliva and often drools. Hefeels his excess saliva impacts speech clarity. Objective Oral Motor - Oral Status Dentition: WNL - Labial Impairment: WNL Closure: Drooling Pucker: WNL Retraction: WNL Alternating Pucker/Retraction: WNL - Lingual Impairment: Moderate Observation: Deviated Right Protrusion: WFL Retraction: Severe Lateralization: Severe - L side minimal movement, R side good lateralization - Jaw Impairment: WNL Opening: WNL Closing: WNL Opening Measurement: 46mm - Respiratory Status Respiratory Status: Room Air Objective Dysarthira/Motor - Speech Intelligibility Single Words: Mild Sentences: Mild Paragraphs: Moderate Conversation: Moderate - Volume Volume: Mild - Observation Observation of Apraxia of Speech: No - Awareness/Strategy Use Uses strategies intermittently to improve intelligibility or listener's understanding of message: Yes Plan - Plan Plan: Will recommend the patient for continued skilled outpatient speech therapy to address mild-moderate dysarthria s/p partial glossectomy with flap reconstruction due to primary base of tongue cancer. He also received radiation treatment for 7 weeks to the cancer site. Without skilled ST services, the patient is at risk for increased difficulty expressing wants and needs in medical and social settings. - Recommendations MBS: No Treatment Warranted: Yes Treatment Warranted: Speech Sound Production - Progress Prognosis: Good - Frequency Frequency: 1x/Week Duration: 2-4 Months - Patient/Family Goal Patient/Family Goal: Improve speech clarity - Goals that are Established Determination:: Goals will be added/modified as deemed necessary and appropriate. Therapy will be discontinued when results of re-evaluation indicate therapy is no longer needed or lack of progress has been documented. - Goal #1-5 Goal #1: The patient will produce /g/ and /k/ at the word level with 90% accuracy with minimal verbal and visual cues to improve speech clarity. Goal #2: The patient will produce ch and /d3/ in the word level with 90% accuracy with minimal verbal and visual cues to improve speech clarity. Goal #3: The patient will produce /s/ in the sentence level with 90% accuracy with minimal verbal and visual cues to improve speech clarity. Goal #4: The patient will produce /g/, /k/, and /ng/ at the sentence and paragraph reading level with 90% accuracy with minimal verbal and visual cues to improve speech clarity. Goal #5: The patient will produce /t/ and /d/ at the sentence and paragraph reading level with 90% accuracy with minimal verbal and visual cues to improve speech clarity. - Goal #6-10 Goal #6: The patient will utilize compensatory strategies (slowed rate, breath pacing w/ diaphragmatic breathing, increased volume, facing speaker, exaggerated articulation) independently in conversational speech to improve speech intelligibility to 95% accuracy. Education - Patient Instruction Patient Education: Diagnosis, Treatment Plan, Goals Person Taught: Patient Teaching Method: Discussion Response to teaching: Verbalize understanding, Reinforcement needed
--- NOTE | 2022-08-05 15:19 | HP.SP.EVAL ---
History - History Date of Eval: 08/05/22 Medical Diagnosis (from RX): Tongue cancer (C02.9) Date of Onset of Diagnosis: 04/18/2021 Previous speech therapy: Yes Results: Pt was followed by [facility] FLANGING MACHINE OPERATOR, Cristy Rogers, for dysphagia therapy following resection of ~1/2 the tongue with flap reconstruction (06/2021) and 7 weeks of radiation treatment (07/2021-09/2021). His care is being transferred to this FLANGING MACHINE OPERATOR for more local therapy. Most recent MBSS 07/07/2022 and the patient presented with moderate oropharyngeal dysphagia, primary deficits seen in the oral phase. Study was comparable to most recent study. He had consistent laryngeal penetration of liquids with mostly effective reflexive throat clear, trace aspiration 1X. He was recommended for soft and bite size textures / thin liquids with upright posture, slight head tilt forwards to help with bolus control, small bites/sips, slow rate, swallow several times to clear food from the oral cavity and BOT region, alternate bites and sips to clear food from the oral cavity. 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 He then had 7 weeks of radiation treatment (07/2021-09/2021). He had feeding tube dependence, but was able to stop using tube feeding in early December 2021 and had it removed late December 2021. He was following speech therapy with FLANGING MACHINE OPERATOR, Cristy Rogers, at the . She referred him locally to this FLANGING MACHINE OPERATOR to address articulation deficits related to tongue cancer initially, but is now transferring dysphagia POC, as well. He is following another therapist for lymphedema. 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 Other PMH: Gastric bypass surgery (2010), kidney failure (2011), kidney transplant (2017), TIA (August 2020). The patient has attended 11 speech therapy sessions to address moderate dysarthria from 05/01/2022-07/22/2022. Smoking Status: Never smoker Hx Smoking: No Hx Tobacco Use: No - Pain Is pain an issue with your current prescribed condition?: No Patient Allergies - Allergies Allergies amoxicillin Allergy (Verified 12/08/21 07:42) Unknown morphine Allergy (Verified 12/08/21 07:42) Other ursodiol Allergy (Verified 12/08/21 07:42) Rash exenatide [From Byetta] Adverse Reaction (Verified 12/08/21 07:42) Nausea Subjective Dysphagia - Symptoms Reported Symptoms/Problems with: Difficulty Swallowing Solids, Food gets stuck - Current Diet Solids Current Diet: Soft - Current Diet Liquids Current Liquids: Thin - Comments Comment -: He reports that foods easily stick in his mouth and he requires a frequent liquid wash. He experiences hypersalivation. Objective Dysphagia - Swallowing Impairment Contributing Factors to Swallowing Impairment: Reduced Oral Strength/Coordination/Sensation, Impaired Oral-Pharyngeal Transport, Delayed Swallow Initiation, Reduced Laryngeal Excursion Other: Per most recent MBSS and FLANGING MACHINE OPERATOR observation - Impact Impact on Safety & Functioning: Risk for Aspiration, Risk for Inadequate Nutrition/Hydration - Recommendations Swallowing Treatment: Yes - Diet Texture Recommendations Solids: Soft & Bite sized (Level 6, Chopped) Other liquids: Thin - Safety Other: upright posture, slight head tilt forwards to help with bolus control, small bites/sips, slow rate, swallow several times to clear food from the oral cavity and BOT region, alternate bites and sips to clear food from the oral cavity - Results Swallowing Within Normal Limits: No Swallowing Diagnosis: Oropharyngeal Phase Dysphagia (R13.12) Severity: Moderate Subjective Oral Motor - Subjective Patient Reports: Drooling Objective Oral Motor - Oral Status Dentition: WNL - Labial Impairment: WNL Closure: Drooling Pucker: WNL Retraction: WNL Alternating Pucker/Retraction: WNL - Lingual Impairment: Moderate Observation: Deviated Right Protrusion: Mild Retraction: Moderate Lateralization: Severe - Lingual Comments Comments: mildly restricted lateral ROM R, severely restricted lateral ROM L - Respiratory Status Respiratory Status: Room Air HEAD OF HOUSEKEEPING - V Trigeminal Nerve V Trigeminal Nerve Response: Impaired Comment:: decreased contraction of masseter on L side, per MBSS 06/2022 the patient has decreased laryngeal elevation - VII Facial Nerve VII Facial Nerve Result: Impaired Comment: 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 - X Vagus Nerve X Vagus Nerve Result: Impaired Comment:: R sided palatal weakness, intact gag, intact soft palate sensation bilaterally - XII Hypoglossal Nerve XII Hypoglossal Nerve Result: Impaired Swallowing Performance Scale - Swallowing Performance Scale Swallowing Performance Scale Result: 5 Moderate FOIS - Functional Oral Intake Scale Total oral diet with multiple consistencies, but requiring special preparation or compensations: Level 5 Plan - Plan Plan: Will follow the patient quarterly for dysphagia therapy to address 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 The patient is at risk for worsening dysphagia and aspiration risk s/p radiation treatment. Will plan to follow the patient 1X/quarter for dysphagia therapy and continue to see the patient for weekly dysarthria treatment. - Recommendations MBS: Yes Treatment Warranted: Yes Treatment Warranted: Dysphagia Comment: Will recommend yearly MBSS to monitor the patient's swallow function, as he is at risk for worsening dysphagia s/p radiation treatment. Next MBSS planned for 06/2023. - Progress Prognosis: Good - Frequency Frequency: Quarterly Duration: 12 Months - Patient/Family Goal Patient/Family Goal: Maintain current swallow function - Goals that are Established Determination:: Goals will be added/modified as deemed necessary and appropriate. Therapy will be discontinued when results of re-evaluation indicate therapy is no longer needed or lack of progress has been documented. - Goal #1-5 Goal #1: The patient will produce /g/ and /k/ at the word level with 90% accuracy with minimal verbal and visual cues to improve speech clarity. Goal #2: The patient will produce ch and /d3/ in the word level with 90% accuracy with minimal verbal and visual cues to improve speech clarity. Goal #3: The patient will produce /s/ in the sentence level with 90% accuracy with minimal verbal and visual cues to improve speech clarity. Goal #4: The patient will produce /g/, /k/, and /ng/ at the sentence and paragraph reading level with 90% accuracy with minimal verbal and visual cues to improve speech clarity. Goal #5: The patient will produce /t/ and /d/ at the sentence and paragraph reading level with 90% accuracy with minimal verbal and visual cues to improve speech clarity. - Goal #6-10 Goal #6: The patient will participate in MBS study to objectively assess swallow function and provide recommendations for safest, least restrictive diet and compensatory strategies to reduce risk for aspiration (yearly MBSS - next planned for 06/2023). Goal #7: The patient will consume least restrictive diet textures without overt s/s of aspiration with minimal verbal cues for use of compensatory strategies to decrease risk for aspiration. Goal #8: The patient will complete an oropharyngeal exercise program during and post radiation treatment independently to improve and maintain strength, ROM, and coordination of swallowing mechanism (Nuvia, CTAR X10 repetitions, 3-5X daily). CC FLANGING MACHINE OPERATOR recommended EMST. Education - Patient has Indicated that the Following Identified Educational Needs: None The Patient has indicated that they have no educational or learning abilities that may effect their care.: Yes - Patient Instruction Patient Education: Diagnosis, Treatment Plan, Safety Precautions, Diet Level, Home Exercise Program Other Education: Education provided regarding the potential impacts of radiation treatment on swallow function during and post treatment, including effects such as radiation fibrosis and lymphedema which may result in restricted range of motion and weakness of swallowing mechanism. Discussed impaired swallowing and increased risk for aspiration, aspiration related illnesses, weight loss, and malnutrition. Discussed importance for speech therapy to monitor and address dysphagia post radiation treatment to maintain optimal swallow function through continued education and prophylactic exercise program. Provided the patient a handout and demonstration of prophylactic oropharyngeal exercise program. The patient provided return demonstration with all exercises with minimal verbal cues and demonstration. The patient would benefit from continued training to monitor proper execution of exercises and encourage strict adherence to exercise program. CC FLANGING MACHINE OPERATOR recommended implementation of expiratory muscle strength training (EMST). FLANGING MACHINE OPERATOR provided the patient information about EMST and recommended considering purchase of device for additional strengthening to decrease risk for aspiration. Person Taught: Patient Teaching Method: Discussion, Demonstration, Handout Response to teaching: Return demonstration, Verbalize understanding
--- NOTE | 2022-12-09 15:00 | HP.SPREEV_ITS ---
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 His care is being transferred to this ASSOCIATE BRAND MANAGER for more local therapy. Most recent MBSS 07/07/2022 and the patient presented with moderate oropharyngeal dysphagia, primary deficits seen in the oral phase. Study was comparable to most recent study. He had consistent laryngeal penetration of liquids with mostly effective reflexive throat clear, trace aspiration 1X. He was recommended for soft and bite size textures / thin liquids with upright posture, slight head tilt forwards to help with bolus control, small bites/sips, slow rate, swallow several times to clear food from the oral cavity and BOT region, alternate bites and sips to clear food from the oral cavity. 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 He then had 7 weeks of radiation treatment (07/2021- 09/2021). He had feeding tube dependence, but was able to stop using tube feeding in early December 2021 and had it removed late December 2021. He was following speech therapy with ASSOCIATE BRAND MANAGER, Cristy Rogers, at the . She referred him locally to this ASSOCIATE BRAND MANAGER to address articulation deficits related to tongue cancer initially, then dysphagia POC, as well. He is following another therapist for lymphedema. [place]ired [employer] [place] Other PMH: Gastric bypass surgery (2010), kidney failure (2011), kidney transplant (2017), TIA (August 2020). The patient has attended 17 speech therapy sessions to address dysarthria (weekly) and dysphagia (quarterly) s/p partial glossectomy with radiation treatment. He has currently met goals for dysarthria, but is continuing with quarterly dysphagia therapy. 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) - Pain Is pain an issue with your current prescribed condition?: No - Personal Preferred language: [place]er History - Pain Is pain an issue with your current prescribed condition?: No Patient Allergies - Allergies Allergies amoxicillin Allergy (Verified 12/08/21 07:42) Unknown morphine Allergy (Verified 12/08/21 07:42) Other ursodiol Allergy (Verified 12/08/21 07:42) Rash exenatide [From Byetta] Adverse Reaction (Verified 12/08/21 07:42) Nausea Previous/Current Goals - Goals 1-5 Previous Goal #1: The patient will produce /g/ and /k/ at the word level with 90% accuracy with minimal verbal and visual cues to improve speech clarity. Goal 1 Status: GOAL MET Previous Goal #2: The patient will produce ch and /d3/ in the word level with 90% accuracy with minimal verbal and visual cues to improve speech clarity. Goal 2 Status: GOAL MET Previous Goal #3: The patient will produce /s/ in the sentence level with 90% accuracy with minimal verbal and visual cues to improve speech clarity. Goal 3 Status: GOAL MET Previous Goal #4: The patient will produce /g/, /k/, and /ng/ at the sentence and paragraph reading level with 90% accuracy with minimal verbal and visual cues to improve speech clarity. Goal 4 Status: GOAL MET Previous Goal #5: The patient will produce /t/ and /d/ at the sentence and paragraph reading level with 90% accuracy with minimal verbal and visual cues to improve speech clarity. Goal 5 Status: GOAL MET - Goals 6-10 Previous Goal #6: The patient will utilize compensatory strategies (slowed rate, breath pacing w/ diaphragmatic breathing, increased volume, facing speaker, exaggerated articulation) independently in conversational speech to improve speech intelligibility to 95% accuracy. Goal 6 Status: GOAL MET Previous Goal #7: The patient will consume least restrictive diet textures wi thout overt s/s of aspiration with minimal verbal cues for use of compensatory strategies to decrease risk for aspiration. Goal 7 Status: PROGRESSING - Pt consumes soft solids and thin liquids with intermittent throat clearing. ASSOCIATE BRAND MANAGER emphasized importance for use of aspiration precautions, emphasizing need for single sips, multiple swallows, cough/hard throat clear and re-swallow. Previous Goal #8: The patient will complete an oropharyngeal exercise program during and post radiation treatment independently to improve and maintain strength, ROM, and coordination of swallowing mechanism (Nuvia, CTAR X10 repetitions, 3-5X daily). CC ASSOCIATE BRAND MANAGER recommended EMST. Goal 8 Status: PROGRESSING - Pt completes maintenance EMST program 2-3X/week X5 reps, 5X daily. Re-instructed the patient in Nuvia and CTAR with recommendation for 10 repetitions of each, 3-5X daily. Previous Goal #9: The patient will participate in MBS study to objectively assess swallow function and provide recommendations for safest, least restrictive diet and compensatory strategies to reduce risk for aspiration (yearly MBSS - next planned for 06/2023). Goal 9 Status: PROGRESSING - Yearly MBSS - next planned for 06/2023. Recommend repeat MBSS sooner if concern for worsening s/s of aspiration. 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 The patient is at risk for worsening dysphagia and aspiration risk s/p radiation treatment. Will plan to follow the patient 1X/quarter for dysphagia therapy. - Recommendations MBS: Yes Treatment Warranted: Yes Treatment Warranted: Dysphagia Comment: Yearly MBSS - next MBSS planned for 06/2023. - Progress Prognosis: Good - Frequency Frequency: Quarterly Duration: 12 Months - Patient/Family Goal Patient/Family Goal: Maintain swallow function - Goals that are Established Determination:: Goals will be added/modified as deemed necessary and appropriate. Therapy will be discontinued when results of re-evaluation indicate therapy is no longer needed or lack of progress has been documented. - Goal #1-5 Goal #1: The patient will consume least restrictive diet textures without overt s/s of aspiration with minimal verbal cues for use of compensatory strategies to decrease risk for aspiration. Goal #2: The patient will complete an oropharyngeal exercise program post radiation treatment independently to improve and maintain strength, ROM, and coordination of swallowing mechanism (CTAR and Nuvia X10 repetitions, 3-5X daily; maintenance EMST 5 reps, 5X daily, 2-3 days/week). Goal #3: The patient will participate in MBS study to objectively assess swallow function and provide recommendations for safest, least restrictive diet and compensatory strategies to reduce risk for aspiration. Goal #4: The patient will participate in ongoing education re: short-term and long-term effects of radiation treatment on swallow function and management of symptoms that contribute to dysphagia. Education - Patient has Indicated that the Following Identified Educational Needs: None The Patient has indicated that they have no educational or learning abilities that may effect their care.: Yes - Patient Instruction Patient Education: Treatment Plan, Safety Precautions, Diet Level, Home Exercise Program Person Taught: Patient Teaching Method: Discussion, Demonstration, Teach back Response to teaching: Return demonstration, Verbalize understanding, Reinforcement needed
--- NOTE | 2023-09-14 14:57 | ST ---
[facility] Speech Pathology [address] [address] Modified Barium Swallow Study MR#: [id number] Acct: [id number] Name: KELTON MEDINA CONRADO Rep #:[id number] : 1950 73 From: Nathalie Sierra M.A., [facility]-IMAGING ACCOUNT MANAGER Modified Barium Swallow Patient Information Study Date: 09/02/23 Study Time: 13:00 Direct Billable Minutes: 87 Total Minutes procedure & reportin Diagnosis: Tongue cancer (C02.9) Referring Physician: James Eden Reason for Referral: Annual MBSS recommended s/p radiation treatment for tongue cancer as the patient is at risk for worsening dysphagia due to supervisor intermediates effects of radiation treatment.? IMAGING ACCOUNT MANAGER will objectively assess swallow function, assess risk for aspiration, and determine recommendations for least restrictive diet textures and compensatory strategies to improve safety of swallow. 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 He then had 7 weeks of radiation treatment (07/2021-09/2021). He had feeding tube dependence, but was able to stop using tube feeding in early December 2021 and had it removed late December 2021. He was following speech therapy with IMAGING ACCOUNT MANAGER, Cristy Rogers, at the . She referred him locally to this IMAGING ACCOUNT MANAGER to address articulation deficits related to tongue cancer initially, then dysphagia POC, as well. He is following another therapist for lymphedema management. Other PMH: 3 falls this year with pelvic wrist fractures (04/2023) and rib fractures (07/2023), Heart valve implant (07/2023), Gastric bypass surgery (2010), kidney failure (2011), kidney transplant (2017), TIA (August 2020). The patient was last seen for dysphagia therapy 11/2022 with training of EMST and oropharyngeal exercises (Nuvia and CTAR). Per patient report, he feels his swallow has neither improved nor worsened since he was last seen. Most recent MBSS 07/07/2022 completed at [facility] by IMAGING ACCOUNT MANAGER Cristy Rogers: The patient presented with moderate oropharyngeal dysphagia, primary deficits seen in the oral phase. Study was comparable to most recent study. He had consistent laryngeal penetration of liquids with mostly effective reflexive throat clear, trace aspiration 1X. He was recommended for soft and bite size textures / thin liquids with upright posture, slight head tilt forwards to help with bolus control, small bites/sips, slow rate, swallow several times to clear food from the oral cavity and BOT region, alternate bites and sips to clear food from the oral cavity. Current Diet Ordered: Soft and bite size textures / Thin liquids Dentition: Natural Teeth and Missing Teeth Mental Status: WNL Respiratory Status: Oxygenating on Room Air Penetration-Aspiration Scale Penetration-Aspiration Scale: OBJECTIVE ASSESSMENT OF SWALLOW FUNCTION (QUANTITATIVE ? PER TRIAL): PENETRATION / ASPIRATION SCALE (HARMON): 1 = does not enter airway 2 = enters airway/above vocal folds/ejected 3 = enters airway/above vocal folds/not ejected 4 = enters airway/contacts vocal folds/ejected 5 = enters airway/contacts vocal folds/not ejected 6 = enters airway/below vocal folds/ejected 7 = enters airway/below vocal folds/not ejected despite effort 8 = enters airway/below vocal folds/no effort VIDEOFLOROSCOPIC SCALE SCORE (HARMON): Grade I = aspiration of material that has penetrated into the laryngeal vestibule, intact cough reflex Grade II = aspiration < 10 % of the bolus, intact cough reflex Grade III = aspiration of < 10 % of the bolus, reduced cough reflex or aspiration of > 10 % of the bolus, intact cough reflex Grade IV = aspiration of > 10 % of the bolus, reduced cough reflex Penetration-Aspiration Scale Score Thin Liquid via teaspoon: Result: 2= enter airway/above vocal folds/ejected Thin Liquid via teaspoon Trial 2: Result: 7= enters airways/below vocal folds/not ejected despite effort (reflexive throat clear cleared contrast from the laryngeal vestibule, but not the airway) Thin Liquid via small single sip: cup: Result: 5= enters airways/contacts vocal folds/not ejected [place] Thick Liquid via small single sip: cup: Result: 2= enter airway/above vocal folds/ejected Comment: Post prandial aspiration of residues of previous trial remaining in the pyriforms - reflexive throat clear cleared contrast from the laryngeal vestibule, but not the airway. Pudding via teaspoon: Comment: Esophageal screen - full clearance. /2 Cookie: Result: 1= does not enter airway Thin Liquid via sequential sips:straw: Result: 2= enter airway/above vocal folds/ejected Chin tuck to attempt clearing cookie residues in the vallecula: Comment: Not effective Pudding via teaspoon Trial 2: Result: 1= does not enter airway Comment: Puree wash attempted - not effective. Head rotation to attempt clearing residues: Comment: Not effective. Thin Liquid via small single sip: cup Trial 2: Result: 7= enters airways/below vocal folds/not ejected despite effort (Reflexive throat clear cleared contrast from the laryngeal vestibule, but not the airway.) Oral Phase Labial Seal: Escape beyond mid-chin Tongue Control During Bolus Hold: Posterior escape of less than half of bolus Bolus Preparation/Mastication: Disorganized chewing/mashing with solid pieces of bolus unchewed (small pieces in tongue base appeared unchewed) Bolus Transport/Lingual Motion: Minimal to no tongue motion (Present, but greatly restricted tongue motion for A-P transport s/p hemiglossectomy of tongue base) Oral Residue: Majority of bolus remaining Pharyngeal Phase Initiation of Pharyngeal Swallow: Bolus head in pyriforms Soft Palate Elevation: No bolus between soft palate and pharyngeal wall Laryngeal Elevation: Partial superior movement thyroid cart/partial apprx aryt-epig petiole Anterior Hyoid Excursion: Partial anterior movement (minimal) Epiglottic Movement: Partial inversion Laryngeal Vestibule Closure at Height of Swallow: Incomplete; narrow column of air/contrast in laryngeal vestibule Pharyngeal Stripping Wave: Present - diminished Pharyngoesophageal Segment Opening: Parital distension and partial duration; parital obstruction of flow Tongue Base Retraction: Wide column of contrast between tongue base & post. pharyngeal wall Pharyngeal Residue: Majority of contrast within or on pharyngeal structures Esophageal Phase Esophageal Clearance: Complete clearance Diagnosis/Impression Diagnosis: Moderate oropharyngeal phase dysphagia R13.12 Impression: The oral phase is primarily marked by... -Decreased bolus control with majority of the bolus spilling posteriorly to the vallecula prior to swallow onset. Portion of certain thin liquid trials spilled to the pyriforms prior to swallow onset. -Slowed and decreased tongue motion for A-P transport s/p hemiglossectomy. -Decreased mastication likely due to restricted tongue ROM and bolus control. -Moderate-severe residues in the oropharynx, most effectively cleared with liquid wash and multiple swallows. The pharyngeal phase is primarily marked by... -Decreased airway closure during the swallow due to little to no anterior hyoid excursion, partial epiglottic inversion, and decreased laryngeal elevation. Aspiration of thin liquids 3X (2X during the swallow, 1X after the swallow spilling from the pyriforms). -Severely decreased tongue base retraction, mildly decreased UES opening/duration, and mildly decreased pharyngeal stripping wave with resulting moderate-severe pharyngeal residues after the swallow. This residue was most effectively cleared with liquid wash. Recommendations Diet: Mechanical Soft Textures (Soft and bite size textures (IDDSI Level 6)) and Thin Liquids Comment: Cough and re-swallow on each sip Compensatory Strategies: Small Bites, Small Sips, Slow Rate, Multiple Swallows, Alternate bites/solids and sips/liquids, Sitting upright and Remain sitting upright for 30 minutes after PO intake Recommend Repeat Modified Barium Swallow: Yes Comment: Repeat MBS study in 6-12 months to monitor swallow function as the patient is at risk for worsening dysphagia and aspiration risk s/p radiation treatment. Need for Skilled Speech Therapy Services: Yes Comment: Will recommend the patient for outpatient dysphagia therapy to address deficits in oropharyngeal swallow function. Will recommend the patient for oropharyngeal strengthening to improve lingual ROM/retraction, laryngeal elevation/hyoid excursion, and duration of UES opening. The patient would benefit from thorough education regarding diet recommendations and recommended compensatory strategies. Education Completed: 1. Described result of evaluation. and 2. Pt understands evaluation & agrees with goals and treatment plan. Status Active ST Patient: Active Contact Information [facility] Speech Therapy:: Nathalie Sierra M.A. CCC-IMAGING ACCOUNT MANAGER Speech-Language Pathologist [facility] [address] [place] [id number] [email or web address] 09/02/23 [id number] <Electronically signed by Nathalie Sierra M.A., CCC-IMAGING ACCOUNT MANAGER> Date/Time Nathalie Sierra M.A., CCC-IMAGING ACCOUNT MANAGER Co-Signature Required for all Medicare patients Date/Time Co-Signature
--- NOTE | 2023-09-14 15:02 | HP.SPREEV_ITS ---
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 He then had 7 weeks of radiation treatment (07/2021- 09/2021). He had feeding tube dependence, but was able to stop using tube feeding in early December 2021 and had it removed late December 2021. He was following speech therapy with SCHOOL PHOTOGRAPHER, Cristy Rogers, at the . She referred him locally to this SCHOOL PHOTOGRAPHER to address articulation deficits related to tongue cancer initially, then dysphagia POC, as well. He is following another therapist for lymphedema management. Other PMH: 3 falls this year with pelvic wrist fractures (04/2023) and rib fractures (07/2023), Heart valve implant (07/2023), Gastric bypass surgery (2010), kidney failure (2011), kidney transplant (2017), TIA (August 2020). The patient was last seen for dysphagia therapy 11/2022 with training of EMST and oropharyngeal exercises (Nuvia and EUGENIO). MBSS 07/07/2022 (completed at [facility] by SCHOOL PHOTOGRAPHER, Cristy Rogers): The patie nt presented with moderate oropharyngeal dysphagia, primary deficits seen in the oral phase. Consistent laryngeal penetration of liquids with mostly effective reflexive throat clear, trace aspiration 1X. He was recommended for soft and bite size textures / thin liquids with upright posture, slight head tilt forwards to help with bolus control, small bites/sips, slow rate, swallow several times to clear food from the oral cavity and BOT region, alternate bites and sips to clear food from the oral cavity. MBSS 09/02/2023: Moderate oropharyngeal phase dysphagia with oral deficits in bolus control due to restricted tongue ROM, moderate-severe residues in the oropharynx most effectively cleared with liquid wash and multiple swallows, decreased airway closure during the swallow due to little to no anterior hyoid excursion, partial epiglottic inversion, and decreased laryngeal elevation. Aspiration of thin liquids 3X (2X during the swallow, 1X after the swallow spilling from the pyriforms). He was recommended for Soft and bite size textures (IDDSI Level 6) and Thin Liquids with Cough and re-swallow on each sip, Small Bites, Small Sips, Slow Rate, Multiple Swallows, Alternate bites/solids and sips/liquids, Sitting upright and Remain sitting upright for 30 minutes after PO intake. The patient has been consuming soft and bite size foods / thin liquids since MBSS 09/02/2023 without concerns for difficulty swallowing. He reports no problem drinking water, but a terrible time drinking coffee. He is currently taking 2 immunosuppressants for his kidneys. 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 Goal 1 Status: LIMITED PROGRESS - Soft and bite size textures / thin liquids; however, increased aspiration per most recent MBSS as compared to MBSS completed in 2021. Previous Goal #2: The patient will complete an oropharyngeal exercise program post radiation treatment independently to improve and maintain strength, ROM, and coordination of swallowing mechanism (CTAR and Nuvia X10 repetitions, 3-5X daily; maintenance EMST 5 reps, 5X daily, 2-3 days/week). Goal 2 Status: PROGRESSING - EMST program and maintenance program completed. Will further implement oropharyngeal strengthening exercises. Previous Goal #3: The patient will participate in MBS study to objectively ass ess swallow function and provide recommendations for safest, least restrictive diet and compensatory strategies to reduce risk for aspiration. Goal 3 Status: PROGRESSING - MBSS completed 09/02/2023. SEE attached report for full details. Next MBSS planned in 6-12 months. Previous Goal #4: The patient will participate in ongoing education re: short-term and long-term effects of radiation treatment on swallow function and management of symptoms that contribute to dysphagia. Goal 4 Status: PROGRESSING - Patient requires continued education re: half-way effects of radiation treatment that impact swallow function and increase risk for worsening dysphagia/aspiration. Modified Barium Results Hx If Applicable Enter into a NOTE MBS Report Entered: Yes MBS Results (from prior exam): 09/14/23 14:57 Speech Therapy by Nathalie Sierra [facility] Speech Pathology [id number], [place] [address] Modified Barium Swallow Study MR#: [id number] Acct: [id number] Name: KELTON MEDINA CONRADO Rep #:[id number] : 1950 73 From: Nathalie Sierra M.A., [facility]-SCHOOL PHOTOGRAPHER Modified Barium Swallow Patient Information Study Date: 09/02/23 Study Time: 13:00 Direct Billable Minutes: 87 Total Minutes procedure & reportin Diagnosis: Tongue cancer (C02.9) Referring Physician: James Eden Reason for Referral: Annual MBSS recommended s/p radiation treatment for tongue cancer as the patient is at risk for worsening dysphagia due to half-way effects of radiation treatment.? SCHOOL PHOTOGRAPHER will objectively assess swallow function, assess risk for aspiration, and determine recommendations for least restrictive diet textures and compensatory strategies to improve safety of swallow. 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 He then had 7 weeks of radiation treatment (07/2021-09/2021). He had feeding tube dependence, but was able to stop using tube feeding in early December 2021 and had it removed late December 2021. He was following speech therapy with SCHOOL PHOTOGRAPHER, Cristy Rogers, at the . She referred him locally to this SCHOOL PHOTOGRAPHER to address articulation deficits related to tongue cancer initially, then dysphagia POC, as well. He is following another therapist for lymphedema management. Other PMH: 3 falls this year with pelvic wrist fractures (04/2023) and rib fractures (07/2023), Heart valve implant (07/2023), Gastric bypass surgery (2010), kidney failure (2011), kidney transplant (2017), TIA (August 2020). The patient was last seen for dysphagia therapy 11/2022 with training of EMST and oropharyngeal exercises (Nuvia and CTAR). Per patient report, he feels his swallow has neither improved nor worsened since he was last seen. Most recent MBSS 07/07/2022 completed at [facility] by SCHOOL PHOTOGRAPHER Cristy Rogers: The patient presented with moderate oropharyngeal dysphagia, primary deficits seen in the oral phase. Study was comparable to most recent study. He had consistent laryngeal penetration of liquids with mostly effective reflexive throat clear, trace aspiration 1X. He was recommended for soft and bite size textures / thin liquids with upright posture, slight head tilt forwards to help with bolus control, small bites/sips, slow rate, swallow several times to clear food from the oral cavity and BOT region, alternate bites and sips to clear food from the oral cavity. Current Diet Ordered: Soft and bite size textures / Thin liquids Dentition: Natural Teeth and Missing Teeth Mental Status: WNL Respiratory Status: Oxygenating on Room Air Penetration-Aspiration Scale Penetration-Aspiration Scale: OBJECTIVE ASSESSMENT OF SWALLOW FUNCTION (QUANTITATIVE ? PER TRIAL): PENETRATION / ASPIRATION SCALE (HARMON): 1 = does not enter airway 2 = enters airway/above vocal folds/ejected 3 = enters airway/above vocal folds/not ejected 4 = enters airway/contacts vocal folds/ejected 5 = enters airway/contacts vocal folds/not ejected 6 = enters airway/below vocal folds/ejected 7 = enters airway/below vocal folds/not ejected despite effort 8 = enters airway/below vocal folds/no effort VIDEOFLOROSCOPIC SCALE SCORE (HARMON): Grade I = aspiration of material that has penetrated into the laryngeal vestibule, intact cough reflex Grade II = aspiration < 10 % of the bolus, intact cough reflex Grade III = aspiration of < 10 % of the bolus, reduced cough reflex or aspiration of > 10 % of the bolus, intact cough reflex Grade IV = aspiration of > 10 % of the bolus, reduced cough reflex Penetration-Aspiration Scale Score Thin Liquid via teaspoon: Result: 2= enter airway/above vocal folds/ejected Thin Liquid via teaspoon Trial 2: Result: 7= enters airways/below vocal folds/not ejected despite effort (reflexive throat clear cleared contrast from the laryngeal vestibule, but not the airway) Thin Liquid via small single sip: cup: Result: 5= enters airways/contacts vocal folds/not ejected [place] Thick Liquid via small single sip: cup: Result: 2= enter airway/above vocal folds/ejected Comment: Post prandial aspiration of residues of previous trial remaining in the pyriforms - reflexive throat clear cleared contrast from the laryngeal vestibule, but not the airway. Pudding via teaspoon: Comment: Esophageal screen - full clearance. 1/2 Cookie: Result: 1= does not enter airway Thin Liquid via sequential sips:straw: Result: 2= enter airway/above vocal folds/ejected Chin tuck to attempt clearing cookie residues in the vallecula: Comment: Not effective Pudding via teaspoon Trial 2: Result: 1= does not enter airway Comment: Puree wash attempted - not effective. Head rotation to attempt clearing residues: Comment: Not effective. Thin Liquid via small single sip: cup Trial 2: Result: 7= enters airways/below vocal folds/not ejected despite effort (Reflexive throat clear cleared contrast from the laryngeal vestibule, but not the airway.) Oral Phase Labial Seal: Escape beyond mid-chin Tongue Control During Bolus Hold: Posterior escape of less than half of bolus Bolus Preparation/Mastication: Disorganized chewing/mashing with solid pieces of bolus unchewed (small pieces in tongue base appeared unchewed) Bolus Transport/Lingual Motion: Minimal to no tongue motion (Present, but greatly restricted tongue motion for A-P transport s/p hemiglossectomy of tongue base) Oral Residue: Majority of bolus remaining Pharyngeal Phase Initiation of Pharyngeal Swallow: Bolus head in pyriforms Soft Palate Elevation: No bolus between soft palate and pharyngeal wall Laryngeal Elevation: Partial superior movement thyroid cart/partial apprx aryt- epig petiole Anterior Hyoid Excursion: Partial anterior movement (minimal) Epiglottic Movement: Partial inversion Laryngeal Vestibule Closure at Height of Swallow: Incomplete; narrow column of air/contrast in laryngeal vestibule Pharyngeal Stripping Wave: Present - diminished Pharyngoesophageal Segment Opening: Parital distension and partial duration; parital obstruction of flow Tongue Base Retraction: Wide column of contrast between tongue base & post. pharyngeal wall Pharyngeal Residue: Majority of contrast within or on pharyngeal structures Esophageal Phase Esophageal Clearance: Complete clearance Diagnosis/Impression Diagnosis: Moderate oropharyngeal phase dysphagia R13.12 Impression: The oral phase is primarily marked by... -Decreased bolus control with majority of the bolus spilling posteriorly to the vallecula prior to swallow onset. Portion of certain thin liquid trials spilled to the pyriforms prior to swallow onset. -Slowed and decreased tongue motion for A-P transport s/p hemiglossectomy. -Decreased mastication likely due to restricted tongue ROM and bolus control. -Moderate-severe residues in the oropharynx, most effectively cleared with liquid wash and multiple swallows. The pharyngeal phase is primarily marked by... -Decreased airway closure during the swallow due to little to no anterior hyoid excursion, partial epiglottic inversion, and decreased laryngeal elevation. Aspiration of thin liquids 3X (2X during the swallow, 1X after the swallow spilling from the pyriforms). -Severely decreased tongue base retraction, mildly decreased UES opening/duration, and mildly decreased pharyngeal stripping wave with resulting moderate-severe pharyngeal residues after the swallow. This residue was most effectively cleared with liquid wash. Recommendations Diet: Mechanical Soft Textures (Soft and bite size textures (IDDSI Level 6)) and Thin Liquids Comment: Cough and re-swallow on each sip Compensatory Strategies: Small Bites, Small Sips, Slow Rate, Multiple Swallows, Alternate bites/solids and sips/liquids, Sitting upright and Remain sitting upright for 30 minutes after PO intake Recommend Repeat Modified Barium Swallow: Yes Comment: Repeat MBS study in 6-12 months to monitor swallow function as the patient is at risk for worsening dysphagia and aspiration risk s/p radiation treatment. Need for Skilled Speech Therapy Services: Yes Comment: Will recommend the patient for outpatient dysphagia therapy to address deficits in oropharyngeal swallow function. Will recommend the patient for oropharyngeal strengthening to improve lingual ROM/retraction, laryngeal elevation/hyoid excursion, and duration of UES opening. The patient would benefit from thorough education regarding diet recommendations and recommended compensatory strategies. Education Completed: 1. Described result of evaluation. and 2. Pt understands evaluation & agrees with goals and treatment plan. Status Active ST Patient: Active Contact Information [facility] Speech Therapy:: Nathalie Sierra M.A. [facility]-SCHOOL PHOTOGRAPHER Speech-Language Pathologist [facility] [address] [place] [address] [email or web address] 09/02/23 [id number] <Electronically signed by Nathalie Sierra M.A. CCC-SCHOOL PHOTOGRAPHER> Date/Time Nathalie Sierra M.A. 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 The patient is at risk for worsening dysphagia and aspiration risk s/p radiation treatment. POC to include education re: recommended aspiration precautions, half-way impacts of radiation on swallowing function, and recommended oropharyngeal exercise program. Recommendations MBS: Yes Treatment Warranted: Yes Treatment Warranted: Dysphagia Progress Prognosis: Fair Frequency Frequency: Monthly Additional (Frequency): Frequency to change depending on need during POC. Duration: 12 Months Patient/Family Goal Patient/Family Goal: Maintain swallow function Goals that are Established Determination:: Goals will be added/modified as deemed necessary and appropriate. Therapy will be discontinued when results of re-evaluation indicate therapy is no longer needed or lack of progress has been documented. Goal #1-5 Goal #1: The patient will consume least restrictive diet textures without overt s/s of aspiration with minimal verbal cues for use of compensatory strategies to decrease risk for aspiration. Goal #2: The patient will complete an oropharyngeal exercise program post radiation treatment independently to improve and maintain strength, ROM, and coordination of swallowing mechanism (Tongue retractions, Nuvia, Effortful b reath hold and swallow, and Wilma X10 repetitions, 3-5X daily; maintenance EMST 5 reps, 5X daily, 2-3 days/week). Goal #3: The patient will participate in MBS study to objectively assess swallow function and provide recommendations for safest, least restrictive diet and compensatory strategies to reduce risk for aspiration. Goal #4: The patient will participate in ongoing education re: short-term and long-term effects of radiation treatment on swallow function and management of symptoms that contribute to dysphagia. Education Patient has Indicated that the Following Identified Educational Needs: None The Patient has indicated that they have no educational or learning abilities that may effect their care.: Yes Patient Instruction Patient Education: Treatment Plan, Safety Precautions, Diet Level and Home Exercise Program Person Taught: Patient Teaching Method: Discussion, Demonstration and Teach back Response to teaching: Return demonstration, Verbalize understanding and Reinforcement needed
--- NOTE | 2024-05-11 12:41 | HP.SP.EVAL ---
Visit History Visit Info Date of Eval: 05/11/24 Visit: 1 Insurance Date Limit: 10/18/23 Small Brake Form Operator: HECTOR History Attending Doctor: Referring Doctor: Reason for Referral: TONGUE CANCER/RX SCANNED INTO CHART Medical Diagnosis: Tongue Cancer C02.9 Date of Onset of Diagnosis: 06/19/2021 Other Relevant Medical History/Diagnoses/Surgery: Other PMH: Dysphagia s/p hemiglossectomy (06/2021) with radiation treatment 07/2021-09/2021); falls w/ pelvic and wrist fractures (04/2023) and rib fractures (07/2023), fall w/ pelvic fracture (02/11/2024), Heart valve implant (07/2023), Gastric bypass surgery (2010), kidney failure (2011), kidney transplant (2017), TIA (August 2020), alcohol use, diabetes, high cholesterol, hx of irregular heartbeat, hx of colitis, HTN, low iron, prostate disease, CVA (August 2020), syncope (see EMR for full PMH). 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 He then had 7 weeks of radiation treatment (07/2021-09/2021). He had feeding tube dependence, but was able to stop using tube feeding in early December 2021 and had it removed late December 2021. He was following speech therapy with MET[employer]PA[employer]OP SUPERVISOR, Cristy Rogers, at the . She referred him locally to this [employer]PA[employer] SUPERVISOR to address articulation deficits related to tongue cancer initially, then dysphagia POC, as well. He is followed by an OT for lymphedema management. He was consuming soft solids / thin liquids with aspiration precautions prior to hospitalization described below. Recent admission to [facility] ED 02/11/24 with left hip pain after a fall at home. Patient was found on left hip x-ray to have a left intratrochanteric hip fracture. He was admitted for management of hip fracture and hypokalemia with surgery completed on 02/12/24. He was referred for ST consult during stay due to history of dysphagia s/p hemiglossectomy for tongue cancer. He was initially placed on a softened diet, but he was advanced to regular textures during stay. He had increased difficulty and presented with consistent throat clearing across all textures on 02/15/24 and METER RE[employer]OP SUPERVISOR recommended repeat MBSS. MBSS 02/16/24 revealed significant aspiration of thin liquids and minimal to no pharyngeal clearance of pudding with inability to expectorate oropharyngeal residues requiring Yankauer suction. Pt was made NPO with water after oral care and meds dissolved in water only. [employer]OP SUPERVISOR recommended GI reconsult with repeat MBSS prior to diet advancement. EGD completed 02/17/24 with dilation of severe esophageal stenosis. Repeat MBSS 02/18/24 to consider diet advancement. MBSS 02/18/24 revealed severe oropharyngeal dysphagia and recommended Full Cogswell/Mildly Thick Liquids ? Strict aspiration precautions, FFWP, Distant supervision. He was transferred to inpatient rehab for skilled PT, OT, and ST. He participated in dysphagia therapy with myofascial release in junction with oropharyngeal and neck ROM exercise program. Repeat MBSS 03/03/2024 recommended: Diet: Puree Textures (MOIST Purees) and Thin Liquids; Comment: Alcantara Free Water Protocol - After meals, clean mouth thoroughly, wait 30 min, and consume water BY ITSELF to encourage improved hydration. Compensatory Strategies: Small Bites (Liquid wash after every bite), Small Sips (Cough and re-swallow after every sip), Slow Rate, Multiple Swallows, Alternate bites/solids and sips/liquids, Sitting upright (Sit slightly reclined so NECK IS UPRIGHT) and Remain sitting upright for 30 minutes after PO intake; Supervision: Distant Supervision. He was discharged home shortly after with HH therapies. Pt and report the following since leaving inpatient rehab unit: He was doing well and had home therapies (PT, OT). Of note, his swallowing has continued to give him difficulty, but he has had no follow-up ST since leaving inpatient rehab. ~ 2.5-3 weeks ago, he became extremely weak. Dr. Eden had him COVID test and do a respiratory panel, and he was negative. Physician suspected he was fighting a virus. He has had increased difficulty participating in PT this week. He has severe back pain. Of note, he saw his neurologist for routine follow up 05/06/24. He was concerned for CVA with fall with loss of consciousness that caused his hip fracture. Brain MRI 05/10/24, which revealed acute changes in R frontal lobe and R cerebellum suggestive of an embolic source. Pt and have noticed somewhat of a decline in attention with all his health changes. When radiation oncologist, Dr. William, heard he had swelling with his esophagus s/p EGD, she recommended he resume using lymphedema vest. Smoking Status: Never smoker Diagnosis Diagnosis: Tongue cancer (C02.9) Pain Is pain an issue with your current prescribed condition?: No Personal Preferred language: [place] Patient Allergies Allergies Allergies: Allergies amoxicillin Allergy (Verified 04/06/24 10:50) Unknown ursodiol Allergy (Verified 04/06/24 10:50) Rash exenatide (From [employer]) Adverse Reaction (Verified 04/06/24 10:50) Nausea morphine Adverse Reaction (Verified 04/06/24 10:50) paranoid and hallucinations Subjective Dysphagia Symptoms Reported Symptoms/Problems with: Difficulty Swallowing Solids, Difficulty Swallowing Liquids, Food gets stuck and Hx of Aspiration Other: Some pills whole (capsules) w/ smoothie Current Diet Solids Current Diet: Mechanical Soft Other: Mostly puree Current Diet Liquids Current Liquids: Thin Comments Comment: -: When he first left the inpatient rehab unit, he began trying sandwiches, soft solids, but now he has limited solids (just soft deli meats, peaches, and [place] cheese). Solids sometimes feel stuck. Pt is consuming a lot of cream of tomato soup, yogurt. He is drinking smoothies, boost, apple juice, gatorade, and a lot of water because his creatin numbers have been poor. He is swallowing capsules and Tylenol whole with smoothie. Most days he can get them down, but some days the pills feel stuck and he has to wait a long time for them to get down. He gets full quickly. No choking; however, occasionally he gets a wad of food stuck in your throat, which he has been able to get up. Objective Dysphagia Administered by Administered by: Self Thin Liquids Administred via: Spoon Oral Transit: Delay > 1 seconds Bolus clearance: significant clearance/minimal residue Cough: immediate Pharyngeal phase: laryngeal elevation mildly restricted slow initiation Comments: Coughing (reflexive following 1 drink), volitional cough/hard throat clear and re-swallow after drinks after [employer] SUPERVISOR reviewed strategies. Pureed Administered via: Spoon Oral Transit: Delay > 1 seconds Bolus clearance: some clearance/residue Pharyngeal phase: laryngeal elevation mildly restricted slow initiation Comments: Consistent throat clearing after bites. Pt utilized liquid wash after every 1-2 bites. Did not assess solids due to known hx of poor pharyngeal clearance and [employer] SUPERVISOR concerns for choking. Swallowing Impairment Contributing Factors to Swallowing Impairment: Reduced Oral Strength/Coordination/Sensation, Mastication Inefficiency, Impaired Oral-Pharyngeal Transport, Delayed Swallow Initiation, Reduced Laryngeal Excursion and Other (Decreased pharyngeal contraction) Other: Per most recent MBSS Impact Impact on Safety & Functioning: Risk for Aspiration and Risk for Inadequate Nutrition/Hydration Diet Texture Recommendations Solids: Pureed (Level 4) Liquids: Thin (Level 0) Other liquids: Thin Alcantara free water Protocol: Yes Other: The patient is a high choking risk (especially with solids) and high aspiration risk. Safety Other: Small Bites (Liquid wash after every bite), Small Sips (Cough and re-swallow after every sip), Slow Rate, Multiple Swallows, Alternate bites/solids and sips/liquids, Sitting upright (Sit slightly reclined so NECK IS UPRIGHT) and Remain sitting upright for 30 minutes after PO intake Results Swallowing Within Normal Limits: No Swallowing Diagnosis: Oropharyngeal Phase Dysphagia (R13.12) Severity: Severe Subjective Oral Motor Subjective Patient Reports: Drooling Objective Oral Motor Oral Status Dentition: Missing Teeth Labial Impairment: WNL Closure: Drooling Pucker: WNL Retraction: WNL Alternating Pucker/Retraction: WNL Lingual Impairment: Severe Observation: Deviated Right Protrusion: Mild Retraction: Severe Lateralization: Severe Lingual Comments Comments: Mild deficits with lingual protrusion. Mild-moderate deficits with lingual elevation and lateralization R. Severe deficits with lingual retraction and lateralization L. Oral Motor Comments Comments: Intermittent drooling likely d/t difficulty managing oral secretions from impaired A-P transport s/p hemiglossectomy. Respiratory Status Respiratory Status: Room Air Reference: Neuro-QoL instrument Radiation Oncology Patient FOIS Functional Oral Intake Scale Total oral diet with multiple consistencies, but requiring special preparation or compensations: Level 5 Other Other Marketing Researcher Consult: -: [employer] SUPERVISOR has concerns for malnutrition and weight loss given severe oropharyngeal dysphagia. Plan Plan Plan: Will recommend OP dysphagia treatment to address severe oropharyngeal dysphagia s/p hemiglossectomy with flap reconstruction, left pharyngeal space exploration, and selective neck dissection (06/2021) with radiation treatment (07/2021-09/2021). POC to include training the patient in use of strategies to decrease risk for aspiration, ongoing assessment of diet tolerance of recommended textures, and training the patient in oropharyngeal and neck ROM exercise programs. Will recommend implementing exercise programs in junction with myofascial release if cleared by radiation oncologist and PCP. Without skilled ST services, the patient is at increased risk for choking, aspiration, dehydration, and malnutrition. Recommendations MBS: Yes Treatment Warranted: Yes Treatment Warranted: Dysphagia Comment: Repeat MBSS 6-12 months from previous MBSS (03/03/2024). Progress Prognosis: Fair Frequency Frequency: 1x/Week Additional (Frequency): Frequency to change depending on need during POC. Duration: 12 Months Patient/Family Goal Patient/Family Goal: Improve swallow function Goals that are Established Determination:: Goals will be added/modified as deemed necessary and appropriate. Therapy will be discontinued when results of re-evaluation indicate therapy is no longer needed or lack of progress has been documented. Goal #1-5 Goal #1: The patient will consume least restrictive diet textures without overt s/s of aspiration with minimal verbal cues for use of compensatory strategies to decrease risk for aspiration. Goal #2: The patient will complete an oropharyngeal exercise program X10-15 reps, 3-5X daily with minimal verbal cues to improve strength, ROM, and coordination of swallowing mechanism. [Myofascial release to be completed with oropharyngeal and neck ROM exercises pending clearance from oncologist and PCP. MET[employer] REPA[employer] SUPERVISOR to call physician and oncologist after pt obtains results of follow up ultrasound for DVT.] Goal #3: The patient will participate in MBSS or FEES to routinely objectively assess swallow function and provide recommendations for safest, least restrictive diet and compensatory strategies to reduce risk for aspiration given patient's risk for worsening dysphagia s/p radiation treatment for tongue cancer. Goal #4: The patient will complete neck ROM exercises X10-20 reps, 3-5X daily with minimal verbal cues to maintain neck mobility and optimal swallow function s/p radiation treatment. Education Patient has Indicated that the Following Identified Educational Needs: None The Patient has indicated that they have no educational or learning abilities that may effect their care.: Yes Patient Instruction Patient Education: Diagnosis, Treatment Plan, Goals, Safety Precautions and Diet Level Person Taught: Patient and Family Teaching Method: Discussion Response to teaching: Verbalize understanding and Has Prior Knowledge
--- NOTE | 2024-10-18 12:27 | HP.SP.DC ---
ST Discharge Summary Discharged: Discharge: The patient participated in dysphagia POC from 08/05/2022 to 05/11/2022 for oropharyngeal dysphagia secondary to hx of tongue cancer. Since April, pt has experienced further medical issues, been hospitalized at and discharged to SNF where he is now receiving ST services. Pt's OP dysphagia therapy chart will be discharged at this time.
== END 2024-05-11 19:00 | disposition home or self-care (01) ==
LOC: SP 10:30
PROVIDERS: PCP Family Medicine; Referring Provider Family Medicine; Visit Provider Family Medicine
DX: C02.9 Malignant neoplasm of tongue, unspecified (principal); R47.81 Slurred speech; R13.12 Dysphagia, oropharyngeal phase; I82.462 Acute embolism and thrombosis of left calf muscular vein
CPT/HCPCS: 92507; 92522; 92526; 92610

== ENCOUNTER 2024-05-16 08:33 | Emergency (ER) | payer MEDICARE, OTHER, SELFPAY ==
[2024-05-16] VITALS (14 sets, daily range): BP systolic 150–177; BP diastolic 73–94; PULSE 63–93; RESP 15–22; TEMP 36.1–36.9; O2SAT 88–98; BMI 24.9
--- NOTE | 2024-05-16 08:54 | CT_ITS ---
STUDY: CT BRAIN WITHOUT CONTRAST REASON FOR EXAM: Male, 74 years old. ams, hx of stroke on MRI last week RADIATION DOSAGE (If Supplied By Facility): CTDIvol = ( 44.99 ) mGy, DLP = ( 779.24 ) mGycm TECHNIQUE: Transaxial CT imaging of the brain was performed without administration of intravenous contrast material. Individualized dose optimization techniques were used for this CT. COMPARISON: Comparison is made with prior CT scan dated September 17, 2020. FINDINGS: Normal soft tissue structures. Normal calvarium. There is mild cerebral atrophy with widening of the extra-axial spaces and ventricular dilatation. There are areas of decreased attenuation within the white matter tracts of the supratentorial brain, consistent with microvascular disease changes. Normal basal ganglia tiny lacunar in the right insular cortex. And thalami. Normal brainstem. There is mild cerebellar atrophy. Focal encephalomalacia in the posterior aspect of the left cerebellar hemisphere. Most likely secondary to prior localized ischemic insult. There is no intracranial hemorrhage. There are no findings of an acute ischemic infarction. Atherosclerotic plaque formation of the cavernous portions of the internal carotid arteries bilaterally. Normal visualized paranasal sinuses. CT/Brain/Head without Contrast IMPRESSION: Chronic involutional changes of the brain. Cerebellar atrophy and focal encephalomalacia in the posterior aspect of the left cerebellar hemisphere. Stable examination. Electronically Signed: Zelalem Gould MD at 9:57 EDT ,
--- NOTE | 2024-05-16 08:54 | EKG12_ITS ---
Test Reason : ALT LOC Blood Pressure : / mmHG Vent. Rate : 087 BPM Atrial Rate : 087 BPM P-R Int : 194 ms QRS Dur : 152 ms QT Int : 404 ms P-R-T Axes : 055 -38 096 degrees QTc Int : 486 ms Sinus rhythm with occasional Premature ventricular complexes and Premature atrial complexes Left axis deviation Left bundle branch block Abnormal ECG Confirmed by ANYI MOTA, LEE ([id number]), photograph editor JAMIL ASHER ([id number]) on 05/20/2024 9:55:27 AM Referred By: Confirmed By:DANETTE DE SANTIAGO MD
[2024-05-16] MEDS: 0.9% Normal Saline (1000mL) 1,000 ML 999 ML IV (09:01)
[2024-05-16 09:08] LABS: Bacteria 0 SEEN /hpf (None Seen); Mucous, Urine 0 SEEN /hpf (<or=2+)
[2024-05-16 09:11] LABS: Color, Urine Yellow (Yellow); Glucose, Dipstick Normal (Normal); Ketone-Dipstick Negative (Negative); Leukocyte Esterase-Dipstick 25 /ul (Negative); Nitrite-Dipstick Negative (Negative); Occult Blood-Urine 10 /ul (Negative); Protein-Dipstick 30 mg/dl (Negative); Specific Gravity, Urine 1.015 (1.002-1.030); Urine Bilirubin Dipstick Negative (Negative); Urine Clarity Clear (Clear); Urine Urobilinogen Normal (Normal)
[2024-05-16 09:13] LABS: Absolute Lymphocyte Count 0.34 X10^3/uL (0.83-4.51); Absolute Neutrophil Count 10.6 X10^3/uL (2.0-7.7); Basophil# 0.03 X10^3/uL; Basophil% 0.3 % (0-1); Eosinophil# 0.01 X10^3/uL; Eosinophils% 0.1 % (0-5); Hematocrit 26.3 % (40-54); Lymphocyte # 0.34 X10^3/ul (0.83-4.51); Lymphocyte % 2.9 % (19-41); Mean Corp Hgb Conc 34.2 g/dL (32-36); Mean Corpuscular Volume 93.6 fL (80-94); Mean Platelet Vol. 8.8 fl (6.2-12.0); Monocyte# 0.59 X10^3/uL; Monocyte% 5.1 % (0-10); NRBC Flagged by Analyzer 0 % (0-5); Neutrophil # 10.61 X10^3/uL (2.7-7.7); Neutrophil % 91.1 % (47-70); POSITIVE DIFFERENTIAL YES; Platelet Count 127 K/mm3 (150-450); RBC Distribution Width CV 13.9 % (11.6-14.6); RBC Distribution Width SD 47.3 fl (35.1-43.9); Red Blood Count 2.81 M/mm3 (4.6-6.2); White Blood Count 11.6 K/mm3 (4.4-11.0)
[2024-05-16 09:20] LABS: Red Blood Cells-Urine 0-5 SEEN /hpf (0-5); Squamous Epithelial Cells - UA 0-5 SEEN /hpf (0-5); White Blood Cells 0-5 SEEN /hpf (0-5)
[2024-05-16 09:35] LABS: ALB/GLOB Ratio 0.6 RATIO (0.9-2.4); AST(SGOT) 24 U/L (15-37); Alanine Aminotransfer ALT/SGPT 21 U/L (16-61); Alkaline Phosphatase 94 U/L (45-117); Anion Gap 7 (5-15); BUN 33 mg/dL (7-18); BUN/Creat Ratio 14.6 RATIO (10-20); Calcium,Total 6.9 mg/dL (8.5-10.1); Chloride 110 mmol/L (98-107); Creatinine, Serum 2.26 mg/dL (0.70-1.30); EST Glomerular Filtration Rate 30 mL/min (>60); Est Glom Filt Rate - Afr Amer 36 mL/min (>60); Globulin 3.4 g/dL (2.2-4.2); Glucose 91 mg/dL (74-106); Potassium 2.7 mmol/L (3.5-5.1); Protein, Total 5.4 g/dL (6.4-8.2); Sodium Level 135 mmol/L (136-145); Troponin-I HS 418 pg/mL (3.0-78.0)
[2024-05-16] MEDS: Potassium Chloride Oral Tablet 20 MEQ 40 MEQ PO (09:58)
[2024-05-16] MEDS: Potassium Chloride 10mEq/100mL 10 MEQ/100 ML IV.SOLN. 100 MEQ IV BOLUS (09:59)
--- NOTE | 2024-05-16 11:40 | EDS_ITS ---
HPI History of Present Illness Chief Complaint: Weakness Narrative Narrative: Patient is a 74-year-old male with a past medical history of tongue cancer status postresection and radiation therapy few years ago, kidney transplant in 2018, DVT on Eliquis, stroke who presented to the emergency department with chief complaint of worsening generalized weakness, altered mental status. According to the patient's at bedside she noted that throughout the weekend she noted that he had worsening confusion and noted that on Thursday of this past week he had an MRI at [facility] that showed a infarct concern for stroke however they note they are unsure when this happened. She states that he also had a MRI of his lower back and noted that he had a slipped disc. She states that he is extremely weak now and is having difficulty with ambulation. She states that his symptoms started around Thursday. She denies any noticing of slurring speech, drooping of the face. She denies any recent sick contacts. She did note that he had a fall on Thursday while he was attempting to shower however she states that he did not hit his head she was right there with him. [facility] Medical History Biventricular congestive heart failure Fall Chronic renal failure, stage 3b Hiatal hernia Tongue carcinoma BPH (benign prostatic hyperplasia) Dysphagia Carotid stenosis Immunosuppression due to chronic steroid use Esophageal stenosis Hx of tongue cancer Chronic anemia Chronic renal insufficiency Loss of hearing Wears glasses Diabetes Arthritis Hx of benign monoclonal gammopathy History of renal disease Low iron Fatty liver High cholesterol Easy bruising Back pain Injury of head and neck Stroke/cerebrovascular accident Syncope Dietary restriction History of colitis Non-smoker History of edema Hx of echocardiogram History of Holter monitoring History of stress test Cardiology follow-up encounter Hypertension History of irregular heartbeat Orthostatic hypotension HTN (hypertension) CVA (cerebral vascular accident) Home Medications ?Medication ?Instructions ?Recorded ?Last Taken ?Type finasteride 5 mg tablet 5 mg PO QHS PROSTATE 12/08/13 02/10/24 History calcitriol 0.25 mcg capsule 0.25 mcg PO QODAY SUPPLEMENT 04/21/17 02/11/24 History cyanocobalamin (vitamin B-12) 500 500 mcg PO DAILY@0900 vitamin 09/17/20 02/11/24 History mcg tablet folic acid 1 mg tablet 1 mg PO DAILY SUPPLEMENT 09/17/20 02/11/24 History sulfamethoxazole 400 1 tab PO DAILY atb 09/17/20 02/11/24 History mg-trimethoprim 80 mg tablet clopidogrel 75 mg tablet 75 mg PO DAILY blood thinner #30 09/18/20 02/11/24 Rx tabs pyridoxine (vitamin B6) 100 mg 200 mg PO BID vitamin 11/12/21 02/11/24 History tablet acyclovir 400 mg tablet 400 mg PO PRN PRN ANTIVIRAL 02/11/24 Unknown History cholecalciferol (vitamin D3) 125 125 mcg PO Q3D vitamin 02/11/24 02/09/24 History mcg (5,000 unit) capsule ferrous sulfate 325 mg (65 mg 325 mg PO DAILY vitamin 02/11/24 02/11/24 History iron) tablet (Feosol) potassium chloride 10 mEq 20 meq PO DAILY vitamin 02/11/24 02/11/24 History tablet,extended release prednisone 5 mg tablet 5 mg PO DAILY steroid 02/11/24 02/11/24 History tacrolimus 1 mg capsule, 2 mg PO QPM rejection 02/11/24 02/10/24 History immediate-release (Prograf) tamsulosin 0.4 mg capsule 0.4 mg PO QHS retention 02/11/24 02/10/24 History acetaminophen 500 mg tablet 1,000 mg (2 x 500 mg) PO Q8 PRN 03/04/24 Unknown Rx pain #1 TAB apixaban 5 mg tablet (Eliquis) 2.5 mg (1/2 x 5 mg) PO 03/04/24 Unknown Rx BID@0600,2200 #60 tabs tramadol 50 mg tablet 50 mg PO TID PRN Pain Score 1-10 03/04/24 Unknown Rx #15 tabs Allergy/AdvReac Type Severity Reaction Status Date / Time amoxicillin Allergy Unknown Verified 04/06/24 10:50 ursodiol Allergy Rash Verified 04/06/24 10:50 exenatide (From [place]) AdvReac Nausea Verified 04/06/24 10:50 morphine AdvReac paranoid Verified 04/06/24 10:50 and hallucinations Surgical History Renal transplant recipient History of esophagogastroduodenoscopy S/P arteriovenous (AV) fistula creation Hx of bariatric surgery Kidney transplant recipient Social History household members: significant other and other details: his 's name is Alisha housing: house number of children: 2 current occupational status: retired 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 Smoking Status: Never smoker alcohol intake: never details: Never drinks now for many years. In the past has been a social drinker. substance use type: does not use ROS ROS ED ROS Narrative Constitutional: Denies any headaches, fevers, chills, lightheadedness, dizziness, Eyes: Denies change in vision double vision blurry vision Cardiovascular: Denies chest pain or palpitations Respiratory: Denies coughing wheezing shortness of breath Abdomen: Denies abdominal pain nausea vomiting diarrhea : Denies any urinary symptoms Neurological: Complains of generalized weakness denies numbness or tingling Skin: Denies any rashes or lesions EXAM Physical Exam Narrative Exam Narrative: General: Patient lying in bed rest comfortably did not appear to be in acute distress Head: Atraumatic, normocephalic Eyes: Pupils equal round reactive to light bilaterally, extraocular muscles intact Rodick no conjunctival injection noted Neck: Soft, supple, trach midline Cardiovascular: Regular rhythm no murmurs gallops rubs noted Respiratory: Clear to auscultation bilaterally no rales rhonchi wheeze noted Abdomen: Soft, nondistended, nontender to palpation Musculoskeletal: All bony prominences palpated no pain elicited Extremities: +4/5 strength noted in the bilateral upper extremities, patient has +3/5 strength noted in the bilateral lower extremities, no pedal edema on exam Neurological: Patient following commands knew he is [facility] year is 2023 Skin: Warm, dry, intact Const Vital Signs: 05/16/24 08:33 05/16/24 09:37 05/16/24 10:00 Temperature 96.9 F L 98.1 F 98 F Temperature Source Temporal Oral Oral Pulse Rate 93 85 83 Respiratory Rate 22 H 19 H Respiratory Pattern Blood Pressure 159/87 H 158/81 H 156/87 H Blood Pressure Mean 111 106 110 Pulse Ox 95 94 94 Oxygen Delivery Method Room Air Room Air Room Air Oxygen Flow Rate (L/min) 05/16/24 10:44 05/16/24 11:00 05/16/24 11:52 Temperature 98.1 F Temperature Source Oral Pulse Rate 75 Respiratory Rate 18 Respiratory Pattern Normal Blood Pressure 177/88 H Blood Pressure Mean 117 Pulse Ox 98 88 Oxygen Delivery Method Room Air Room Air Oxygen Flow Rate (L/min) 05/16/24 11:53 05/16/24 11:59 05/16/24 13:00 Temperature 98.1 F Temperature Source Oral Pulse Rate 81 73 Respiratory Rate 18 16 Respiratory Pattern Blood Pressure 173/94 H 155/83 H Blood Pressure Mean 120 107 Pulse Ox 92 94 95 Oxygen Delivery Method Nasal Cannula Nasal Cannula Nasal Cannula Oxygen Flow Rate (L/min) 2 2 2 05/16/24 13:00 05/16/24 14:00 Temperature 98.2 F 98.1 F Temperature Source Oral Oral Pulse Rate 73 71 Respiratory Rate 16 15 Respiratory Pattern Blood Pressure 155/73 H 164/94 H Blood Pressure Mean 100 117 Pulse Ox 95 95 Oxygen Delivery Method Nasal Cannula Nasal Cannula Oxygen Flow Rate (L/min) 2 2 MDM MDM MDM Narrative Medical decision making narrative: Patient is a 74-year-old male who presented to the emerged part with a chief complaint of generalized weakness and confusion. Patient will have workup performed here on the differential diagnosis includes but not limited to intracranial hemorrhage, ACS, pneumonia, electrolyte abnormality, UTI. Once workup is obtained reviewed he will be reevaluated. Patient CBC reviewed and showed leukocytosis of 11,000, hemoglobin was noted to be 9 his previous blood draw was 8.5 on 03/02/2024, platelet count was noted to be 127, INR was notably 1.4, sodium was 135, patient was notably hypokalemic with a potassium of 2.7 he was given 40 mill equivalents orally and 40 mill equivalents of IV replacement here. Patient's creatinine is 2.26 however he has underlying chronic kidney disease, baseline does appear to be around 2-2.01, troponin was elevated here in the emergency department to 418 with a delta troponin obtained at 664. Patient was given aspirin here in the emergency department. Patient's EKG was reviewed and showed sinus rhythm with PVCs with a rate of 87 bpm that there was some depressions noted in the lateral leads V4 to V6 with other nonspecific changes noted. At 1154 a repeat EKG was obtained as well and reviewed and showed sinus rhythm with a rate of 75 beats per minutes the patient's depressions in leads V4 through V6 were improved and appeared stable. No concern for acute WI. Patient's proBNP was elevated 512, urinalysis did not reveal any evidence of infection. Patient's chest x-ray reviewed and showed no acute abnormality was seen. Patient CT head and brain was reviewed as well which showed chronic involutional changes of the brain cerebellar atrophy and focal encephalomalacia in the posterior aspect of the left cerebellar hemisphere. Did discuss the case with the watch and clock repair clerk here at [facility] Dr. Mckeon who is recommending transfer to [facility] where he has had all his other care and procedures done in case he needs a heart catheterization. He did recommend holding off on heparin until the patient's proBNP returned and his chest x-ray to ensure that this did not heart failure related. Once again the patient's proBNP did return elevated therefore hold off on heparin until talk to [facility]. Did discuss the case with Dr. [facility] watch and clock repair clerk who states that he will except the patient for admission and transfer and he states that the patient should be started on heparin which was ordered. Patient and family member at bedside were notified that he be transferred there for further evaluation management they are agreeable with this plan all question concerns were answered bedside. Lab Data Labs: Laboratory Results - last 24 hr 05/16/24 05/16/24 05/16/24 08:29 11:02 14:33 WBC 11.6 H RBC 2.81 L Hgb 9.0 L Hct 26.3 L MCV 93.6 MCH 32.0 MCHC 34.2 RDW Std Deviation 47.3 H RDW Coeff of Lacy 13.9 Plt Count 127 L MPV 8.8 Immature Gran % (Auto) 0.500 Neut % (Auto) 91.1 H Lymph % (Auto) 2.9 L Kern % (Auto) 5.1 Eos % (Auto) 0.1 Baso % (Auto) 0.3 Absolute Neuts (auto) 10.6 H Absolute Lymphs (auto) 0.34 L Nucleated RBC % 0 PT 16.6 H INR 1.4 APTT 38.0 H Sodium 135 L Potassium 2.7 L* Chloride 110 H Carbon Dioxide 18.0 L Anion Gap 7 BUN 33 H Creatinine 2.26 H Estim Creat Clear Calc 26.90 Est GFR (MDRD) Af Amer 36 L Est GFR (MDRD) Non-Af 30 L BUN/Creatinine Ratio 14.6 Glucose 91 Calcium 6.9 L Total Bilirubin 0.50 AST 24 ALT 21 Alkaline Phosphatase 94 Troponin I High Sens 418 H* 664 H* B-Natriuretic Peptide 512.3 H Total Protein 5.4 L Albumin 2.0 L Globulin 3.4 Albumin/Globulin Ratio 0.6 L Urine Color Yellow Urine Clarity Clear Urine pH 6.0 Ur Specific [place] 1.015 Urine Protein 30 H Urine Glucose (UA) Normal Urine Ketones Negative Urine Occult Blood 10 H Urine Nitrite Negative Urine Bilirubin Negative Urine Urobilinogen Normal Ur Leukocyte Esterase 25 H Urine RBC 0-5 SEEN Urine WBC 0-5 SEEN Ur Squamous Epith Cells 0-5 SEEN Urine Bacteria 0 SEEN Urine Mucus 0 SEEN Radiography Diagnostic Testing: Clinical Impression(s) from Imaging Studies Brain CT 05/16/24 08:54 IMPRESSION: Chronic involutional changes of the brain. Cerebellar atrophy and focal encephalomalacia in the posterior aspect of the left cerebellar hemisphere. Stable examination. Electronically Signed: Zelalem Gould MD at 9:57 EDT , Chest X-Ray 05/16/24 12:10 IMPRESSION: No acute abnormality is seen. Electronically Signed: Zelalem Gould MD at 12:32 EDT , Discharge Plan Triage Chief Complaint: Weakness Other Complaint: Alt LOC ED Provider: Luisito Cisneros Dx/Rx/DC Orders Prescriptions: No Action finasteride 5 MG tablet 5 mg PO QHS calcitriol 0.25 MCG capsule 0.25 mcg PO QODAY sulfamethoxazole-trimethoprim 1 EACH tablet 1 tab PO DAILY cyanocobalamin (vitamin B-12) 500 MCG tablet 500 mcg PO DAILY@0900 folic acid 1 MG tablet 1 mg PO DAILY clopidogrel 75 MG tablet 75 mg PO DAILY Qty: 30 0RF pyridoxine (vitamin B6) 100 mg Tablet 200 mg PO BID prednisone 5 mg tablet 5 mg PO DAILY potassium chloride 10 mEq tablet extended release 20 meq PO DAILY tamsulosin 0.4 mg capsule 0.4 mg PO QHS cholecalciferol (vitamin D3) 125 mcg (5,000 unit) capsule 125 mcg PO Q3D tacrolimus [Prograf] 1 mg capsule 2 mg PO QPM Rx Instructions: TAKE 3MG AT 9AM AND 2MG AT 9PM acyclovir 400 mg tablet 400 mg PO PRN PRN (Reason: ANTIVIRAL) ferrous sulfate [Feosol] 325 mg (65 mg iron) tablet 325 mg PO DAILY Eliquis 5 mg Tablet 2.5 mg PO BID@0600,2200 Qty: 60 1RF tramadol 50 mg Tablet 50 mg PO TID PRN (Reason: Pain Score 1-10) Qty: 15 0RF acetaminophen 500 mg Tablet 1,000 mg PO Q8 PRN (Reason: pain) Qty: 1 0RF Primary Care Provider: James Eden Referrals: James Eden MD [Primary Care Provider] - Print Language: Frisian
--- NOTE | 2024-05-16 11:44 | ED.RN ---
LAB WITH CRITICAL TROP OF 144. DR. WAGNER NOTIFED
[2024-05-16 11:45] LABS: Troponin-I HS 664 pg/mL (3.0-78.0)
--- NOTE | 2024-05-16 11:49 | EKG12_ITS ---
Test Reason : REPEAT Blood Pressure : / mmHG Vent. Rate : 075 BPM Atrial Rate : 075 BPM P-R Int : 202 ms QRS Dur : 144 ms QT Int : 414 ms P-R-T Axes : 019 -34 084 degrees QTc Int : 462 ms Normal sinus rhythm Left axis deviation Left bundle branch block Abnormal ECG Confirmed by ANYI MOTA, LEE ([id number]), online editor JAMIL ASHER ([id number]) on 05/20/2024 9:55:13 AM Referred By: Confirmed By:DANETTE DE SANTIAGO MD
[2024-05-16] MEDS: Aspirin 325 MG Tablet PO (11:55)
--- NOTE | 2024-05-16 12:10 | RAD_ITS ---
STUDY: X-RAY CHEST REASON FOR EXAM: Male, 74 years old. Sob TECHNIQUE: Single AP portable view of the chest. COMPARISON: Comparison is made with prior chest radiograph dated February 11, 2024. FINDINGS: EKG electrodes are seen. The lungs are clear and expanded. There is no demonstrated pleural abnormality. Normal size heart. Normal mediastinum and carolyn. Normal visualized pulmonary arteries. There is atherosclerotic calcification of the aortic arch with tortuosity. There are diffuse degenerative changes of the visualized thoracic spine. Healed right-sided rib fractures. There is no demonstrated abnormality of the visualized soft tissue structures of the upper abdomen. RAD/Chest 1 View (Portable) IMPRESSION: No acute abnormality is seen. Electronically Signed: Zelalem Gould MD at 12:32 EDT ,
[2024-05-16 12:46] LABS: BNP,B-Type NATRIURETIC PEPTIDE 512.3 pg/mL (0-100)
[2024-05-16 14:48] LABS: International Normalized Ratio 1.4; Prothrombin Time (Protime)PT. 16.6 SECONDS (11.7-14.9)
[2024-05-16] MEDS: HEPARIN/D5w 25,000 UNITS 25,000 UNITS/250 ML IV.SOLN. 9 UNITS CONT INF (14:57)
[2024-05-16] MEDS: Heparin Injection (Vial) 5,000 UNIT/ML VIAL IV (14:57)
== END 2024-05-16 19:10 | disposition short-term general hospital (02) ==
LOC: ED 10:03
PROVIDERS: Emergency Provider Emergency Medicine; PCP Family Medicine; Visit Provider Emergency Medicine
DX: R53.1 Weakness (principal); I13.0 Hypertensive heart and chronic kidney disease with heart failure and stage 1 through stage 4 chronic kidney disease, or unspecified chronic kidney disease; I50.82 Biventricular heart failure; E11.22 Type 2 diabetes mellitus with diabetic chronic kidney disease; N18.32 Chronic kidney disease, stage 3b; E78.00 Pure hypercholesterolemia, unspecified; E87.6 Hypokalemia; Z94.0 Kidney transplant status; Z79.01 Long term (current) use of anticoagulants; Z79.02 Long term (current) use of antithrombotics/antiplatelets; Z79.899 Other long term (current) drug therapy; Z86.73 Personal history of transient ischemic attack (TIA), and cerebral infarction without residual deficits; Z86.718 Personal history of other venous thrombosis and embolism
CPT/HCPCS: 70450; 71045; 80053; 81001; 83880; 84484; 85025; 85610; 85730; 93005; 96361; 96365; 96366; 96367; 99285; J7040; A4216

== ENCOUNTER 2024-07-17 12:14 | Emergency (ER) | payer MEDICARE, OTHER, SELFPAY ==
[2024-07-17] VITALS (8 sets, daily range): BP systolic 150–193; BP diastolic 71–85; PULSE 71–86; RESP 13–18; TEMP 36.7; O2SAT 97–100; BMI 23.3
--- NOTE | 2024-07-17 12:50 | EDS_ITS ---
HPI History of Present Illness Chief Complaint: General Illness Informant: spouse/S.O. Onset/Context/Timing Onset: Today Context: Sudden Onset Timing: Continuous Worsened by: Nothing Relieved by: Nothing Narrative Narrative: Patient presents with a clogged feeding tube that began today. states that the fci was unable to flush or aspirate from his feeding tube. states that the patient had a Dobbhoff feeding tube in place while he was at the main [facility]. Patient was transferred to a rehab facility where his tube became clogged. states that patient was transferred back to [facility] for possible PEG tube. states that they were unable to do this because of his heart condition. states that patient went 8 days without food or water through his Dobbhoff feeding tube while awaiting transfer to [facility]. states that the [facility] was able to replace the feeding tube. states that the feeding tube was working well until today. also states that the patient was transferred from the rehab facility at [facility] to [facility] this week. states that the tube feed was changed when he was transferred. is unsure if this is what caused the feeding tube to become clogged. [facility] Medical History Biventricular congestive heart failure Fall Chronic renal failure, stage 3b Hiatal hernia Tongue carcinoma BPH (benign prostatic hyperplasia) Dysphagia Carotid stenosis Immunosuppression due to chronic steroid use Esophageal stenosis Hx of tongue cancer Chronic anemia Chronic renal insufficiency Loss of hearing Wears glasses Diabetes Arthritis Hx of benign monoclonal gammopathy History of renal disease Low iron Fatty liver High cholesterol Easy bruising Back pain Injury of head and neck Stroke/cerebrovascular accident Syncope Dietary restriction History of colitis Non-smoker History of edema Hx of echocardiogram History of Holter monitoring History of stress test Cardiology follow-up encounter Hypertension History of irregular heartbeat Orthostatic hypotension HTN (hypertension) CVA (cerebral vascular accident) Home Medications ?Medication ?Instructions ?Recorded ?Last Taken ?Type finasteride 5 mg tablet 5 mg PO QHS PROSTATE 12/08/13 02/10/24 History calcitriol 0.25 mcg capsule 0.25 mcg PO QODAY SUPPLEMENT 04/21/17 02/11/24 History cyanocobalamin (vitamin B-12) 500 500 mcg PO DAILY@0900 vitamin 09/17/20 02/11/24 History mcg tablet folic acid 1 mg tablet 1 mg PO DAILY SUPPLEMENT 09/17/20 02/11/24 History sulfamethoxazole 400 1 tab PO DAILY atb 09/17/20 02/11/24 History mg-trimethoprim 80 mg tablet clopidogrel 75 mg tablet 75 mg PO DAILY blood thinner #30 09/18/20 02/11/24 Rx tabs pyridoxine (vitamin B6) 100 mg 200 mg PO BID vitamin 11/12/21 02/11/24 History tablet acyclovir 400 mg tablet 400 mg PO PRN PRN ANTIVIRAL 02/11/24 Unknown History cholecalciferol (vitamin D3) 125 125 mcg PO Q3D vitamin 02/11/24 02/09/24 History mcg (5,000 unit) capsule ferrous sulfate 325 mg (65 mg 325 mg PO DAILY vitamin 02/11/24 02/11/24 History iron) tablet (Feosol) potassium chloride 10 mEq 20 meq PO DAILY vitamin 02/11/24 02/11/24 History tablet,extended release prednisone 5 mg tablet 5 mg PO DAILY steroid 02/11/24 02/11/24 History tacrolimus 1 mg capsule, 2 mg PO QPM rejection 02/11/24 02/10/24 History immediate-release (Prograf) tamsulosin 0.4 mg capsule 0.4 mg PO QHS retention 02/11/24 02/10/24 History acetaminophen 500 mg tablet 1,000 mg (2 x 500 mg) PO Q8 PRN 03/04/24 Unknown Rx pain #1 TAB apixaban 5 mg tablet (Eliquis) 2.5 mg (1/2 x 5 mg) PO 03/04/24 Unknown Rx BID@0600,2200 #60 tabs tramadol 50 mg tablet 50 mg PO TID PRN Pain Score 1-10 03/04/24 Unknown Rx #15 tabs Allergy/AdvReac Type Severity Reaction Status Date / Time amoxicillin Allergy Unknown Verified 07/17/24 12:26 ursodiol Allergy Rash Verified 07/17/24 12:26 exenatide (From [place]) AdvReac Nausea Verified 07/17/24 12:26 morphine AdvReac paranoid Verified 07/17/24 12:26 and hallucinations Surgical History Renal transplant recipient History of esophagogastroduodenoscopy S/P arteriovenous (AV) fistula creation Hx of bariatric surgery Kidney transplant recipient Social History household members: significant other and other details: his 's name is Alisha housing: house number of children: 2 current occupational status: retired current 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 Smoking Status: Never smoker alcohol intake: never details: Never drinks now for many years. In the past has been a social drinker. substance use type: does not use ROS ROS ED Review of Systems ROS Unobtainable: due to mental status Constitutional Constitutional ED: Denies chills or fever(s) Cardiovascular Cardiovascular: Denies chest pain Respiratory/Chest Respiratory/Chest: Denies cough or dyspnea EXAM Physical Exam Const Vital Signs: 07/17/24 12:16 07/17/24 12:20 07/17/24 12:21 Temperature 98.0 F 98.0 F Temperature Source Oral Oral Pulse Rate 79 79 Respiratory Rate 18 18 Respiratory Effort Normal Respiratory Pattern Normal Blood Pressure 193/73 H 193/73 H Blood Pressure Mean 113 113 Pulse Ox 98 98 Oxygen Delivery Method Room Air Room Air 07/17/24 14:15 07/17/24 16:00 Temperature Temperature Source Pulse Rate 71 75 Respiratory Rate 13 13 Respiratory Effort Respiratory Pattern Blood Pressure 150/72 H 170/81 H Blood Pressure Mean 98 110 Pulse Ox 100 100 Oxygen Delivery Method Room Air Room Air Positive well nourished and well developed Constitutional Narrative: Patient is nonverbal. General Appearance ED: well developed and NAD HEENT Reports moist mucous membranes Neck supple and no JVD Resp normal respiratory effort and clear to auscultation bilaterally Cardio regular rate and regular rhythm GI non-tender and non-distended Palpation: soft Neuro Motor Exam: general weakness MDM MDM MDM Narrative Medical decision making narrative: We will attempt to unclog feeding tube here in the emergency department. Treatment and Re-Evaluation :: Multiple attempts were made to irrigate the Dobbhoff feeding tube with warm water and warm soda. The feeding tube was able to be flushed after irrigating with warm soda. Since the feeding tube is now functioning, patient will be discharged back to the extended care facility. Patient was instructed to have the staff irrigate the tube with at least 60 cc of saline after every tube feeding. Patient and spouse understood and were agreeable with the plan. All questions were answered. Discharge Plan Triage Chief Complaint: General Illness ED Provider: Lencho Ballesteros Dx/Rx/DC Orders Clinical Impression: Clogged feeding tube, Debility Instructions: Feeding Tube Prescriptions: No Action finasteride 5 MG tablet 5 mg PO QHS calcitriol 0.25 MCG capsule 0.25 mcg PO QODAY sulfamethoxazole-trimethoprim 1 EACH tablet 1 tab PO DAILY cyanocobalamin (vitamin B-12) 500 MCG tablet 500 mcg PO DAILY@0900 folic acid 1 MG tablet 1 mg PO DAILY clopidogrel 75 MG tablet 75 mg PO DAILY Qty: 30 0RF pyridoxine (vitamin B6) 100 mg Tablet 200 mg PO BID prednisone 5 mg tablet 5 mg PO DAILY potassium chloride 10 mEq tablet extended release 20 meq PO DAILY tamsulosin 0.4 mg capsule 0.4 mg PO QHS cholecalciferol (vitamin D3) 125 mcg (5,000 unit) capsule 125 mcg PO Q3D tacrolimus [Prograf] 1 mg capsule 2 mg PO QPM Rx Instructions: TAKE 3MG AT 9AM AND 2MG AT 9PM acyclovir 400 mg tablet 400 mg PO PRN PRN (Reason: ANTIVIRAL) ferrous sulfate [Feosol] 325 mg (65 mg iron) tablet 325 mg PO DAILY Eliquis 5 mg Tablet 2.5 mg PO BID@0600,2200 Qty: 60 1RF tramadol 50 mg Tablet 50 mg PO TID PRN (Reason: Pain Score 1-10) Qty: 15 0RF acetaminophen 500 mg Tablet 1,000 mg PO Q8 PRN (Reason: pain) Qty: 1 0RF Primary Care Provider: James Eden Referrals: James Eden MD [Primary Care Provider] - Activity Restrictions/Additional Instructions: Irrigate with at least 60 cc of saline after each tube feeding Print Language: [place] Islander Disposition Disposition: Halfway Facility Discharge Location: [facility]
== END 2024-07-17 22:58 | disposition skilled nursing facility (03) ==
PROVIDERS: Emergency Provider Emergency Medicine; PCP Family Medicine; Visit Provider Emergency Medicine
DX: K94.23 Gastrostomy malfunction (principal); N18.32 Chronic kidney disease, stage 3b; I12.9 Hypertensive chronic kidney disease with stage 1 through stage 4 chronic kidney disease, or unspecified chronic kidney disease; R53.81 Other malaise; E78.00 Pure hypercholesterolemia, unspecified; Z94.0 Kidney transplant status; Z79.02 Long term (current) use of antithrombotics/antiplatelets; Z79.899 Other long term (current) drug therapy
CPT/HCPCS: 99282; A4216

== ENCOUNTER 2024-07-22 08:37 | Emergency (ER) | payer MEDICARE, OTHER, SELFPAY ==
[2024-07-22 08:40] VITALS: BP 154/75; PULSE 83; RESP 18; TEMP 36.8; O2SAT 98; BMI 22.6
[2024-07-22 08:49] VITALS: O2SAT 97
--- NOTE | 2024-07-22 09:02 | EX.ED.GENINJ ---
HPI History of Present Illness Chief Complaint: Fall Informant: patient, EMS and SNF Narrative Narrative: 74-year-old male at care home facility presenting to the emergency room with a chief complaint of fall. Patient states he lost his balance this morning and fell to the ground. EMS notes an injury to the left frontal parietal scalp. They note multiple skin tears. Skin tears noted on the left forearm and hand and right forearm. Patient denies any neck or back pain. He denies any discomfort in his chest abdomen or extremities. PFSH PFSH Medical History Biventricular congestive heart failure Fall Chronic renal failure, stage 3b Hiatal hernia Tongue carcinoma BPH (benign prostatic hyperplasia) Dysphagia Carotid stenosis Immunosuppression due to chronic steroid use Esophageal stenosis Hx of tongue cancer Chronic anemia Chronic renal insufficiency Loss of hearing Wears glasses Diabetes Arthritis Hx of benign monoclonal gammopathy History of renal disease Low iron Fatty liver High cholesterol Easy bruising Back pain Injury of head and neck Stroke/cerebrovascular accident Syncope Dietary restriction History of colitis Non-smoker History of edema Hx of echocardiogram History of Holter monitoring History of stress test Cardiology follow-up encounter Hypertension History of irregular heartbeat Orthostatic hypotension HTN (hypertension) CVA (cerebral vascular accident) Home Medications ?Medication ?Instructions ?Recorded ?Last Taken ?Type finasteride 5 mg tablet 5 mg PO QHS PROSTATE 12/08/13 02/10/24 History calcitriol 0.25 mcg capsule 0.25 mcg PO QODAY SUPPLEMENT 04/21/17 02/11/24 History cyanocobalamin (vitamin B-12) 500 500 mcg PO DAILY@0900 vitamin 09/17/20 02/11/24 History mcg tablet folic acid 1 mg tablet 1 mg PO DAILY SUPPLEMENT 09/17/20 02/11/24 History sulfamethoxazole 400 1 tab PO DAILY atb 09/17/20 02/11/24 History mg-trimethoprim 80 mg tablet clopidogrel 75 mg tablet 75 mg PO DAILY blood thinner #30 09/18/20 02/11/24 Rx tabs pyridoxine (vitamin B6) 100 mg 200 mg PO BID vitamin 11/12/21 02/11/24 History tablet acyclovir 400 mg tablet 400 mg PO PRN PRN ANTIVIRAL 02/11/24 Unknown History cholecalciferol (vitamin D3) 125 125 mcg PO Q3D vitamin 02/11/24 02/09/24 History mcg (5,000 unit) capsule ferrous sulfate 325 mg (65 mg 325 mg PO DAILY vitamin 02/11/24 02/11/24 History iron) tablet (Feosol) potassium chloride 10 mEq 20 meq PO DAILY vitamin 02/11/24 02/11/24 History tablet,extended release prednisone 5 mg tablet 5 mg PO DAILY steroid 02/11/24 02/11/24 History tacrolimus 1 mg capsule, 2 mg PO QPM rejection 02/11/24 02/10/24 History immediate-release (Prograf) tamsulosin 0.4 mg capsule 0.4 mg PO QHS retention 02/11/24 02/10/24 History acetaminophen 500 mg tablet 1,000 mg (2 x 500 mg) PO Q8 PRN 03/04/24 Unknown Rx pain #1 TAB apixaban 5 mg tablet (Eliquis) 2.5 mg (1/2 x 5 mg) PO 03/04/24 Unknown Rx BID@0600,2200 #60 tabs tramadol 50 mg tablet 50 mg PO TID PRN Pain Score 1-10 03/04/24 Unknown Rx #15 tabs Allergy/AdvReac Type Severity Reaction Status Date / Time amoxicillin Allergy Unknown Verified 07/22/24 08:45 ursodiol Allergy Rash Verified 07/22/24 08:45 exenatide (From [place]) AdvReac Nausea Verified 07/22/24 08:45 morphine AdvReac paranoid Verified 07/22/24 08:45 and hallucinations Surgical History Renal transplant recipient History of esophagogastroduodenoscopy S/P arteriovenous (AV) fistula creation Hx of bariatric surgery Kidney transplant recipient Social History household members: significant other and other details: his 's name is Alisha housing: house number of children: 2 current occupational status: retired 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 Smoking Status: Never smoker alcohol intake: never details: Never drinks now for many years. In the past has been a social drinker. substance use type: does not use ROS ROS ED Constitutional Constitutional ED: Denies chills, fever(s) or weight loss Eyes Eyes: Denies change in vision or diplopia ENT ENT ED: Denies ear pain, rhinorrhea or sore throat Cardiovascular Cardiovascular: Denies chest pain, orthopnea, palpitations or racing heartbeat Respiratory/Chest Respiratory/Chest: Denies cough, dyspnea or orthopnea Gastrointestinal Gastrointestinal: Denies abdominal pain, diarrhea, nausea or vomiting Genitourinary Genitourinary ED: Denies dysuria, hematuria or urinary frequency Musculoskeletal Musculoskeletal: Denies arthralgias, back pain, myalgias or neck pain Integumentary Reports other Details: Skin tears scalp hematoma ; Denies abscess or rash Neurologic Neurologic: Denies headache(s) or weakness Psychiatric Psychiatric: Denies anxiety, depression, suicidal ideation or suicidal thoughts Endocrine Endocrinology: Denies polydipsia, polyphagia or polyuria Allergic/Immunologic Allergic/Immunologic ED: Denies mouth swelling, tongue swelling or urticaria EXAM Physical Exam Const Vital Signs: 07/22/24 08:40 07/22/24 08:49 07/22/24 09:37 Temperature 98.2 F Temperature Source Oral Pulse Rate 83 72 Respiratory Rate 18 17 Respiratory Effort Normal Respiratory Depth Normal Respiratory Pattern Normal Blood Pressure 154/75 H 164/81 H Blood Pressure Mean 101 108 Pulse Ox 98 97 97 Oxygen Delivery Method Room Air Room Air Room Air 07/22/24 10:00 07/22/24 10:13 Temperature 97.6 F L Temperature Source Pulse Rate 68 68 Respiratory Rate 16 16 Respiratory Effort Respiratory Depth Respiratory Pattern Blood Pressure 158/77 H 158/77 H Blood Pressure Mean 104 104 Pulse Ox 97 97 Oxygen Delivery Method Room Air Positive well nourished and well developed General Appearance ED: well developed HEENT Reports normocephalic and moist mucous membranes HEENT Narrative: Left frontal parietal hematoma. No active bleeding. No laceration no palpable bony depression nasogastric tube in place Eyes PERRL and EOMs intact bilaterally Neck full ROM, no lymphadenopathy, supple and no JVD Resp normal respiratory effort and clear to auscultation bilaterally Cardio regular rate, regular rhythm and no murmurs GI normal to inspection, nondistended, normoactive bowel sounds and non-tender Palpation: soft Back/Spine no CVA tenderness and normal ROM Extremity Extremity Narrative: There are multiple skin tears. There is a 3 cm curvilinear skin tear to the dorsum of the left hand with the wound edges approximated. There is a 4 cm skin tear on the right dorsum of the forearm that the wound edges have retracted as well as at about a 4 cm skin tear near the left elbow. Extremities have full range of motion no significant tenderness. General Extremety ED: Negative for edema General Extremity: Negative for edema Neuro oriented x3 and CN's II-XII intact bilaterally Sensorium / Orientation: alert Motor Exam: strength 5/5 throughout Psych mental status grossly normal Mood & Affect: Negative for depressed or tearful Skin no rashes or lesions noted and no wounds MDM MDM MDM Narrative Medical decision making narrative: Differential diagnosis includes fracture skull fracture intracranial hemorrhage hematoma concussion skin tears CT of the brain does not demonstrate any obvious fracture or intracranial hemorrhage. Skin tears were dressed. The 1 skin tear on the dorsum of the left hand I was able to smooth the edges out and Dermabond in place providing adequate coverage. The others will definitely need to heal by secondary intention. They be discharged back to facility. History & Record Review Discussion w/independent historian: EMS personnel, Patient and Other (SNF) Radiography Diagnostic Testing: Clinical Impression(s) from Imaging Studies Brain CT 07/22/24 09:25 IMPRESSION: Chronic involutional changes of the brain. Stable examination. Electronically Signed: Zelalem Gould MD at 9:47 EDT , Discharge Plan Triage Chief Complaint: Fall ED Provider: Travis Vogt Dx/Rx/DC Orders Clinical Impression: Skin tear of upper extremity, Fall, Scalp hematoma Instructions: ED Head Injury (Adult), ED Hematoma, ED Skin Tear (Skin Avulsion) Prescriptions: No Action finasteride 5 MG tablet 5 mg PO QHS calcitriol 0.25 MCG capsule 0.25 mcg PO QODAY sulfamethoxazole-trimethoprim 1 EACH tablet 1 tab PO DAILY cyanocobalamin (vitamin B-12) 500 MCG tablet 500 mcg PO DAILY@0900 folic acid 1 MG tablet 1 mg PO DAILY clopidogrel 75 MG tablet 75 mg PO DAILY Qty: 30 0RF pyridoxine (vitamin B6) 100 mg Tablet 200 mg PO BID prednisone 5 mg tablet 5 mg PO DAILY potassium chloride 10 mEq tablet extended release 20 meq PO DAILY tamsulosin 0.4 mg capsule 0.4 mg PO QHS cholecalciferol (vitamin D3) 125 mcg (5,000 unit) capsule 125 mcg PO Q3D tacrolimus [Prograf] 1 mg capsule 2 mg PO QPM Rx Instructions: TAKE 3MG AT 9AM AND 2MG AT 9PM acyclovir 400 mg tablet 400 mg PO PRN PRN (Reason: ANTIVIRAL) ferrous sulfate [Feosol] 325 mg (65 mg iron) tablet 325 mg PO DAILY Eliquis 5 mg Tablet 2.5 mg PO BID@0600,2200 Qty: 60 1RF tramadol 50 mg Tablet 50 mg PO TID PRN (Reason: Pain Score 1-10) Qty: 15 0RF acetaminophen 500 mg Tablet 1,000 mg PO Q8 PRN (Reason: pain) Qty: 1 0RF Primary Care Provider: James Eden Referrals: James Eden MD [Primary Care Provider] - As Needed Print Language: Cuban Disposition Disposition: Home, Self Care
--- NOTE | 2024-07-22 09:25 | CT_ITS ---
STUDY: CT BRAIN WITHOUT CONTRAST REASON FOR EXAM: Male, 74 years old. Left-sided head injury. RADIATION DOSAGE (If Supplied By Facility): CTDIvol = ( 44.99 ) mGy, DLP = ( 829.85 ) mGycm TECHNIQUE: Transaxial CT imaging of the brain was performed without administration of intravenous contrast material. Individualized dose optimization techniques were used for this CT. COMPARISON: Comparison is made with prior study dated May 16, 2024. FINDINGS: Normal soft tissue structures. Normal calvarium. There is mild cerebral atrophy with widening of the extra-axial spaces and ventricular dilatation. There are areas of decreased attenuation within the white matter tracts of the supratentorial brain, consistent with microvascular disease changes. Normal basal ganglia and thalami. Normal brainstem. There is mild cerebellar atrophy. Stable focal encephalomalacia in the posterior aspect of the left cerebellar hemisphere. There is no intracranial hemorrhage. There are no findings of an acute ischemic infarction. Atherosclerotic plaque formation of the vertebral arteries and cavernous portions of the internal carotid arteries bilaterally. Normal visualized paranasal sinuses. CT/Brain/Head without Contrast IMPRESSION: Chronic involutional changes of the brain. Stable examination. Electronically Signed: Zelalem Gould MD at 9:47 EDT ,
[2024-07-22 09:37] VITALS: BP 164/81; PULSE 72; RESP 17; O2SAT 97
[2024-07-22 10:00] VITALS: BP 158/77; PULSE 68; RESP 16; O2SAT 97
[2024-07-22 10:13] VITALS: BP 158/77; PULSE 68; RESP 16; TEMP 36.4; O2SAT 97
== END 2024-07-22 11:47 | disposition skilled nursing facility (03) ==
LOC: ED 10:10
PROVIDERS: Emergency Provider Emergency Medicine; PCP Family Medicine; Visit Provider Emergency Medicine
DX: S61.412A Laceration without foreign body of left hand, initial encounter (principal); N18.32 Chronic kidney disease, stage 3b; I12.9 Hypertensive chronic kidney disease with stage 1 through stage 4 chronic kidney disease, or unspecified chronic kidney disease; S51.811A Laceration without foreign body of right forearm, initial encounter; S51.012A Laceration without foreign body of left elbow, initial encounter; S00.03XA Contusion of scalp, initial encounter; W19.XXXA Unspecified fall, initial encounter; Y92.129 Unspecified place in nursing home as the place of occurrence of the external cause; Z94.0 Kidney transplant status; Z79.01 Long term (current) use of anticoagulants; Z79.02 Long term (current) use of antithrombotics/antiplatelets; Z79.899 Other long term (current) drug therapy
CPT/HCPCS: 70450; 99282

== ENCOUNTER 2024-08-07 03:32 | Inpatient (IN) | payer MEDICARE, OTHER, SELFPAY ==
[2024-08-07] VITALS (11 sets, daily range): BP systolic 115–138; BP diastolic 68–83; PULSE 67–78; RESP 16–20; TEMP 36.4–36.8; O2SAT 94–99; BMI 21.8; BMI 19.8
--- NOTE | 2024-08-07 03:39 | EX.ED.DYSGE1 ---
HPI History of Present Illness Chief Complaint: Other, Pain/Inj Detail of Chief Complaint: Clogged feeding tube Informant: patient, spouse/S.O., EMS and SNF Narrative Narrative: 74-year-old male dependent on his Dobbhoff for nutrition is [facility]30 AM because his tube is clogged again. This is occurred multiple times in the past. Patient is asymptomatic. states he had cancer to base of his tongue, he had surgery for this, he was able to eat and drink after that but this past summer he had bacteremia and since then has easily aspirated and required the Dobbhoff. He is not a candidate for PEG due to a heart condition according to her. He had a gastric bypass in the past and therefore has required transfer to [facility] multiple times to have this replaced when it gets clogged and cannot be fixed. [facility] Medical History Biventricular congestive heart failure Fall Chronic renal failure, stage 3b Hiatal hernia Tongue carcinoma BPH (benign prostatic hyperplasia) Dysphagia Carotid stenosis Immunosuppression due to chronic steroid use Esophageal stenosis Hx of tongue cancer Chronic anemia Chronic renal insufficiency Loss of hearing Wears glasses Diabetes Arthritis Hx of benign monoclonal gammopathy History of renal disease Low iron Fatty liver High cholesterol Easy bruising Back pain Injury of head and neck Stroke/cerebrovascular accident Syncope Dietary restriction History of colitis Non-smoker History of edema Hx of echocardiogram History of Holter monitoring History of stress test Cardiology follow-up encounter Hypertension History of irregular heartbeat Orthostatic hypotension HTN (hypertension) CVA (cerebral vascular accident) Home Medications ?Medication ?Instructions ?Recorded ?Last Taken ?Type finasteride 5 mg tablet 5 mg PO QHS PROSTATE 12/08/13 02/10/24 History cyanocobalamin (vitamin B-12) 500 500 mcg PO DAILY@0900 vitamin 09/17/20 02/11/24 History mcg tablet folic acid 1 mg tablet 1 mg PO DAILY SUPPLEMENT 09/17/20 02/11/24 History pyridoxine (vitamin B6) 100 mg 200 mg PO BID vitamin 11/12/21 02/11/24 History tablet acyclovir 400 mg tablet 400 mg PO PRN PRN ANTIVIRAL 02/11/24 Unknown History cholecalciferol (vitamin D3) 125 125 mcg PO Q3D vitamin 02/11/24 02/09/24 History mcg (5,000 unit) capsule prednisone 5 mg tablet 5 mg PO DAILY steroid 02/11/24 02/11/24 History tacrolimus 1 mg capsule, 2 mg PO QPM rejection 02/11/24 02/10/24 History immediate-release (Prograf) tamsulosin 0.4 mg capsule 0.4 mg PO QHS retention 02/11/24 02/10/24 History acetaminophen 500 mg tablet 1,000 mg (2 x 500 mg) PO Q8 PRN 03/04/24 Unknown Rx pain #1 TAB apixaban 5 mg tablet (Eliquis) 2.5 mg (1/2 x 5 mg) PO 03/04/24 Unknown Rx BID@0600,2200 #60 tabs albuterol 90 mcg/actuation aerosol 90 mcg inhalation .6 hours PRN SOB 08/03/24 Unknown History inhaler amlodipine 10 mg tablet 10 mg PO DAILY 08/03/24 Unknown History amoxicillin 500 mg capsule 500 mg PO TID 08/03/24 Unknown History atorvastatin 80 mg tablet 80 mg PO DAILY 08/03/24 Unknown History bisacodyl 10 mg rectal suppository 10 mg IN DAILY PRN constipation 08/03/24 Unknown History guaifenesin 100 mg/5 mL oral liquid 200 mg PO Q6H PRN cough 08/03/24 Unknown History insulin aspart U-100 100 unit/mL 4 unit subcut TID 08/03/24 Unknown History subcutaneous solution (Novolog U-100 Insulin aspart) vitamin A-vitamin E 25,000 unit-30 cap PO 08/03/24 Unknown History unit capsule Allergy/AdvReac Type Severity Reaction Status Date / Time amoxicillin Allergy Unknown Verified 08/07/24 03:34 ursodiol Allergy Rash Verified 08/07/24 03:34 exenatide (From [place]) AdvReac Nausea Verified 08/07/24 03:34 morphine AdvReac paranoid Verified 08/07/24 03:34 and hallucinations Family History (Updated 08/07/24 @ 03:39 by Osman Gottlieb) Other Diabetes TIA (transient ischemic attack) Surgical History Renal transplant recipient History of esophagogastroduodenoscopy S/P arteriovenous (AV) fistula creation Hx of bariatric surgery Kidney transplant recipient Social History household members: significant other and other details: his 's name is Alisha housing: house number of children: 2 current occupational status: retired current 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 Smoking Status: Never smoker alcohol intake: never details: Never drinks now for many years. In the past has been a social drinker. substance use type: does not use ROS ROS ED Constitutional Constitutional ED: Denies chills or fever(s) Eyes Eyes: Denies change in vision or diplopia ENT ENT ED: Denies rhinorrhea or sore throat Cardiovascular Cardiovascular: Denies chest pain or palpitations Respiratory/Chest Respiratory/Chest: Denies cough or dyspnea Gastrointestinal Gastrointestinal: Denies abdominal pain, diarrhea, nausea or vomiting Genitourinary Genitourinary ED: Denies dysuria or hematuria Musculoskeletal Musculoskeletal: Denies back pain or neck pain Integumentary Denies abscess or rash Neurologic Neurologic: Denies headache(s), paresthesias or weakness EXAM Physical Exam Const Vital Signs: 08/07/24 03:35 08/07/24 03:38 08/07/24 05:33 Temperature 98.2 F Temperature Source Oral Pulse Rate 76 75 Respiratory Rate 16 16 Respiratory Effort Normal Respiratory Pattern Normal Blood Pressure 119/83 H 133/73 H Blood Pressure Mean 95 93 Pulse Ox 94 96 Oxygen Delivery Method Room Air Room Air 08/07/24 07:00 Temperature Temperature Source Pulse Rate 67 Respiratory Rate Respiratory Effort Respiratory Pattern Blood Pressure 115/68 Blood Pressure Mean 83 Pulse Ox 94 Oxygen Delivery Method Room Air Positive well nourished and well developed General Appearance ED: well developed and NAD HEENT Reports dry mucous membranes HEENT Narrative: Dobbhoff intact right naris and seen posterior oropharynx normocephalic and atraumatic Mouth ED: Yes dry mucous membranes Mouth: dry mucous membranes Eyes PERRL and EOMs intact bilaterally Neck full ROM and supple Resp normal respiratory effort and clear to auscultation bilaterally Cardio regular rate, regular rhythm and no murmurs GI non-tender and non-distended Auscultation: normoactive bowel sounds Palpation: soft Back/Spine no CVA tenderness General Back: other FROM Extremity normal to inspection General Extremety ED: Negative for edema, pulses abnormal or tenderness General Extremity: Negative for edema or pulses abnormal Neuro oriented x3, CN's II-XII intact bilaterally and no sensory deficits noted Sensorium / Orientation: awake and alert Motor Exam: strength 5/5 throughout Skin no rashes or lesions noted and no wounds MDM MDM MDM Narrative Medical decision making narrative: Nursing tried warm water and warm soda couple different times, but unsuccessfully. I do have a soft tipped guidewire that could unclog the tube. It is a 180 cm Jean wire with a 20 cm soft tipped end. I think would be appropriate to put down through the tube and try to declog it before attempting to transfer him to [facility] where bed availability is limited. I discussed this with the patient and his and they are amenable to that. We discussed the potential risks of bowel perforation, displacement of the end of the tube, discomfort, or the inability to get the guidewire to go around bends and the tube. They understand all that, in order to avoid transfer are okay with the procedure. I looked back at some old x-rays. I do not have any x-rays showing the placement of the tube/Dobbhoff so we obtained 1 view chest x-ray and 1 view KUB to assess the placement and length of the tube in order to estimate the length of guidewire placement needed in order to get to the end and no further. See the procedure note, which was unsuccessful declogging the tube. Therefore since the patient had a Evelio-en-Y in the past and we do not have any GI specialist availability at this hospital at this time/weekend, I feel the patient is going to require transfer to a higher level of care. Radiography Diagnostic Testing: Clinical Impression(s) from Imaging Studies Chest X-Ray 08/07/24 04:05 IMPRESSION: Dobbhoff catheter tip is below the diaphragm and below the inferior image and not completely visualized. The catheter does deviate directly to the right side of the abdomen from the level of the gastroesophageal junction. Electronically Signed: Corona Coe MD at 4:56 EDT , KUB X-Ray 08/07/24 04:05 IMPRESSION: Dobbhoff catheter tip overlies the right upper abdomen in the midclavicular line. It courses immediately to the right just beyond the gastroesophageal junction which is an unusual course unless there has been prior gastric surgery. Electronically Signed: Corona Coe MD at 4:57 EDT , Procedures Other Procedures Procedure(s): Attempted declogging of Dobbhoff nasogastric tube: After verbal consent from the patient and significant other after discussing risks and benefits of the procedure, used a PetroDE soft tipped guidewire that I taped off at 65 cm plus the distance from the patient's nose to the end of the tube, and inserting it into the Luer-Brionna end of the tube. I was able to get it all the way into the stomach, but the tube would not advance anymore, based on the x-ray it appears to be in the area of the curl of the tube. I was able to easily withdrawal the guidewire on each attempt. Afterwards attempted to push carbonated cola into the tube and flush it, also tenting aspirated, none of this was successful. Tolerated well, there were no complications or discomfort to the patient whatsoever. Discharge Plan Triage Chief Complaint: Other, Pain/Inj ED Provider: Alfonzo Mcclure Dx/Rx/DC Orders Clinical Impression: Obstruction of nasogastric tube Prescriptions: No Action finasteride 5 MG tablet 5 mg PO QHS cyanocobalamin (vitamin B-12) 500 MCG tablet 500 mcg PO DAILY@0900 folic acid 1 MG tablet 1 mg PO DAILY pyridoxine (vitamin B6) 100 mg Tablet 200 mg PO BID prednisone 5 mg tablet 5 mg PO DAILY tamsulosin 0.4 mg capsule 0.4 mg PO QHS cholecalciferol (vitamin D3) 125 mcg (5,000 unit) capsule 125 mcg PO Q3D tacrolimus [Prograf] 1 mg capsule 2 mg PO QPM Rx Instructions: TAKE 3MG AT 9AM AND 2MG AT 9PM acyclovir 400 mg tablet 400 mg PO PRN PRN (Reason: ANTIVIRAL) Eliquis 5 mg Tablet 2.5 mg PO BID@0600,2200 Qty: 60 1RF acetaminophen 500 mg Tablet 1,000 mg PO Q8 PRN (Reason: pain) Qty: 1 0RF albuterol 90 mcg/actuation aerosol 90 mcg inhalation .6 hours PRN (Reason: SOB) amlodipine 10 mg tablet 10 mg PO DAILY amoxicillin 500 mg capsule 500 mg PO TID atorvastatin 80 mg tablet 80 mg PO DAILY vitamin A-vitamin E 25,000-30 unit capsule PO bisacodyl 10 mg suppository 10 mg IN DAILY PRN (Reason: constipation) guaifenesin 100 mg/5 mL liquid 200 mg PO Q6H PRN (Reason: cough) insulin aspart U-100 [Novolog U-100 Insulin aspart] 100 unit/mL solution 4 unit subcut TID Primary Care Provider: James Eden Referrals: James Eden MD [Primary Care Provider] - Print Language: Palauan Disposition Disposition: Acute Care Hospital
--- NOTE | 2024-08-07 04:05 | RAD_ITS ---
EXAM: XR ABDOMEN, 1 VIEW CLINICAL INDICATION: assess dobhoff placement TECHNIQUE: Frontal supine view of the abdomen/pelvis. COMPARISON: No relevant prior studies available. FINDINGS: LOWER THORAX: No acute pathology. GASTROINTESTINAL TRACT: Unremarkable. Non-obstructive. No bowel or stomach distention. ORGANS: Unremarkable as visualized. No organomegaly. No abnormal calcifications. BONES/JOINTS: No acute pathology. SOFT TISSUES: No acute pathology. TUBES, LINES AND DEVICES: Dobbhoff catheter tip overlies the right upper abdomen in the midclavicular line. It courses immediately to the right just beyond the gastroesophageal junction which is an unusual course unless there has been prior gastric surgery. RAD/Abdomen Single View IMPRESSION: Dobbhoff catheter tip overlies the right upper abdomen in the midclavicular line. It courses immediately to the right just beyond the gastroesophageal junction which is an unusual course unless there has been prior gastric surgery. Electronically Signed: Corona Coe MD at 4:57 EDT ,
--- NOTE | 2024-08-07 04:05 | RAD_ITS ---
EXAM: XR CHEST, 1 VIEW CLINICAL INDICATION: assess dobhoff placement TECHNIQUE: Frontal view of the chest. COMPARISON: No relevant prior studies available. FINDINGS: LUNGS AND PLEURAL SPACES: Unremarkable. No consolidation or edema. No pneumothorax. No effusion. HEART: Status post TAVR. MEDIASTINUM: Central airways and mediastinal contour are unremarkable. BONES/JOINTS: Unremarkable. No acute fracture. SOFT TISSUES: Unremarkable. TUBES, LINES AND DEVICES: Dobbhoff catheter tip is below the diaphragm and below the inferior image and not completely visualized. The catheter does deviate directly to the right side of the abdomen from the level of the gastroesophageal junction. RAD/Chest 1 View IMPRESSION: Dobbhoff catheter tip is below the diaphragm and below the inferior image and not completely visualized. The catheter does deviate directly to the right side of the abdomen from the level of the gastroesophageal junction. Electronically Signed: Corona Coe MD at 4:56 EDT ,
--- NOTE | 2024-08-07 05:59 | ED.RN ---
This RN spoke to nurse Gerardo from [facility] to update on pt plan to be transfered to [facility].
--- NOTE | 2024-08-07 19:39 | PCM.HP.STD ---
[facility] - General General Date of Admission: 08/07/24 Date of Service: 08/07/24 Chief Complaint: Clogged Dobbhoff tube. 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 According to the records this has happened multiple times and because of his history of gastric bypass complicating his case he usually requires transfer back to [facility] for tube to be changed. His (Karin) explained to the ER physician that he had cancer of the base of his tongue and after he had surgery for this he easily aspirated requiring Dobbhoff tube placement. She also went on to state he is not a candidate for a PEG tube due to his heart condition. The hospital service was called at 8:16 PM as he is accepted to [facility] - however, there is no bed available at this time resulting in the current ER physician contacting the hospitalist service to arrange admission for this patient until a bed becomes available with initial laboratory test pending at this time. He was then admitted to the general medical floor for ongoing care for status expected to extend beyond 2 midnights. [facility] Medical History (Updated 08/08/24 @ 01:[address] Reynaldo Bal, ) Hx of tongue cancer Biventricular congestive heart failure Fall Chronic renal failure, stage 3b Hiatal hernia Tongue carcinoma BPH (benign prostatic hyperplasia) Dysphagia Carotid stenosis Immunosuppression due to chronic steroid use Esophageal stenosis Chronic anemia Chronic renal insufficiency Loss of hearing Wears glasses Diabetes Arthritis Hx of benign monoclonal gammopathy History of renal disease Low iron Fatty liver High cholesterol Easy bruising Back pain Injury of head and neck Stroke/cerebrovascular accident Syncope Dietary restriction History of colitis Non-smoker History of edema Hx of echocardiogram History of Holter monitoring History of stress test Cardiology follow-up encounter Hypertension History of irregular heartbeat Orthostatic hypotension HTN (hypertension) CVA (cerebral vascular accident) Home Medications ?Medication ?Instructions ?Recorded ?Last Taken ?Type finasteride 5 mg tablet 5 mg feeding tube DAILY PROSTATE 12/08/13 02/10/24 History cyanocobalamin (vitamin B-12) 500 500 mcg feeding tube DAILY@0900 09/17/20 02/11/24 History mcg tablet vitamin folic acid 1 mg tablet 1 mg feeding tube DAILY SUPPLEMENT 09/17/20 02/11/24 History pyridoxine (vitamin B6) 100 mg 200 mg feeding tube BID vitamin 11/12/21 02/11/24 History tablet prednisone 5 mg tablet 5 mg feeding tube DAILY 02/11/24 02/11/24 History inflammation tacrolimus 1 mg capsule, 1 mg PO DAILY rejection 02/11/24 02/10/24 History immediate-release (Prograf) amlodipine 10 mg tablet 10 mg feeding tube DAILY 08/03/24 Unknown History hypertension amoxicillin 500 mg capsule 500 mg feeding tube TID 08/03/24 Unknown History endocarditis atorvastatin 80 mg tablet 80 mg feeding tube DAILY 08/03/24 Unknown History hyperlipidemia insulin aspart U-100 100 unit/mL 4 unit subcut Q6H diabetes 08/03/24 Unknown History subcutaneous solution (Novolog U-100 Insulin aspart) apixaban 5 mg tablet (Eliquis) 2.5 mg feeding tube BID 08/07/24 Unknown History cholecalciferol (vitamin D3) 25 25 mcg feeding tube QODAY 08/07/24 Unknown History mcg (1,000 unit) tablet supplement insulin aspart U-100 100 unit/mL See Protocol subcut Q6H diabetes 08/07/24 Unknown History (3 mL) subcutaneous pen (Novolog FlexPen U-100 Insulin aspart) pantoprazole 40 mg granules 40 mg feeding tube BID GERD 08/07/24 Unknown History delayed-release for susp in packet polyethylene glycol 3350 17 17 g PO DAILY constipation 08/07/24 Unknown History gram/dose oral powder (ClearLax) saliva substitute combo no.9 15 ml mucous membrane Q6H mouth 08/07/24 Unknown History (Biotene Dry Mouth Oral Rinse hygiene mouthwash) tacrolimus 0.5 mg capsule,extended 0.5 mg PO QPM organ rejection 08/07/24 Unknown History release 24 hr (Astagraf XL) Allergy/AdvReac Type Severity Reaction Status Date / Time amoxicillin Allergy Unknown Verified 08/07/24 03:34 ursodiol Allergy Rash Verified 08/07/24 03:34 exenatide (From [place]) AdvReac Nausea Verified 08/07/24 03:34 morphine AdvReac paranoid Verified 08/07/24 03:34 and hallucinations Family History Other Diabetes TIA (transient ischemic attack) Surgical History (Updated 08/08/24 @ 01:[address] 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 Smoking Status: Never smoker alcohol intake: never details: Never drinks now for many years. In the past has been a social drinker. substance use type: does not use ROS ROS Narrative Review of systems: Constitutional: Patient denies fever or chills. Eyes: Patient denies changes in vision or discharge from eyes. ENT: Patient denies runny nose, sore throat or ear pain. Resp: Patient denies shortness of breath or cough. CV: Patient denies chest pain, palpitations or heart racing. GI: Patient denies abdominal pain, nausea, vomiting, diarrhea or constipation. : Patient denies dysuria or hematuria. MSK: Patient denies myalgias or arthralgias. Skin: Patient denies abscess, rash or jaundice. Psych: Patient denies symptoms of uncontrolled depression or anxiety. Neuro: Patient denies headache, paresthesias or focal neurologic deficits. Allergy: Patient denies lip swelling, tongue swelling or urticaria. Hematology: Patient denies easy bleeding or easy bruisability. Endocrinology: Patient denies polyuria, polydipsia or polyphagia. 14 point review of systems otherwise negative except for positives noted above in HPI. Vital Signs Vital Signs Vital Signs: 08/07/24 03:35 08/07/24 03:38 08/07/24 05:33 Temperature 98.2 F Temperature Source Oral Pulse Rate 76 75 Respiratory Rate 16 16 Respiratory Effort Normal Respiratory Pattern Normal Blood Pressure 119/83 H 133/73 H Blood Pressure Mean 95 93 Pulse Ox 94 96 Oxygen Delivery Method Room Air Room Air 08/07/24 07:00 08/07/24 09:00 08/07/24 11:00 Temperature Temperature Source Pulse Rate 67 71 69 Respiratory Rate 16 Respiratory Effort Respiratory Pattern Blood Pressure 115/68 127/81 H 124/70 H Blood Pressure Mean 83 96 88 Pulse Ox 94 94 98 Oxygen Delivery Method Room Air Room Air 08/07/24 13:00 08/07/24 15:00 08/07/24 17:00 Temperature Temperature Source Pulse Rate 71 68 78 Respiratory Rate 20 H Respiratory Effort Respiratory Pattern Blood Pressure 121/76 H 132/82 H 132/76 H Blood Pressure Mean 91 98 94 Pulse Ox 96 99 99 Oxygen Delivery Method Room Air Room Air Room Air 08/07/24 19:00 Temperature Temperature Source Pulse Rate 78 Respiratory Rate Respiratory Effort Respiratory Pattern Blood Pressure 123/71 H Blood Pressure Mean 88 Pulse Ox 98 Oxygen Delivery Method Room Air Weight Weight: 160 lb 11.472 oz Body Mass Index (BMI) 21.8 Physical Exam Const alert, oriented x3, no apparent distress and average body habitus General Appearance: cooperative HEENT normocephalic, head/scalp atraumatic and hearing grossly normal bilaterally HEENT Narrative: Mucous membranes dry. Eyes PERRL and EOMs intact bilaterally Neck no lymphadenopathy and supple Resp normal respiratory effort, no retractions, no use of accessory muscles and clear to auscultation bilaterally Cardio regular rate and regular rhythm GI normal to inspection, nondistended, normoactive bowel sounds, soft to palpation, non-tender and non-distended Extremity normal to inspection and full ROM Skin Skin Narrative: Patient has no evidence of rash or jaundice. Neuro oriented x3, CN's II-XII intact bilaterally, moves all extremities and no focal motor deficits Sensorium / Orientation: awake, alert, oriented to person, oriented to place and oriented to time Speech: speech normal Psych affect normal Results Medical Records Data Attestation: I reviewed the patient's medical records Lab / Micro Data Attestation: I reviewed the patient's lab results. Imaging Radiology Impression Chest X-Ray 08/07/24 04:05 IMPRESSION: Dobbhoff catheter tip is below the diaphragm and below the inferior image and not completely visualized. The catheter does deviate directly to the right side of the abdomen from the level of the gastroesophageal junction. Electronically Signed: Corona Coe MD at 4:56 EDT , KUB X-Ray 08/07/24 04:05 IMPRESSION: Dobbhoff catheter tip overlies the right upper abdomen in the midclavicular line. It courses immediately to the right just beyond the gastroesophageal junction which is an unusual course unless there has been prior gastric surgery. Electronically Signed: Corona Coe MD at 4:57 EDT , Assessment & Plan Assessment/Plan (1) Obstruction of nasogastric tube: (2) Hx of tongue cancer: (3) Chronic renal failure, stage 3b: (4) Renal transplant recipient: (5) Hx of bariatric surgery: (6) History of esophagogastroduodenoscopy: PLAN: Plan 1. Clogged Dobbhoff Tube; awaiting replacement at [facility] due to his history of Gastric Bypass (2010) - Admit to general medical floor. Keep strict NPO and give Protonix IV daily. and patient instructed to go directly to [facility] to avoid needing to be transferred in the future for this recurrent problem. 2. History of tongue cancer; s/p partial resection of the base of the tongue with subsequent aspiration requiring Dobbhoff placement complicating #1 - Noted. Keep patient strict NPO. 3. History of Right kidney transplant; on prednisone and tacrolimus with subsequent CKD; stage IIIb - Noted. Restart prednisone and tacrolimus once Dobbhoff tube is operational. 4. History of esophageal stenosis; s/p esophageal dilatation by Dr. Auguste (02/17/2024) - Noted. 5. History of CVA; with encephalomalacia in the Left cerebellum noted on CT previously - Noted. 6. Essential hypertension - Give IV Hydralazine prn for systolic blood pressure > 160 mmHg. 7. Hyperlipidemia - Restart statin when Dobbhoff is working. 8. DM-2; of unknown control - NPO for now. FSBS q. 6 hours. 9. History of DVT; on apixaban - Restart Apixaban when Dobbhoff is working. 10. History of biventricular CHF - Noted with current signs of recurrence. 11. History of syncope; attributed to orthostatic hypotension - Noted. 12. History of irregular heartbeat - Noted. 13. History of moderate carotid stenosis ~50% (2019) - Noted. 14. History of hiatal hernia - Noted. 15. History of fatty liver disease - Noted. 16. History of lymphedema - Stable. 17. History of immune suppression due to chronic steroid use - Noted. 18. History of benign monoclonal gammopathy - Noted. 19. Chronic anemia - Labs still pending at this time. 20. History of low iron levels - Noted. 21. BPH; on tamsulosin plus finasteride - Restart these agents once Dobbhoff is working again. 22. OA; with history of ORIF and chronic debility - Stable. 23. DVT prophylaxis - Patient on Apixaban for #9 which will be continued. Total time: Approximately 70 minutes. Charges/Coding Visit Charges OBSV E&M: 96128 Observ/hosp same date L2
[2024-08-07 22:29] LABS: Magnesium 2.9 mg/dL (1.6-2.6); Phosphorus 4.8 mg/dL (2.5-4.9)
[2024-08-07] MEDS: 0.9% Normal Saline (1000mL) 1,000 ML 100 ML IV (23:17)
[2024-08-07] MEDS: Pantoprazole Sodium 40 MG in 0.9% Normal Saline (100mL MB+) 100 ML 330 MG IV (23:17)
[2024-08-07] MEDS: Enoxaparin 80 MG/0.8 ML Syringe 70 MG SC (23:18)
[2024-08-08] VITALS (11 sets, daily range): BP systolic 108–155; BP diastolic 64–91; PULSE 66–76; RESP 16–20; TEMP 36.2–37.1; O2SAT 97–100; BMI 19.8
[2024-08-08] MEDS: Menthol/Lanolin/Calamine/Znox 113 GM Tube 1 APPLIC TOPICAL ×3 (03:45→23:46)
[2024-08-08] MEDS: Enoxaparin 80 MG/0.8 ML Syringe 70 MG SC (05:12)
[2024-08-08 05:33] LABS: Bedside Glucose 63 mg/dL (74-106)
[2024-08-08] MEDS: Dextrose 10%-Water 250 ML 999 ML IV (05:40)
[2024-08-08] MEDS: Dextrose 5%/0.9% NaCl 1,000 ML 100 ML IV (06:38)
[2024-08-08 06:58] LABS: Bedside Glucose 126 mg/dL (74-106)
[2024-08-08 07:22] LABS: Absolute Lymphocyte Count 0.51 X10^3/uL (0.83-4.51); Absolute Neutrophil Count 6.4 X10^3/uL (2.0-7.7); Basophil# 0.08 X10^3/uL; Eosinophil# 0.15 X10^3/uL; Eosinophils% 1.9 % (0-5); Hematocrit 27.7 % (40-54); Hemoglobin 8.9 g/dL (13.0-16.5); Lymphocyte # 0.51 X10^3/ul (0.83-4.51); Lymphocyte % 6.6 % (19-41); Mean Corp Hgb Conc 32.1 g/dL (32-36); Mean Corpuscular Hgb 32.2 pg (27.0-32.0); Mean Corpuscular Volume 100.4 fL (80-94); Mean Platelet Vol. 8.4 fl (6.2-12.0); Monocyte# 0.54 X10^3/uL; NRBC Flagged by Analyzer 0 % (0-5); Neutrophil # 6.41 X10^3/uL (2.7-7.7); Neutrophil % 83.1 % (47-70); POSITIVE DIFFERENTIAL YES; Platelet Count 133 K/mm3 (150-450); RBC Distribution Width CV 16.5 % (11.6-14.6); RBC Distribution Width SD 61.1 fl (35.1-43.9); Red Blood Count 2.76 M/mm3 (4.6-6.2); White Blood Count 7.7 K/mm3 (4.4-11.0)
[2024-08-08 08:08] LABS: ALB/GLOB Ratio 0.5 RATIO (0.9-2.4); AST(SGOT) 75 U/L (15-37); Alanine Aminotransfer ALT/SGPT 94 U/L (16-61); Albumin, Serum 1.7 g/dL (3.2-5.0); Alkaline Phosphatase 138 U/L (45-117); Anion Gap 8 (5-15); BUN 77 mg/dL (7-18); BUN/Creat Ratio 37.6 RATIO (10-20); Calcium,Total 7.7 mg/dL (8.5-10.1); Chloride 109 mmol/L (98-107); Creatinine, Serum 2.05 mg/dL (0.70-1.30); EST Glomerular Filtration Rate 34 mL/min (>60); Est Glom Filt Rate - Afr Amer 41 mL/min (>60); Globulin 3.7 g/dL (2.2-4.2); Glucose 106 mg/dL (74-106); Potassium 4.4 mmol/L (3.5-5.1); Protein, Total 5.4 g/dL (6.4-8.2); Sodium Level 140 mmol/L (136-145)
--- NOTE | 2024-08-08 09:59 | CASEMGMT ---
Social Work- SW met with pt to discuss if pt would like to return to [facility]. Pt reports that he wants to transfer to [facility], as that is where pt often transfers with issues with tube. SW notes that pt has been accepted to [facility] per previous physician documentation and is awaiting a bed. YULIANA advised [facility]. KATIE Mercado
--- NOTE | 2024-08-08 10:01 | CASEMGMT ---
Insurance review for hospitals In-network with [facility] insurance if transfer is recommended is as follows: [facility], Henri, MIKAEL, Mike, [facility], [facility], [facility], [facility], [place], [facility] ([facility]), and . Cj COSBY RN CM
[2024-08-08] MEDS: Pantoprazole Sodium 40 MG in 0.9% Normal Saline (100mL MB+) 100 ML 330 MG IV (10:03)
[2024-08-08] MEDS: FLU VACCINE **HIGH DOSE** TV 24-25 180 MCG/0.5 ML SYRINGE IM (10:03)
--- NOTE | 2024-08-08 10:16 | CASEMGMT ---
Discharge Planning [facility] updated that pt is being transferred to [facility]. Khushboo Arce DC Planning Asst.
[2024-08-08 11:32] LABS: T4 Free Direct 0.74 ng/dL (0.76-1.46)
[2024-08-08 12:29] LABS: Bedside Glucose 95 mg/dL (74-106)
--- NOTE | 2024-08-08 17:08 | PRE.ANES_ITS ---
ASA Classification* ASA Classification ASA Classification: 3 Assessment & Plan Anesthesia* Anesthesia Assessment Anesthesia Assessment: Discussed sedation and/or anesthesia options, risks, benefits, and alternatives with patient/parents/legal guardian/POA. Questions invited. The patient/parents/legal guardian/POA seems to understand and agrees to proceed with anesthesia plan. Reviewed the physical assessment, medical history, allergy history and patient home medications list prior to surgery/procedure/anesthetic and documented any changes. Performed airway and anesthesia risk assessments. Anesthesia Type Anesthesia Type: MAC Anesthesia Focused Assessment* Temperature: 97.7 F Pulse Rate: 71 Blood Pressure: 146/84 Respiratory Rate: 18 Pulse Ox: 100 Airway Assessment Mouth opens: >3 cm Mallampati Score: II Focused Labs Anesthesia Preop lab: CBC WBC 7.7 K/mm3 (4.4-11.0) 08/08/24 06:53 RBC 2.76 M/mm3 (4.6-6.2) L 08/08/24 06:53 Hgb 8.9 g/dL (13.0-16.5) L 08/08/24 06:53 Hct 27.7 % (40-54) L 08/08/24 06:53 Plt Count 133 K/mm3 (150-450) L 08/08/24 06:53 CHEMISTRY Potassium 4.4 mmol/L (3.5-5.1) 08/08/24 06:53 Sodium 140 mmol/L (136-145) 08/08/24 06:53 Magnesium 2.9 mg/dL (1.6-2.6) H 08/07/24 21:46 Phosphorus 4.8 mg/dL (2.5-4.9) 08/07/24 21:46 BUN 77 mg/dL (7-18) H 08/08/24 06:53 Creatinine 2.05 mg/dL (0.70-1.30) H 08/08/24 06:53 Glucose 106 mg/dL (74-106) 08/08/24 06:53 POC Glucose 95 mg/dL (74-106) 08/08/24 11:57 TSH 10.900 uIU/mL (0.358-3.740) H 08/08/24 06:53 COAG PT 16.6 SECONDS (11.7-14.9) H 05/16/24 14:33 Pre-Assessment Diagnosis/Proposed Procedure Planned Operative Procedure(s): EGD, Dobhoff replacement Anesthesia History 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 When Was Last Pacemaker Check QUESTION #4 FULL TEXT: You/Your Family Experience fever (hyperthermia) with Anesthesia Last Oral Intake Last Oral intake: Last Oral Intake NPO since 00:00 08/08/24 16:51 Meds taken in AM with sips of No 08/08/24 16:51 water? 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 Female HX of Motion Sickness HX of N/V After Surgery Non-Smoker Duration of Surgery greater than 60 minutes Number of Risk Factors PONV Score Height & Weight Height & Weight: Anesthesia: Height & Weight Height 6 ft 0.05 in 08/08/24 16:51 Weight: 66.2 kg 08/08/24 16:51 Body Mass Index (BMI) 19.8 08/08/24 16:51 Respiratory Assessment Respiratory Assessment - plastics seasoner operator: Respiratory Tract Infection Hx - plastics seasoner operator Hx Respiratory Tract Infection No 02/17/24 03:58 STOP Sleep Apnea STOP Sleep Apnea - plastics seasoner operator: STOP Sleep Apnea - plastics seasoner operator Hx Hypertension Yes 08/07/24 22:01 Hx Sleep Apnea No 08/07/24 22:01 CPAP No 02/17/24 13:56 BIPAP No 09/17/20 19:05 Do you snore loudly (louder No 08/07/24 22:01 than talking or can be heard Do you often feel tired/ No 08/07/24 22:01 fatigued/ sleepy during daytime? Has anyone observed you stop No 08/07/24 22:01 breathing during sleep? STOP Results Negative 08/07/24 22:01 QUESTION #5 FULL TEXT : Do you snore loudly (louder than talking or can be heard through closed doors)? 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 Tobacco Use Smoking Status Never smoker 08/07/24 22:01 Hx Tobacco Use No 08/07/24 22:01 Years Smoking Packs Smoked per Day Smoking Cessation Date was within the last 15 years Hx Smoking Cessation Date Hx Smoking Cessation No 08/07/24 22:01 Counseling Hematologic Medial History Hematologic Hx - plastics seasoner operator: Hematologic Medical Hx - trust manager Hx of Blood Transfusion Yes 08/07/24 22:01 Hx of Transfusion in last 3 Yes 08/07/24 22:01 Months Date of Last Transfusion (if 08/03/24 08/07/24 22:01 within last 3 months) Ever experience any problems No 08/07/24 22:01 with transfusion(s)? Specify any problems Hx of Preganancy in last 3 N/A 08/07/24 22:01 Months Nurse Filling Out Transfusion CSIGNORIN 08/07/24 22:01 & Questions: Date: 08/07/24 08/07/24 22:01 Time: 22:02 08/07/24 22:01 Patient unable to answer at this time (ie. confused, unrespo /Reproduction History /Reproductive History - plastics seasoner operator: /Reproductive Hx- plastics seasoner operator Hx Now Gestational Age (in weeks): EDC: Hx Hx Para Hx Section SAB No 02/17/24 03:58 Active Medications Active Medications: Current Medications Generic Name Dose Route Start Last Admin Trade Name Freq PRN Reason Stop Dose Admin Albuterol Sulfate 2.5 mg 08/07/24 21:47 Albuterol 2.5 Mg/3 Ml Vial.Neb. INHALATION Q4H PRN PRN SHORTNESS OF BREATH Calamine/Phenol 1 applic 08/08/24 10:00 08/08/24 08:26 Menthol/Lanolin/Calamine/Znox 113 Gm Tube TOPICAL 1 applic BID VENU Administration Protocol Enoxaparin Sodium 70 mg 08/07/24 21:39 08/08/24 05:12 Enoxaparin 80 Mg/0.8 Ml Syringe SC 70 mg Q12@0600,1800 VENU Administration Glucagon 1 mg 08/08/24 05:38 Glucagon 1 Mg/Ml Syringe IM X1 PRN Hypoglycemia Protocol Pantoprazole Sodium 40 mg/ 110 mls @ 330 mls/hr 08/07/24 21:39 08/08/24 10:47 Sodium Chloride IV Infused Q24 VENU Infusion Sodium Chloride 500 mls @ 15 mls/hr 08/07/24 21:41 IV .[id number] PRN Saline Flush Sodium Chloride 500 mls @ 15 mls/hr 08/07/24 21:41 IV .[id number] PRN Additional IVPB Infusion Dextrose 250 mls @ 0 mls/hr 08/08/24 05:38 Dextrose 10%-Water IV .Q0M PRN HYPOGLYCEMIA Protocol As Directed Ondansetron HCl 4 mg 08/07/24 21:39 Ondansetron 4 Mg/2 Ml Vial IV Q6H PRN PRN NAUSEA/VOMITING Promethazine HCl 25 mg 08/07/24 21:39 Promethazine 25 Mg/Ml Syringe IM Q6H PRN PRN Breakthrough nausea/vomiting Sodium Chloride 10 - 40 ml 08/07/24 21:41 0.9% Saline Lock 10 Ml Syringe IV UD PRN SALINE FLUSH PFSH Medical History (Updated 08/08/24 @ 01:[address] Reynalod Bal, DO) Hx of tongue cancer Biventricular congestive heart failure Fall Chronic renal failure, stage 3b Hiatal hernia Tongue carcinoma BPH (benign prostatic hyperplasia) Dysphagia Carotid stenosis Immunosuppression due to chronic steroid use Esophageal stenosis Chronic anemia Chronic renal insufficiency Loss of hearing Wears glasses Diabetes Arthritis Hx of benign monoclonal gammopathy History of renal disease Low iron Fatty liver High cholesterol Easy bruising Back pain Injury of head and neck Stroke/cerebrovascular accident Syncope Dietary restriction History of colitis Non-smoker History of edema Hx of echocardiogram History of Holter monitoring History of stress test Cardiology follow-up encounter Hypertension History of irregular heartbeat Orthostatic hypotension HTN (hypertension) CVA (cerebral vascular accident) Home Medications ?Medication ?Instructions ?Recorded ?Last Taken ?Type finasteride 5 mg tablet 5 mg feeding tube DAILY PROSTATE 12/08/13 02/10/24 History cyanocobalamin (vitamin B-12) 500 500 mcg feeding tube DAILY@0900 09/17/20 02/11/24 History mcg tablet vitamin folic acid 1 mg tablet 1 mg feeding tube DAILY SUPPLEMENT 09/17/20 02/11/24 History pyridoxine (vitamin B6) 100 mg 200 mg feeding tube BID vitamin 11/12/21 02/11/24 History tablet prednisone 5 mg tablet 5 mg feeding tube DAILY 02/11/24 02/11/24 History inflammation tacrolimus 1 mg capsule, 1 mg PO DAILY rejection 02/11/24 02/10/24 History immediate-release (Prograf) amlodipine 10 mg tablet 10 mg feeding tube DAILY 08/03/24 Unknown History hypertension amoxicillin 500 mg capsule 500 mg feeding tube TID 08/03/24 Unknown History endocarditis atorvastatin 80 mg tablet 80 mg feeding tube DAILY 08/03/24 Unknown History hyperlipidemia insulin aspart U-100 100 unit/mL 4 unit subcut Q6H diabetes 08/03/24 Unknown History subcutaneous solution (Novolog U-100 Insulin aspart) apixaban 5 mg tablet (Eliquis) 2.5 mg feeding tube BID 08/07/24 Unknown History cholecalciferol (vitamin D3) 25 25 mcg feeding tube QODAY 08/07/24 Unknown History mcg (1,000 unit) tablet supplement insulin aspart U-100 100 unit/mL See Protocol subcut Q6H diabetes 08/07/24 Unknown History (3 mL) subcutaneous pen (Novolog FlexPen U-100 Insulin aspart) pantoprazole 40 mg granules 40 mg feeding tube BID GERD 08/07/24 Unknown History delayed-release for susp in packet polyethylene glycol 3350 17 17 g PO DAILY constipation 08/07/24 Unknown History gram/dose oral powder (ClearLax) saliva substitute combo no.9 15 ml mucous membrane Q6H mouth 08/07/24 Unknown History (Biotene Dry Mouth Oral Rinse hygiene mouthwash) tacrolimus 0.5 mg capsule,extended 0.5 mg PO QPM organ rejection 08/07/24 Unknown History release 24 hr (Astagraf XL) Allergy/AdvReac Type Severity Reaction Status Date / Time amoxicillin Allergy Unknown Verified 08/07/24 03:34 ursodiol Allergy Rash Verified 08/07/24 03:34 exenatide (From [place]) AdvReac Nausea Verified 08/07/24 03:34 morphine AdvReac paranoid Verified 08/07/24 03:34 and hallucinations Family History Other Diabetes TIA (transient ischemic attack) Surgical History (Updated 08/08/24 @ 01:[address] 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 Smoking Status: Never smoker alcohol intake: never details: Never drinks now for many years. In the past has been a social drinker. substance use type: does not use Review of Systems (Anesthesia) ROS Narrative System reviewed and no additional complaints, except as documented.
--- NOTE | 2024-08-08 17:10 | CON.PCM.GI_ITS ---
HPI Consult Data Date of Consult: 08/08/24 Attending Care Provider: Clogged Dobbhoff tube HPI Narrative Reason for Consultation: Clogged Dobbhoff tube HPI Narrative: KELTON MEDINA, is a 74 M with a clogged Dobbhoff tube. 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 noted on CT previously, history of DVT; on apixaban, history of biventricular CHF, history of syncope; attributed to orthostatic hypotension, history of irregular heartbeat, history of moderate carotid stenosis ~50% (2019), history of Right kidney transplant; on prednisone and tacrolimus, history of CKD; stage IIIb, history of gastric bypass (2010), history of tongue cancer, history of esophageal stenosis; s/p esophageal dilatation by myself (02/17/2024), history of hiatal hernia, history of fatty liver disease, history of lymphedema, 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 According to the records this has happened multiple times and because of his history of gastric bypass complicating his case he usually requires transfer back to [facility] for tube to be changed. His (Karin) explained to the ER physician that he had cancer of the base of his tongue and after he had surgery for this he easily aspirated requiring Dobbhoff tube placement. She also went on to state he is not a candidate for a PEG tube due to his heart condition. The hospital service was called at 8:16 PM as he is accepted to [facility] - however, there is no bed available at this time [facility] Medical History (Updated 08/08/24 @ 01:[address] Reynaldo Bal DO) Hx of tongue cancer Biventricular congestive heart failure Fall Chronic renal failure, stage 3b Hiatal hernia Tongue carcinoma BPH (benign prostatic hyperplasia) Dysphagia Carotid stenosis Immunosuppression due to chronic steroid use Esophageal stenosis Chronic anemia Chronic renal insufficiency Loss of hearing Wears glasses Diabetes Arthritis Hx of benign monoclonal gammopathy History of renal disease Low iron Fatty liver High cholesterol Easy bruising Back pain Injury of head and neck Stroke/cerebrovascular accident Syncope Dietary restriction History of colitis Non-smoker History of edema Hx of echocardiogram History of Holter monitoring History of stress test Cardiology follow-up encounter Hypertension History of irregular heartbeat Orthostatic hypotension HTN (hypertension) CVA (cerebral vascular accident) Home Medications ?Medication ?Instructions ?Recorded ?Last Taken ?Type finasteride 5 mg tablet 5 mg feeding tube DAILY PROSTATE 12/08/13 02/10/24 History cyanocobalamin (vitamin B-12) 500 500 mcg feeding tube DAILY@0900 09/17/20 02/11/24 History mcg tablet vitamin folic acid 1 mg tablet 1 mg feeding tube DAILY SUPPLEMENT 09/17/20 02/11/24 History pyridoxine (vitamin B6) 100 mg 200 mg feeding tube BID vitamin 11/12/21 02/11/24 History tablet prednisone 5 mg tablet 5 mg feeding tube DAILY 02/11/24 02/11/24 History inflammation tacrolimus 1 mg capsule, 1 mg PO DAILY rejection 02/11/24 02/10/24 History immediate-release (Prograf) amlodipine 10 mg tablet 10 mg feeding tube DAILY 08/03/24 Unknown History hypertension amoxicillin 500 mg capsule 500 mg feeding tube TID 08/03/24 Unknown History endocarditis atorvastatin 80 mg tablet 80 mg feeding tube DAILY 08/03/24 Unknown History hyperlipidemia insulin aspart U-100 100 unit/mL 4 unit subcut Q6H diabetes 08/03/24 Unknown History subcutaneous solution (Novolog U-100 Insulin aspart) apixaban 5 mg tablet (Eliquis) 2.5 mg feeding tube BID 08/07/24 Unknown History cholecalciferol (vitamin D3) 25 25 mcg feeding tube QODAY 08/07/24 Unknown History mcg (1,000 unit) tablet supplement insulin aspart U-100 100 unit/mL See Protocol subcut Q6H diabetes 08/07/24 Unknown History (3 mL) subcutaneous pen (Novolog FlexPen U-100 Insulin aspart) pantoprazole 40 mg granules 40 mg feeding tube BID GERD 08/07/24 Unknown History delayed-release for susp in packet polyethylene glycol 3350 17 17 g PO DAILY constipation 08/07/24 Unknown History gram/dose oral powder (ClearLax) saliva substitute combo no.9 15 ml mucous membrane Q6H mouth 08/07/24 Unknown History (Biotene Dry Mouth Oral Rinse hygiene mouthwash) tacrolimus 0.5 mg capsule,extended 0.5 mg PO QPM organ rejection 08/07/24 Unknown History release 24 hr (Astagraf XL) Allergy/AdvReac Type Severity Reaction Status Date / Time amoxicillin Allergy Unknown Verified 08/07/24 03:34 ursodiol Allergy Rash Verified 08/07/24 03:34 exenatide (From [place]) AdvReac Nausea Verified 08/07/24 03:34 morphine AdvReac paranoid Verified 08/07/24 03:34 and hallucinations Family History Other Diabetes TIA (transient ischemic attack) Surgical History (Updated 08/08/24 @ 01:[address] 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 Smoking Status: Never smoker alcohol intake: never details: Never drinks now for many years. In the past has been a social drinker. substance use type: does not use ROS ROS Narrative Review of systems: Constitutional: Patient denies fever or chills. Eyes: Patient denies changes in vision or discharge from eyes. ENT: Patient denies runny nose, sore throat or ear pain. Resp: Patient denies shortness of breath or cough. CV: Patient denies chest pain, palpitations or heart racing. GI: Patient denies abdominal pain, nausea, vomiting, diarrhea or constipation. : Patient denies dysuria or hematuria. MSK: Patient denies myalgias or arthralgias. Skin: Patient denies abscess, rash or jaundice. Psych: Patient denies symptoms of uncontrolled depression or anxiety. Neuro: Patient denies headache, paresthesias or focal neurologic deficits. Allergy: Patient denies lip swelling, tongue swelling or urticaria. Hematology: Patient denies easy bleeding or easy bruisability. Endocrinology: Patient denies polyuria, polydipsia or polyphagia. 14 point review of systems otherwise negative except for positives noted above in HPI. Physical Exam Const alert, oriented x3, no apparent distress and average body habitus General Appearance: cooperative HEENT normocephalic, head/scalp atraumatic and hearing grossly normal bilaterally HEENT Narrative: Mucous membranes dry. Eyes PERRL and EOMs intact bilaterally Neck no lymphadenopathy and supple Resp normal respiratory effort, no retractions, no use of accessory muscles and clear to auscultation bilaterally Cardio regular rate and regular rhythm GI normal to inspection, nondistended, normoactive bowel sounds, soft to palpation, non-tender and non-distended Extremity normal to inspection and full ROM Skin Skin Narrative: Patient has no evidence of rash or jaundice. Neuro oriented x3, CN's II-XII intact bilaterally, moves all extremities and no focal motor deficits Sensorium / Orientation: awake, alert, oriented to person, oriented to place and oriented to time Speech: speech normal Psych affect normal Lab / Micro Data 08/08/24 06:53 08/08/24 06:53 Labs: Laboratory Results - last 24 hr 08/07/24 21:46: Phosphorus 4.8, Magnesium 2.9 H 08/08/24 05:14: POC Glucose 63 L 08/08/24 06:40: POC Glucose 126 H 08/08/24 06:53: WBC 7.7, RBC 2.76 L, Hgb 8.9 L, Hct 27.7 L, MCV 100.4 H, MCH 32.2 H, MCHC 32.1, RDW Std Deviation 61.1 H, RDW Coeff of Lacy 16.5 H, Plt Count 133 L, MPV 8.4, Immature Gran % (Auto) 0.400, Neut % (Auto) 83.1 H, Lymph % (Auto) 6.6 L, [place] % (Auto) 7.0, Eos % (Auto) 1.9, Baso % (Auto) 1.0, Absolute Neuts (auto) 6.4, Absolute Lymphs (auto) 0.51 L, Nucleated RBC % 0, Sodium 140, Potassium 4.4, Chloride 109 H, Carbon Dioxide 23.0, Anion Gap 8, BUN 77 H, C reatinine 2.05 H, Estim Creat Clear Calc 28.70, Est GFR (MDRD) Af Amer 41 L, Est GFR (MDRD) Non-Af 34 L, BUN/Creatinine Ratio 37.6 H, Glucose 106, Calcium 7.7 L, Total Bilirubin 0.50, AST 75 H, ALT 94 H, Alkaline Phosphatase 138 H, Total Protein 5.4 L, Albumin 1.7 L, Globulin 3.7, Albumin/Globulin Ratio 0.5 L, TSH 10.900 H, Free T4 0.74 L 08/08/24 11:57: POC Glucose 95 Assessment & Plan Assessment/Plan (1) Obstruction of nasogastric tube: (2) Hx of tongue cancer: (3) Chronic renal failure, stage 3b: (4) Renal transplant recipient: (5) Hx of bariatric surgery: (6) History of esophagogastroduodenoscopy: PLAN: Plan 74-year-old gentleman presents with clogged Dobbhoff Tube; awaiting replacement at [facility] due to his history of Gastric Bypass (2010). We will take him for EGD and replace his Dobbhoff tube. His and the patient were explained alternatives, risk, benefits include not withstanding bleeding, infection, sepsis, perforation, need for emergent urgent . He will have an ASA of 3.
--- NOTE | 2024-08-08 18:27 | POSTOPAN2_ITS ---
Anesthesia Postop Eval I Sum Postop Eval Completion status Anesthesia document: Postop Eval 1 completed: Yes Anesthesia Postop Eval I Summary Anesthesia Postop Eval I Summary: Anesthesia Postop Eval I: Assessment Summary Airway patent Yes 08/08/24 18:27 [email or web address] Spontaneous unlabored Yes 08/08/24 18:27 [email or web address] respirations Mental status Awake,Calm 08/08/24 18:27 [email or web address] nausea No 08/08/24 18:27 [email or web address] Vomiting No 08/08/24 18:27 [email or web address] Anesthesia Postop Eval I: Fluid Summary Crystalloid volume administer 20 08/08/24 18:27 [email or web address] (ml) Colloids volume administered ( ml) Blood Product volume administered (ml) Total IV fluid infused 20 08/08/24 18:27 [email or web address] Anesthesia Postop Eval I: Summary Notes Anesthesia Complication No 08/08/24 18:27 [email or web address] Anesthesia Complication Comment: Post-operative progress note Anesthesia: Postop Eval II Evaluation Mental status: Awake and Calm Pain Level: 0 nausea: No Vomiting: No Complications Anesthesia Complication: No
--- NOTE | 2024-08-08 18:27 | PCM.POST.ANE ---
Anesthesia: Postop Eval I Current Vital Signs Temperature: 98 F Pulse Rate: 67 Blood Pressure: 108/69 Respiratory Rate: 16 Pulse Ox: 99 Oxygen Delivery Method: Room Air Assessment Airway patent: Yes Spontaneous unlabored respirations: Yes Mental status: Awake and Calm nausea: No Vomiting: No Anesthesia Complication: No Fluid Hydration Crystalloid volume administer (ml): 20 Total IV fluid infused: 20 Progress Note Anesthesia document: Postop Eval 1 completed: Yes
--- NOTE | 2024-08-08 18:27 | PCM.POSTANE2 ---
Anesthesia Postop Eval I Sum Postop Eval Completion status Anesthesia document: Postop Eval 1 completed: Yes Anesthesia Postop Eval I Summary Anesthesia Postop Eval I Summary: Anesthesia Postop Eval I: Assessment Summary Airway patent Yes 08/08/24 18:27 [email or web address] Spontaneous unlabored Yes 08/08/24 18:27 [email or web address] respirations Mental status Awake,Calm 08/08/24 18:27 [email or web address] nausea No 08/08/24 18:27 [email or web address] Vomiting No 08/08/24 18:27 [email or web address] Anesthesia Postop Eval I: Fluid Summary Crystalloid volume administer 20 08/08/24 18:27 [email or web address] (ml) Colloids volume administered ( ml) Blood Product volume administered (ml) Total IV fluid infused 20 08/08/24 18:27 [email or web address] Anesthesia Postop Eval I: Summary Notes Anesthesia Complication No 08/08/24 18:27 [email or web address] Anesthesia Complication Comment: Post-operative progress note Anesthesia: Postop Eval II Evaluation Mental status: Awake and Calm Pain Level: 0 nausea: No Vomiting: No Complications Anesthesia Complication: No
--- NOTE | 2024-08-08 18:49 | OP.EGD_ITS ---
Patient Name: Brennon Luke Procedure Date: 08/08/2024 6:04 PM Date of : 1950 Age: 74 Procedure: Upper GI endoscopy Indications: Dysphagia Providers: Ilir Auguste DO Medicines: Monitored Anesthesia Care Patient Profile: This is a 74 year old male. Refer to note in patient chart for documentation of history and physical. Patient has symptoms of dysphagia with both liquids and solids. Complications: No immediate complications. Procedure: Pre-Anesthesia Assessment: - Prior to the procedure, a History and Physical was performed, and patient medications and allergies were reviewed. The patient is competent. The risks and benefits of the procedure and the sedation options and risks were discussed with the patient. All questions were answered and informed consent was obtained. Patient identification and proposed procedure were verified by the physician in the pre-procedure area. Mental Status Examination: alert and oriented. Airway Examination: normal oropharyngeal airway and neck mobility. Respiratory Examination: clear to auscultation. CV Examination: normal. Prophylactic Antibiotics: The patient does not require prophylactic antibiotics. Prior Anticoagulants: The patient has taken no anticoagulant or antiplatelet agents. ASA Grade Assessment: III - A patient with severe systemic disease. After reviewing the risks and benefits, the patient was deemed in satisfactory condition to undergo the procedure. The anesthesia plan was to use monitored anesthesia care (MAC). Immediately prior to administration of medications, the patient was re-assessed for adequacy to receive sedatives. The heart rate, respiratory rate, oxygen saturations, blood pressure, adequacy of pulmonary ventilation, and response to care were monitored throughout the procedure. The physical status of the patient was re-assessed after the procedure. After obtaining informed consent, the endoscope was passed under direct vision. Throughout the procedure, the patient's blood pressure, pulse, and oxygen saturations were monitored continuously. The Endoscope was introduced through the mouth, and advanced to the second part of duodenum. The upper GI endoscopy was accomplished without difficulty. The patient tolerated the procedure well. Scope In: 6:18:30 PM Scope Out: 6:26:52 PM Total Procedure Duration Time 0 hours 8 minutes 22 seconds Findings: The nasopharynx and oropharynx are abnormal. One extrinsic moderate (circumferential scarring or stenosis; an endoscope may pass) stenosis was found 19 to 23 cm from the incisors. This stenosis measured 4 cm (in length). The stenosis was traversed. 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 The gastrojejunal anastomosis was characterized by healthy appearing mucosa. The jejunojejunal anastomosis was characterized by healthy appearing mucosa. The [id number]-[id number]-pfsipnn limb was not examined as it could not be found. The excluded stomach was not examined as it could not be found. A 12 Fr nasojejunal tube was placed through the nares into the esophagus. Under endoscopic guidance, the tube was advanced into the jejunum. Placement was confirmed by scope visualization. The examined jejunum was normal. Impression: - The nasopharynx and oropharynx are abnormal. - Extrinsic narrowing of the esophagus. - Evelio-en-Y gastrojejunostomy with gastrojejunal anastomosis characterized by healthy appearing mucosa. - Normal examined jejunum. - Feeding tube placement was successfully performed. - No specimens collected. Recommendation: - [facility] - Please follow the post-Dobbhoff tube recommendations including: start using Dobbhoff tube today. - Continue present medications. Procedure Code(s): --- Professional --- 24250, Esophagogastroduodenoscopy, flexible, transoral; with insertion of intraluminal tube or catheter CPT copyright 2021 [employer]. All rights reserved. The codes documented in this report are preliminary and upon data coder operator review may be revised to meet current compliance requirements. Ilir Auguste DO 08/08/2024 6:49:49 PM This report has been signed electronically. Number of Addenda: 0 Note Initiated On: 08/08/2024 6:04 PM
--- NOTE | 2024-08-08 18:50 | OP.CCLET_ITS ---
08/08/2024 James Eden Re : Upper GI endoscopy procedure for Brennon Eden This procedure was performed on Thursday, August 08, 2024. My impressions and recommendations are as follows: Impressions : - The nasopharynx and oropharynx are abnormal. - Extrinsic narrowing of the esophagus. - Evelio-en-Y gastrojejunostomy with gastrojejunal anastomosis characterized by healthy appearing mucosa. - Normal examined jejunum. - Feeding tube placement was successfully performed. - No specimens collected. Recommendations : - [facility]. - Please follow the post-Dobbhoff tube recommendations including: start using Dobbhoff tube today. - Continue present medications. My findings are described in the full procedure note, which is enclosed. If I can be of further assistance, please feel free to contact me at . Sincerely, Ilir Auguste, 08/08/2024 6:49:49 PM This report has been signed electronically.
--- NOTE | 2024-08-08 19:41 | PCM.PN.HOSP ---
Reason for Visit Reason for Visit: Clogged Dobbhoff Subjective Subjective I discussed with the patient that we will likely be able to do his Dobbhoff replacement here per discussion with Dr. Auguste as he thought he could do it via endoscopy. As long as he tolerates tube feeds and we get this in place he should be able to discharge home on 08/09/2024. If this occurs we will be able to cancel transfer to [facility]. Objective Data Objective Data Vital Signs: Vital Signs Temp Pulse Resp BP Pulse Ox O2 Del Method 98.3 F 72 16 131/91 H 98 Room Air 08/08/24 18:45 08/08/24 18:45 08/08/24 18:45 08/08/24 18:45 08/08/24 18:45 08/08/24 18:45 Oxygen Delivery Method Room Air Weight: 66.2 kg Body Mass Index (BMI) 19.8 Intake & Output: Intake and Output for Last 24 Hours 08/06/24 08/07/24 08/08/24 23:59 23:59 23:59 Intake Total 110 / 110 5 / 2095 Output Total 100 / 100 275 / 275 Balance 1820 / 1820 Lab / Micro Data 08/08/24 06:53 08/08/24 06:53 Labs: Laboratory Results - last 24 hr 08/07/24 21:46: Phosphorus 4.8, Magnesium 2.9 H 08/08/24 05:14: POC Glucose 63 L 08/08/24 06:40: POC Glucose 126 H 08/08/24 06:53: WBC 7.7, RBC 2.76 L, Hgb 8.9 L, Hct 27.7 L, MCV 100.4 H, MCH 32.2 H, MCHC 32.1, RDW Std Deviation 61.1 H, RDW Coeff of Lacy 16.5 H, Plt Count 133 L, MPV 8.4, Immature Gran % (Auto) 0.400, Neut % (Auto) 83.1 H, Lymph % (Auto) 6.6 L, [place] % (Auto) 7.0, Eos % (Auto) 1.9, Baso % (Auto) 1.0, Absolute Neuts (auto) 6.4, Absolute Lymphs (auto) 0.51 L, Nucleated RBC % 0, Sodium 140, Potassium 4.4, Chloride 109 H, Carbon Dioxide 23.0, Anion Gap 8, BUN 77 H, Creatinine 2.05 H, Estim Creat Clear Calc 28.70, Est GFR (MDRD) Af Amer 41 L, Est GFR (MDRD) Non-Af 34 L, BUN/Creatinine Ratio 37.6 H, Glucose 106, Calcium 7.7 L, Total Bilirubin 0.50, AST 75 H, ALT 94 H, Alkaline Phosphatase 138 H, Total Protein 5.4 L, Albumin 1.7 L, Globulin 3.7, Albumin/Globulin Ratio 0.5 L, TSH 10.900 H, Free T4 0.74 L 08/08/24 11:57: POC Glucose 95 Physical Exam Const alert and oriented x3 Constitutional Narrative: Frail-appearing, older, white male, sitting up in bed, appears comfortable and nontoxic, NG tube in right nares HEENT head/scalp atraumatic; Negative for moist oral mucous membranes HEENT Narrative: Oropharynx is dry related to previous surgery and radiation, tongue is malformed due to his previous surgery Head and Scalp: normocephalic Resp normal respiratory effort, no retractions, no use of accessory muscles and clear to auscultation bilaterally Resp Narrative: Diffusely diminished but clear Cardio regular rate, regular rhythm, S1 normal heart sound, S2 normal heart sound, no murmurs, no rub, no gallops and no clicks GI normal to inspection, nondistended, normoactive bowel sounds and non-tender GI Narrative: Scaphoid abdomen Extremity no clubbing, cyanosis or edema Extremity Narrative: Decreased lean muscle mass Neuro oriented x3, moves all extremities and no focal motor deficits Neuro Narrative: Speech is garbled due to previous oropharynx surgery and cancer Psych Psych Narrative: Very pleasant, interacts appropriately Assessment & Plan Assessment/Plan (1) Hx of tongue cancer: PLAN: Plan Clogged Dobbhoff -We do now have GI coverage here so we will consult Dr. Auguste as I did discuss with him he should be able to correct this here without need for transfer -Will start tube feed after Dobbhoff replace -As long as Dobbhoff is working well likely discharge tomorrow Chronic anemia secondary to chronic renal disease -Baseline hemoglobin appears to run between 7 and 9 -Current hemoglobin stable at 8.9 Can continue outpatient follow-up Chronic thrombocytopenia -Platelets remained stable at 133,000 -Continue to monitor -Baseline appears to be between 110,000 and 140,000 History of esophageal stenosis -Previous stent placement by Dr. Auguste on 02/17/2024 -Patient on p.o. 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 -Monitor urinary output History of tongue cancer status post partial resection -Concern for dysphagia -Patient with Dobbhoff in place and reportedly not a candidate for PEG tube per documentation History of stroke -Continue Plavix History of DVT -Continue apixaban History of endocarditis -Continue home amoxicillin--> dates of treatment are unknown -Listed as a rash in his home medications however it is documented he has been on this at home so we will restart Essential hypertension -Restart home amlodipine DVT prophylaxis -Continue home Eliquis CODE STATUS -Patient has been DNR MOHAN allen for short-term intubation Charges/Coding Visit Charges Inpatient E&M: 50278 Subs Hosp L2
[2024-08-08] MEDS: Atorvastatin Calcium 80 MG Tablet GT (23:44)
[2024-08-08] MEDS: Pyridoxine HCl 100 MG Tablet 200 MG PO (23:44)
[2024-08-08] MEDS: Tacrolimus 0.5 MG Capsule GT (23:44)
[2024-08-08] MEDS: AMOXICILLIN 500 MG CAPSULE GT (23:59)
[2024-08-09 00:16] LABS: Bedside Glucose 88 mg/dL (74-106)
[2024-08-09] MEDS: Jevity 1.5. 1,000 ML Bottle 220 ML GT ×3 (02:15→13:53)
[2024-08-09 04:46] VITALS: BP 152/83; PULSE 67; RESP 16; TEMP 36.4; O2SAT 97
[2024-08-09 06:00] VITALS: BMI 19.8
[2024-08-09] MEDS: AMOXICILLIN 500 MG CAPSULE GT (06:11)
[2024-08-09 06:48] LABS: Absolute Lymphocyte Count 0.39 X10^3/uL (0.83-4.51); Absolute Neutrophil Count 4.2 X10^3/uL (2.0-7.7); Basophil# 0.05 X10^3/uL; Eosinophil# 0.11 X10^3/uL; Eosinophils% 2.1 % (0-5); Hematocrit 27.3 % (40-54); Hemoglobin 8.9 g/dL (13.0-16.5); Lymphocyte # 0.39 X10^3/ul (0.83-4.51); Lymphocyte % 7.5 % (19-41); Mean Corp Hgb Conc 32.6 g/dL (32-36); Mean Corpuscular Hgb 32.8 pg (27.0-32.0); Mean Corpuscular Volume 100.7 fL (80-94); Mean Platelet Vol. 8.3 fl (6.2-12.0); Monocyte# 0.43 X10^3/uL; Monocyte% 8.2 % (0-10); NRBC Flagged by Analyzer 0 % (0-5); Neutrophil # 4.22 X10^3/uL (2.7-7.7); Neutrophil % 80.6 % (47-70); POSITIVE DIFFERENTIAL YES; Platelet Count 118 K/mm3 (150-450); RBC Distribution Width CV 16.4 % (11.6-14.6); RBC Distribution Width SD 60.1 fl (35.1-43.9); Red Blood Count 2.71 M/mm3 (4.6-6.2); White Blood Count 5.2 K/mm3 (4.4-11.0)
[2024-08-09 07:09] LABS: Bedside Glucose 143 mg/dL (74-106)
[2024-08-09 07:23] LABS: ALB/GLOB Ratio 0.5 RATIO (0.9-2.4); AST(SGOT) 50 U/L (15-37); Alanine Aminotransfer ALT/SGPT 78 U/L (16-61); Albumin, Serum 1.7 g/dL (3.2-5.0); Alkaline Phosphatase 130 U/L (45-117); Anion Gap 4 (5-15); BUN 66 mg/dL (7-18); BUN/Creat Ratio 31.3 RATIO (10-20); Calcium,Total 8.1 mg/dL (8.5-10.1); Chloride 112 mmol/L (98-107); Creatinine, Serum 2.11 mg/dL (0.70-1.30); EST Glomerular Filtration Rate 33 mL/min (>60); Est Glom Filt Rate - Afr Amer 39 mL/min (>60); Estimated Creatinine Clearance 27.89 ml/min; Globulin 3.7 g/dL (2.2-4.2); Glucose 103 mg/dL (74-106); Potassium 3.9 mmol/L (3.5-5.1); Protein, Total 5.4 g/dL (6.4-8.2); Sodium Level 140 mmol/L (136-145)
--- NOTE | 2024-08-09 07:34 | NURSING ---
Pt had Dobhoff tube replaced by Dr. Auguste. Nursing communication said to continue his tube feeds from the snf. I checked with his snf orders which said IsoSource 1.5 55mL/hr continuous. Pharmacy said the exchange for that is Jevita 1.5. I began to set up the tube feed but the connecting part of the tube feed didn't connect with the Dobhoff end. Pharmacy didn't have other feeding tubing nor did the cytology supervisor. I knew the doctors wanted to see how the patient tolerated tube feeding so I reached out to the night hospitalist and let him know the situation (see physician notification). He ordered the boluses for the patient so that he would be able to get nutrition. Patient tolerated boluses well.
[2024-08-09 08:41] VITALS: O2SAT 97
--- NOTE | 2024-08-09 08:56 | CASEMGMT ---
Discharge Planning Updates sent via [facility] to [facility] with note that pt will likely return today. Khushboo Arce DC Planning Asst.
[2024-08-09 09:13] VITALS: BP 140/76; PULSE 65; RESP 18; TEMP 36.8; O2SAT 100
[2024-08-09] MEDS: Tacrolimus Anhydrous 1 MG Capsule GT (09:36)
[2024-08-09] MEDS: Pyridoxine HCl 100 MG Tablet 200 MG PO (09:36)
[2024-08-09] MEDS: APIXABAN 2.5 MG TABLET (WCH) GT (09:36)
[2024-08-09] MEDS: Finasteride 5 MG Tablet GT (09:36)
[2024-08-09] MEDS: Folic Acid 1 MG Tablet GT (09:36)
[2024-08-09] MEDS: predniSONE 5 MG Tablet GT (09:36)
[2024-08-09] MEDS: amLODIPine 10 MG Tablet GT (09:36)
[2024-08-09] MEDS: Menthol/Lanolin/Calamine/Znox 113 GM Tube 1 APPLIC TOPICAL (09:37)
[2024-08-09] MEDS: Lansoprazole 15 MG Capsule.DR 30 MG GT (09:37)
[2024-08-09] MEDS: Saliva Substitute 237 ML BOTTLE 15 ML MUCOUS MEM (12:01)
--- NOTE | 2024-08-09 12:04 | PCM.TXEXTCAR ---
Diet Diet Order/Speech Therapy: 08/09/24 00:01 Diet: Nothing Per Oral Routine Orders/Code Status Suppository Frequency: Daily PRN O2 Frequency: PRN Keep PO Greater than or Equal to (%): 89 Routine Lab Work: CBC (1 week) and BMP (1 week) Code Status: DNRCC-A (Okay for intubation) Wound(s) RFA: Wound Type: Skin Tear LFA: Wound Type: Skin Tear Suggestions for Active Care Change Position every (hours): 2 Hours to sit in a chair: 3 Times a day to sit in chair: 2 Therapies Weight Bearing: Full weight bearing Physical Therapy: Eval and Treat Occupational Therapy: Eval and Treat Speech Therapy: Eval and Treat Problem/Diagnosis (1) Hx of tongue cancer: Status: Acute Code(s): Z85.810 - Personal history of malignant neoplasm of tongue Plan Allergies/Procedures Done in Hospital Allergies amoxicillin Allergy (Verified 08/07/24 03:34) Unknown ursodiol Allergy (Verified 08/07/24 03:34) Rash exenatide (From [place]) Adverse Reaction (Verified 08/07/24 03:34) Nausea morphine Adverse Reaction (Verified 08/07/24 03:34) paranoid and hallucinations Procedures: EGD (With Dobbhoff placement) Type of Care/Length of Stay Estimated LOS: More Than 30 Days Type of Care Needed: Intermediate Rehab Potential: Fair Prognosis: Fair Additional Orders/Day of Discharge Additional Orders: Flush Dobbhoff with at least 60 cc of sterile water after medication administration Day of Discharge: 08/09/24 Dietary and Speech Recommendations Dietitian Recommendations/Changes: Continue bolus feeds with Jevity 1.5 220 mL 4 times daily Discharge Plan Admission Admit Date/Time: 08/07/24 20:26 Attending Provider: Milena Mary Primary Care Provider: Jaems Eden Consulting Providers: Reynaldo Bal Discharge Orders/Prescriptions Prescriptions: No Action finasteride 5 MG tablet 5 mg feeding tube DAILY cyanocobalamin (vitamin B-12) 500 MCG tablet 500 mcg feeding tube DAILY@0900 folic acid 1 MG tablet 1 mg feeding tube DAILY pyridoxine (vitamin B6) 100 mg Tablet 200 mg feeding tube BID prednisone 5 mg tablet 5 mg feeding tube DAILY tacrolimus [Prograf] 1 mg capsule 1 mg PO DAILY Patient Comments: NG tube amlodipine 10 mg tablet 10 mg feeding tube DAILY amoxicillin 500 mg capsule 500 mg feeding tube TID atorvastatin 80 mg tablet 80 mg feeding tube DAILY insulin aspart U-100 [Novolog U-100 Insulin aspart] 100 unit/mL solution 4 unit subcut Q6H Biotene Dry Mouth Oral Rinse Mouthwash 15 ml mucous membrane Q6H Rx Instructions: swish for 15-30 secs , then spit out; do not swallow insulin aspart U-100 [Novolog FlexPen U-100 Insulin] 100 unit/mL (3 mL) insulin pen See Protocol subcut Q6H Protocol: 6. Sliding Scale Insulin Custom Condition: 151-200 Dose/Route: 2 Condition: 201-250 Dose/Route: 4 Condition: 251-300 Dose/Route: 6 Condition: 301-350 Dose/Route: 8 Condition: 351-400 Dose/Route: 10 Condition: 400 Dose/Route: 12 Instruction: notify Protocol Text: Custom Sliding Scale pantoprazole [address] for susp in packet 40 mg feeding tube BID polyethylene glycol 3350 [ClearLax] 17 gram/dose powder 17 g PO DAILY tacrolimus [Astagraf XL] 0.5 mg capsule,extended release 24hr 0.5 mg PO QPM Patient Comments: NG tube Rx Instructions: must administer in the morning on an empty stomach, 1 hour before or 2 hours after a meal cholecalciferol (vitamin D3) 25 mcg (1,000 unit) tablet 25 mcg feeding tube QODAY Eliquis 5 mg Tablet 2.5 mg feeding tube BID Referrals / Follow Up: James Eden MD [Primary Care Provider] -
--- NOTE | 2024-08-09 12:24 | DS.PCM_ITS ---
Providers Date of Admission: 08/07/24 Date of Discharge: 08/09/24 Primary Care Physician: Dr. James Eden MD Consultations 08/08/24 11:37 Consult: Gastroenterology Routine Consulting Provider: [facility] Reason for Consult: clogged dobhoff EMERGENT Consult: No Notified: Yes Date Notified: 08/08/24 Time Notified: 11:37 Method of Notification: Text Reason For Visit: CLOGGED DOBBHOFF TUBE Diagnosis Discharge Diagnosis (1) Hx of tongue cancer: Status: Acute Code(s): Z85.810 - Personal history of malignant neoplasm of tongue Plan Clogged Dobbhoff -We do now have GI coverage here so we will consult Dr. Auguste as I did discuss with him he should be able to correct this here without need for transfer -Will start tube feed after Dobbhoff replace -As long as Dobbhoff is working well likely discharge tomorrow Chronic anemia secondary to chronic renal disease -Baseline hemoglobin appears to run between 7 and 9 -Current hemoglobin stable at 8.9 Can continue outpatient follow-up Chronic thrombocytopenia -Platelets remained stable at 133,000 -Continue to monitor -Baseline appears to be between 110,000 and 140,000 History of esophageal stenosis -Previous stent placement by Dr. Auguste on 02/17/2024 -Patient on p.o. 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 -Monitor urinary output History of tongue cancer status post partial resection -Concern for dysphagia -Patient with Dobbhoff in place and reportedly not a candidate for PEG tube per documentation History of stroke -Continue Plavix History of DVT -Continue apixaban History of endocarditis -Continue home amoxicillin--> dates of treatment are unknown -Listed as a rash in his home medications however it is documented he has been on this at home so we will restart Essential hypertension -Restart home amlodipine DVT prophylaxis -Continue home Eliquis CODE STATUS -Patient has been DNR MOHAN allen for short-term intubation Medications at Discharge Home Medications finasteride 5 mg tablet 5 mg feeding tube DAILY PROSTATE 12/08/13 cyanocobalamin (vitamin B-12) 500 mcg tablet 500 mcg feeding tube DAILY@0900 vitamin 09/17/20 folic acid 1 mg tablet 1 mg feeding tube DAILY SUPPLEMENT 09/17/20 pyridoxine (vitamin B6) 100 mg tablet 200 mg feeding tube BID vitamin 11/12/21 prednisone 5 mg tablet 5 mg feeding tube DAILY inflammation 02/11/24 tacrolimus 1 mg capsule, immediate-release (Prograf) 1 mg PO DAILY rejection 02/11/24 amlodipine 10 mg tablet 10 mg feeding tube DAILY hypertension 08/03/24 atorvastatin 80 mg tablet 80 mg feeding tube DAILY hyperlipidemia 08/03/24 insulin aspart U-100 100 unit/mL subcutaneous solution (Novolog U-100 Insulin aspart) 4 unit subcut Q6H diabetes 08/03/24 apixaban 5 mg tablet (Eliquis) 2.5 mg feeding tube BID 08/07/24 cholecalciferol (vitamin D3) 25 mcg (1,000 unit) tablet 25 mcg feeding tube QODAY supplement 08/07/24 insulin aspart U-100 100 unit/mL (3 mL) subcutaneous pen (Novolog FlexPen U-100 Insulin aspart) See Protocol subcut Q6H diabetes 08/07/24 pantoprazole 40 mg granules delayed-release for susp in packet 40 mg feeding tube BID GERD 08/07/24 polyethylene glycol 3350 17 gram/dose oral powder (ClearLax) 17 g PO DAILY constipation 08/07/24 saliva substitute combo no.9 (Biotene Dry Mouth Oral Rinse mouthwash) 15 ml mucous membrane Q6H mouth hygiene 08/07/24 tacrolimus 0.5 mg capsule,extended release 24 hr (Astagraf XL) 0.5 mg PO QPM organ rejection 08/07/24 amoxicillin 500 mg capsule 500 mg feeding tube TID endocarditis #1 cap 08/09/24 lactose-reduced food with fiber 0.06 gram-1.5 kcal/mL oral liquid (Jevity 1.5 Nick) 220 ml G-tube 4X/DAY #0 mL 08/09/24 Hospital Course Operations None Procedures EGD (Dobhoff) and - (Chest x-ray/KUB) Summary of Care Provided Minutes Spent on Discharge: 25 Hospital Course: Mr. Luke is a 74-year-old white male who presented to the emergency department at [facility] on 08/07/2024 due to a clogged Dobbhoff. He presented late in the evening. He has a history of head neck cancer with esophageal stenosis status post dilation and previous Evelio-en-Y gastric bypass who is not eligible for a PEG due to cardiac issues per family. This was told to them by [facility]. He now has a Dobbhoff as his swallowing is problematic due to his history of head neck cancer and esophageal motility issues. He has had multiple issues with his Dobbhoff clogging which is typical for this type of G-tube given its small caliber. He has not been at this hospital with a clogged Dobbhoff as of yet from what I can tell however deviously he has required transfer to [facility] for replacement due to his history of Evelio-en-Y gastric bypass surgery. In the emergency department there was no gastroenterology service available to discuss the case with so he was subsequently transferred to [facility]. I was able to talk to gastroenterology here on 08/08/2020 4 in the morning and they indicated they would be able to place a Dobbhoff via endoscopy later that day. Transfer was canceled and he was taken for EGD with Dobbhoff placement on the . EGD showed markedly abnormal nasopharynx and oropharynx, and extrinsic narrowing of the esophagus with Evelio-en-Y gastrojejunostomy. The GJ anastomosis appeared to be healthy, the jejunum was normal and the feeding tube was placed successfully. Tube feeds were started and he had to bolus feedings with out any issue since placement. Meds were restarted on the evening after tube placement. I do highly recommend that the to be flushed with at least 60 cc of sterile water following medication administration to avoid clogging and follow-up at [facility] for reconsideration of PEG tube placement if possible. Patient was discharged back to his ECF in stable condition. No medications were were changed during his hospital course. 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 status post partial resection History of stroke History of DVT History of endocarditis Essential hypertension Physical Exam Const alert, oriented x3, no apparent distress and average body habitus; Negative for healthy appearing or well nourished Constitutional Narrative: Frail-appearing, older, white male, sitting up in bed, appears comfortable and nontoxic, NG tube in right nares General Appearance: cooperative, comfortable, well kempt and well developed Exam Limitations: no limitations Nutritional Appearance: thin HEENT normocephalic, head/scalp atraumatic and hearing grossly normal bilaterally; Negative for moist oral mucous membranes HEENT Narrative: Tongue is dry due to previous surgery, markedly abnormal oropharynx, Dobbhoff in place right nares Resp normal respiratory effort, no retractions, no use of accessory muscles and clear to auscultation bilaterally Resp Narrative: Diffusely diminished but clear Cardio regular rate, regular rhythm, S1 normal heart sound, S2 normal heart sound, no murmurs, no rub, no gallops and no clicks GI normal to inspection, nondistended, normoactive bowel sounds, soft to palpation and non-tender GI Narrative: Scaphoid abdomen Neuro oriented x3, moves all extremities and no focal motor deficits Neuro Narrative: Speech is garbled due to previous oropharynx surgery and cancer, generalized weakness noted Sensorium / Orientation: awake, alert, oriented to person, oriented to place and oriented to time Speech: speech normal Psych affect normal Psych Narrative: Very pleasant, interacts appropriately Weight / BMI Weight Weight: 66.2 kg Body Mass Index (BMI) 19.8 ABG / Lab / Microbiology Data 08/09/24 06:42 08/09/24 06:42 Laboratory: Laboratory Results - last 24 hr 08/08/24 11:57: POC Glucose 95 08/08/24 23:53: POC Glucose 88 08/09/24 06:09: POC Glucose 143 H 08/09/24 06:42: WBC 5.2, RBC 2.71 L, Hgb 8.9 L, Hct 27.3 L, MCV 100.7 H, MCH 32.8 H, MCHC 32.6, RDW Std Deviation 60.1 H, RDW Coeff of Lacy 16.4 H, Plt Count 118 L, MPV 8.3, Immature Gran % (Auto) 0.600, Neut % (Auto) 80.6 H, Lymph % (Auto) 7.5 L, [place] % (Auto) 8.2, Eos % (Auto) 2.1, Baso % (Auto) 1.0, Absolute Neuts (auto) 4.2, Absolute Lymphs (auto) 0.39 L, Nucleated RBC % 0, Sodium 140, Potassium 3.9, Chloride 112 H, Carbon Dioxide 24.0, Anion Gap 4 L, BUN 66 H, C reatinine 2.11 H, Estim Creat Clear Calc 27.89, Est GFR (MDRD) Af Amer 39 L, Est GFR (MDRD) Non-Af 33 L, BUN/Creatinine Ratio 31.3 H, Glucose 103, Calcium 8.1 L, Total Bilirubin 0.50, AST 50 H, ALT 78 H, Alkaline Phosphatase 130 H, Total Protein 5.4 L, Albumin 1.7 L, Globulin 3.7, Albumin/Globulin Ratio 0.5 L D/C Instructions Discharge Diet: - (NPO) Meaningful Use Info Meaningful Use Meaningful Use Diagnoses (Choose all that apply): None applicable Ischemic Stroke Statin Dosing Therapy Reference: STATIN DOSE THERAPY REFERENCE: * Patients > 75 years receive moderate or high dose statin therapy. * Patients 75 years or YOUNGER should receive HIGH intensity statin dose unless contraindicated. You will be required to document reason for non-treatment if statin daily dose does not meet guidelines. HIGH DOSE STATIN THERAPY DAILY Atorvastatin > than or = to 40 mg Rosuvastatin > than or = to 20 mg Amlodipine + Atorvastatin > than or = to 2.5/40 mg Ezetimibe + Simvastatin 10/80 mg Simvastatin 80mg Discharge Plan Admission Admit Date/Time: 08/07/24 20:26 Primary Reason for Your Visit: Jyoti Davis Attending Provider: Milena Mary Primary Care Provider: James Eden Consulting Providers: Reynaldo Bal Discharge Orders/Prescriptions Prescriptions: New Jevity 1.5 Nick 0.06 gram-1.5 kcal/mL Liquid 220 ml G-tube 4X/DAY Qty: 0 0RF Continued finasteride 5 MG tablet 5 mg feeding tube DAILY cyanocobalamin (vitamin B-12) 500 MCG tablet 500 mcg feeding tube DAILY@0900 folic acid 1 MG tablet 1 mg feeding tube DAILY pyridoxine (vitamin B6) 100 mg Tablet 200 mg feeding tube BID prednisone 5 mg tablet 5 mg feeding tube DAILY tacrolimus [Prograf] 1 mg capsule 1 mg PO DAILY Patient Comments: NG tube amlodipine 10 mg tablet 10 mg feeding tube DAILY atorvastatin 80 mg tablet 80 mg feeding tube DAILY insulin aspart U-100 [Novolog U-100 Insulin aspart] 100 unit/mL solution 4 unit subcut Q6H Biotene Dry Mouth Oral Rinse Mouthwash 15 ml mucous membrane Q6H Rx Instructions: swish for 15-30 secs , then spit out; do not swallow insulin aspart U-100 [Novolog FlexPen U-100 Insulin] 100 unit/mL (3 mL) insulin pen See Protocol subcut Q6H Protocol: 6. Sliding Scale Insulin Custom Condition: 151-200 Dose/Route: 2 Condition: 201-250 Dose/Route: 4 Condition: 251-300 Dose/Route: 6 Condition: 301-350 Dose/Route: 8 Condition: 351-400 Dose/Route: 10 Condition: 400 Dose/Route: 12 Instruction: notify MD Protocol Text: Custom Sliding Scale pantoprazole [address] for susp in packet 40 mg feeding tube BID polyethylene glycol 3350 [ClearLax] 17 gram/dose powder 17 g PO DAILY tacrolimus [Astagraf XL] 0.5 mg capsule,extended release 24hr 0.5 mg PO QPM Patient Comments: NG tube Rx Instructions: must administer in the morning on an empty stomach, 1 hour before or 2 hours after a meal cholecalciferol (vitamin D3) 25 mcg (1,000 unit) tablet 25 mcg feeding tube QODAY Eliquis 5 mg Tablet 2.5 mg feeding tube BID amoxicillin 500 mg capsule 500 mg feeding tube TID Qty: 1 0RF Rx Instructions: Continue until ordered to be discontinued from previous prescription Referrals / Follow Up: James Eden MD [Primary Care Provider] - See Referral Note (As previously directed) Disposition Disposition (needs filled in before D/C Order can be placed): NonSkilled NH/Intermed Care Charges/Coding Visit Charges Inpatient E&M: 76484 SNF Disch
[2024-08-09 12:32] LABS: Bedside Glucose 121 mg/dL (74-106)
--- NOTE | 2024-08-09 13:29 | PHA.DC.MR.R ---
Pharmacy [place] Med Reconciliation Pharmacy Service has performed discharge medication reconciliation for this patient. The patient's discharge medication list was reviewed for discrepancies and discrepancies were resolved. Medications at Discharge Home Medications finasteride 5 mg tablet 5 mg feeding tube DAILY PROSTATE 12/08/13 cyanocobalamin (vitamin B-12) 500 mcg tablet 500 mcg feeding tube DAILY@0900 vitamin 09/17/20 folic acid 1 mg tablet 1 mg feeding tube DAILY SUPPLEMENT 09/17/20 pyridoxine (vitamin B6) 100 mg tablet 200 mg feeding tube BID vitamin 11/12/21 prednisone 5 mg tablet 5 mg feeding tube DAILY inflammation 02/11/24 tacrolimus 1 mg capsule, immediate-release (Prograf) 1 mg PO DAILY rejection 02/11/24 amlodipine 10 mg tablet 10 mg feeding tube DAILY hypertension 08/03/24 atorvastatin 80 mg tablet 80 mg feeding tube DAILY hyperlipidemia 08/03/24 insulin aspart U-100 100 unit/mL subcutaneous solution (Novolog U-100 Insulin aspart) 4 unit subcut Q6H diabetes 08/03/24 apixaban 5 mg tablet (Eliquis) 2.5 mg feeding tube BID 08/07/24 cholecalciferol (vitamin D3) 25 mcg (1,000 unit) tablet 25 mcg feeding tube QODAY supplement 08/07/24 insulin aspart U-100 100 unit/mL (3 mL) subcutaneous pen (Novolog FlexPen U-100 Insulin aspart) See Protocol subcut Q6H diabetes 08/07/24 pantoprazole 40 mg granules delayed-release for susp in packet 40 mg feeding tube BID GERD 08/07/24 polyethylene glycol 3350 17 gram/dose oral powder (ClearLax) 17 g PO DAILY constipation 08/07/24 saliva substitute combo no.9 (Biotene Dry Mouth Oral Rinse mouthwash) 15 ml mucous membrane Q6H mouth hygiene 08/07/24 tacrolimus 0.5 mg capsule,extended release 24 hr (Astagraf XL) 0.5 mg PO QPM organ rejection 08/07/24 amoxicillin 500 mg capsule 500 mg feeding tube TID endocarditis #1 cap 08/09/24 lactose-reduced food with fiber 0.06 gram-1.5 kcal/mL oral liquid (Jevity 1.5 Nick) 220 ml G-tube 4X/DAY #0 mL 08/09/24
--- NOTE | 2024-08-09 13:45 | CASEMGMT ---
Social Work Physician updated that pt is ready for discharge to [facility] today.? SW met with pt and they are agreeable to discharge plan as stated above.?DCA notified of discharge. Disposition:[facility]; intermediate level of care KATIE Mercado
--- NOTE | 2024-08-09 14:31 | CASEMGMT ---
Discharge Planning Discharge orders, signed med list, and transport time sent to [facility] via [facility]. Physicians will transport patient by cot at 5p. Nursing, SW, patient, and his updated. Khushboo Arce DC Planning Asst.
--- NOTE | 2024-08-09 14:40 | NURSING ---
Report called to Beata at [facility]. Pt to be picked up at 17:00.
[2024-08-09 15:00] VITALS: BP 120/71; PULSE 78; RESP 18; TEMP 37; O2SAT 99
== END 2024-08-09 16:52 | disposition intermediate care facility (04) | DRG 920 ==
LOC: ED 19:55 → MS3 08-08 00:23
PROVIDERS: Internal Medicine Gastroenterology; Admitting Provider Internal Medicine; Emergency Provider Emergency Medicine; PCP Family Medicine; Visit Provider Internal Medicine
PROC: 0DJ08ZZ Inspection of Upper Intestinal Tract, Via Natural or Artificial Opening Endoscopic (ICD-10-PCS; CPT 43235; principal; 2024-08-08 17:25)
DX: T85.598A Other mechanical complication of other gastrointestinal prosthetic devices, implants and grafts, initial encounter (principal); I13.0 Hypertensive heart and chronic kidney disease with heart failure and stage 1 through stage 4 chronic kidney disease, or unspecified chronic kidney disease; N13.8 Other obstructive and reflux uropathy; Z94.0 Kidney transplant status; N17.9 Acute kidney failure, unspecified; D69.6 Thrombocytopenia, unspecified; D63.1 Anemia in chronic kidney disease; K22.2 Esophageal obstruction; Z66 Do not resuscitate; E11.22 Type 2 diabetes mellitus with diabetic chronic kidney disease; N18.32 Chronic kidney disease, stage 3b; E78.00 Pure hypercholesterolemia, unspecified; E55.9 Vitamin D deficiency, unspecified; Z79.4 Long term (current) use of insulin; X58.XXXA Exposure to other specified factors, initial encounter; N40.1 Benign prostatic hyperplasia with lower urinary tract symptoms; Z90.89 Acquired absence of other organs; Z98.0 Intestinal bypass and anastomosis status; Z98.84 Bariatric surgery status; Z79.01 Long term (current) use of anticoagulants; Z79.02 Long term (current) use of antithrombotics/antiplatelets; Z79.52 Long term (current) use of systemic steroids; Z79.84 Long term (current) use of oral hypoglycemic drugs; Z79.899 Other long term (current) drug therapy; Z85.810 Personal history of malignant neoplasm of tongue; Z86.718 Personal history of other venous thrombosis and embolism; Z86.73 Personal history of transient ischemic attack (TIA), and cerebral infarction without residual deficits; Z86.79 Personal history of other diseases of the circulatory system; Z23 Encounter for immunization
CPT/HCPCS: 36415; 71045; 74018; 80048; 80053; 82962; 83735; 84100; 84439; 84443; 85025; 90662; 92610; 94668; 97802; 99284; J7030

== ENCOUNTER 2024-08-31 08:01 | Inpatient (IN) | payer MEDICARE, OTHER, SELFPAY ==
[2024-08-31] VITALS (14 sets, daily range): BP systolic 84–119; BP diastolic 50–63; PULSE 57–71; RESP 14–20; TEMP 36.2–36.6; O2SAT 94–99; BMI 23.1
--- NOTE | 2024-08-31 08:12 | EKG12_ITS ---
Test Reason : Blood Pressure : */* mmHG Vent. Rate : 65 BPM Atrial Rate : 65 BPM P-R Int : 170 ms QRS Dur : 130 ms QT Int : 444 ms P-R-T Axes : 54 -51 74 degrees QTcB Int : 461 ms Normal sinus rhythm Left bundle branch block Abnormal ECG Confirmed by ANYI MOTA, LEE ([id number]), video news editor KARIE GONZALEZ ([id number]) on 09/01/2024 1:47:17 P M Referred By: Confirmed By: LEE DE SANTIAGO MD
--- NOTE | 2024-08-31 08:13 | EX.ED.DYSGE1 ---
HPI History of Present Illness Chief Complaint: Alt LOC Detail of Chief Complaint: Increased lethargy, anemia, UTI Informant: patient and SNF Narrative Narrative: Patient presents to the emergency department via EMS from half-way. Patient noted to have low hemoglobin of 5.3 and positive urine dip. He has been somewhat more lethargic today. Patient on Eliquis. Patient denies any complaints although he is a poor historian. Denies chest pain or abdominal pain. He denies shortness of breath. I am told patient's blood pressure normally is in the 90 systolic. Patient is comfort care arrest. [facility] Medical History (Updated 08/31/24 @ 09:[address] Mando Guardado, DO) Hx of tongue cancer Biventricular congestive heart failure Fall Chronic renal failure, stage 3b Hiatal hernia Tongue carcinoma BPH (benign prostatic hyperplasia) Dysphagia Carotid stenosis Immunosuppression due to chronic steroid use Esophageal stenosis Chronic anemia Chronic renal insufficiency Loss of hearing Wears glasses Diabetes Arthritis Hx of benign monoclonal gammopathy History of renal disease Low iron Fatty liver High cholesterol Easy bruising Back pain Injury of head and neck Stroke/cerebrovascular accident Syncope Dietary restriction History of colitis Non-smoker History of edema Hx of echocardiogram History of Holter monitoring History of stress test Cardiology follow-up encounter Hypertension History of irregular heartbeat Orthostatic hypotension HTN (hypertension) CVA (cerebral vascular accident) Home Medications ?Medication ?Instructions ?Recorded ?Last Taken ?Type finasteride 5 mg tablet 5 mg feeding tube DAILY PROSTATE 12/08/13 02/10/24 History cyanocobalamin (vitamin B-12) 500 500 mcg feeding tube DAILY@0900 09/17/20 02/11/24 History mcg tablet vitamin folic acid 1 mg tablet 1 mg feeding tube DAILY SUPPLEMENT 09/17/20 02/11/24 History pyridoxine (vitamin B6) 100 mg 200 mg feeding tube BID vitamin 11/12/21 02/11/24 History tablet prednisone 5 mg tablet 5 mg feeding tube DAILY 02/11/24 02/11/24 History inflammation tacrolimus 1 mg capsule, 1 mg PO DAILY rejection 02/11/24 02/10/24 History immediate-release (Prograf) amlodipine 10 mg tablet 10 mg feeding tube DAILY 08/03/24 Unknown History hypertension atorvastatin 80 mg tablet 80 mg feeding tube DAILY 08/03/24 Unknown History hyperlipidemia insulin aspart U-100 100 unit/mL 4 unit subcut Q6H diabetes 08/03/24 Unknown History subcutaneous solution (Novolog U-100 Insulin aspart) cholecalciferol (vitamin D3) 25 25 mcg feeding tube QODAY 08/07/24 Unknown History mcg (1,000 unit) tablet supplement insulin aspart U-100 100 unit/mL See Protocol subcut Q6H diabetes 08/07/24 Unknown History (3 mL) subcutaneous pen (Novolog FlexPen U-100 Insulin aspart) pantoprazole 40 mg granules 40 mg feeding tube BID GERD 08/07/24 Unknown History delayed-release for susp in packet polyethylene glycol 3350 17 17 g PO DAILY constipation 08/07/24 Unknown History gram/dose oral powder (ClearLax) saliva substitute combo no.9 15 ml mucous membrane Q6H mouth 08/07/24 Unknown History (Biotene Dry Mouth Oral Rinse hygiene mouthwash) tacrolimus 0.5 mg capsule,extended 0.5 mg PO QPM organ rejection 08/07/24 Unknown History release 24 hr (Astagraf XL) amoxicillin 500 mg capsule 500 mg feeding tube TID 08/09/24 Unknown Rx endocarditis #1 cap lactose-reduced food with fiber 220 ml G-tube 4X/DAY #0 mL 08/09/24 Unknown Rx 0.06 gram-1.5 kcal/mL oral liquid (Jevity 1.5 Nick) acetaminophen 650 mg rectal 650 mg FL Q4H PRN pain 08/31/24 Unknown History suppository aluminum-magnesium hydroxide 200 30 ml PO Q4H PRN GI DISTRESS 08/31/24 Unknown History mg-200 mg/5 mL oral suspension apixaban 2.5 mg tablet 2.5 mg feeding tube BID 08/31/24 Unknown History bisacodyl 10 mg rectal suppository 10 mg FL DAILY PRN constipation 08/31/24 Unknown History ciprofloxacin HCl 500 mg tablet 500 mg feeding tube BID UTI 08/31/24 Unknown History (Cipro) guaifenesin 100 mg/5 mL oral 200 mg PO Q4H PRN cough 08/31/24 Unknown History liquid (Adult Tussin Chest Congestion) Allergy/AdvReac Type Severity Reaction Status Date / Time amoxicillin Allergy Unknown Verified 08/07/24 03:34 ursodiol Allergy Rash Verified 08/07/24 03:34 exenatide (From [place]) AdvReac Nausea Verified 08/07/24 03:34 morphine AdvReac paranoid Verified 08/07/24 03:34 and hallucinations Family History Other Diabetes TIA (transient ischemic attack) Surgical History (Updated 08/31/24 @ 09:[address] Mando Guardado DO) History of esophagogastroduodenoscopy Renal transplant recipient S/P arteriovenous (AV) fistula creation Hx of bariatric surgery Kidney transplant recipient Social History household members: significant other and other details: his 's name is Alisha housing: house number of children: 2 current occupational status: retired current occupation: spent 30 years in service nad worked in [employer] in [place] and [place]. Smoking Status: Never smoker alcohol intake: never details: Never drinks now for many years. In the past has been a social drinker. substance use type: does not use ROS ROS ED Review of Systems ROS Unobtainable: other Constitutional Constitutional ED: Reports lethargy; Denies chills, fever(s), sweats or weight loss Eyes Eyes: Denies blurry vision, change in vision or diplopia ENT ENT ED: Denies rhinorrhea or sore throat Cardiovascular Cardiovascular: Denies chest pain, orthopnea or racing heartbeat Respiratory/Chest Respiratory/Chest: Denies cough, dyspnea, dyspnea on exertion, orthopnea or sputum Gastrointestinal Gastrointestinal: Denies abdominal pain, diarrhea, nausea or vomiting Genitourinary Genitourinary ED: Denies dysuria, hematuria or urinary frequency Musculoskeletal Musculoskeletal: Denies arthralgias, back pain, myalgias or neck pain Integumentary Denies abscess, Abrasions or rash Neurologic Neurologic: Denies headache(s) or weakness Psychiatric Psychiatric: Denies anxiety, depression or suicidal thoughts Endocrine Endocrinology: Denies polydipsia, polyphagia or polyuria Hematologic/Lymphatic Hematologic/Lymphatic: Denies easy bleeding, easy bruising or lymphadenopathy Allergic/Immunologic Allergic/Immunologic ED: Denies mouth swelling, tongue swelling or urticaria EXAM Physical Exam Const Vital Signs: 08/31/24 08:02 08/31/24 09:01 08/31/24 09:15 Temperature 97.5 F L 98 F Temperature Source Oral Axillary Pulse Rate 66 61 64 Respiratory Rate 16 16 20 H Blood Pressure 88/58 L 84/50 L 91/54 L Blood Pressure Mean 68 61 66 Blood Pressure Source Blood Pressure Position Blood Pressure Location Pulse Ox 95 96 95 Oxygen Delivery Method Room Air Room Air Room Air 08/31/24 10:00 08/31/24 10:14 08/31/24 10:15 Temperature 97.1 F L 97.1 F L Temperature Source Core Core Pulse Rate 60 57 L 60 Respiratory Rate 16 16 14 Blood Pressure 94/55 L 94/55 L 94/55 L Blood Pressure Mean 68 68 68 Blood Pressure Source Monitor Blood Pressure Position Supine Blood Pressure Location Left Forearm Pulse Ox 96 94 98 Oxygen Delivery Method Room Air Room Air Room Air 08/31/24 10:29 08/31/24 11:00 08/31/24 11:00 Temperature 97.2 F L 97.1 F L Temperature Source Core Core Pulse Rate 60 60 60 Respiratory Rate 18 16 16 Blood Pressure 101/54 L 103/53 L 103/53 L Blood Pressure Mean 69 69 69 Blood Pressure Source Monitor Blood Pressure Position Supine Blood Pressure Location Left Forearm Pulse Ox 99 98 96 Oxygen Delivery Method Room Air Room Air Room Air Positive well nourished and well developed General Appearance ED: well developed and NAD HEENT Reports TM's clear and moist mucous membranes normocephalic and atraumatic; Negative for trauma or tenderness Tympanic Membrane ED: Yes TM's clear Eyes PERRL and EOMs intact bilaterally General Eye ED: Negative for pale conjunctiva or scleral icterus Neck no lymphadenopathy, supple and no JVD General: Negative for tenderness Chest Wall inspection of chest normal and palpation of chest normal Chest: Negative for tenderness Resp normal respiratory effort and clear to auscultation bilaterally Effort and Inspection: Negative for respiratory distress or pain with movement Auscultation: Negative for rhonchi, wheezes or diminished lung sounds Cardio regular rate, regular rhythm, S1 normal heart sound, S2 normal heart sound and no murmurs Peripheral Pulses: pulses 2+ throughout GI normal to inspection, nondistended, normoactive bowel sounds, soft to palpation, non-tender, non-distended and no masses GI Narrative: Rectal exam performed and there was bright red blood per rectum. No masses or obvious fissures noted. Back/Spine no CVA tenderness and no thoracic nor lumbar tenderness Extremity normal to inspection General Extremety ED: Negative for edema General Extremity: Negative for edema Neuro oriented x3, CN's II-XII intact bilaterally, no sensory deficits noted and gait normal Sensorium / Orientation: awake, alert, oriented to person, oriented to place and oriented to time Motor Exam: strength 5/5 throughout and strength abnormal Psych mental status grossly normal Skin no rashes or lesions noted and no wounds MDM MDM MDM Narrative Medical decision making narrative: Patient presents with increased lethargy today. Presents for low hemoglobin levels and possible UTI. Patient without complaints. Patient's presented also gave some history as well. 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 He had been on IV antibiotics. Patient has a mechanical heart valve and is currently on Eliquis. He has had admission before for blood transfusions. Patient also has history of renal transplant performed at [facility]. IV line established on arrival. Blood cultures ordered. CBC with differential obtained showed white count 6.4 with hemoglobin of 5.5. Platelet count 69,000. Chemistries show sodium 135 with potassium 4.4 and chloride of 103. BUN was 105 and creatinine 2.71. No old lab values available for comparison. Troponin was elevated 340 however I suspect this is likely related to kidney function and do not feel he is having acute coronary syndrome. 1 view chest x-ray obtained showed right upper lobe and right lower lobe infiltrates with some mild pulmonary congestion and mild cardiomegaly. Patient started on Levaquin IV. Patient has an NG tube down and tells me he recently failed his swallow eval therefore this brings aspiration pneumonia in the differential. Patient was typed and crossed for 2 units packed red cells. Initially was given a liter Mustain fluid bolus. Will discuss case with [facility] for transfer to their facility. understands. He apparently needs cardiac surgery but states that he probably will never get it as he is too high risk. Patient had been full go but currently Comfort Care arrest. She does not want her aerobic measures for patient. Okay with fluids and antibiotics and medical care. Patient admitted to [facility] after discussing case with Dr. Stout however she stated that they just gave away their last ICU bed and they are unsure when they will have a bed available. Discussed case with hospitalist here to Dr. Lynn who will admit patient to ICU. Lab Data Attestation: I reviewed the patient's lab results. Labs: Laboratory Results - last 24 hr 08/31/24 08/31/24 08:52 09:37 WBC 6.4 RBC 1.71 L Hgb 5.5 L* Hct 17.5 L MCV 102.3 H MCH 32.2 H MCHC 31.4 L RDW Std Deviation 62.2 H RDW Coeff of Lacy 16.6 H Plt Count 69 L MPV 10.0 Immature Gran % (Auto) 0.800 Neut % (Auto) 85.8 H Lymph % (Auto) 3.9 L Whitley % (Auto) 9.1 Eos % (Auto) 0.2 Baso % (Auto) 0.2 Absolute Neuts (auto) 5.5 Absolute Lymphs (auto) 0.25 L Nucleated RBC % 0 Differential Comment Diff Path Review May foll Sodium 135 L Potassium 4.4 Chloride 103 Carbon Dioxide 28.0 Anion Gap 4 L BUN 105 H* Creatinine 2.71 H Estim Creat Clear Calc 25.42 Est GFR (MDRD) Af Amer 30 L Est GFR (MDRD) Non-Af 24 L BUN/Creatinine Ratio 38.7 H Glucose 136 H Lactic Acid 1.3 Calcium 7.3 L Total Bilirubin 0.50 AST 89 H ALT 99 H Alkaline Phosphatase 84 Troponin I High Sens 340 H* Total Protein 4.7 L Albumin 1.4 L Globulin 3.3 Albumin/Globulin Ratio 0.4 L Urine Color Yellow Urine Clarity Clear Urine pH 6.0 Ur Specific [place] 1.010 Urine Protein 30 H Urine Glucose (UA) Normal Urine Ketones Negative Urine Occult Blood 150 H Urine Nitrite Negative Urine Bilirubin Negative Urine Urobilinogen Normal Ur Leukocyte Esterase 500 H Urine RBC 0-5 SEEN Urine WBC 10-25 SEEN Ur Squamous Epith Cells 0 SEEN Urine Bacteria 1+ Urine Mucus 0 SEEN Blood Type O POSITIVE Antibody Screen NEGATIVE Crossmatch See Detail Radiography Diagnostic Testing: Clinical Impression(s) from Imaging Studies Chest X-Ray 08/31/24 09:01 IMPRESSION: Patchy right upper and right lower lobe infiltrates with vascular congestion Borderline cardiomegaly. Electronically Signed: Zelalem Gould MD at 9:34 EST , 1 view chest x-ray obtained interpreted by myself as right lower lobe infiltrate. Radiology felt there was right lower lobe and right upper lobe infiltrates with vascular congestion and borderline cardiomegaly. EKG Initial EKG: Attestation: I personally reviewed and interpreted this EKG as follows: Comments: Sinus rhythm with rate of 65 bpm with left bundle branch block Critical Care Time Critical Care Time: Yes Critical care time (excluding procedures): 30-74 minutes, Including time spent:, Discussing w/Patient &/or Family/Business Department Chair, Discussing w/Consultants, Arranging Admission or Transfer, Performing Direct Patient Care at Bedside and - (30) Discharge Plan Dx/Rx/DC Orders Clinical Impression: Anemia, GI bleed, Pneumonia, Hx of kidney transplant, Chronic renal insufficiency Disposition Disposition: Acute Care Hospital [facility]
--- NOTE | 2024-08-31 09:01 | RAD_ITS ---
STUDY: X-RAY CHEST REASON FOR EXAM: Male, 74 years old. Weakness TECHNIQUE: Single AP portable view of the chest. COMPARISON: Comparison is made with prior study dated August 07, 2024. FINDINGS: A feeding tube is seen with the tip below the left hemidiaphragm. EKG electrodes are seen. Infiltrate in the right lower lobe and right upper lobe superimposed on vascular congestion. There is no demonstrated pleural abnormality. There is borderline cardiomegaly. Prior aortic valve replacement. Normal mediastinum and carolyn. Normal visualized pulmonary arteries. There is atherosclerotic tortuosity of the aortic arch and descending thoracic aorta. There are diffuse degenerative changes of the visualized thoracic spine. Dextroscoliosis Normal visualized ribs, clavicles, and shoulders. There is no demonstrated abnormality of the visualized soft tissue structures of the upper abdomen. RAD/Chest 1 View (Portable) IMPRESSION: Patchy right upper and right lower lobe infiltrates with vascular congestion Borderline cardiomegaly. Electronically Signed: Zelalem Gould MD at 9:34 EST ,
[2024-08-31 09:07] LABS: Absolute Lymphocyte Count 0.25 X10^3/uL (0.83-4.51); Absolute Neutrophil Count 5.5 X10^3/uL (2.0-7.7); Basophil# 0.01 X10^3/uL; Basophil% 0.2 % (0-1); Eosinophil# 0.01 X10^3/uL; Eosinophils% 0.2 % (0-5); Hematocrit 17.5 % (40-54); Lymphocyte # 0.25 X10^3/ul (0.83-4.51); Lymphocyte % 3.9 % (19-41); Mean Corp Hgb Conc 31.4 g/dL (32-36); Mean Corpuscular Hgb 32.2 pg (27.0-32.0); Mean Corpuscular Volume 102.3 fL (80-94); Monocyte# 0.58 X10^3/uL; Monocyte% 9.1 % (0-10); NRBC Flagged by Analyzer 0 % (0-5); Neutrophil # 5.49 X10^3/uL (2.7-7.7); Neutrophil % 85.8 % (47-70); POSITIVE COUNT YES; POSITIVE DIFFERENTIAL YES; POSITIVE MORPHOLOGY YES; Platelet Count 69 K/mm3 (150-450); RBC Distribution Width CV 16.6 % (11.6-14.6); RBC Distribution Width SD 62.2 fl (35.1-43.9); Red Blood Count 1.71 M/mm3 (4.6-6.2); White Blood Count 6.4 K/mm3 (4.4-11.0)
[2024-08-31 09:10] LABS: Hemoglobin 5.5 g/dL (13.0-16.5)
[2024-08-31] MEDS: 0.9% Normal Saline (1000mL) 1,000 ML 999 ML IV (09:14)
[2024-08-31 09:24] LABS: Lactic Acid 1.3 mmol/L (0.4-1.9)
[2024-08-31 09:26] LABS: ALB/GLOB Ratio 0.4 RATIO (0.9-2.4); AST(SGOT) 89 U/L (15-37); Alanine Aminotransfer ALT/SGPT 99 U/L (16-61); Albumin, Serum 1.4 g/dL (3.2-5.0); Alkaline Phosphatase 84 U/L (45-117); Anion Gap 4 (5-15); BUN 105 mg/dL (7-18); BUN/Creat Ratio 38.7 RATIO (10-20); Calcium,Total 7.3 mg/dL (8.5-10.1); Chloride 103 mmol/L (98-107); Creatinine, Serum 2.71 mg/dL (0.70-1.30); EST Glomerular Filtration Rate 24 mL/min (>60); Est Glom Filt Rate - Afr Amer 30 mL/min (>60); Estimated Creatinine Clearance 25.42 ml/min; Globulin 3.3 g/dL (2.2-4.2); Glucose 136 mg/dL (74-106); Potassium 4.4 mmol/L (3.5-5.1); Protein, Total 4.7 g/dL (6.4-8.2); Sodium Level 135 mmol/L (136-145); Troponin-I HS 340 pg/mL (3.0-78.0)
[2024-08-31 09:41] LABS: Mucous, Urine 0 SEEN /hpf (<or=2+); Squamous Epithelial Cells - UA 0 SEEN /hpf (0-5)
[2024-08-31 09:55] LABS: Color, Urine Yellow (Yellow); Glucose, Dipstick Normal (Normal); Ketone-Dipstick Negative (Negative); Leukocyte Esterase-Dipstick 500 /ul (Negative); Nitrite-Dipstick Negative (Negative); Occult Blood-Urine 150 /ul (Negative); Protein-Dipstick 30 mg/dl (Negative); Urine Bilirubin Dipstick Negative (Negative); Urine Clarity Clear (Clear); Urine Urobilinogen Normal (Normal)
[2024-08-31 10:10] LABS: Red Blood Cells-Urine 0-5 SEEN /hpf (0-5); White Blood Cells 10-25 SEEN /hpf (0-5)
[2024-08-31 10:11] LABS: Bacteria 1+ /hpf (None Seen)
[2024-08-31] MEDS: levoFLOXacin IV 750 MG in Empty Viaflex Q24 100 MG IV (11:17)
[2024-08-31] MEDS: Pantoprazole Sodium 80 MG in 0.9% Normal Saline (100mL Bag) 80 ML 10 MG CONT INF (13:30)
--- NOTE | 2024-08-31 14:41 | NURSING ---
Patient was admitted from the ER into ICU 3. Patient was being placed on child monitor when this RN was informed by medical secretary that [facility]'s transfer center just called and notified that they had a bed available and transport could be arranged to arrive in about 1 hour. Patient was placed on monitor and Dr Lynn notified of the bed availability discharge orders were placed. Report called to [facility] MICU RN, transport arrived and patient was transferred.
--- NOTE | 2024-08-31 16:45 | PN_ITS ---
Progress Note 74-year-old male presented to the hospital with anemia with hemoglobin of 5.5 with concerns for possible upper GI bleeding given that his BUN was also elevated to 105. He was started on Protonix drip and transferred to the ICU pending transfer to [facility] as he is complicated with a history of Dobbhoff placement as well as kidney transplant as well as being on anticoagulation for heart valve. He was admitted from the ER receiving 2 units of blood and was transported to the ICU however almost immediately upon arrival we were notified by [facility] that they did have a bed available neuro ICU and when I went to evaluate him he was already being transferred to the ambulance bed and transporting out of the hospital. As I did not have a chance to evaluate him completely this will qualify as his H&P and discharge summary
[2024-09-01 12:06] LABS: Pathologist Review Reviewed
== END 2024-08-31 14:30 | disposition short-term general hospital (02) | DRG 377 ==
LOC: ED 11:22 → ICU 12:25
PROVIDERS: Admitting Provider Family Medicine; Emergency Provider Emergency Medicine; PCP Family Medicine; Visit Provider Family Medicine
DX: K92.2 Gastrointestinal hemorrhage, unspecified (principal); J18.9 Pneumonia, unspecified organism; I13.0 Hypertensive heart and chronic kidney disease with heart failure and stage 1 through stage 4 chronic kidney disease, or unspecified chronic kidney disease; I50.82 Biventricular heart failure; E11.22 Type 2 diabetes mellitus with diabetic chronic kidney disease; N18.32 Chronic kidney disease, stage 3b; E78.00 Pure hypercholesterolemia, unspecified; Z79.4 Long term (current) use of insulin; Z79.899 Other long term (current) drug therapy; Z79.01 Long term (current) use of anticoagulants
CPT/HCPCS: 71045; 80053; 81001; 83605; 84484; 85025; 86850; 86900; 86901; 86920; 86922; 87040; 87077; 87086; 87184; 87186; 93005; 99285; P9016; A4216